=== PATIENT | female | born 1950 | race Caucasian/White ===

== ENCOUNTER 2017-10-17 11:08 | Inpatient (IN) | payer MEDICARE, SELFPAY ==
[2017-10-17] VITALS (21 sets, daily range): BP systolic 102–160; BP diastolic 70–125; PULSE 76–163; RESP 16–28; TEMP 36.4–36.9; O2SAT 92–97; BMI 39.2; BMI 39.4
--- NOTE | 2017-10-17 11:47 | ED.VISSUMM ---
- ER Visit Summary Date of Service: 10/17/17 Chief Complaint: Shortness of breath and leg swelling History of Present Illness: The patient is a 67 F who presents with shortness of breath that has been getting worse over the past 5 weeks. Patient states her legs have gotten more swollen over the past few days and her breathing has gotten worse. Patient admits to a cough but denies any sputum production. Patient states her breathing is worse with laying flat. Patient denies any dyspnea with exertion. Patient states she has been having some drainage from her lower legs. Patient admits to some palpitations that have been intermittent over the past few weeks. Patient denies any chest pain. Patient denies any fevers. Physical Examination: Vital signs are stable except for tachycardia of 153. Oral mucosa is pink and moist. Neck is supple. Trachea is midline. There is no JVD noted. Heart was irregularly irregular and tachycardic. Lungs show bibasilar rales. There is good respiratory effort noted. Abdomen is soft nontender. Musculoskeletal exam reveals 2+ pitting edema of the lower extremities bilaterally. Cranial nerves II through XII are intact. There are no focal motor or sensory deficits noted. Test Results: EKG showed atrial fibrillation with a rate of 151. There are no acute ST or T-wave changes. Chest x-ray shows a density in the right lung base which is worrisome for focal consolidation/infiltrate. There is some mild congestion noted. There is a small right pleural effusion. CBC shows a leukocytosis of 18.9. BUN and creatinine were slightly elevated at 35 and 1.4. BNP is only slightly elevated at 281.6. Emergency Department Course and Treatment: Patient was given a dose of Cardizem IV here. Patient was given a dose of oral Cardizem. Patient was started on antibiotics for community-acquired pneumonia. Case was discussed with the hospitalist. Patient will be admitted to the hospital. Patient and family understood and were agreeable with the plan. All questions were answered. Disposition: Admit to hospital Impression: 1. New onset atrial fibrillation 2. Community-acquired pneumonia This note was generated with Jianjianation software. It may contain incorrect words, spelling, and punctuation that were not noted in review of the chart prior to signing ED Disposition - Plan for ED Patient: Disposition: Acute Care Hospital [facility] Chief Complaint: Shortness of Breath Diagnosis: New onset atrial fibrillation, Community acquired pneumonia Referrals: Care Physician,No Primary [Primary Care Provider] -
[2017-10-17] MEDS: dilTIAZem 25 MG/5 ML Vial 20 MG IV BOLUS (12:14)
[2017-10-17 12:25] LABS: Absolute Lymphocyte Count 2.53 X10^3/ul (0.83-4.51); Absolute Neutrophil Count 14.9 X10^3/uL (2.0-7.7); Basophil# 0.02 X10^3/uL; Basophil% 0.1 % (0-1); Eosinophil# 0.02 X10^3/uL; Eosinophils% 0.1 % (0-5); Hematocrit 44.4 % (37-47); Hemoglobin 14.5 g/dl (12.0-15.0); Lymphocyte # 2.53 X10^3/ul (4.0); Lymphocyte % 13.4 % (19-41); Mean Corp Hgb Conc 32.7 g/gl (32-36); Mean Corpuscular Hgb 30.6 pg (27.0-32.0); Mean Corpuscular Volume 93.7 fL (81-99); Mean Platelet Vol. 10.6 fl (6.2-12.0); Monocyte# 1.43 X10^3/uL; Monocyte% 7.6 % (0-10); Neutrophil # 14.89 X10^3/uL (2.7-7.7); Neutrophil % 78.7 % (47-70); POSITIVE COUNT NO; POSITIVE DIFFERENTIAL NO; POSITIVE MORPHOLOGY NO; Platelet Count 285 K/mm3 (150-450); RBC Distribution Width CV 16.9 % (11.6-14.6); RBC Distribution Width SD 56.9 fl (35.1-43.9); Red Blood Count 4.74 M/mm3 (4.2-5.4); White Blood Count 18.9 K/mm3 (4.4-11.0)
[2017-10-17 12:34] LABS: Anion Gap 11 (5-15); BUN 35 mg/dL (7-18); Calcium,Total 8.3 mg/dL (8.5-10.1); Chloride 109 mmol/L (98-107); EST Glomerular Filtration Rate 40 mL/min (>60); Est Glom Filt Rate - Afr Amer 48 mL/min (>60); Estimated Creatinine Clearance 35.57 ml/min; Glucose 105 mg/dL (74-106); Potassium 4.2 mmol/L (3.5-5.1); Sodium Level 141 mmol/L (136-145)
--- NOTE | 2017-10-17 12:38 | ED.RN ---
Addendum entered by Ana Garza 10/17/17 12:40: DR LICEA MADE AWARE Original Note: Addendum entered by Ana Garza 10/17/17 12:39: Original Note: FAMILY APPROACHED THIS NURSE AND WANTED TO MAKE NOTE THAT THE PATIENT AND FORGOT TO MENTION PT'S NEW ONSTE FORGETFULNESS AND SLURRED SPEECH. DR LICEA NOTED.
[2017-10-17 12:50] LABS: BNP,B-Type NATRIURETIC PEPTIDE 281.6 pg/mL (0-100)
[2017-10-17] MEDS: Ceftriaxone 1 GM/50 ML BAG IV (14:36)
[2017-10-17] MEDS: dilTIAZem 60 MG Tablet PO (14:36)
--- NOTE | 2017-10-17 14:36 | NURSING ---
ATTEMPTED TO CALL ER CHARGE PHONE W/ NO ANSWER. THEN CALLED ADMINISTRATOR TO TELL THEM THEY COULD SEND THE PT UP.
--- NOTE | 2017-10-17 14:44 | PCM.HP.STD ---
<Cassandra Bynum - Last Filed: 10/17/17 15:05> Problem List (1) New onset atrial fibrillation Status: Acute (2) Community acquired pneumonia Status: Acute (3) Obesity (BMI 30-39.9) Status: Chronic History of Present Illness Date of Admission: 10/17/17 Chief Complaint: Shortness of breath, lower extremity swelling. The patient is a 67 year old F who presents to the emergency room due to shortness of breath and lower extremity swelling. Patient notes shortness of breath has been ongoing for approximately 5 weeks. She notes poor sleep due to shortness of breath while lying flat at night. Patient states her lower extremities have been swollen for the last week and increased over the last few days. She denies fever, chills. Denies chest pain. Complains of intermittent palpitations. Complains of dry cough. States cough is worse at night while lying flat. Denies dizziness, lightheadedness. She is unaware of any significant change in weight. Patient does not follow with primary care physician. She denies prior medical history. Does not take any daily medications. Past Medical History Past Medical History (Chronic Problems): Chronic Problems Obesity (BMI 30-39.9) (Chronic) Allergies No Known Allergies Allergy (Verified 10/17/17 11:13) Home Medications: Ambulatory Orders Medication Instructions Recorded NK [NK] 10/17/17 Surgical History: hysterectomy, tonsillectomy Psychiatric History: No pertinent psych hx CHECK PILOT History: No pertinent CHECK PILOT history Lives: With Family Smoking Status: Never smoker Alcohol: None Drugs: None - *Family History Maternal History Items: - - Arthritis, joint issues Paternal History Items: Cancer - Lung, pancreatic Review of Systems Constitutional: Denies: Anorexia, Chills, Fever HEENT: Denies: Head Aches, Sinus Congestion, Sinus Drainage Cardiovascular: Reports: Edema - Lower extremity, Orthopnea, Palpitations. Denies: Chest Pain, Light Headedness, Syncope Respiratory: Reports: Cough - Non productive, Shortness of Breath. Denies: Sputum production Gastrointestinal: Denies: Abdominal Pain, Constipation, Diarrhea, Nausea, Vomiting Genitourinary: Denies: Dysuria Musculoskeletal: Denies: Joint Pain, Joint Tenderness Skin: Denies: Rash, Wounds Neurological: Denies: Numbness, Tingling, Focal weakness Psychiatric: Denies: Anxiety, Depression, Homicidal Ideations, Suicidal Ideations Hematologic/ Lymphatic: Denies: Easy Bruising, Easy Bleeding VTE Information - Inpt Only VTE Present on Admission: No VTE Mechan Device Prophylaxis: None VTE Pharm Prophylaxis ordered?: Yes Patient Problems: Active and Suspected Problems New onset atrial fibrillation (Acute) Community acquired pneumonia (Acute) - Physical Exam General: Alert, Oriented x3, Cooperative, No apparent distress HEENT: Atraumatic, PERRLA, EOMI, Normocephalic Neck: Supple, No JVD, Negative Carotid Bruits Lungs: Normal air movement, Rales - BL bases Cardiovascular: No murmurs, Tachycardic, - - Atrial fibrillation Abdomen: Bowel Sounds Present, Soft, Non Tender, Non-Distended Extremities: No clubbing, No cyanosis, Capillary Refill Less than 3 Seconds, Edema - +1 BL lower extremity Skin: No rashes, No breakdown Musculoskeletal: No Tenderness to Palpation of Joints or Extremities Neurological: Cranial nerves II-XII grossly intact, Neuro grossly intact Psych/Mental Status: Normal Affect, Appropriate Vital Signs Temp Pulse Resp BP Pulse Ox 97.8 F 140 H 21 H 153/125 H 96 10/17/17 11:10 10/17/17 14:16 10/17/17 14:16 10/17/17 14:16 10/17/17 14:16 Oxygen Flow Rate (L/min) 2 Oxygen Delivery Method Nasal Cannula Weight: 235 lb 10.786 oz Body Mass Index (BMI) 39.2 Laboratory Tests Past 24 Hrs 10/17/17 10/17/17 10/17/17 12:11 12:11 12:11 WBC 18.9 H RBC 4.74 Hgb 14.5 Hct 44.4 MCV 93.7 MCH 30.6 MCHC 32.7 RDW 16.9 H RDW Differential 56.9 H Plt Count 285 MPV 10.6 Immature Gran % (Auto) 0.100 Neut % (Auto) 78.7 H Lymph % (Auto) 13.4 L [place] % (Auto) 7.6 Eos % (Auto) 0.1 Baso % (Auto) 0.1 Absolute Neuts (auto) 14.9 H Absolute Lymphs (auto) 2.53 Total Counted Not Reportable Sodium 141 Potassium 4.2 Chloride 109 H Carbon Dioxide 21.0 Anion Gap 11 BUN 35 H Creatinine 1.40 H Estim Creat Clear Calc 35.57 Est GFR (MDRD) Af Amer 48 L Est GFR (MDRD) Non-Af 40 L BUN/Creatinine Ratio 25.0 H Glucose 105 Calcium 8.3 L Troponin I 0.027 B-Natriuretic Peptide 281.6 H Assessment/Plan All Active Problems New onset atrial fibrillation (Acute) Community acquired pneumonia (Acute) 1. New onset atrial fibrillation with RVR-EKG in ER A. fib with RVR, no ST-T changes. Patient received 20 mg IV Cardizem bolus in ER followed by Cardizem 60 mg p.o. ?1. Heart rate remains elevated. Begin Cardizem drip. Cycle enzymes. Check TSH, mag. Obtain echocardiogram. Chadsvasc score 2. Unclear medical history as patient has not seen PCP. Heparin sc for now, further assess need for oral anticoagulation. Begin aspirin 81mg. 2. Acute community acquired right lower lobe pneumonia-chest x-ray on admission with small right pleural effusion. WBC 18.9. Albuterol and DuoNeb aerosol. Check urine for strep and Legionella. IV azithromycin and IV Unasyn. IS. 3. Acute hypoxia-secondary to #1/#2. Continue supplement oxygen to maintain O2 at or above 90%. 4. Elevated blood pressure-no known prior history of hypertension. Hydralazine prn SBP >160. Continue to monitor. May need addition of oral regimen. 5. Suspected chronic kidney disease stage II-III-no prior labs. Unclear baseline. Trend BMP. 6. Obesity-encourage diet and lifestyle modifications. Nutrition consult. DVT prophylaxis-heparin sc. This patient was seen by SHONA Hand under the supervision of Dr. Rodriguez. <Nash Rodriguez F - Last Filed: 10/17/17 15:49> History of Present Illness The patient is a 67 year old F [] Past Medical History Allergies No Known Allergies Allergy (Verified 10/17/17 11:13) - Physical Exam Vital Signs Temp Pulse Resp BP Pulse Ox 97.8 F 140 H 21 H 153/125 H 96 10/17/17 11:10 10/17/17 14:16 10/17/17 14:16 10/17/17 14:16 10/17/17 14:16 Weight: 236 lb 15.951 oz Body Mass Index (BMI) 39.4 Assessment/Plan Addendum: Dr. Rodriguez I personally examined the patient and reviewed the chart. I agree with the above. Ms. Padilla is a 67-year-old female with no significant past medical history because she has not been to see a doctor in several years. She presents to the ER today with 5 week history of progressive shortness of breath orthopnea and bilateral lower extremity swelling without calf pain. She denies any chest pain, lightheadedness, or syncope. General: Alert, Oriented x3, Cooperative, No apparent distress HEENT: Atraumatic, EOMI, Normocephalic Oral: Moist Mucosa Neck: Supple, JVD Lungs: Clear to auscultation, Normal air movement, No rhonchi, No wheeze, No rales, diminished at b/l bases Cardiovascular: tachycardic, irregular Rhythm, Normal S1, Normal S2, No murmurs Abdomen: Soft, Non Tender, Non-Distended, No Hepato-splenomegaly Extremities: 2+ pitting edema, Capillary Refill Less than 3 Seconds Skin: No rashes, No breakdown Psych/Mental Status: Normal Affect, Appropriate 1. SOB/Edema/RLL CAP/Afib with RVR/LUAN - Based on criteria she is septic, however, she is also in a fib and likely heart failure that needs further characterization - In lieu of fluid boluses which would be dangerous, Will give IV lasix to help with her fluid overloaded status - The only SIRS criteria I feel that is present from her pneumonia is her leukocytosis, so I highly doubt she is truly septic - C/w Unasyn/Azithro with plans to discharge on augmentin and azithro - echo in the am - TSH, A1c, Lipid panel and a repeat troponin are all pending - currently she is a CHADS2 of 1, the echo can demonstrate CHF and the A1c will elucidate any diabetes. She does have an elevated SBP however I am unsure if this is chronic or acute based on her symptoms. can decide on anticoagulation vs Aspirin prior to DC when more data is available DVT: heparin BID Diet: Cardiac Code Visit Inpatient E&M: 69040 Init Hosp L3
[2017-10-17] MEDS: Furosemide 40 MG/4 ML Vial IV (15:58)
[2017-10-17] MEDS: 0.9% NaCl Peripheral Flush Adult/Peds IV ×2 (15:58→21:53)
[2017-10-17 16:51] LABS: Hemoglobin A1c 5.3 % (4.2-6.3)
[2017-10-17 17:01] LABS: Thyroid Stim Hormone (TSH) 2.09 uIU/mL (0.358-3.74)
[2017-10-17] MEDS: Heparin Injection (Vial) 5,000 UNIT/ML VIAL 5000 UNIT SC (21:49)
[2017-10-18] VITALS (31 sets, daily range): BP systolic 97–145; BP diastolic 53–102; PULSE 68–97; RESP 14–26; TEMP 36.1–37; O2SAT 91–97
[2017-10-18 05:29] LABS: Absolute Lymphocyte Count 3.26 X10^3/ul (0.83-4.51); Absolute Neutrophil Count 12.2 X10^3/uL (2.0-7.7); Basophil# 0.03 X10^3/uL; Basophil% 0.2 % (0-1); Eosinophil# 0.09 X10^3/uL; Eosinophils% 0.5 % (0-5); Hematocrit 44.3 % (37-47); Hemoglobin 14.1 g/dl (12.0-15.0); Lymphocyte # 3.26 X10^3/ul (4.0); Lymphocyte % 19.3 % (19-41); Mean Corp Hgb Conc 31.8 g/gl (32-36); Mean Corpuscular Hgb 30.1 pg (27.0-32.0); Mean Corpuscular Volume 94.7 fL (81-99); Mean Platelet Vol. 10.1 fl (6.2-12.0); Monocyte# 1.28 X10^3/uL; Monocyte% 7.6 % (0-10); Neutrophil # 12.17 X10^3/uL (2.7-7.7); Neutrophil % 72.2 % (47-70); Platelet Count 262 K/mm3 (150-450); RBC Distribution Width CV 17.1 % (11.6-14.6); RBC Distribution Width SD 58.6 fl (35.1-43.9); Red Blood Count 4.68 M/mm3 (4.2-5.4); White Blood Count 16.9 K/mm3 (4.4-11.0)
[2017-10-18 05:31] LABS: POSITIVE COUNT NO; POSITIVE DIFFERENTIAL NO; POSITIVE MORPHOLOGY NO
[2017-10-18 05:48] LABS: Anion Gap 10 (5-15); BUN 31 mg/dL (7-18); BUN/Creat Ratio 22.5 RATIO (10-20); Calcium,Total 8.1 mg/dL (8.5-10.1); Chloride 105 mmol/L (98-107); Cholesterol 127 mg/dL (200); Creatinine, Serum 1.38 mg/dL (0.55-1.02); EST Glomerular Filtration Rate 41 mL/min (>60); Est Glom Filt Rate - Afr Amer 49 mL/min (>60); Estimated Creatinine Clearance 36.08 ml/min; Glucose 101 mg/dL (74-106); High Density Lipoprotein 28 mg/dL; Potassium 3.8 mmol/L (3.5-5.1); Sodium Level 142 mmol/L (136-145); Triglycerides 153 mg/dL; Very Low Density Lipoprotein 31 mg/dL (5-40)
[2017-10-18] MEDS: Heparin Injection (Vial) 5,000 UNIT/ML VIAL 5000 UNIT SC (08:58)
--- NOTE | 2017-10-18 12:02 | PCM.PROGNOTE ---
<Cassandra Bynum - Last Filed: 10/18/17 12:13> Patient Problems: Active and Suspected Problems New onset atrial fibrillation (Acute) Community acquired pneumonia (Acute) Subjective: Patient seen and examined. States breathing is improved. Denies chest pain, palpitations. No other complaints at this time. - Physical Exam General: Alert, Oriented x3, Cooperative, No apparent distress HEENT: Atraumatic, PERRLA, EOMI, Normocephalic Neck: Supple, No JVD, Negative Carotid Bruits Lungs: Clear to auscultation, Diminished Cardiovascular: - - Atrial fibrillation, rate controlled. Abdomen: Bowel Sounds Present, Soft, Non Tender, Non-Distended Extremities: No clubbing, No cyanosis, Capillary Refill Less than 3 Seconds, Edema - +1 lower extremity edema Skin: No rashes, No breakdown Musculoskeletal: No Tenderness to Palpation of Joints or Extremities Neurological: Cranial nerves II-XII grossly intact, Neuro grossly intact Psych/Mental Status: Normal Affect, Appropriate Vital Signs Temp Pulse Resp BP Pulse Ox 97.5 F L 87 23 H 124/78 H 95 10/18/17 09:00 10/18/17 11:03 10/18/17 11:00 10/18/17 11:00 10/18/17 11:00 Oxygen Flow Rate (L/min) 2 Oxygen Delivery Method Room Air Weight: 233 lb 14.567 oz Body Mass Index (BMI) 39.4 Intake and Output for Last 24 Hours 10/16/17 10/17/17 10/18/17 23:59 23:59 23:59 Intake Total 921.2 / 921.2 1484.9 / 1484.9 Output Total 600 / 600 700 / 700 Balance 321.2 / 321.2 784.9 / 784.9 Laboratory Tests Past 24 Hrs 10/17/17 10/17/17 10/18/17 16:20 16:20 05:10 WBC 16.9 H RBC 4.68 Hgb 14.1 Hct 44.3 MCV 94.7 MCH 30.1 MCHC 31.8 L RDW 17.1 H RDW Differential 58.6 H Plt Count 262 MPV 10.1 Immature Gran % (Auto) 0.200 Neut % (Auto) 72.2 H Lymph % (Auto) 19.3 [place] % (Auto) 7.6 Eos % (Auto) 0.5 Baso % (Auto) 0.2 Absolute Neuts (auto) 12.2 H Absolute Lymphs (auto) 3.26 Total Counted Not Reportable Sodium Potassium Chloride Carbon Dioxide Anion Gap BUN Creatinine Estim Creat Clear Calc Est GFR (MDRD) Af Amer Est GFR (MDRD) Non-Af BUN/Creatinine Ratio Glucose Hemoglobin A1c 5.3 Calcium Troponin I 0.017 Triglycerides Cancelled Cholesterol Cancelled LDL Cholesterol Cancelled VLDL Cholesterol Cancelled HDL Cholesterol Cancelled TSH 2.09 10/18/17 05:10 WBC RBC Hgb Hct MCV MCH MCHC RDW RDW Differential Plt Count MPV Immature Gran % (Auto) Neut % (Auto) Lymph % (Auto) [place] % (Auto) Eos % (Auto) Baso % (Auto) Absolute Neuts (auto) Absolute Lymphs (auto) Total Counted Sodium 142 Potassium 3.8 Chloride 105 Carbon Dioxide 27.0 Anion Gap 10 BUN 31 H Creatinine 1.38 H Estim Creat Clear Calc 36.08 Est GFR (MDRD) Af Amer 49 L Est GFR (MDRD) Non-Af 41 L BUN/Creatinine Ratio 22.5 H Glucose 101 Hemoglobin A1c Calcium 8.1 L Troponin I Triglycerides 153 Cholesterol 127 LDL Cholesterol 68 VLDL Cholesterol 31 HDL Cholesterol 28 L TSH Medical Necessity - Tobacco Use Smoking Status: Never smoker Assessment/Plan All Active Problems New onset atrial fibrillation (Acute) Community acquired pneumonia (Acute) 1. New onset atrial fibrillation with RVR-EKG in ER A. fib with RVR, no ST-T changes. Continue Cardizem drip. Heart rate controlled. Enzymes negative. Cardiology following. Echocardiogram pending. Chadsvasc score 2. Further recommendations for anticoagulation per cardiology. 2. Suspected acute diastolic CHF with associated acute hypoxia-chest x-ray on admission with obesity in the right lung base, small right pleural effusion, moderate enlargement of the cardiac silhouette with mild edema. BNP on admission 281. Breathing improved with IV Lasix. Awaiting echocardiogram results. 3. Suspected acute community acquired right lower lobe pneumonia-chest x-ray on admission with small right pleural effusion. WBC 18.9 on admission. Albuterol and DuoNeb aerosol. IV azithromycin and IV Unasyn empirically. 4. Elevated blood pressure-no known prior history of hypertension. Hydralazine prn SBP >160. Continue to monitor. May need addition of oral regimen. 5. Suspected chronic kidney disease stage II-III-no prior labs. Unclear baseline. Trend BMP. 6. Obesity-encourage diet and lifestyle modifications. Nutrition consult. DVT prophylaxis-heparin sc. This patient was seen by SHONA Hand under the supervision of Dr. Sánchez. <Cj Sánchez - Last Filed: 10/18/17 15:37> - Physical Exam General: Alert, No apparent distress HEENT: Atraumatic, PERRLA, Normocephalic Oral: Moist Mucosa, No Gingival or Mucosal Lesions/ Ulcerations Lungs: Clear to auscultation, Normal air movement, No rhonchi, No wheeze Cardiovascular: Normal S1, Normal S2, - Abdomen: Bowel Sounds Present, Soft, Non Tender, Non-Distended Extremities: No Calf Tenderness, Edema Skin: No rashes, No breakdown Lymphatic: No Cervical, Supraclavicular, or Inguinal Adenopathy, Cervical Adenopathy Neurological: Neuro grossly intact, Muscle tone normal, Coordination normal Psych/Mental Status: Normal Affect, Appropriate Vital Signs Temp Pulse Resp BP Pulse Ox 36.4 C L 86 25 H 132/84 H 95 10/18/17 13:00 10/18/17 14:00 10/18/17 14:00 10/18/17 14:00 10/18/17 14:00 Oxygen Flow Rate (L/min) 2 Oxygen Delivery Method Room Air Weight: 106.1 kg Body Mass Index (BMI) 39.4 Intake and Output for Last 24 Hours 10/16/17 10/17/17 10/18/17 23:59 23:59 23:59 Intake Total 921.2 / 921.2 1484.9 / 1484.9 Output Total 600 / 600 700 / 700 Balance 321.2 / 321.2 784.9 / 784.9 Microbiology Past 72 Hours 10/18/17 14:45 Streptococcus pneumoniae Antigen (M - Final Urine, Clean Catch 10/18/17 14:45 Legionella Antigen - Final Urine, Clean Catch Laboratory Tests Past 24 Hrs 10/17/17 10/17/17 10/18/17 16:20 16:20 05:10 WBC 16.9 H RBC 4.68 Hgb 14.1 Hct 44.3 MCV 94.7 MCH 30.1 MCHC 31.8 L RDW 17.1 H RDW Differential 58.6 H Plt Count 262 MPV 10.1 Immature Gran % (Auto) 0.200 Neut % (Auto) 72.2 H Lymph % (Auto) 19.3 [place] % (Auto) 7.6 Eos % (Auto) 0.5 Baso % (Auto) 0.2 Absolute Neuts (auto) 12.2 H Absolute Lymphs (auto) 3.26 Total Counted Not Reportable Sodium Potassium Chloride Carbon Dioxide Anion Gap BUN Creatinine Estim Creat Clear Calc Est GFR (MDRD) Af Amer Est GFR (MDRD) Non-Af BUN/Creatinine Ratio Glucose Hemoglobin A1c 5.3 Calcium Troponin I 0.017 Triglycerides Cancelled Cholesterol Cancelled LDL Cholesterol Cancelled VLDL Cholesterol Cancelled HDL Cholesterol Cancelled TSH 2.09 10/18/17 05:10 WBC RBC Hgb Hct MCV MCH MCHC RDW RDW Differential Plt Count MPV Immature Gran % (Auto) Neut % (Auto) Lymph % (Auto) [place] % (Auto) Eos % (Auto) Baso % (Auto) Absolute Neuts (auto) Absolute Lymphs (auto) Total Counted Sodium 142 Potassium 3.8 Chloride 105 Carbon Dioxide 27.0 Anion Gap 10 BUN 31 H Creatinine 1.38 H Estim Creat Clear Calc 36.08 Est GFR (MDRD) Af Amer 49 L Est GFR (MDRD) Non-Af 41 L BUN/Creatinine Ratio 22.5 H Glucose 101 Hemoglobin A1c Calcium 8.1 L Troponin I Triglycerides 153 Cholesterol 127 LDL Cholesterol 68 VLDL Cholesterol 31 HDL Cholesterol 28 L TSH Assessment/Plan Patient seen and examined independently. Data reviewed. I agree with the above note by the nurse practitioner. 1. New onset atrial fibrillation Improved with the diltiazem drip Patient has a [id number] score of 3 Will start the patient on Lovenox weight based 2. Acute heart failure with reduced ejection fraction EF of 20% Complicated by pulmonary hypertension with right ventricular systolic pressure of 42 mmHg Start Lasix Start JESUS inhibitor Start beta-kendy once out of heart failure Cardiology on consultation 3. Possible pneumococcal pneumonia I feel most of the patient's chest x-ray findings are more consistent with heart failure rather than pneumonia but pneumonia was concerned given the patient's leukocytosis Follow-up urinary antigens for Streptococcus and Legionella, if those are negative then would discontinue antibiotics 4. Chronic kidney disease stage III Monitor Code Visit Inpatient E&M: 78353 Subs Hosp L3
[2017-10-18] MEDS: Furosemide 40 MG Tablet PO ×2 (12:41→17:09)
--- NOTE | 2017-10-18 14:37 | CASEMGMT ---
RN CM assessment completed. See Link. DC Plan Home No needs identified @ this time. Jeremiah ZAVALA BSN CM
[2017-10-18] MEDS: Enoxaparin 100 MG/ML Syringe SC (17:09)
[2017-10-18] MEDS: Lisinopril 10 MG Tablet PO (17:09)
--- NOTE | 2017-10-18 17:11 | PCM.CONS.C ---
Problem List (1) New onset atrial fibrillation Status: Acute (2) Cardiomyopathy Status: Acute Qualifiers: Cardiomyopathy type: unspecified Qualified Code(s): I42.9 - Cardiomyopathy, unspecified (3) Systolic CHF, acute Status: Acute (4) Valvular heart disease Status: Acute (5) HTN (hypertension) Status: Chronic Qualifiers: Hypertension type: essential hypertension Qualified Code(s): I10 - Essential (primary) hypertension (6) Community acquired pneumonia Status: Acute Reason for Consult Date of Consultation: 10/18/17 History of Present Illness: The patient is a 67 year old white female with a past medical history which has included hypertension for which she states it has waxed and waned and she has not required ongoing medical management who is now referred for evaluation of shortness of breath/dyspnea with associated chest discomfort and subsequent findings of atrial fibrillation, and abnormal transthoracic echocardiogram suggesting underlying valvular heart disease and the appearance of a cardiomyopathy, as well as a pneumonia which cannot be excluded. She notes that she has not felt well for at least one month. Over this period of time she has had progressive shortness of breath and dyspnea both at rest and with exertion. She has had episodes of orthopnea. She states she has had chest pressure associated with her shortness of breath and dyspnea. She does not recall obvious associated nausea, emesis, or diaphoresis. She does not complain of any obvious lower extremity peripheral pitting edema. She is unclear whether she truly has felt any palpitations. There has been no near syncope or syncope. She presented to the emergency department for further evaluation. From a cardiovascular standpoint she has had cardiac enzymes which have been negative. An ECG demonstrated atrial fibrillation with rapid ventricular response with nonspecific T-wave abnormality. A chest x-ray suggested evidence of increased pulmonary vascularity compatible with CHF/pulmonary edema and pleural effusion although an underlying pneumonia cannot be excluded. A transthoracic echocardiogram has been performed. This demonstrated global left ventricular systolic dysfunction with an estimated LVEF of 20%, biatrial enlargement, moderate MR, moderately severe TR, and an estimated RV systolic pressure 42 mmHg-please see official report. She has been referred for further cardiovascular evaluation. 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 Denies: PND, Peripheral Edema, Palpitations, Lightheadedness, Dizziness, Near Syncope, Syncope Respiratory: Reports: Shortness of Breath. Denies: Cough, Sputum Production, Hemoptysis Gastrointestinal: Denies: Hematemesis, Hematochezia, Melena Genitourinary: Denies: Dysuria, Hematuria Skin: Denies: Rash Subjectve: This is a 67-year-old white female who appears to be resting reasonably comfortably at this time without O2 support and in no acute distress. Objective: Vital Signs Temp Pulse Resp BP Pulse Ox 97.5 F L 80 18 130/85 H 91 10/18/17 13:00 10/18/17 15:08 10/18/17 15:00 10/18/17 15:00 10/18/17 15:00 Oxygen Flow Rate (L/min) 2 Oxygen Delivery Method Mechanical Ventilator Weight: 233 lb 14.567 oz Body Mass Index (BMI) 39.4 Intake and Output for Last 24 Hours 10/16/17 10/17/17 10/18/17 23:59 23:59 23:59 Intake Total 921.2 / 921.2 1484.9 / 1484.9 Output Total 600 / 600 700 / 700 Balance 321.2 / 321.2 784.9 / 784.9 General: Awake, Alert, Oriented x 3, Cooperative, No Acute Distress HEENT: Atraumatic, Normocephalic, PERRL, EOMI, Sclera Non Icteric Oral: Moist Mucosa Neck: Supple, Good ROM, No JVD Lungs: Rales - Markus Bases Cardiovascular: Irregular Rhythm, Normal S1, Normal S2 Murmur Murmur: Grade 2/6, Mid Systolic, LLSB Vascular: No Carotid Bruits Abdomen: Bowel Sounds Present, Soft, Non Tender Extremities: No Cyanosis, No Clubbing, No edema Neurological: No Focal Motor or Sensory Deficit Psych/Mental Status: Flat Affect 10/18/17 05:10: WBC 16.9 H, RBC 4.68, Hgb 14.1, Hct 44.3, MCV 94.7, MCH 30.1, MCHC 31.8 L, RDW 17.1 H, RDW Differential 58.6 H, Plt Count 262, MPV 10.1, Immature Gran % (Auto) 0.200, Neut % (Auto) 72.2 H, Lymph % (Auto) 19.3, [place] % (Auto) 7.6, Eos % (Auto) 0.5, Baso % (Auto) 0.2, Absolute Neuts (auto) 12.2 H, Total Counted Not Reportable 10/18/17 05:10: Sodium 142, Potassium 3.8, Chloride 105, Carbon Dioxide 27.0, Anion Gap 10, BUN 31 H, Creatinine 1.38 H, Est GFR (MDRD) Af Amer 49 L, Est GFR (MDRD) Non-Af 41 L, BUN/Creatinine Ratio 22.5 H, Glucose 101, Calcium 8.1 L, Triglycerides 153, Cholesterol 127, LDL Cholesterol 68, VLDL Cholesterol 31, HDL Cholesterol 28 L Rhythm: Atrial fibrillation EKG: As noted above ECHO: As noted above CXR: As noted above Assessment/Plan 1. Atrial fibrillation The patient presents with atrial fibrillation. It is unclear as to the exact etiology as to whether this is related to her history of intermittent hypertension, her findings based on echocardiogram of underlying cardiomyopathy and valvular heart disease, or possible underlying pneumonia process. She is being monitored for other etiologies. In the meantime she has been treated with rate control therapy and anticoagulant therapy. Her rate has come under better control. She will need continued rate control therapy and anticoagulant therapy. She may eventually need antiarrhythmic therapy. She may also need an attempt at regaining sinus rhythm with synchronized biphasic DC cardioversion in the future. 2. Cardiomyopathy The patient does appear to have an underlying cardiomyopathy based upon her echocardiographic images. It is unclear whether this is a non-CAD related cardiomyopathy that led to her atrial dysrhythmia and appearance of findings compatible with CHF versus having any CAD component to it versus being secondary to her atrial dysrhythmia with rapid ventricular response such as a tachycardic induced cardiomyopathy. At the present time she is going to be monitored. She is being treated. This will include nitrates as needed, initiation of beta-blockers, she is on diuretics, she is also on afterload reducing agents. It was felt reasonable that she undergo further evaluation with diagnostic cardiac catheterization based upon her symptom complex and objective findings to further define whether she does have any underlying CAD component that would warrant further management above and beyond medical therapy. This procedure and risks was discussed with the patient with her family members present. She as well as they were agreeable with this approach. 3. Congestive heart failure: Acute systolic She does appear to have findings compatible with acute systolic CHF. She has objective findings demonstrating her LV systolic function is diminished. Again is unclear whether this is a non-CAD related cardiomyopathy, has a CAD component, or is related to her tachydysrhythmia with atrial fibrillation with RVR. At the present time she will continue medical management as noted above. She will continue her cardiovascular evaluation as described above. 4. Valvular heart disease It is unclear as to whether her valvular heart disease he has a primary etiology for her other findings or secondary to her other findings such as her atrial dysrhythmia and her cardiomyopathy. At the present time she will continue to be monitored. She will continue medical management for her acute condition. She will undergo further evaluation as described above. 5. Hypertension She states she has a history of intermittent hypertension. She has not been on medical therapy. Her blood pressures will be followed as she goes to her evaluation and care. 6. Pneumonia There is concern that she may have an underlying pneumonia based upon her symptoms, laboratory studies, and chest x-ray. She is being treated for such. Again, the above was discussed with the patient, her spouse, her son, and other family members present. They were all in agreement with proceeding with the aforementioned evaluation and care plan. This note was generated with [employer] software. It may contain incorrect words, spelling, and punctuation that were not noted in checking the note before signing.
[2017-10-18] MEDS: Carvedilol 3.125 MG TABLET PO (22:18)
[2017-10-19] VITALS (26 sets, daily range): BP systolic 100–154; BP diastolic 55–91; PULSE 52–104; RESP 13–25; TEMP 36.3–36.9; O2SAT 92–98
--- NOTE | 2017-10-19 05:55 | EKG12_ITS ---
Test Reason : AM EKG Blood Pressure : / mmHG Vent. Rate : 053 BPM Atrial Rate : 033 BPM P-R Int : 000 ms QRS Dur : 082 ms QT Int : 524 ms P-R-T Axes : 000 099 119 degrees QTc Int : 491 ms Atrial fibrillation with slow ventricular response Rightward axis Septal infarct , age undetermined Abnormal ECG When compared with ECG of 17-OCT-2017 11:36, MANUAL COMPARISON REQUIRED, DATA IS UNCONFIRMED Confirmed by TAYLOR VOGT ([id number]), newspaper editor managing JESSICA TOVAR ([id number]) on 10/25/2017 3:15:50 PM Referred By: RACHID Confirmed By:TAYLOR VOGT
[2017-10-19] MEDS: Lisinopril 10 MG Tablet PO (06:08)
[2017-10-19] MEDS: Carvedilol 3.125 MG TABLET PO ×2 (06:09→21:08)
[2017-10-19 06:32] LABS: Squamous Epithelial Cells - UA 0 SEEN /hpf (5-10)
[2017-10-19 06:48] LABS: Hematocrit 42.6 % (37-47); Hemoglobin 14.1 g/dl (12.0-15.0); Mean Corp Hgb Conc 33.1 g/gl (32-36); Mean Corpuscular Hgb 30.9 pg (27.0-32.0); Mean Corpuscular Volume 93.4 fL (81-99); Mean Platelet Vol. 10.5 fl (6.2-12.0); Platelet Count 288 K/mm3 (150-450); RBC Distribution Width CV 17.4 % (11.6-14.6); Red Blood Count 4.56 M/mm3 (4.2-5.4); White Blood Count 18.4 K/mm3 (4.4-11.0)
[2017-10-19 06:51] LABS: Scan Indicated on CBC? Y/N NO
[2017-10-19 06:54] LABS: International Normalized Ratio 1.1; Prothrombin Time (Protime)PT. 13.8 SECONDS (11.7-14.9)
[2017-10-19 06:55] LABS: Partial Thromboplast Time 32.9 Seconds (24.1-36.2)
[2017-10-19 06:56] LABS: Color, Urine Yellow (Yellow); Glucose, Dipstick Normal (Normal); Ketone-Dipstick Negative (Negative); Leukocyte Esterase-Dipstick 100 /ul (Negative); Nitrite-Dipstick Negative (Negative); Occult Blood-Urine 250 /ul (Negative); Protein-Dipstick 30 mg/dl (Negative); Specific Gravity, Urine 1.025 (1.002-1.030); Urine Bilirubin Dipstick Negative (Negative); Urine Clarity Cloudy (Clear); Urine Urobilinogen Normal (Normal)
[2017-10-19 07:04] LABS: AST(SGOT) 57 U/L (15-37); Alanine Aminotransfer ALT/SGPT 139 U/L (13-56); Albumin, Serum 3.1 g/dL (3.2-5.0); Alkaline Phosphatase 100 U/L (45-117); Anion Gap 12 (5-15); BUN 29 mg/dL (7-18); BUN/Creat Ratio 20.6 RATIO (10-20); Bilirubin, Direct 0.33 mg/dL (0.00-0.30); Chloride 105 mmol/L (98-107); Creatinine, Serum 1.41 mg/dL (0.55-1.02); EST Glomerular Filtration Rate 40 mL/min (>60); Est Glom Filt Rate - Afr Amer 48 mL/min (>60); Estimated Creatinine Clearance 35.32 ml/min; Glucose 105 mg/dL (74-106); Potassium 3.5 mmol/L (3.5-5.1); Protein, Total 6.1 g/dL (6.4-8.2); Sodium Level 142 mmol/L (136-145)
[2017-10-19 07:06] LABS: Bacteria 1+ /hpf (None Seen)
[2017-10-19 07:07] LABS: Hyaline Cast 0-5 SEEN /lpf (0-5); Mucous, Urine 2+ /hpf (<or=2+); Red Blood Cells-Urine 5-10 SEEN /hpf (0-5); White Blood Cells 10-25 SEEN /hpf (0-5)
--- NOTE | 2017-10-19 08:24 | PCM.PN.CARD ---
Subjectve: The patient appears to have been resting comfortably with no acute complaints. She has presented to the cardiac catheterization laboratory for further evaluation. This procedure was performed without obvious adverse event. Objective: Vital Signs Temp Pulse Resp BP Pulse Ox 97.8 F 67 22 H 105/91 H 93 10/19/17 04:00 10/19/17 07:00 10/19/17 07:00 10/19/17 07:00 10/19/17 07:00 Oxygen Flow Rate (L/min) 1 Oxygen Delivery Method Room Air Weight: 233 lb 0.458 oz Body Mass Index (BMI) 39.4 Intake and Output for Last 24 Hours 10/17/17 10/18/17 10/19/17 23:59 23:59 23:59 Intake Total 921.2 / 921.2 2151.9 / 2151.9 120 / 120 Output Total 600 / 600 700 / 700 200 / 200 Balance 321.2 / 321.2 1451.9 / 1451.9 -80 / -80 General: Awake, Alert, Oriented x 3, Cooperative, No Acute Distress HEENT: Atraumatic, Normocephalic, PERRL, EOMI, Sclera Non Icteric Oral: Moist Mucosa Neck: Supple, Good ROM, No JVD Lungs: Clear to auscultation Cardiovascular: Irregular Rhythm, Normal S1, Normal S2 Murmur Murmur: Grade 2/6, Mid Systolic, LLSB Vascular: No Carotid Bruits Abdomen: Bowel Sounds Present, Soft, Non Tender Extremities: No Cyanosis, No Clubbing, No edema Neurological: No Focal Motor or Sensory Deficit Psych/Mental Status: Flat Affect 10/18/17 14:45: Urine Color Yellow, Urine Clarity Cloudy, Urine pH 5.0, Ur Specific [place] 1.025, Urine Protein 30 H, Urine Glucose (UA) Normal, Urine Ketones Negative, Urine Occult Blood 250 H, Urine Nitrite Negative, Urine Bilirubin Negative, Urine Urobilinogen Normal, Ur Leukocyte Esterase 100 H, Urine RBC 5-10 SEEN, Urine WBC 10-25 SEEN 10/19/17 06:30: WBC 18.4 H, RBC 4.56, Hgb 14.1, Hct 42.6, MCV 93.4, MCH 30.9, MCHC 33.1, RDW 17.4 H, RDW Differential 58.0 H, Plt Count 288, MPV 10.5 10/19/17 06:30: Sodium 142, Potassium 3.5, Chloride 105, Carbon Dioxide 25.0, Anion Gap 12, BUN 29 H, Creatinine 1.41 H, Est GFR (MDRD) Af Amer 48 L, Est GFR (MDRD) Non-Af 40 L, BUN/Creatinine Ratio 20.6 H, Glucose 105, Calcium 8.0 L, Total Bilirubin 1.70 H, Direct Bilirubin 0.33 H 10/19/17 06:30: PT 13.8, INR 1.1, APTT 32.9 Rhythm: Atrial fibrillation EKG: Atrial fibrillation Cardiac Cath: Preliminary results: Left ventricle: Globally hypokinetic: LVEF approximately 30%: Coronary arteries-angiographically normal Medical Necessity - Tobacco Use Smoking Status: Never smoker Assessment/Plan 1. Atrial fibrillation The patient presents with atrial fibrillation. It is unclear as to the exact etiology as to whether this is related to her history of intermittent hypertension, her findings based on echocardiogram and now her cardiac catheterization of an underlying cardiomyopathy and valvular heart disease, or possible underlying pneumonia process. She is being monitored for other etiologies. She will continue medical therapy with respect to rate control therapy. Once she recovers from her cardiac catheterization her anticoagulant therapy can be reassessed and resumed as deemed appropriate. She may eventually need antiarrhythmic therapy. She may also need an attempt at regaining sinus rhythm with synchronized biphasic DC cardioversion in the future. 2. Cardiomyopathy The patient does appear to have an underlying cardiomyopathy based upon her echocardiographic images. Based upon her cardiac catheterization this appears to be a non-CAD related cardiomyopathy. As noted before it is unclear whether the cardiomyopathy led to her atrial dysrhythmia and appearance of findings compatible with CHF versus having any CAD component to it versus being secondary to her atrial dysrhythmia with rapid ventricular response such as a tachycardic induced cardiomyopathy. She will continue medical management. This will include agents such as beta blockers and JESUS inhibitors and other agents as needed. 3. Congestive heart failure: Acute systolic She does appear to have findings compatible with acute systolic CHF. She has objective findings demonstrating her LV systolic function is diminished. Again is unclear whether this is a non-CAD related cardiomyopathy, has a CAD component, or is related to her tachydysrhythmia with atrial fibrillation with RVR. At the present time she will continue medical management as noted above. She will continue her cardiovascular evaluation as described above. 4. Valvular heart disease It is unclear as to whether her valvular heart disease he has a primary etiology for her other findings or secondary to her other findings such as her atrial dysrhythmia and her cardiomyopathy. At the present time she will continue to be monitored. She will continue medical management for her acute condition. 5. Hypertension She states she has a history of intermittent hypertension. She has not been on medical therapy. Her blood pressures will be followed as she goes to her evaluation and care. 6. Pneumonia There is concern that she may have an underlying pneumonia based upon her symptoms, laboratory studies, and chest x-ray. She is being treated for such. Again, the above was discussed with the patient and her other family members present. This note was generated with [employer] dictation software. It may contain incorrect words, spelling, and punctuation that were not noted in checking the note before signing.
--- NOTE | 2017-10-19 08:56 | NURSING ---
ORDER PLACED BY DR GUTIÉRREZ TO WEAN CARDIZEM GTT. WHEN PT ARRIVED FROM [employer] [facility], CARDIZEM GTT WAS WEANED TO 5ML/HR. AT 0845 CARDIZEM GTT STOPPED AND IV FLUSHED WITH NS. HR SUSTAINING IN THE 70S.
[2017-10-19] MEDS: 0.9% Normal Saline 1,000 ML 50 ML IV (09:21)
[2017-10-19] MEDS: Furosemide 40 MG Tablet PO ×2 (09:31→17:16)
[2017-10-19] MEDS: Lisinopril 5 MG Tablet PO ×2 (09:32→21:08)
--- NOTE | 2017-10-19 14:30 | NURSING ---
Read SN documentation
--- NOTE | 2017-10-19 16:59 | PCM.PN.HOSP ---
Patient Problems: Active and Suspected Problems New onset atrial fibrillation (Acute) Community acquired pneumonia (Acute) Cardiomyopathy (Acute) Valvular heart disease (Acute) Systolic CHF, acute (Acute) Subjective: No shortness of breath. No chest pain. Vitals/I&O's: Vital Signs Temp Pulse Resp BP Pulse Ox 36.6 C 70 14 154/68 H 92 10/19/17 16:00 10/19/17 16:00 10/19/17 16:00 10/19/17 16:00 10/19/17 16:00 Oxygen Flow Rate (L/min) 2 Oxygen Delivery Method Room Air Weight: 105.7 kg Body Mass Index (BMI) 39.4 Intake and Output for Last 24 Hours 10/17/17 10/18/17 10/19/17 23:59 23:59 23:59 Intake Total 921.2 / 921.2 2151.9 / 2151.9 480 / 480 Output Total 600 / 600 700 / 700 200 / 200 Balance 321.2 / 321.2 1451.9 / 1451.9 280 / 280 General: Alert, No apparent distress HEENT: Atraumatic, Normocephalic Oral: Moist Mucosa, No Gingival or Mucosal Lesions/ Ulcerations Neck: No Nodes, Thyroid Normal Size and Texture Lungs: Clear to auscultation, No rhonchi, No wheeze, Diminished Cardiovascular: Regular rate, Normal S1, Normal S2, - - irregular rhythm Abdomen: Bowel Sounds Present, Soft, Non Tender, Non-Distended Extremities: No edema, No Calf Tenderness Skin: No rashes, No breakdown Psych/Mental Status: Normal Affect, Appropriate Microbiology Past 72 Hours 10/18/17 14:45 Urine, Clean Catch Streptococcus pneumoniae Antigen (M - Final 10/18/17 14:45 Urine, Clean Catch Legionella Antigen - Final Laboratory Results 10/18/17 14:45: Urine Color Yellow, Urine Clarity Cloudy, Urine pH 5.0, Ur Specific [place] 1.025, Urine Protein 30 H, Urine Glucose (UA) Normal, Urine Ketones Negative, Urine Occult Blood 250 H, Urine Nitrite Negative, Urine Bilirubin Negative, Urine Urobilinogen Normal, Ur Leukocyte Esterase 100 H, Urine RBC 5-10 SEEN, Urine WBC 10-25 SEEN, Ur Squamous Epith Cells 0 SEEN, Urine Bacteria 1+, Hyaline Casts 0-5 SEEN, Urine Mucus 2+ 10/19/17 06:30: WBC 18.4 H, RBC 4.56, Hgb 14.1, Hct 42.6, MCV 93.4, MCH 30.9, MCHC 33.1, RDW 17.4 H, RDW Differential 58.0 H, Plt Count 288, MPV 10.5 10/19/17 06:30: Sodium 142, Potassium 3.5, Chloride 105, Carbon Dioxide 25.0, Anion Gap 12, BUN 29 H, Creatinine 1.41 H, Estim Creat Clear Calc 35.32, Est GFR (MDRD) Af Amer 48 L, Est GFR (MDRD) Non-Af 40 L, BUN/Creatinine Ratio 20.6 H, Glucose 105, Calcium 8.0 L, Total Bilirubin 1.70 H, Direct Bilirubin 0.33 H, AST 57 H, ALT 139 H, Alkaline Phosphatase 100, Total Protein 6.1 L, Albumin 3.1 L, Globulin 3.0 10/19/17 06:30: PT 13.8, INR 1.1, APTT 32.9 Current Medications Carvedilol (Coreg) 3.125 mg PO BID [facility] Last Admin: 10/19/17 06:09 Dose: 3.125 mg Furosemide (Lasix) 40 mg PO BID@1000,1800 [facility] Last Admin: 10/19/17 09:31 Dose: 40 mg Heparin Sodium (Beef Lung) (Heparin 500 Unit/5 Ml (100/Ml)) 500 unit IV UD PRN PRN Reason: HEPARIN FLUSH Sodium Chloride () 1,000 mls @ 0 mls/hr IV .Q0M [facility] PRN Reason: KVO Diltiazem HCl 125 mg/ Dextrose 125 mls @ 5 mls/hr IV .Q25H [facility] PRN Reason: 5 MG/HR Last Admin: 10/19/17 09:20 Dose: Not Given Labetalol HCl (Trandate) 5 mg IV X1 PRN PRN Reason: SBP > 160 prior to sheath pull Stop: 10/21/17 08:07 Lisinopril (Zestril) 5 mg PO BID [facility] Last Admin: 10/19/17 09:32 Dose: 5 mg Magnesium Hydroxide (Milk Of Magnesia) 30 ml PO DAILY PRN PRN Reason: Constipation Ondansetron HCl (Zofran) 4 mg IV Q8H PRN PRN PRN Reason: NAUSEA Sodium Chloride () 5 - 30 ml IV UD PRN PRN Reason: SALINE FLUSH Last Admin: 10/17/17 21:53 Dose: 10 ml Medical Necessity - Tobacco Use Smoking Status: Never smoker Assessment/Plan All Active Problems New onset atrial fibrillation (Acute) Community acquired pneumonia (Acute) Cardiomyopathy (Acute) Valvular heart disease (Acute) Systolic CHF, acute (Acute) 1. New onset atrial fibrillation Improved with the diltiazem drip Patient has a [id number] score of 3 Resume anticoagulation on 10/20 2. Acute heart failure with reduced ejection fraction EF of 20% Complicated by pulmonary hypertension with right ventricular systolic pressure of 42 mmHg Start Lasix Start JESUS inhibitor Start beta-kendy once out of heart failure Cardiology on consultation [facility] normal coronaries. 3. Possible pneumococcal pneumonia I feel most of the patient's chest x-ray findings are more consistent with heart failure rather than pneumonia but pneumonia was concerned given the patient's leukocytosis urinary antigens for Streptococcus and Legionella negative if those are negative then would discontinue antibiotics 4. Chronic kidney disease stage III Monitor Code Visit Inpatient E&M: 81222 Subs Hosp L2
[2017-10-20] VITALS (14 sets, daily range): BP systolic 128–154; BP diastolic 69–99; PULSE 89–135; RESP 16–20; TEMP 36.3–37; O2SAT 94–95
[2017-10-20 06:40] LABS: Anion Gap 9 (5-15); BUN 20 mg/dL (7-18); BUN/Creat Ratio 19.2 RATIO (10-20); Calcium,Total 7.6 mg/dL (8.5-10.1); Chloride 105 mmol/L (98-107); Creatinine, Serum 1.04 mg/dL (0.55-1.02); EST Glomerular Filtration Rate 56 mL/min (>60); Est Glom Filt Rate - Afr Amer 68 mL/min (>60); Estimated Creatinine Clearance 47.88 ml/min; Glucose 88 mg/dL (74-106); Potassium 3.1 mmol/L (3.5-5.1); Sodium Level 141 mmol/L (136-145)
[2017-10-20 06:47] LABS: Absolute Lymphocyte Count 2.43 X10^3/ul (0.83-4.51); Absolute Neutrophil Count 10.8 X10^3/uL (2.0-7.7); Basophil# 0.02 X10^3/uL; Basophil% 0.1 % (0-1); Eosinophils% 0.7 % (0-5); Hematocrit 42.2 % (37-47); Hemoglobin 13.6 g/dl (12.0-15.0); Lymphocyte # 2.43 X10^3/ul (4.0); Lymphocyte % 16.7 % (19-41); Mean Corp Hgb Conc 32.2 g/gl (32-36); Mean Corpuscular Hgb 30.1 pg (27.0-32.0); Mean Corpuscular Volume 93.4 fL (81-99); Mean Platelet Vol. 10.2 fl (6.2-12.0); Monocyte# 1.21 X10^3/uL; Monocyte% 8.3 % (0-10); Neutrophil # 10.78 X10^3/uL (2.7-7.7); Neutrophil % 73.9 % (47-70); Platelet Count 244 K/mm3 (150-450); RBC Distribution Width CV 16.9 % (11.6-14.6); RBC Distribution Width SD 57.7 fl (35.1-43.9); Red Blood Count 4.52 M/mm3 (4.2-5.4); White Blood Count 14.6 K/mm3 (4.4-11.0)
[2017-10-20 06:50] LABS: POSITIVE COUNT NO; POSITIVE DIFFERENTIAL NO; POSITIVE MORPHOLOGY NO
[2017-10-20] MEDS: Lisinopril 5 MG Tablet PO ×2 (09:11→14:54)
[2017-10-20] MEDS: Carvedilol 3.125 MG TABLET PO ×2 (09:11→10:25)
[2017-10-20] MEDS: Furosemide 40 MG Tablet PO ×2 (09:11→17:00)
--- NOTE | 2017-10-20 13:32 | PCM.PN.CARD ---
Subjectve: The patient states that she feels better overall. She notes her breathing has improved since her medical management especially her diuresis. Objective: Vital Signs Temp Pulse Resp BP Pulse Ox 97.4 F L 117 H 18 144/69 H 94 10/20/17 09:09 10/20/17 11:10 10/20/17 09:09 10/20/17 09:09 10/20/17 09:09 Oxygen Flow Rate (L/min) 2 Oxygen Delivery Method Room Air Weight: 233 lb 11.04 oz Body Mass Index (BMI) 39.4 Intake and Output for Last 24 Hours 10/18/17 10/19/17 10/20/17 23:59 23:59 23:59 Intake Total 2151.9 / 2151.9 1230 / 1230 420 / 420 Output Total 700 / 700 1999 / 1999 500 / 500 Balance 1451.9 / 1451.9 -770 / -770 -80 / -80 General: Awake, Alert, Oriented x 3, Cooperative, No Acute Distress HEENT: Atraumatic, Normocephalic, PERRL, EOMI, Sclera Non Icteric Oral: Moist Mucosa Neck: Supple, Good ROM Lungs: Clear to auscultation Cardiovascular: Irregular Rhythm, Normal S1, Normal S2 Vascular: No Carotid Bruits Abdomen: Bowel Sounds Present, Soft, Non Tender Extremities: Trace RLE Edema, Trace LLE Edema Neurological: No Focal Motor or Sensory Deficit Psych/Mental Status: Appropriate, Flat Affect 10/20/17 06:08: WBC 14.6 H, RBC 4.52, Hgb 13.6, Hct 42.2, MCV 93.4, MCH 30.1, MCHC 32.2, RDW 16.9 H, RDW Differential 57.7 H, Plt Count 244, MPV 10.2, Immature Gran % (Auto) 0.300, Neut % (Auto) 73.9 H, Lymph % (Auto) 16.7 L, Schley % (Auto) 8.3, Eos % (Auto) 0.7, Baso % (Auto) 0.1, Absolute Neuts (auto) 10.8 H, Total Counted Not Reportable 10/20/17 06:08: Sodium 141, Potassium 3.1 L, Chloride 105, Carbon Dioxide 27.0, Anion Gap 9, BUN 20 H, Creatinine 1.04 H, Est GFR (MDRD) Af Amer 68, Est GFR (MDRD) Non-Af 56 L, BUN/Creatinine Ratio 19.2, Glucose 88, Calcium 7.6 L Rhythm: Atrial fibrillation Medical Necessity - Tobacco Use Smoking Status: Never smoker Assessment/Plan 1. Atrial fibrillation The patient presents with atrial fibrillation. It is unclear as to the exact etiology as to whether this is related to her history of intermittent hypertension, her findings based on echocardiogram and now her cardiac catheterization of an underlying cardiomyopathy and valvular heart disease, or possible underlying pneumonia process. She is being monitored for other etiologies. She will continue medical therapy with respect to rate control therapy. She will need to initiate anticoagulant therapy now that she is past her cardiac catheterization without obvious adverse event. She may eventually need antiarrhythmic therapy. She may also need an attempt at regaining sinus rhythm with synchronized biphasic DC cardioversion in the future. 2. Cardiomyopathy The patient does appear to have an underlying cardiomyopathy based upon her echocardiographic images. Based upon her cardiac catheterization this appears to be a non-CAD related cardiomyopathy. As noted before it is unclear whether the cardiomyopathy led to her atrial dysrhythmia and appearance of findings compatible with CHF versus having any CAD component to it versus being secondary to her atrial dysrhythmia with rapid ventricular response such as a tachycardic induced cardiomyopathy. She will continue medical management. This will include agents such as beta blockers and JESUS inhibitors and other agents as needed. 3. Congestive heart failure: Acute systolic She does appear to have findings compatible with acute systolic CHF. She has objective findings demonstrating her LV systolic function is diminished. Again is unclear whether this is a non-CAD related cardiomyopathy, has a CAD component, or is related to her tachydysrhythmia with atrial fibrillation with RVR. At the present time she will continue medical management as noted above. She will continue her cardiovascular evaluation as described above. 4. Valvular heart disease It is unclear as to whether her valvular heart disease he has a primary etiology for her other findings or secondary to her other findings such as her atrial dysrhythmia and her cardiomyopathy. At the present time she will continue to be monitored. She will continue medical management for her acute condition. 5. Hypertension She states she has a history of intermittent hypertension. She has not been on medical therapy. Her blood pressures will be followed as she goes to her evaluation and care. 6. Pneumonia There is concern that she may have an underlying pneumonia based upon her symptoms, laboratory studies, and chest x-ray. She is being treated for such. Again, the above was discussed with the patient and her other family members present. This note was generated with [employer] software. It may contain incorrect words, spelling, and punctuation that were not noted in checking the note before signing.
[2017-10-20] MEDS: Digoxin 250 MCG/ML Ampul 500 MCG IV (14:54)
[2017-10-20] MEDS: 0.9% NaCl Peripheral Flush Adult/Peds IV (14:54)
--- NOTE | 2017-10-20 16:06 | PCM.PN.HOSP ---
Patient Problems: Active and Suspected Problems New onset atrial fibrillation (Acute) Community acquired pneumonia (Acute) Cardiomyopathy (Acute) Valvular heart disease (Acute) Systolic CHF, acute (Acute) Subjective: still with shortness of breath, but overall improved. Vitals/I&O's: Vital Signs Temp Pulse Resp BP Pulse Ox 36.6 C 101 H 18 128/99 H 95 10/20/17 14:52 10/20/17 14:54 10/20/17 14:52 10/20/17 14:52 10/20/17 14:52 Oxygen Flow Rate (L/min) 2 Oxygen Delivery Method Room Air Weight: 106 kg Body Mass Index (BMI) 39.4 Intake and Output for Last 24 Hours 10/18/17 10/19/17 10/20/17 23:59 23:59 23:59 Intake Total 2151.9 / 2151.9 1230 / 1230 420 / 420 Output Total 700 / 700 2000 / 2000 500 / 500 Balance 1451.9 / 1451.9 -770 / -770 -80 / -80 General: Alert, Cooperative, No apparent distress HEENT: Atraumatic, Normocephalic Oral: Moist Mucosa, No Gingival or Mucosal Lesions/ Ulcerations Neck: No Nodes, Thyroid Normal Size and Texture Lungs: Clear to auscultation, Normal air movement, No rhonchi, No wheeze Cardiovascular: Irregular Rate, Tachycardic Abdomen: Bowel Sounds Present, Soft, Non Tender, Non-Distended Extremities: No edema, No Calf Tenderness Microbiology Past 72 Hours 10/18/17 14:45 Urine, Clean Catch Streptococcus pneumoniae Antigen (M - Final 10/18/17 14:45 Urine, Clean Catch Legionella Antigen - Final Laboratory Results 10/20/17 06:08: WBC 14.6 H, RBC 4.52, Hgb 13.6, Hct 42.2, MCV 93.4, MCH 30.1, MCHC 32.2, RDW 16.9 H, RDW Differential 57.7 H, Plt Count 244, MPV 10.2, Immature Gran % (Auto) 0.300, Neut % (Auto) 73.9 H, Lymph % (Auto) 16.7 L, Delta % (Auto) 8.3, Eos % (Auto) 0.7, Baso % (Auto) 0.1, Absolute Neuts (auto) 10.8 H, Absolute Lymphs (auto) 2.43, Total Counted Not Reportable 10/20/17 06:08: Sodium 141, Potassium 3.1 L, Chloride 105, Carbon Dioxide 27.0, Anion Gap 9, BUN 20 H, Creatinine 1.04 H, Estim Creat Clear Calc 47.88, Est GFR (MDRD) Af Amer 68, Est GFR (MDRD) Non-Af 56 L, BUN/Creatinine Ratio 19.2, Glucose 88, Calcium 7.6 L Current Medications Apixaban (Eliquis) 5 mg PO BID [facility] Carvedilol (Coreg) 6.25 mg PO BID [facility] Furosemide (Lasix) 40 mg PO BID@1000,1800 [facility] Last Admin: 10/20/17 09:11 Dose: 40 mg Heparin Sodium (Beef Lung) (Heparin 500 Unit/5 Ml (100/Ml)) 500 unit IV UD PRN PRN Reason: HEPARIN FLUSH Sodium Chloride () 1,000 mls @ 0 mls/hr IV .Q0M [facility] PRN Reason: KVO Labetalol HCl (Trandate) 5 mg IV X1 PRN PRN Reason: SBP > 160 prior to sheath pull Stop: 10/21/17 08:07 Lisinopril (Zestril) 10 mg PO BID [facility] Magnesium Hydroxide (Milk Of Magnesia) 30 ml PO DAILY PRN PRN Reason: Constipation Ondansetron HCl (Zofran) 4 mg IV Q8H PRN PRN PRN Reason: NAUSEA Sodium Chloride () 5 - 30 ml IV UD PRN PRN Reason: SALINE FLUSH Last Admin: 10/20/17 14:54 Dose: 10 ml Medical Necessity - Tobacco Use Smoking Status: Never smoker Assessment/Plan All Active Problems New onset atrial fibrillation (Acute) Community acquired pneumonia (Acute) Cardiomyopathy (Acute) Valvular heart disease (Acute) Systolic CHF, acute (Acute) 1. New onset atrial fibrillation improved, but was tachycardic Patient has a [id number] score of 3 Eliquis started 2. Acute heart failure with reduced ejection fraction EF of 20% Complicated by pulmonary hypertension with right ventricular systolic pressure of 42 mmHg Start Lasix Start JESUS inhibitor Start beta-kendy once out of heart failure Cardiology on consultation [facility] normal coronaries. 3. Possible pneumococcal pneumonia I feel most of the patient's chest x-ray findings are more consistent with heart failure rather than pneumonia but pneumonia was concerned given the patient's leukocytosis urinary antigens for Streptococcus and Legionella negative if those are negative then would discontinue antibiotics 4. Chronic kidney disease stage III Monitor Code Visit Inpatient E&M: 63395 Subs Hosp L2
[2017-10-20 18:00] LABS: Anion Gap 11 (5-15); BUN 19 mg/dL (7-18); BUN/Creat Ratio 17.9 RATIO (10-20); Calcium,Total 8.2 mg/dL (8.5-10.1); Chloride 104 mmol/L (98-107); Creatinine, Serum 1.06 mg/dL (0.55-1.02); EST Glomerular Filtration Rate 55 mL/min (>60); Est Glom Filt Rate - Afr Amer 67 mL/min (>60); Estimated Creatinine Clearance 46.98 ml/min; Glucose 89 mg/dL (74-106); Potassium 3.7 mmol/L (3.5-5.1); Sodium Level 139 mmol/L (136-145)
[2017-10-20] MEDS: Lisinopril 10 MG Tablet PO (20:58)
[2017-10-20] MEDS: Carvedilol 6.25 MG Tablet PO (20:58)
[2017-10-20] MEDS: APIXABAN 5 MG TABLET PO (20:58)
[2017-10-21] VITALS (8 sets, daily range): BP systolic 128–143; BP diastolic 84–108; PULSE 71–111; RESP 16–18; TEMP 36.5–36.6; O2SAT 93–96
[2017-10-21 07:02] LABS: Anion Gap 9 (5-15); BUN 14 mg/dL (7-18); BUN/Creat Ratio 15.5 RATIO (10-20); Calcium,Total 7.9 mg/dL (8.5-10.1); Chloride 103 mmol/L (98-107); EST Glomerular Filtration Rate 66 mL/min (>60); Est Glom Filt Rate - Afr Amer 80 mL/min (>60); Estimated Creatinine Clearance 55.33 ml/min; Glucose 77 mg/dL (74-106); Magnesium 1.8 mg/dL (1.6-2.6); Potassium 3.2 mmol/L (3.5-5.1); Sodium Level 141 mmol/L (136-145)
--- NOTE | 2017-10-21 08:57 | PCM.PN.CARD ---
Subjectve: The patient states she feels better with respect to her breathing. She has not sensed any significant rapid heart rates. She has had no other new acute symptoms. Objective: Vital Signs Temp Pulse Resp BP Pulse Ox 97.7 F L 111 H 18 128/84 H 93 10/21/17 02:50 10/21/17 07:09 10/21/17 08:09 10/21/17 02:50 10/21/17 02:50 Oxygen Flow Rate (L/min) 2 Oxygen Delivery Method Room Air Weight: 225 lb 1.471 oz Body Mass Index (BMI) 39.4 Intake and Output for Last 24 Hours 10/19/17 10/20/17 10/21/17 23:59 23:59 23:59 Intake Total 1230 / 1230 820 / 820 120 / 120 Output Total 1999 / 1999 800 / 800 1600 / 1600 Balance -770 / -770 20 / 20 -1480 / -1480 General: Awake, Alert, Oriented x 3, Cooperative, No Acute Distress Neck: No JVD Lungs: Clear to auscultation Cardiovascular: Irregular Rhythm, Normal S1, Normal S2 Abdomen: Bowel Sounds Present, Soft, Non Tender Extremities: Trace RLE Edema, Trace LLE Edema 10/20/17 16:42: Sodium 139, Potassium 3.7, Chloride 104, Carbon Dioxide 24.0, Anion Gap 11, BUN 19 H, Creatinine 1.06 H, Est GFR (MDRD) Af Amer 67, Est GFR (MDRD) Non-Af 55 L, BUN/Creatinine Ratio 17.9, Glucose 89, Calcium 8.2 L 10/21/17 06:00: Sodium 141, Potassium 3.2 L, Chloride 103, Carbon Dioxide 29.0, Anion Gap 9, BUN 14, Creatinine 0.90, Est GFR (MDRD) Af Amer 80, Est GFR (MDRD) Non-Af 66, BUN/Creatinine Ratio 15.5, Glucose 77, Calcium 7.9 L, Magnesium 1.8 Rhythm: Atrial fibrillation Medical Necessity - Tobacco Use Smoking Status: Never smoker Assessment/Plan 1. Atrial fibrillation The patient presents with atrial fibrillation. It is unclear as to the exact etiology as to whether this is related to her history of intermittent hypertension, her findings based on echocardiogram and now her cardiac catheterization of an underlying cardiomyopathy and valvular heart disease, or possible underlying pneumonia process. She is being monitored for other etiologies. She will continue medical therapy with respect to rate control therapy. She has been placed on anticoagulant therapy. She may eventually need antiarrhythmic therapy. She may also need an attempt at regaining sinus rhythm with synchronized biphasic DC cardioversion in the future. 2. Cardiomyopathy The patient does appear to have an underlying cardiomyopathy based upon her echocardiographic images. Based upon her cardiac catheterization this appears to be a non-CAD related cardiomyopathy. As noted before it is unclear whether the cardiomyopathy led to her atrial dysrhythmia and appearance of findings compatible with CHF versus having any CAD component to it versus being secondary to her atrial dysrhythmia with rapid ventricular response such as a tachycardic induced cardiomyopathy. She will continue medical management. This will include agents such as beta blockers and JESUS inhibitors and other agents as needed. 3. Congestive heart failure: Acute systolic She does appear to have findings compatible with acute systolic CHF. She has objective findings demonstrating her LV systolic function is diminished. Again is unclear whether this is a non-CAD related cardiomyopathy, has a CAD component, or is related to her tachydysrhythmia with atrial fibrillation with RVR. She has improved with medical management. It appears she will require potassium supplement. 4. Valvular heart disease It is unclear as to whether her valvular heart disease he has a primary etiology for her other findings or secondary to her other findings such as her atrial dysrhythmia and her cardiomyopathy. At the present time she will continue to be monitored. She will continue medical management for her acute condition. 5. Hypertension She states she has a history of intermittent hypertension. She has not been on medical therapy. Her blood pressures will be followed as she goes to her evaluation and care. 6. Pneumonia There is concern that she may have an underlying pneumonia based upon her symptoms, laboratory studies, and chest x-ray. She is being treated for such. Hopefully if the patient does well with her morning medications with respect to her vital signs, volume status, etc. and requires no further diagnostic evaluation/intervention at this time than perhaps she can be released home for continued outpatient cardiovascular follow-up. This note was generated with [employer] software. It may contain incorrect words, spelling, and punctuation that were not noted in checking the note before signing.
[2017-10-21] MEDS: Carvedilol 12.5 MG Tablet PO (09:11)
[2017-10-21] MEDS: Digoxin 250 MCG Tablet PO (09:11)
[2017-10-21] MEDS: APIXABAN 5 MG TABLET PO (09:11)
[2017-10-21] MEDS: Furosemide 40 MG Tablet PO (09:11)
[2017-10-21] MEDS: Lisinopril 10 MG Tablet PO (09:12)
--- NOTE | 2017-10-21 13:42 | PCM.PN.HOSP ---
Patient Problems: Active and Suspected Problems New onset atrial fibrillation (Acute) Community acquired pneumonia (Acute) Cardiomyopathy (Acute) Valvular heart disease (Acute) Systolic CHF, acute (Acute) Subjective: No new events. Vitals/I&O's: Vital Signs Temp Pulse Resp BP Pulse Ox 36.6 C 108 H 18 143/108 H 94 10/21/17 09:09 10/21/17 11:02 10/21/17 09:09 10/21/17 09:09 10/21/17 09:09 Oxygen Flow Rate (L/min) 2 Oxygen Delivery Method Room Air Weight: 102.1 kg Body Mass Index (BMI) 39.4 Intake and Output for Last 24 Hours 10/19/17 10/20/17 10/21/17 23:59 23:59 23:59 Intake Total 1230 / 1230 820 / 820 570 / 570 Output Total 1999 / 1999 800 / 800 1600 / 1600 Balance -770 / -770 20 / 20 -1030 / -1030 General: Alert, No apparent distress HEENT: Atraumatic, Normocephalic Oral: Moist Mucosa, No Gingival or Mucosal Lesions/ Ulcerations Neck: No Nodes, Thyroid Normal Size and Texture Lungs: Clear to auscultation, Normal air movement, No rhonchi, No wheeze Cardiovascular: Regular rate, Regular Rhythm, Normal S1, Normal S2, No murmurs Abdomen: Bowel Sounds Present, Soft, Non Tender, Non-Distended, No Hepato-splenomegaly Extremities: No edema, No Calf Tenderness Skin: No rashes, No breakdown Psych/Mental Status: Normal Affect, Appropriate Microbiology Past 72 Hours 10/18/17 14:45 Urine, Clean Catch Streptococcus pneumoniae Antigen (M - Final 10/18/17 14:45 Urine, Clean Catch Legionella Antigen - Final Laboratory Results 10/20/17 16:42: Sodium 139, Potassium 3.7, Chloride 104, Carbon Dioxide 24.0, Anion Gap 11, BUN 19 H, Creatinine 1.06 H, Estim Creat Clear Calc 46.98, Est GFR (MDRD) Af Amer 67, Est GFR (MDRD) Non-Af 55 L, BUN/Creatinine Ratio 17.9, Glucose 89, Calcium 8.2 L 10/21/17 06:00: Sodium 141, Potassium 3.2 L, Chloride 103, Carbon Dioxide 29.0, Anion Gap 9, BUN 14, Creatinine 0.90, Estim Creat Clear Calc 55.33, Est GFR (MDRD) Af Amer 80, Est GFR (MDRD) Non-Af 66, BUN/Creatinine Ratio 15.5, Glucose 77, Calcium 7.9 L, Magnesium 1.8 Current Medications Apixaban (Eliquis) 5 mg PO BID [facility] Last Admin: 10/21/17 09:11 Dose: 5 mg Carvedilol (Coreg) 12.5 mg PO BID [facility] Last Admin: 10/21/17 09:11 Dose: 12.5 mg Digoxin (Lanoxin) 250 mcg PO DAILY [facility] Last Admin: 10/21/17 09:11 Dose: 250 mcg Furosemide (Lasix) 40 mg PO BID@1000,1800 [facility] Last Admin: 10/21/17 09:11 Dose: 40 mg Heparin Sodium (Beef Lung) (Heparin 500 Unit/5 Ml (100/Ml)) 500 unit IV UD PRN PRN Reason: HEPARIN FLUSH Sodium Chloride () 1,000 mls @ 0 mls/hr IV .Q0M [facility] PRN Reason: KVO Lisinopril (Zestril) 10 mg PO BID [facility] Last Admin: 10/21/17 09:12 Dose: 10 mg Magnesium Hydroxide (Milk Of Magnesia) 30 ml PO DAILY PRN PRN Reason: Constipation Ondansetron HCl (Zofran) 4 mg IV Q8H PRN PRN PRN Reason: NAUSEA Sodium Chloride () 5 - 30 ml IV UD PRN PRN Reason: SALINE FLUSH Last Admin: 10/20/17 14:54 Dose: 10 ml Medical Necessity - Tobacco Use Smoking Status: Never smoker Assessment/Plan All Active Problems New onset atrial fibrillation (Acute) Community acquired pneumonia (Acute) Cardiomyopathy (Acute) Valvular heart disease (Acute) Systolic CHF, acute (Acute) 1. New onset atrial fibrillation improved, but was tachycardic Patient has a [id number] score of 3 Eliquis started On Digoxin 250 mcg/d, corege 12.5 BID, 2. Acute heart failure with reduced ejection fraction EF of 20% Complicated by pulmonary hypertension with right ventricular systolic pressure of 42 mmHg Lasix 40 BID, Coreg, Lisinopril 10 BID Cardiology on consultation [facility] normal coronaries. 3. Possible pneumococcal pneumonia I feel most of the patient's chest x-ray findings are more consistent with heart failure rather than pneumonia but pneumonia was concerned given the patient's leukocytosis urinary antigens for Streptococcus and Legionella negative antibiotics discontinued 4. Chronic kidney disease stage III Monitor stable Code Visit Inpatient E&M: 34850 Subs Hosp L2
--- NOTE | 2017-10-21 14:16 | PCM.DC ---
- Discharge Diagnoses Current Active Problems: Current Active and Chronic Problems New onset atrial fibrillation (Acute) Community acquired pneumonia (Acute) Obesity (BMI 30-39.9) (Chronic) Cardiomyopathy (Acute) Valvular heart disease (Acute) HTN (hypertension) (Chronic) Systolic CHF, acute (Acute) You will use the following diet at home:: Cardiac, Fluid restricted (specify 2000 mls, 1500 mls) - 1500 cc/day Your food should be the consistency of: Regular Your liquids should be the consistency of: Regular/Thin Discharge Activity: Return to Normal Activity Call your doctor if you observe: Fever of 101 or Higher, Shortness of breath, Chest pain Instructions: Taking JESUS Inhibitors, Taking Medication to Control Heart Failure, What Is Atrial Flutter/Atrial Fibrillation?, What Is Heart Failure?, Heart Failure: Tracking Your Weight, Heart Failure: Procedures That May Help, Heart Failure: Making Changes to Your Diet, Heart Failure: Evaluating Your Heart, Heart Failure: Medications to Help Your Heart, Discharge Instructions for Atrial Fibrillation, Discharge Instructions for Heart Failure Additional Instructions: Daily weights. Notify physician if weight gain greater than 2 pounds in 1 day, or 3 pounds in 1 week. Allergies/Adverse Reactions: Allergies No Known Allergies Allergy (Verified 10/17/17 11:13) Medications to take at Discharge Apixaban [Eliquis] 5 mg PO BID #60 tab 10/21/17 Carvedilol [Coreg (Beta Mikie)] 12.5 mg PO BID #60 tab 10/21/17 Digoxin [Lanoxin] 250 mcg PO DAILY #30 tab 10/21/17 Furosemide [Lasix] 40 mg PO BID@1000,1800 #60 tab 10/21/17 Lisinopril [Zestril] 10 mg PO BID #30 tab 10/21/17 Potassium Chloride [K-Dur] 10 meq PO DAILY #30 tab 10/21/17 The following prescriptions were given: Digoxin [Lanoxin] 250 mcg PO DAILY #30 tab Furosemide [Lasix] 40 mg PO BID@1000,1800 #60 tab Potassium Chloride [K-Dur] 10 meq PO DAILY #30 tab Apixaban [Eliquis] 5 mg PO BID #60 tab Carvedilol [Coreg (Beta Mikie)] 12.5 mg PO BID #60 tab Lisinopril [Zestril] 10 mg PO BID #30 tab Primary Care Physician: Care Physician,No Primary [Primary Care Provider] - Test Results: Test results from this visit will be discussed in further detail at your follow-up appointment, if applicable. Please Follow Up With: Jed Briscoe MD When: 1-2 months Please Follow Up With: PCP When: 1 week Proposed Discharge Date: 10/21/17
--- NOTE | 2017-10-21 14:19 | PCM.DC.SUM ---
Discharge Date and Diagnosis - Problem List Patient Problems: Active and Suspected Problems New onset atrial fibrillation (Acute) Community acquired pneumonia (Acute) Cardiomyopathy (Acute) Valvular heart disease (Acute) Systolic CHF, acute (Acute) Date of Admission: 10/17/17 Date of Discharge: 10/21/17 - Primary Discharge Diagnosis Active and Suspected Problems New onset atrial fibrillation (Acute) Community acquired pneumonia (Acute) Cardiomyopathy (Acute) Valvular heart disease (Acute) Systolic CHF, acute (Acute) - Secondary Discharge Diagnosis Chronic Problems Obesity (BMI 30-39.9) (Chronic) HTN (hypertension) (Chronic) Hospital Course and Treatment Imaging Results: Clinical Impression(s) from Imaging Studies Chest X-Ray 10/17/17 11:45 IMPRESSION: Dense opacity in the right lung base is worrisome for focal consolidation/infection. There is a small right pleural effusion. There is moderate enlargement of the cardiac silhouette with mild edema. Electronically Signed: Mulu Lama MD at 13:40 EDT Tel Direct: [phone], Service support , Operations: None Procedures: 2-D Echocardiogram, Cardiac catheterization Summary of Care Provided: The patient is a 67 year old F who presents with shortness of breath and lower extremity edema. Patient was found to be in atrial fibrillation with RVR. Initial concern was for pneumonia given leukocytosis, however, infectious workup was negative and antibiotics were discontinued. Patient's chest x-ray findings are more consistent with heart failure and patient was started on Lasix for diuresis and has improved. Patient was put on Lasix and she has popped roughly 5 kg since admission. Patient had an echocardiogram that showed an ejection fraction of 20%. A left heart catheterization showed nonobstructive coronary artery disease. This is felt the patient's cardiomyopathy is nonischemic but still unclear etiology beyond that. Patient has been started on medications for her heart failure with carvedilol and lisinopril. For her atrial fibrillation she will continue her carvedilol but also is added digoxin. Patient will follow up with cardiology for further cardiac evaluation and depending on how her ejection fraction improves or not, patient may need a defibrillator. Patient will be started on potassium 4 the hypokalemia that will be from the Lasix. Patient will need to get established with her primary care doctor for further lab workup and follow-up. 1. New onset atrial fibrillation improved, but was tachycardic Patient has a [id number] score of 3 Eliqulatanya started On Digoxin 250 mcg/d, corege 12.5 BID, 2. Acute heart failure with reduced ejection fraction EF of 20% Complicated by pulmonary hypertension with right ventricular systolic pressure of 42 mmHg Lasix 40 BID, Coreg, Lisinopril 10 BID Cardiology on consultation [facility] normal coronaries. 3. Possible pneumococcal pneumonia I feel most of the patient's chest x-ray findings are more consistent with heart failure rather than pneumonia but pneumonia was concerned given the patient's leukocytosis [] Discharge Diet: Low fat/ Low Cholesterol, 6 Cup Fluid Restriction, 2000 mg Sodium Diet Discharge Activity: Return to Normal Activity Call your doctor if you observe: Fever of 101 or Higher, Shortness of breath, Chest pain Home Medications: Medications to take at Discharge Apixaban [Eliquis] 5 mg PO BID #60 tab 10/21/17 Carvedilol [Coreg (Beta Mikie)] 12.5 mg PO BID #60 tab 10/21/17 Digoxin [Lanoxin] 250 mcg PO DAILY #30 tab 10/21/17 Furosemide [Lasix] 40 mg PO BID@1000,1800 #60 tab 10/21/17 Lisinopril [Zestril] 10 mg PO BID #30 tab 10/21/17 Potassium Chloride [K-Dur] 10 meq PO DAILY #30 tab 10/21/17 Following Prescrptions Were Given to Patient: Digoxin [Lanoxin] 250 mcg PO DAILY #30 tab Furosemide [Lasix] 40 mg PO BID@1000,1800 #60 tab Potassium Chloride [K-Dur] 10 meq PO DAILY #30 tab Apixaban [Eliquis] 5 mg PO BID #60 tab Carvedilol [Coreg (Beta Mikie)] 12.5 mg PO BID #60 tab Lisinopril [Zestril] 10 mg PO BID #30 tab Primary Care Physician: Care Physician,No Primary [Primary Care Provider] - Please Follow Up With: Jed Briscoe MD When: 1-2 months Please Follow Up With: PCP When: 1 week Patient Instructions: Taking JESUS Inhibitors, Taking Medication to Control Heart Failure, What Is Heart Failure?, What Is Atrial Flutter/Atrial Fibrillation?, Heart Failure: Tracking Your Weight, Heart Failure: Procedures That May Help, Heart Failure: Making Changes to Your Diet, Heart Failure: Evaluating Your Heart, Heart Failure: Medications to Help Your Heart, Discharge Instructions for Atrial Fibrillation, Discharge Instructions for Heart Failure Disposition: Home Minutes spent on discharge:: 32 Patient Condition:: Good Medical Necessity - Tobacco Use Smoking Status: Never smoker Meaningful Use Info Meaningful Use Diagnoses (Choose all that apply): CHF - CHF JESUS/ARB ordered at discharge?: Yes Documented LVEF (%): 20 Code Visit Inpatient E&M: 47658 Disch Hosp
--- NOTE | 2017-10-21 14:26 | CASEMGMT ---
Per Dr. Sánchez, pt to be sent home on Eliquis and med e-scribed to [facility] retail pharmacy previously. Call to retail pharmacy and per [place] pt has no co-pay at this time. Lo ZAVALA updated at this time, voices understanding. Kendal ZAVALA CM
== END 2017-10-21 16:03 | disposition home or self-care (01) | DRG 286 ==
LOC: ED 14:27 → PCU 14:45
PROVIDERS: Internal Medicine Cardiovascular Disease; Nurse Practitioner Family; Admitting Provider Family Medicine; Emergency Provider Emergency Medicine
DX: I48.91 Unspecified atrial fibrillation (principal); J18.9 Pneumonia, unspecified organism; I50.21 Acute systolic (congestive) heart failure; I13.0 Hypertensive heart and chronic kidney disease with heart failure and stage 1 through stage 4 chronic kidney disease, or unspecified chronic kidney disease; E66.9 Obesity, unspecified; I42.9 Cardiomyopathy, unspecified; I27.20 Pulmonary hypertension, unspecified; N18.3 Chronic kidney disease, stage 3 (moderate); I34.0 Nonrheumatic mitral (valve) insufficiency; Z68.39 Body mass index [BMI] 39.0-39.9, adult; E87.6 Hypokalemia
CPT/HCPCS: 36415; 71046; 80048; 80061; 80076; 81001; 83036; 83735; 83880; 84443; 84484; 85025; 85027; 85610; 85730; 87449; 93005; 93306; 93458; 97110; 97162; 97166; 97530; 97535; 97802; 99152; 99153; 99283; J7030; A4216; C1769; C1894; J0295; J1940; Q9967

== ENCOUNTER → 2017-10-28 10:07 | Outpatient (CLI) | payer MEDICARE, SELFPAY ==
[2017-10-28 12:43] LABS: Absolute Lymphocyte Count 2.06 X10^3/ul (0.83-4.51); Absolute Neutrophil Count 9.5 X10^3/uL (2.0-7.7); Basophil# 0.05 X10^3/uL; Basophil% 0.4 % (0-1); Eosinophil# 0.09 X10^3/uL; Eosinophils% 0.7 % (0-5); Hematocrit 50.2 % (37-47); Hemoglobin 16.6 g/dl (12.0-15.0); Lymphocyte # 2.06 X10^3/ul (4.0); Lymphocyte % 16.1 % (19-41); Mean Corp Hgb Conc 33.1 g/gl (32-36); Mean Corpuscular Hgb 30.7 pg (27.0-32.0); Mean Corpuscular Volume 92.8 fL (81-99); Mean Platelet Vol. 10.8 fl (6.2-12.0); Monocyte# 1.01 X10^3/uL; Monocyte% 7.9 % (0-10); Neutrophil # 9.54 X10^3/uL (2.7-7.7); Neutrophil % 74.7 % (47-70); Platelet Count 253 K/mm3 (150-450); RBC Distribution Width SD 54.6 fl (35.1-43.9); Red Blood Count 5.41 M/mm3 (4.2-5.4); White Blood Count 12.8 K/mm3 (4.4-11.0)
[2017-10-28 12:46] LABS: POSITIVE COUNT NO; POSITIVE DIFFERENTIAL NO; POSITIVE MORPHOLOGY NO
[2017-10-28 12:59] LABS: PTHIN 133.6 pg/mL (18.4-80.1); Vitamin B12 882 pg/mL (211-911); Vitamin D,25 Hydroxy 17.5 ng/mL (29.95-100.01)
[2017-10-28 13:06] LABS: Anion Gap 8 (5-15); BUN 25 mg/dL (7-18); BUN/Creat Ratio 18.9 RATIO (10-20); Calcium,Total 8.9 mg/dL (8.5-10.1); Chloride 101 mmol/L (98-107); Creatinine, Serum 1.32 mg/dL (0.55-1.02); EST Glomerular Filtration Rate 43 mL/min (>60); Est Glom Filt Rate - Afr Amer 52 mL/min (>60); Ferritin 132 ng/mL (8-252); Glucose 99 mg/dL (74-106); Homocysteine 13.8 umol/L (3.2-10.7); Potassium 3.8 mmol/L (3.5-5.1); Sodium Level 138 mmol/L (136-145); Thyroid Stim Hormone (TSH) 1.06 uIU/mL (0.358-3.74)
[2017-10-28 13:33] LABS: Digoxin Level 1.49 ng/mL (0.80-2.00)
[2017-10-30 09:55] LABS: Anti-Cardiolipin Ab, IgG, Qn < 9 GPL U/mL (0-14); Anti-Cardiolipin Ab, IgM, Qn 12 MPL U/mL (0-12)
[2017-10-31 20:13] LABS: Anti-Centromere B Ab <0.2 AI (0.0-0.9); Anti-Chromatin <0.2 AI (0.0-0.9); Anti-Jo <0.2 AI (0.0-0.9); Anti-Scleroderma-70 AB <0.2 AI (0.0-0.9); RNP Ab <0.2 AI (0.0-0.9); SJOGREN'S Anti-SS-A test < 0.2 AI (0.0-0.9); SJOGREN'S Anti-SS-B test < 0.2 AI (0.0-0.9); Smith Ab <0.2 AI (0.0-0.9)
[2017-11-01 13:15] LABS: Anti-dsDNA Ab <1 IU/mL (0-9)
== END ==
PROVIDERS: Family Provider Family Medicine; PCP Family Medicine; Visit Provider Family Medicine
DX: N18.3 Chronic kidney disease, stage 3 (moderate) (principal); I42.9 Cardiomyopathy, unspecified; I48.91 Unspecified atrial fibrillation
CPT/HCPCS: 36415; 80048; 80162; 82306; 82607; 82728; 82746; 83090; 83970; 84443; 85025; 86147; 86225; 86235

== ENCOUNTER → 2017-11-07 11:46 | Outpatient (CLI) | payer SELFPAY ==
[2017-11-07 12:52] LABS: Anion Gap 7 (5-15); BUN 19 mg/dL (7-18); BUN/Creat Ratio 16.1 RATIO (10-20); Calcium,Total 8.9 mg/dL (8.5-10.1); Chloride 98 mmol/L (98-107); Creatinine, Serum 1.18 mg/dL (0.55-1.02); EST Glomerular Filtration Rate 49 mL/min (>60); Est Glom Filt Rate - Afr Amer 59 mL/min (>60); Glucose 85 mg/dL (74-106); Potassium 3.6 mmol/L (3.5-5.1); Sodium Level 139 mmol/L (136-145)
== END ==
PROVIDERS: Family Provider Family Medicine; PCP Family Medicine; Visit Provider Internal Medicine Cardiovascular Disease
DX: I42.9 Cardiomyopathy, unspecified (principal); I48.91 Unspecified atrial fibrillation; I38 Endocarditis, valve unspecified; I11.0 Hypertensive heart disease with heart failure; I50.21 Acute systolic (congestive) heart failure
CPT/HCPCS: 36415; 80048; 80162

== ENCOUNTER 2017-11-08 15:40 | Emergency (ER) | payer SELFPAY ==
[2017-11-08 15:41] VITALS: BP 166/104; PULSE 94; RESP 16; TEMP 36.4; O2SAT 94; BMI 35.9
[2017-11-08 15:54] VITALS: BP 160/98; BP 175/102; BP 177/144; BP 181/96; PULSE 103; PULSE 93; PULSE 95; RESP 19; O2SAT 97
--- NOTE | 2017-11-08 15:54 | EKG12_ITS ---
Test Reason : SYNCOPE Blood Pressure : / mmHG Vent. Rate : 091 BPM Atrial Rate : 108 BPM P-R Int : 000 ms QRS Dur : 082 ms QT Int : 336 ms P-R-T Axes : 000 060 003 degrees QTc Int : 413 ms Atrial fibrillation Abnormal ECG Confirmed by BROCK ELDRIDGE, JED ([id number]), fashion editor JESSICA TOVAR ([id number]) on 11/11/2017 2:17:41 PM Referred By: Jed Gutiérrez Confirmed By:JED GUTIÉRREZ MD
[2017-11-08 16:32] LABS: Anion Gap 9 (5-15); BUN 21 mg/dL (7-18); BUN/Creat Ratio 15.3 RATIO (10-20); Calcium,Total 8.9 mg/dL (8.5-10.1); Chloride 99 mmol/L (98-107); Creatinine, Serum 1.37 mg/dL (0.55-1.02); EST Glomerular Filtration Rate 41 mL/min (>60); Est Glom Filt Rate - Afr Amer 50 mL/min (>60); Estimated Creatinine Clearance 36.35 ml/min; Glucose 96 mg/dL (74-106); Potassium 4.2 mmol/L (3.5-5.1); Sodium Level 140 mmol/L (136-145)
[2017-11-08 16:40] LABS: Hematocrit 47.2 % (37-47); Mean Corp Hgb Conc 33.9 g/gl (32-36); Mean Corpuscular Hgb 30.2 pg (27.0-32.0); Mean Corpuscular Volume 89.2 fL (81-99); Mean Platelet Vol. 11.7 fl (6.2-12.0); Platelet Count 211 K/mm3 (150-450); RBC Distribution Width CV 15.8 % (11.6-14.6); RBC Distribution Width SD 51.4 fl (35.1-43.9); Red Blood Count 5.29 M/mm3 (4.2-5.4)
[2017-11-08 16:45] LABS: Scan Indicated on CBC? Y/N NO
[2017-11-08 18:33] LABS: Digoxin Level 1.55 ng/mL (0.80-2.00)
[2017-11-08 18:51] VITALS: BP 142/82; PULSE 81; RESP 16; O2SAT 96
--- NOTE | 2017-11-08 18:54 | ED.VISSUMM ---
- ER Visit Summary Date of Service: 11/08/17 Chief Complaint: Vision goes black and orthostatic symptoms lasting 3-4 seconds History of Present Illness: The patient is a 67 F who reports feeling lightheaded and vision going black lasting 3-4 seconds when she rises quickly from a supine or sitting position. There is no loss of postural tone. There is no incontinence of urine or stool. There is no problems with speech or swallowing. She denies any cardiac or respiratory symptoms. She denies fever, chills night sweats. She denies double vision or blurred vision. She denies exertional chest pain or pleuritic chest pain. She denies shortness of breath, dyspnea exertion, orthopnea or PND. She denies nausea, vomiting or diarrhea. She denies dysuria, frequency, urgency or hematuria. She denies black or maroon stool. She denies bruising easily. She is on Eliquis. She denies paresthesia, anesthesia motors. She denies problems with balance. Please read written note for complete detail Physical Examination: Vital signs noted and remarkable for a blood pressure 166/104. Monitor reveals atrial fibrillation. Head is atraumatic normocephalic. Pupils are equal round reactive. Extraocular muscles are intact. TMs are pearly white with landmarks noted. Nares patent with no drainage. Posterior pharynx without erythema or exudate. Uvula is midline. There is no dysphonia or dysphasia. Trachea is midline. There is no stridor with auscultation of the neck. Heart is irregularly regular. Lungs are clear to auscultation with good move air bilaterally. Abdomen soft nontender. There is no asymmetry, swelling, discoloration, leg vein distention, palpable cords or tenderness along the distribution of the deep venous system. Patient is alert and oriented ?3. Motor is 5 over 5. Sensory is intact. DTRs are symmetric with no clonus or Babinski sign. Cranial 2 through 12 are intact. Cerebellar testing is normal. Test Results: EKG reveals a ventricular rate of 91 and atrial fibrillation. QRS duration normal. [place] is normal. White count is slightly elevated which is nonsignificant. BUN and creatinine are [address] Briscoe requested a digoxin level. Digoxin level is normal at 1.55. Emergency Department Course and Treatment: Patient presents with orthostatic symptoms. Orthostatic vital signs were obtained and negative. There was confusion why she was sent here based on what the other physician was told by practitioner EKG and blood work was ordered. Treatment Plan: Case discussed Dr. Briscoe. He requested patient reduce her Lasix to 20 mg twice daily from 40 mg twice daily Disposition: Discharged to home with follow-up with Dr. Briscoe 1-2 weeks Impression: 1. Orthostatic symptoms 2. Chronic atrial fibrillation 3. Renal insufficiency 4. High risk medication, Eliquis This note was generated with [employer] dictation software. It may contain incorrect words, spelling, and punctuation that were not noted in review of the chart prior to signing ED Disposition - Plan for ED Patient: Disposition: Home or Assisted Living Chief Complaint: Syncope Referrals: Cj Arciniega MD [Primary Care Provider] - Jed Briscoe MD [STAFF PHYSICIAN] - 1 Week Additional Instructions: Decrease Lasix to one half tablet twice a day.
[2017-11-08 19:20] VITALS: BP 148/76; PULSE 87; RESP 20; O2SAT 96
== END 2017-11-08 19:22 | disposition home or self-care (01) ==
PROVIDERS: Emergency Provider Emergency Medicine; Family Provider Family Medicine; PCP Family Medicine
DX: R42 Dizziness and giddiness (principal); H53.8 Other visual disturbances; I48.2 Chronic atrial fibrillation; N28.9 Disorder of kidney and ureter, unspecified; I10 Essential (primary) hypertension; Z79.01 Long term (current) use of anticoagulants; Z79.899 Other long term (current) drug therapy
CPT/HCPCS: 80048; 80162; 85027; 93005; 99285; A4216

== ENCOUNTER → 2017-11-25 10:06 | Outpatient (CLI) | payer MEDICARE, SELFPAY ==
[2017-11-25 11:10] LABS: Anion Gap 6 (5-15); BUN 16 mg/dL (7-18); BUN/Creat Ratio 12.7 RATIO (10-20); Calcium,Total 8.8 mg/dL (8.5-10.1); Chloride 104 mmol/L (98-107); Creatinine, Serum 1.26 mg/dL (0.55-1.02); EST Glomerular Filtration Rate 45 mL/min (>60); Est Glom Filt Rate - Afr Amer 55 mL/min (>60); Glucose 97 mg/dL (74-106); Sodium Level 140 mmol/L (136-145)
== END ==
PROVIDERS: Family Provider Family Medicine; PCP Family Medicine; Referring Provider Internal Medicine Cardiovascular Disease; Visit Provider Internal Medicine Cardiovascular Disease
DX: I50.21 Acute systolic (congestive) heart failure (principal)
CPT/HCPCS: 36415; 80048

== ENCOUNTER 2017-12-13 10:56 | Day surgery (SDC) | payer SELFPAY ==
[2017-12-12 09:19] VITALS: BMI 35.7
--- NOTE | 2017-12-13 14:19 | OP.PCM_ITS ---
Problem List (1) Cardiomyopathy Status: Acute Qualifiers: (2) New onset atrial fibrillation Status: Acute (3) Valvular heart disease Status: Acute (4) HTN (hypertension) Status: Chronic Qualifiers: (5) Obesity (BMI 30-39.9) Status: Chronic Operative Report Date of Procedure: 12/13/17 - Conscious sedation CONSCIOUS SEDATION REPORT BRIEF HISTORY OF PRESENT ILLNESS: The patient is a 67-year-old female who presented to [facility] for an elective outpatient cardioversion due to underlying atrial fibrillation. The patient reports no PO intake since midnight. The patient does not have a history of obstructive sleep apnea. The patient reports no history of smoking and COPD. The patient denies any recent constitutional symptoms such as fevers, chills, nausea or vomiting. The patient denies previous anesthetic complications. Patient's last ejection fraction noted to be 20%. PHYSICAL EXAMINATION: VITAL SIGNS: Reviewed and were acceptable. GENERAL: The patient is an obese female, in no apparent distress, speaking in full sentences. HEENT: Normocephalic, atraumatic. Mucous membranes are moist and pink. Good mouth opening noted. Trachea is midline. Good neck mobility. MP III CHEST: S1, S2 irregularly irregular. No murmurs, rubs or gallops were noted. LUNGS: Clear to auscultation bilaterally without appreciable wheezes, rales or rhonchi. ABDOMEN: Soft, nontender, nondistended. Positive bowel sounds. EXTREMITIES: There is no clubbing, cyanosis or edema. ASA Class: II DESCRIPTION OF PROCEDURE: After confirmation of informed consent, the patient's anesthesia plan was reviewed in detail. Etomidate was chosen. Risks and benefits were reviewed and the patient agreed to proceed. At 1:49 PM, the patient was given 4 mg of etomidate. The patient required a total of 8 mg of etomidate throughout the procedure to achieve appropriate sedation. The patient achieved an appropriate level of sedation and received 1 attempt s synchronized cardioversion, at 200J by Dr. Briscoe at the bedside. This was successful in achieving normal sinus rhythm. The patient was monitored until 1:59 PM, at which time the patient reached their baseline mental status and function. The patient tolerated the procedure well. COMPLICATIONS: None ESTIMATED BLOOD LOSS: None RECOMMENDATIONS: Okay to recover in usual fashion.
--- NOTE | 2017-12-13 14:45 | EKG12_ITS ---
Test Reason : AFIB Blood Pressure : / mmHG Vent. Rate : 088 BPM Atrial Rate : 088 BPM P-R Int : 196 ms QRS Dur : 084 ms QT Int : 342 ms P-R-T Axes : 049 076 025 degrees QTc Int : 413 ms Normal sinus rhythm Normal ECG When compared with ECG of 13-DEC-2017 11:14, MANUAL COMPARISON REQUIRED, DATA IS UNCONFIRMED Confirmed by MITCHELL ELDRIDGE, EMELYN ([id number]), assistant editor JESSICA TOVAR ([id number]) on 12/21/2017 2:52:24 PM Referred By: Jed Briscoe Confirmed By:EMELYN MEDRANO MD
--- NOTE | 2017-12-13 14:47 | PCM.OP.BLANK ---
Problem List (1) New onset atrial fibrillation Status: Acute (2) Cardiomyopathy Status: Acute Qualifiers: Operative Report Date of Procedure: 12/13/17 Procedure: Synchronized biphasic DC cardioversion Indications: Atrial fibrillation; non-CAD cardiomyopathy Consent: Per the patient Premedications: Per Dr. Steven Avalos pulmonology/critical care medicine with etomidate 8 mg IV push total Procedure: Synchronized biphasic DC cardioversion: 200 J x1: Result: Sinus rhythm Complications: No apparent complications This note was generated using a voice recognition system and there may be incorrect words, spelling or punctuation that were not noted when reviewing the office note prior to saving.
== END 2017-12-13 15:07 | disposition home or self-care (01) ==
PROVIDERS: Family Provider Family Medicine; PCP Family Medicine; Referring Provider Internal Medicine Cardiovascular Disease; Visit Provider Internal Medicine Cardiovascular Disease
DX: I48.91 Unspecified atrial fibrillation (principal); I42.9 Cardiomyopathy, unspecified; I38 Endocarditis, valve unspecified; I11.0 Hypertensive heart disease with heart failure; I50.21 Acute systolic (congestive) heart failure; E66.9 Obesity, unspecified; Z68.35 Body mass index [BMI] 35.0-35.9, adult; Z79.01 Long term (current) use of anticoagulants; Z79.899 Other long term (current) drug therapy
CPT/HCPCS: 92960; 93005; J7040

== ENCOUNTER 2017-12-27 08:33 | Inpatient (IN) | payer MEDICARE, SELFPAY ==
[2017-12-27] VITALS (11 sets, daily range): BP systolic 144–153; BP diastolic 78–92; PULSE 60–154; RESP 15–18; TEMP 36.4–36.7; O2SAT 94–97; BMI 35.6; BMI 35.7
--- NOTE | 2017-12-27 09:05 | EKG12_ITS ---
Test Reason : Blood Pressure : / mmHG Vent. Rate : 097 BPM Atrial Rate : 102 BPM P-R Int : 000 ms QRS Dur : 086 ms QT Int : 346 ms P-R-T Axes : 000 072 -01 degrees QTc Int : 439 ms Atrial fibrillation Abnormal QRS-T angle, consider primary T wave abnormality Abnormal ECG When compared with ECG of 27-DEC-2017 11:48, MANUAL COMPARISON REQUIRED, DATA IS UNCONFIRMED Confirmed by MITCHELL ELDRIDGE, EMELYN ([id number]), newspaper copy editor JESSICA TOVAR ([id number]) on 01/02/2018 2:06:06 PM Referred By: Jed Briscoe Confirmed By:EMELYN MEDRANO MD
[2017-12-27 09:32] LABS: Hematocrit 43.5 % (37-47); Hemoglobin 14.3 g/dl (12.0-15.0); Mean Corp Hgb Conc 32.9 g/gl (32-36); Mean Corpuscular Hgb 30.7 pg (27.0-32.0); Mean Corpuscular Volume 93.3 fL (81-99); Mean Platelet Vol. 10.1 fl (6.2-12.0); Platelet Count 270 K/mm3 (150-450); RBC Distribution Width CV 15.8 % (11.6-14.6); RBC Distribution Width SD 53.1 fl (35.1-43.9); Red Blood Count 4.66 M/mm3 (4.2-5.4); White Blood Count 13.6 K/mm3 (4.4-11.0)
[2017-12-27 09:33] LABS: Scan Indicated on CBC? Y/N NO
[2017-12-27 09:56] LABS: ALB/GLOB Ratio 0.8 RATIO (0.9-2.4); AST(SGOT) 17 U/L (15-37); Alanine Aminotransfer ALT/SGPT 29 U/L (13-56); Albumin, Serum 3.2 g/dL (3.2-5.0); Alkaline Phosphatase 79 U/L (45-117); Anion Gap 10 (5-15); BUN 17 mg/dL (7-18); BUN/Creat Ratio 14.8 RATIO (10-20); Bilirubin, Direct 0.14 mg/dL (0.00-0.30); Calcium,Total 8.5 mg/dL (8.5-10.1); Chloride 105 mmol/L (98-107); Creatinine, Serum 1.15 mg/dL (0.55-1.02); EST Glomerular Filtration Rate 50 mL/min (>60); Est Glom Filt Rate - Afr Amer 61 mL/min (>60); Glucose 98 mg/dL (74-106); Magnesium 1.8 mg/dL (1.6-2.6); Potassium 3.7 mmol/L (3.5-5.1); Protein, Total 7.2 g/dL (6.4-8.2); Sodium Level 142 mmol/L (136-145); Thyroid Stim Hormone (TSH) 1.73 uIU/mL (0.358-3.74)
[2017-12-27] MEDS: Dofetilide 250 MCG Capsule PO ×2 (10:02→21:14)
[2017-12-27 10:24] LABS: Digoxin Level 1.86 ng/mL (0.80-2.00)
--- NOTE | 2017-12-27 12:02 | EKG12_ITS ---
Test Reason : MED Blood Pressure : / mmHG Vent. Rate : 098 BPM Atrial Rate : 097 BPM P-R Int : 000 ms QRS Dur : 084 ms QT Int : 346 ms P-R-T Axes : 000 089 016 degrees QTc Int : 441 ms Atrial fibrillation with premature ventricular or aberrantly conducted complexes Abnormal ECG When compared with ECG of 27-DEC-2017 09:10, MANUAL COMPARISON REQUIRED, DATA IS UNCONFIRMED Confirmed by MITCHELL ELDRIDGE, EMELYN ([id number]), fan mail editor JESSICA TOVAR ([id number]) on 01/02/2018 2:23:50 PM Referred By: Jed Briscoe Confirmed By:EMELYN MEDRANO MD
--- NOTE | 2017-12-27 17:08 | PCA ---
PT OUT WALKING IN THE [facility]
--- NOTE | 2017-12-27 17:14 | HP.PCM_ITS ---
Problem List (1) Encounter for monitoring anti-arrhythmic therapy Status: Acute (2) New onset atrial fibrillation Status: Chronic (3) Cardiomyopathy Status: Chronic Qualifiers: Cardiomyopathy type: unspecified (4) Systolic CHF, acute Status: Chronic (5) Valvular heart disease Status: Chronic (6) HTN (hypertension) Status: Chronic Qualifiers: Hypertension type: essential hypertension History of Present Illness Date of Admission: 12/27/17 The patient is a 67 year old white female with a past cardiovascular history which has included underlying atrial fibrillation, non-CAD related cardiomyopathy, chronic systolic CHF, valvular heart disease with MR/TR, and hypertension who is brought to the hospital for initiation of antiarrhythmic therapy. She has undergone noninvasive and invasive evaluation in the past. On 10/18/2017 she had a transthoracic echocardiogram performed. This was a technically diminished quality study. She had global left ventricular systolic dysfunction with an estimated LVEF of 20% with mild concentric LVH with an apical false tendon and severe left atrial enlargement and moderate right atrial enlargement. There was moderate mitral annular calcification with mild diffuse mitral valve thickening and moderate MR as well as moderately severe TR, trivial AI, a trivial pericardial effusion with no cardiac compromise, and an estimated RV systolic pressure of 42 mmHg. She underwent diagnostic cardiac catheterization on 10/19/2017. At that time her left ventricle was thought to be globally hypokinetic with an LVEF of 30% with angiographically normal-appearing coronary arteries with moderate MR. She is also undergone further evaluation and care for her atrial dysrhythmia on 12/13/2017 with a synchronized biphasic DC cardioversion. She did regain sinus rhythm. However upon outpatient follow-up she was noted to revert to atrial fibrillation. .She is brought to the hospital today for initiation of antiarrhythmic therapy and subsequent monitoring. She denies any ongoing chest discomfort or difficulty breathing at this time. She has noted no ongoing palpitation or rapid rate sensations. There has been no near syncope or syncope. [] Past Medical History Allergies/Adverse Reactions: Allergies No Known Allergies Allergy (Verified 12/20/17 09:31) Home Medications: Ambulatory Orders Medication Instructions Recorded cholecalciferol (vitamin D3) 1,000 2,000 unit PO BID cap 12/20/17 unit capsule vitamin B complex tablet 1 tab PO BID tab 12/20/17 Apixaban [Eliquis] 5 mg PO BID 12/27/17 Carvedilol [Coreg (Beta Mikie)] 12.5 mg PO BID 12/27/17 Digoxin [Lanoxin] 250 mcg PO DAILY 12/27/17 Folic Acid 0.8 mg PO DAILY@0800 12/27/17 Furosemide [Lasix] 20 mg PO DAILY 12/27/17 Lisinopril [Zestril] 10 mg PO BID 12/27/17 Potassium Chloride [K-Dur] 10 meq PO DAILY 12/27/17 Past Medical History (Chronic Problems): Chronic Problems (Last Reviewed 11/18/17 @ 09:55 by Nia Ly) New onset atrial fibrillation (Chronic) Obesity (BMI 30-39.9) (Chronic) Cardiomyopathy (Chronic) Valvular heart disease (Chronic) HTN (hypertension) (Chronic) Systolic CHF, acute (Chronic) Surgical History: hysterectomy, tonsillectomy Psychiatric History: No pertinent psych hx BIOINFORMATICS ENGINEER History: No pertinent BIOINFORMATICS ENGINEER history - *Family History Maternal Family History: Family History (Last Reviewed 11/18/17 @ 09:55 by Nia Ly) Father Cancer Brother Atrial fibrillation History Items: - - Arthritis, joint issues Paternal Family History: Family History (Last Reviewed 11/18/17 @ 09:55 by Nia Ly) Father Cancer Brother Atrial fibrillation History Items: Cancer - Lung, pancreatic Lives: Spouse/ Significant Other Smoking Status: Never smoker Alcohol: None Drugs: None Review of Systems - Review of Systems General: Denies: Fever, Night Sweats, Fatigue Cardiovascular: Denies: Chest Discomfort, Shortness of Breath, Orthopnea, PND, Peripheral Edema, Palpitations, Lightheadedness, Dizziness, Near Syncope, Syncope Respiratory: Denies: Cough, Sputum Production, Hemoptysis Gastrointestinal: Denies: Hematemesis, Hematochezia, Melena Genitourinary: Denies: Dysuria, Hematuria Skin: Denies: Rash Subjectve: This is a 67-year-old white female who appears to be resting comfortably at the moment in no acute distress. Objective: Vital Signs Temp Pulse Resp BP Pulse Ox 98.1 F 92 15 144/78 H 95 12/27/17 13:32 12/27/17 15:16 12/27/17 13:32 12/27/17 13:32 12/27/17 13:32 Oxygen Delivery Method Room Air Weight: 214 lb 8.156 oz Body Mass Index (BMI) 35.6 Intake and Output for Last 24 Hours 12/25/17 12/26/17 12/27/17 23:59 23:59 23:59 Intake Total 360 / 360 Balance 360 / 360 General: Awake, Alert, Oriented x 3, Cooperative, No Acute Distress HEENT: Atraumatic, Normocephalic, PERRL, EOMI, Sclera Non Icteric Neck: Supple, Good ROM, No JVD Lungs: Clear to auscultation Cardiovascular: Irregular Rhythm, Normal S1, Normal S2 Murmur Murmur: Grade 1/6, Soft, Mid Systolic, LLSB Vascular: No Carotid Bruits Abdomen: Bowel Sounds Present, Soft, Non Tender Extremities: No Cyanosis, No Clubbing, No edema Neurological: No Focal Motor or Sensory Deficit Psych/Mental Status: Appropriate, Normal Affect VTE Information - Inpt Only VTE Present on Admission: No VTE Mechan Device Prophylaxis: None VTE Pharm Prophylaxis ordered?: No Reason prophylaxis not ordered:: Treatment Not Indicated - The patient is already on oral systemic anticoagulant therapy 12/27/17 09:20: Total Bilirubin Cancelled, Direct Bilirubin Cancelled 12/27/17 09:20: Digoxin 1.86 12/27/17 09:20: WBC 13.6 H, RBC 4.66, Hgb 14.3, Hct 43.5, MCV 93.3, MCH 30.7, MCHC 32.9, RDW 15.8 H, RDW Differential 53.1 H, Plt Count 270, MPV 10.1 12/27/17 09:20: Sodium 142, Potassium 3.7, Chloride 105, Carbon Dioxide 27.0, Anion Gap 10, BUN 17, Creatinine 1.15 H, Est GFR (MDRD) Af Amer 61, Est GFR (MDRD) Non-Af 50 L, BUN/Creatinine Ratio 14.8, Glucose 98, Calcium 8.5, Magnesium 1.8, Total Bilirubin 0.80, Direct Bilirubin 0.14 Rhythm: Atrial fibrillation EKG: Atrial fibrillation; poor R wave progression ECHO: As noted above Cardiac Cath: As noted above Assessment/Plan 1. Antiarrhythmic medication monitoring The patient is brought to the hospital for initiation of antiarrhythmic therapy and monitoring. She is going to continue rate control therapy and anticoagulant therapy as deemed appropriate. She is going to be started on antiarrhythmic therapy with dofetilide. She will need close follow-up of her cardiac rate, rhythm, laboratory studies, and ECG. If she does not have spontaneous conversion to sinus rhythm and consideration will be given to a future attempt at repeat synchronized biphasic DC cardioversion. 2. Atrial fibrillation Again she will continue to be monitored. She will continue medication adjustment as deemed appropriate. 3. Non-CAD related cardiomyopathy The patient has undergone noninvasive and invasive evaluation as described above. She will continue medical management. The hope is that if she regained sinus rhythm her overall LV systolic function may improve. This will need to be followed with future echocardiographic studies. 4. Chronic systolic CHF At the moment the patient appears without any acute issues. She will continue medical therapy and adjustment as deemed appropriate. 5. Valvular heart disease with MR/TR The patient will continue to be followed by history, exam, and echocardiogram as deemed appropriate. 6. Hypertension The patient's blood pressure will be monitored. Her medications can be adjusted as needed. Comment: The above was discussed with the patient and her spouse. This note was generated using a voice recognition system and there may be incorrect words, spelling or punctuation that were not noted when reviewing the office note prior to saving.
[2017-12-27] MEDS: Lisinopril 10 MG Tablet PO (17:30)
[2017-12-27] MEDS: Carvedilol 12.5 MG Tablet PO (21:14)
[2017-12-27] MEDS: APIXABAN 5 MG TABLET PO (21:14)
--- NOTE | 2017-12-27 23:14 | EKG12_ITS ---
Test Reason : ADMISSION Blood Pressure : / mmHG Vent. Rate : 093 BPM Atrial Rate : 326 BPM P-R Int : 000 ms QRS Dur : 084 ms QT Int : 334 ms P-R-T Axes : 000 079 018 degrees QTc Int : 415 ms Atrial fibrillation Abnormal ECG When compared with ECG of 13-DEC-2017 13:55, Atrial fibrillation has replaced Sinus rhythm Confirmed by MITCHELL ELDRIDGE, EMELYN ([id number]), assistant film editor JESSICA TOVAR ([id number]) on 01/02/2018 2:24:49 PM Referred By: Jed Briscoe Confirmed By:EMELYN MEDRANO MD
[2017-12-28] VITALS (8 sets, daily range): BP systolic 127–162; BP diastolic 78–85; PULSE 82–146; RESP 16–18; TEMP 36.1–36.9; O2SAT 92–95
[2017-12-28 06:18] LABS: Anion Gap 10 (5-15); BUN 14 mg/dL (7-18); BUN/Creat Ratio 13.9 RATIO (10-20); Calcium,Total 8.2 mg/dL (8.5-10.1); Chloride 105 mmol/L (98-107); Cholesterol 158 mg/dL (200); Creatinine, Serum 1.01 mg/dL (0.55-1.02); EST Glomerular Filtration Rate 58 mL/min (>60); Est Glom Filt Rate - Afr Amer 71 mL/min (>60); Glucose 88 mg/dL (74-106); High Density Lipoprotein 26 mg/dL; Potassium 3.6 mmol/L (3.5-5.1); Sodium Level 143 mmol/L (136-145); Triglycerides 216 mg/dL; Very Low Density Lipoprotein 43 mg/dL (5-40)
--- NOTE | 2017-12-28 09:59 | CASEMGMT ---
SW spoke with patient regarding medication coverage. She said she is working with an insurance follow up rep and they are helping her and her sign up for Medicare Part B and D. They do not qualify for extra help. HEATHER told her SW will follow along and possibly be able to use [facility] prescription assistance program. She thanked SW for checking in with her. Rossana CASTRO
[2017-12-28] MEDS: Carvedilol 12.5 MG Tablet PO (10:33)
[2017-12-28] MEDS: APIXABAN 5 MG TABLET PO (10:33)
[2017-12-28] MEDS: Lisinopril 10 MG Tablet PO (10:34)
[2017-12-28] MEDS: Digoxin 250 MCG Tablet PO (10:35)
[2017-12-28] MEDS: Dofetilide 250 MCG Capsule PO (10:35)
[2017-12-28] MEDS: Furosemide 20 MG Tablet PO (10:37)
--- NOTE | 2017-12-28 11:39 | PN.CARD_ITS ---
Subjectve: The patient is without acute symptoms or adverse events at this time. She states overall she is reasonably well. Objective: Vital Signs Temp Pulse Resp BP Pulse Ox 97 F L 82 16 128/82 H 95 12/28/17 08:32 12/28/17 08:32 12/28/17 08:32 12/28/17 08:32 12/28/17 08:32 Oxygen Delivery Method Room Air Weight: 214 lb 8.156 oz Body Mass Index (BMI) 35.6 Intake and Output for Last 24 Hours 12/26/17 12/27/17 12/28/17 23:59 23:59 23:59 Intake Total 1080 / 1080 0 / 0 Balance 1080 / 1080 0 / 0 General: Awake, Alert, Oriented x 3, Cooperative, No Acute Distress HEENT: Atraumatic, Normocephalic, PERRL, EOMI, Sclera Non Icteric Oral: Moist Mucosa Neck: Supple, Good ROM, No JVD Lungs: Clear to auscultation Cardiovascular: Irregular Rhythm, Normal S1, Normal S2 Vascular: No Carotid Bruits Abdomen: Bowel Sounds Present, Soft, Non Tender Extremities: No Cyanosis, No Clubbing, No edema Neurological: No Focal Motor or Sensory Deficit Psych/Mental Status: Appropriate, Normal Affect 12/28/17 05:40: Sodium 143, Potassium 3.6, Chloride 105, Carbon Dioxide 28.0, Anion Gap 10, BUN 14, Creatinine 1.01, Est GFR (MDRD) Af Amer 71, Est GFR (MDRD) Non-Af 58 L, BUN/Creatinine Ratio 13.9, Glucose 88, Calcium 8.2 L, Triglycerides 216 H, Cholesterol 158, LDL Cholesterol 89, VLDL Cholesterol 43 H, HDL Cynthia sterol 26 L Rhythm: Atrial fibrillation EKG: Atrial fibrillation; no acute ECG changes Medical Necessity - Tobacco Use Smoking Status: Never smoker Assessment/Plan 1. Antiarrhythmic medication monitoring The patient is brought to the hospital for initiation of antiarrhythmic therapy and monitoring. She is going to continue rate control therapy and anticoagulant therapy as deemed appropriate. She is going to be started on antiarrhythmic therapy with dofetilide. She will need close follow-up of her cardiac rate, rhythm, laboratory studies, and ECG. If she does not have spontaneous conversion to sinus rhythm and consideration will be given to a future attempt at repeat synchronized biphasic DC cardioversion. 2. Atrial fibrillation Again she will continue to be monitored. She will continue medication adjustment as deemed appropriate. Based upon her ventricular rate and attempt will be made to increase her beta- kendy therapy for additional rate control. Also based upon her laboratory studies her digitalis dose will be decreased. 3. Non-CAD related cardiomyopathy The patient has undergone noninvasive and invasive evaluation as described above. She will continue medical management. The hope is that if she regained sinus rhythm her overall LV systolic function may improve. This will need to be followed with future echocardiographic studies. 4. Chronic systolic CHF At the moment the patient appears without any acute issues. She will continue medical therapy and adjustment as deemed appropriate. 5. Valvular heart disease with MR/TR The patient will continue to be followed by history, exam, and echocardiogram as deemed appropriate. 6. Hypertension The patient's blood pressure will be monitored. Her medications can be adjusted as needed. Overall, the patient will continue the aforementioned evaluation and care plan. In the interim she is being evaluated by social media sr strategy manager for financial assistance to help with her medical therapy. If she cannot afford her medical therapy then consideration ought to be given to alternative medications, etc. Comment: The above was discussed with the patient and her family member present. This note was generated using a voice recognition system and there may be incorrect words, spelling or punctuation that were not noted when reviewing the office note prior to saving.
--- NOTE | 2017-12-28 12:45 | EKG12_ITS ---
Test Reason : MED Blood Pressure : / mmHG Vent. Rate : 087 BPM Atrial Rate : 326 BPM P-R Int : 000 ms QRS Dur : 082 ms QT Int : 380 ms P-R-T Axes : 000 081 048 degrees QTc Int : 457 ms Atrial fibrillation Abnormal ECG When compared with ECG of 27-DEC-2017 23:20, MANUAL COMPARISON REQUIRED, DATA IS UNCONFIRMED Confirmed by MITCHELL ELDRIDGE, EMELYN ([id number]), desk editor JESSICA TOVAR ([id number]) on 01/02/2018 1:52:38 PM Referred By: Jed Briscoe Confirmed By:EMELYN MEDRANO MD
--- NOTE | 2017-12-28 17:25 | DCINST_ITS ---
- Discharge Diagnoses Current Active Problems: Current Active and Chronic Problems (Last Reviewed 11/18/17 @ 09:55 by Nia Ly) Encounter for monitoring anti-arrhythmic therapy (Acute) You will use the following diet at home:: Cardiac Your food should be the consistency of: Regular Discharge Activity: Return to Normal Activity May resume sexual activity in: No Restrictions Weight Bearing Status: Weight bearing as tolerated Call your doctor if you observe: Dizziness, Fainting spells Additional Instructions: Education adjustments: Change carvedilol/Coreg to 25 mg twice daily. Change digoxin/Lanoxin to 125 mcg daily. Change potassium chloride to 20 mEq daily. Obtain an outpatient laboratory study (BMP and a digoxin level) the week of 01/09/2018. Continue anticoagulant therapy with apixaban/Eliquis until near completion of current supply at which time notify the office for alternative anticoagulant therapy with warfarin/Coumadin Allergies/Adverse Reactions: Allergies No Known Allergies Allergy (Verified 12/20/17 09:31) Medications to take at Discharge cholecalciferol (vitamin D3) 1,000 unit capsule 2,000 unit PO BID cap 12/20/17 vitamin B complex tablet 1 tab PO BID tab 12/20/17 Apixaban [Eliquis] 5 mg PO BID 12/27/17 Folic Acid 0.8 mg PO DAILY@0800 12/27/17 Furosemide [Lasix] 20 mg PO DAILY 12/27/17 Lisinopril [Zestril] 10 mg PO BID 12/27/17 Apixaban [Eliquis] 5 mg PO BID tablet 12/28/17 Carvedilol [Coreg (Beta Mikie)] 25 mg PO BID #60 tablet 12/28/17 Digoxin [Lanoxin] 125 mcg PO DAILY #30 tab 12/28/17 Furosemide [Lasix] 20 mg PO DAILY tablet 12/28/17 Lisinopril [Zestril] 10 mg PO BID tablet 12/28/17 Potassium Chloride [K-Dur] 20 meq PO DAILYCM #30 tab 12/28/17 The following prescriptions were given: Digoxin [Lanoxin] 125 mcg PO DAILY #30 tab Potassium Chloride [K-Dur] 20 meq PO DAILYCM #30 tab Carvedilol [Coreg (Beta Mikie)] 25 mg PO BID #60 tablet Primary Care Physician: Cj Arciniega MD [Primary Care Provider] - Test Results: Test results from this visit will be discussed in further detail at your follow- up appointment, if applicable. Please Follow Up With: Jed Briscoe MD When: As previously scheduled Proposed Discharge Date: 12/28/17
--- NOTE | 2017-12-28 17:33 | DS.PCM_ITS ---
Discharge Date and Diagnosis - Problem List Patient Problems: Active and Suspected Problems (Last Reviewed 11/18/17 @ 09:55 by Nia Ly) Encounter for monitoring anti-arrhythmic therapy (Acute) Date of Admission: 12/27/17 Date of Discharge: 12/28/17 - Primary Discharge Diagnosis Active and Suspected Problems (Last Reviewed 11/18/17 @ 09:55 by Nia Ly) Encounter for monitoring anti-arrhythmic therapy (Acute) - Secondary Discharge Diagnosis Chronic Problems (Last Reviewed 11/18/17 @ 09:55 by Nia Ly) New onset atrial fibrillation (Chronic) Obesity (BMI 30-39.9) (Chronic) Cardiomyopathy (Chronic) Valvular heart disease (Chronic) HTN (hypertension) (Chronic) Systolic CHF, acute (Chronic) Hospital Course and Treatment Summary of Care Provided: The patient is a 67 year old white female who presented for antiarrhythmic initiation/monitoring. She continued to be monitored while she was undergoing medication adjustment and initiation of antiarrhythmic therapy with dofetilide. She had no adverse symptoms or adverse cardiovascular events including cardiac dysrhythmias or abnormal echocardiographic findings. During her hospitalization she announced that status post review of their current insurance policies she was not going to be able to afford refills of her anticoagulant therapy with respect to cement/Eliquis and she would not be able to afford her new antiarrhythmic therapy with dofetilide. The utilization team assisted in her insurance evaluation and medication financial support eval uation. Status post an exhaustive evaluation it appeared the patient would not be able to afford these medications going forward. Following February 14, 2018 there may be a change in her insurance status that will allow her to afford medication such as her antiarrhythmic therapy. Thus at the present time, noting the patient was not going to be reasonable to remain on these medications, especially antiarrhythmic therapy, it was elected to discontinue her antiarrhythmic initiation and least the patient home for continued outpatient cardiovascular follow-up. The patient was asked to continue her medication with the adjustments made in the hospital with respect to her carvedilol therapy, digitalis therapy, potassium therapy, and continue her current supply of apixaban/Eliquis. When she nears completion of her apixaban/Eliquis applies she should contact the office to initiate alternative anticoagulant therapy such as warfarin/Coumadin which she believes she will be able to afford. Following February 14, 2018, when her insurance status is dated, then she can notify the office as to whether or not she will be able to afford antiarrhythmic therapy such as dofetilide. If so then she can be brought back to the hospital for a reattempt at antiarrhythmic initiation/monitoring. If not consideration might be given as to alternative antiarrhythmics such as amiodarone and whether or not that is an affordable option for her. The above was discussed at length during the hospitalization with the patient, her family members that were present, and the [facility] team. [] Patient Problems: Active and Suspected Problems (Last Reviewed 11/18/17 @ 09:55 by Nia Ly) Encounter for monitoring anti-arrhythmic therapy (Acute) Subjective: Is a 67-year-old white female appears resting comfortably no acute distress. - Physical Exam General: Alert, Oriented x3, Cooperative HEENT: Atraumatic, PERRLA, EOMI, Normocephalic Oral: Moist Mucosa Neck: Supple, No JVD Lungs: Clear to auscultation Cardiovascular: Irregular Rate Abdomen: Bowel Sounds Present, Soft, Non Tender Extremities: No clubbing, No cyanosis, No edema Neurological: Neuro grossly intact Psych/Mental Status: Normal Affect Vital Signs Temp Pulse Resp BP Pulse Ox 97.8 F 105 H 17 127/78 H 95 12/28/17 14:30 12/28/17 15:11 12/28/17 14:30 12/28/17 14:30 12/28/17 14:30 Oxygen Delivery Method Room Air Weight: 214 lb 8.156 oz Body Mass Index (BMI) 35.6 Intake and Output for Last 24 Hours 12/26/17 12/27/17 12/28/17 23:59 23:59 23:59 Intake Total 1080 / 1080 800 / 800 Balance 1080 / 1080 800 / 800 Laboratory Tests Past 24 Hrs 12/28/17 05:40 Sodium 143 Potassium 3.6 Chloride 105 Carbon Dioxide 28.0 Anion Gap 10 BUN 14 Creatinine 1.01 Estim Creat Clear Calc 49.30 Est GFR (MDRD) Af Amer 71 Est GFR (MDRD) Non-Af 58 L BUN/Creatinine Ratio 13.9 Glucose 88 Calcium 8.2 L Triglycerides 216 H Cholesterol 158 LDL Cholesterol 89 VLDL Cholesterol 43 H HDL Cholesterol 26 L Discharge Activity: Return to Normal Activity May resume sexual activity in: No Restrictions Weight Bearing Status: Weight bearing as tolerated Call your doctor if you observe: Dizziness, Fainting spells Home Medications: Medications to take at Discharge cholecalciferol (vitamin D3) 1,000 unit capsule 2,000 unit PO BID cap 12/20/17 vitamin B complex tablet 1 tab PO BID tab 12/20/17 Apixaban [Eliquis] 5 mg PO BID 12/27/17 Folic Acid 0.8 mg PO DAILY@0800 12/27/17 Furosemide [Lasix] 20 mg PO DAILY 12/27/17 Lisinopril [Zestril] 10 mg PO BID 12/27/17 Apixaban [Eliquis] 5 mg PO BID tablet 12/28/17 Carvedilol [Coreg (Beta Mikie)] 25 mg PO BID #60 tablet 12/28/17 Digoxin [Lanoxin] 125 mcg PO DAILY #30 tab 12/28/17 Furosemide [Lasix] 20 mg PO DAILY tablet 12/28/17 Lisinopril [Zestril] 10 mg PO BID tablet 12/28/17 Potassium Chloride [K-Dur] 20 meq PO DAILYCM #30 tab 12/28/17 Following Prescrptions Were Given to Patient: Digoxin [Lanoxin] 125 mcg PO DAILY #30 tab Potassium Chloride [K-Dur] 20 meq PO DAILYCM #30 tab Carvedilol [Coreg (Beta Mikie)] 25 mg PO BID #60 tablet Primary Care Physician: Cj Acriniega MD [Primary Care Provider] - Please Follow Up With: Jed Briscoe MD When: As previously scheduled Minutes spent on discharge:: 30 Patient Condition:: Stable Medical Necessity - Tobacco Use Smoking Status: Never smoker Meaningful Use Info Meaningful Use Diagnoses (Choose all that apply): None applicable
== END 2017-12-28 18:22 | disposition home or self-care (01) | DRG 309 ==
PROVIDERS: Admitting Provider Internal Medicine Cardiovascular Disease; Family Provider Family Medicine; PCP Family Medicine; Referring Provider Internal Medicine Cardiovascular Disease; Visit Provider Internal Medicine Cardiovascular Disease
DX: I48.1 Persistent atrial fibrillation (principal); I50.22 Chronic systolic (congestive) heart failure; I42.9 Cardiomyopathy, unspecified; I11.0 Hypertensive heart disease with heart failure; E66.9 Obesity, unspecified; Z68.35 Body mass index [BMI] 35.0-35.9, adult; I34.0 Nonrheumatic mitral (valve) insufficiency
CPT/HCPCS: 36415; 80048; 80053; 80061; 80162; 82248; 83735; 84443; 85027; 93005

== ENCOUNTER → 2018-01-16 13:00 | Outpatient (CLI) | payer SELFPAY ==
--- NOTE | 2018-01-16 13:11 | ECHOCS_ITS ---
Reason For Study: Afib Procedure This was a 2D Doppler, Color Flow transthoracic echocardiogram. The study was technically difficult. Contrast injection was performed. Exam performed in department. Left Ventricle Normal LV size. Moderate global left ventricular systolic dysfunction. The estimated ejection fraction is 35 %. Unable to assess diastolic dysfunction. Right Ventricle Normal RV size. Normal systolic function. Atria The left atrium is severely enlarged. The right atrium is moderately enlarged. No doppler evidence for ASD. Mitral Valve There is moderate to severe mitral annular calcification. Extension of the mitral annular calcification onto the posterior mitral valve leaflet. Mild (1+) mitral valve insufficiency. Tricuspid Valve Normal tricuspid valve. Moderate (2+) tricuspid valve insufficiency. Right ventricular systolic pressure estimated to be 35 mmHg. Aortic Valve Trisinus/trileaflet aortic valve. Mild focal aortic valve thickening. Trivial aortic valve insufficiency. Pulmonic Valve The pulmonic valve is not well visualized. Great Vessels The aortic root is not well visualized. Pericardium/Pleural Trivial pericardial effusion. There are no echocardiographic indications of cardiac tamponade. Medication 22 gauge I.V. with prn adaptor inserted into right arm. Diluted definity 4ml given slow IV push to enhance endocardial definition. MMode/2D Measurements & Calculations LVIDd: 4.7 cm IVSd: 1.2 cm LA dimension: 5.3 cm LVIDs: 4.2 cm LVPWd: 1.2 cm FS: 11.7 % LAV(MOD-bp): 104.2 ml LA A4 area: 30.4 cm2 RA A4 area: 22.5 cm2 LAV(MOD-bp) Indexed: 50.8 ml/m2 LAV(MOD-sp2): 95.6 ml LAV(MOD-sp4): 113.5 ml Doppler Measurements & Calculations MV E max aniyah: 97.7 cm/sec Ao V2 max: 101.1 cm/sec AI max aniyah: 454.5 cm/sec Ao max P.1 mmHg AI max P.6 mmHg AI dec slope: 143.7 cm/sec2 AI P1/2t: 926.2 msec LV V1 max: 79.3 cm/sec PA V2 max: 57.9 cm/sec TR max aniyah: 283.6 cm/sec LV V1 max P.5 mmHg TR max P.2 mmHg Interpretation Summary The study was technically difficult. Contrast injection was performed. Moderate global left ventricular systolic dysfunction. The estimated ejection fraction is 35 %. The left atrium is severely enlarged. The right atrium is moderately enlarged. There is moderate to severe mitral annular calcification. Extension of the mitral annular calcification onto the posterior mitral valve leaflet. Mild (1+) mitral valve insufficiency. Moderate (2+) tricuspid valve insufficiency. Mild focal aortic valve thickening. Trivial aortic valve insufficiency. Trivial pericardial effusion. There are no echocardiographic indications of cardiac tamponade. Right ventricular systolic pressure estimated to be 35 mmHg. Unable to assess diastolic dysfunction. Ordering Physician: Jed Briscoe Referring Physician: Jed Briscoe Performed By: Lit Perez RCS
--- OUTSIDE RECORDS SUMMARY | 2018-03-11 20:38 | XMS RPT_ITS ---
:1950 Author Organization [facility] Support Name Relationship Address Phone MILLI BATRESNA Unavailable UNKNOWN + [place] [address] AGAPITO PADILLA Unavailable [address] + [address] [place] [address] R Unavailable Unavailable Unavailable SARBJIT, MOLENA Unavailable UNKNOWN + [place] [address] AAGPITO PADILLA Unavailable [address] + [address] [place] [address] R Unavailable Unavailable Unavailable SARBJIT, MOLENA Unavailable Unavailable + [place] [address] AGAPITO PADILLA Unavailable [address] + [address] [place] [address] R Unavailable Unavailable Unavailable SARBJIT, MOLENA Unavailable Unavailable + [place] [address] AGAPITO PADILLA Unavailable [address] + [address] [place] [address] R Unavailable Unavailable Unavailable SARBJIT, MOLENA Unavailable . + [place] [address] AGAPITO PADILLA Unavailable [address] + [address] [place] [address] R Unavailable Unavailable Unavailable SARBJIT, MOLENA Unavailable . + [place] [address] AGAPITO PADILLA Unavailable [address] + [address] [place] [address] R Unavailable Unavailable Unavailable SARBJIT, MOLENA Unavailable . + [place] [address] AGAPITO PADILLA Unavailable [address] + [address] [place] [address] R Unavailable Unavailable Unavailable SARBJIT, MOLENA Unavailable Unavailable + AGAPITO PADILLA Unavailable [address] + [address] [place] [address] R Unavailable Unavailable Unavailable SARBJIT, MOLENA Unavailable . + [place] [address] TOÑA PADILLAY Unavailable [address] + [address] [place] [address] R Unavailable Unavailable Unavailable SARBJIT, MOLENA Unavailable . + [place] [address] TOÑA PADILLAY Unavailable [address] + [address] [place] [address] R Unavailable Unavailable Unavailable SARBJIT, MOLENA Unavailable . + [place] [address] AGAPITO PADILLA Unavailable [address] + [address] [place] [address] R Unavailable Unavailable Unavailable SARBJIT, MOLENA Unavailable . + [place] [address] AGAPITO PADILLA Unavailable [address] + [address] [place] [address] R Unavailable Unavailable Unavailable SARBJIT, MOLENA Unavailable Unavailable + [place] [address] TOÑA PADILLAY Unavailable [address] + [address] [place] [address] R Unavailable Unavailable Unavailable SARBJIT, MOLENA Unavailable . + [place] [address] TOÑA PADILLAY Unavailable [address] + [address] [place] [address] R Unavailable Unavailable Unavailable Sarbjit, [place] Unavailable 1 + [place] [address] TOÑA PADILLAY Unavailable [address] + [address] [place] [address] R Unavailable Unavailable Unavailable Sarbjit, [place] Unavailable 1 + [place] [address] TOÑA PADILLAY Unavailable [address] + [address] [place] [address] R Unavailable Unavailable Unavailable AGAPITO PADILLA Unavailable [address] + [address] [place] [address] R Unavailable Unavailable Unavailable AGAPITO PADILLA Unavailable [address] + [address] [place] [address] R Unavailable Unavailable Unavailable AGAPITO PADILLA Unavailable [address] + [address] [place] [address] R Unavailable Unavailable Unavailable TIESHAAGAPITO HOLGUIN Unavailable [address] + [address] [place] [address] R Unavailable Unavailable Unavailable TIESHA, GARY Unavailable [address] + [address] [place] [address] R Unavailable Unavailable Unavailable R Unavailable Unavailable Unavailable AGAPITO PADILLA Unavailable [address] + [address] [place] [address] R Unavailable Unavailable Unavailable R Unavailable Unavailable Unavailable AGAPITO PADILLA Unavailable [address] + [address] [place] [address] R Unavailable Unavailable Unavailable R Unavailable Unavailable Unavailable AGAPITO PADILLA Unavailable [address] + [address] [place] [address] R Unavailable Unavailable Unavailable R Unavailable Unavailable Unavailable SARBJIT, MOLENA Unavailable . + [place] [address] AGAPITO PADILLA Unavailable [address] + [address] [place] [address] R Unavailable Unavailable Unavailable AGAPITO PADILLA Unavailable [address] + [address] [place] [address] R Unavailable Unavailable Unavailable Wheeler, [place] Unavailable 1 + [place] [address] AGAPITO PADILLA Unavailable [address] + [address] [place] [address] R Unavailable Unavailable Unavailable AGAPITO PADILLA Unavailable [address] + [address] [place] [address] R Unavailable Unavailable Unavailable Sarbjit, [place] Unavailable 1 + [place] [address] AGAPITO PADILLA Unavailable [address] + [address] [place] [address] R Unavailable Unavailable Unavailable AGAPITO PADILLA Unavailable [address] + [address] [place] [address] R Unavailable Unavailable Unavailable Care Team Providers Name Role Phone Jed Gutiérrez Attending Unavailable MoodispawJed Referring Unavailable Arciniega, Jc Primary Care Unavailable Moodispaw, Jed Attending Unavailable Moodispaw, Jed Referring Unavailable Moodispaw, Jed Attending Unavailable Moodispaw, Jed Referring Unavailable Arciniega, Cj Primary Care Unavailable Moodispaw, Jed Attending Unavailable Moodispaw, Jed Referring Unavailable Arciniega, Cj Primary Care Unavailable Roof, Junior H Consulting Unavailable RoofJunior H Attending Unavailable Primay Care Physicia, No Referring Unavailable Primay Care Physicia, No Primary Care Unavailable Tucker Rodriguezolas F Admitting Unavailable Cj Sánchez Attending Unavailable MoodispaJed llanes Consulting Unavailable Carlostsonimally, Nash F Admitting Unavailable Primay Care Physicia, No Primary Care Unavailable Kotsonis, Nash F Consulting Unavailable Kotsonis, Nash F Attending Unavailable Kotsonis, Nash F Admitting Unavailable Primay Care Physicia, No Primary Care Unavailable Moodispashraddha, Jed Consulting Unavailable PurvipperiCj Attending Unavailable Jopperi, Cj Consulting Unavailable Carlostsonis, Nash F Admitting Unavailable Moodispaw, Jed Attending Unavailable Primay Care Physicia, No Primary Care Unavailable MoodispaJed llanes Consulting Unavailable Joantonioeri, Cj Consulting Unavailable Kotsonis, Nash F Admitting Unavailable Moodispaw, Jed Attending Unavailable Primay Care Physicia, No Primary Care Unavailable MoodispaJed llanse Consulting Unavailable Ashantieri, Cj Consulting Unavailable Kotsonis, Nash F Admitting Unavailable Jopperi Cj Attending Unavailable Primay Care Physicia, No Primary Care Unavailable MoodispaJed llanes Consulting Unavailable Princess Cj Consulting Unavailable Carlostsonimally, Nash F Admitting Unavailable Moodispashraddha, Jed Attending Unavailable Primay Care Physicia, No Primary Care Unavailable MoodispaJed llanes Consulting Unavailable Jopperi, Cj Consulting Unavailable Kotsonis, Nash F Admitting Unavailable Jopperi, Cj Attending Unavailable Primay Care Physicia, No Primary Care Unavailable Moodispaw, Jed Consulting Unavailable Jopperi, Cj Consulting Unavailable Kotsonis, Nash F Admitting Unavailable Moodispaw, Jed Attending Unavailable Primay Care Physicia, No Primary Care Unavailable Moodispaw, Jed Consulting Unavailable Jopperi, Cj Consulting Unavailable Kotsonis, Nash F Admitting Unavailable Jopperi, Cj Attending Unavailable Primay Care Physicia, No Primary Care Unavailable Moodispaw, Jed Consulting Unavailable Jopperi, Cj Consulting Unavailable Arciniega, Cj Attending Unavailable Arciniega, Cj Primary Care Unavailable Moodispaw, Jed Attending Unavailable Moodispaw, Jed Referring Unavailable Arciniega, Cj Primary Care Unavailable Arciniega, Cj Primary Care Unavailable Beau Melendez Attending Unavailable LyNia Attending Unavailable Moodispaw, Jed Attending Unavailable Primay Care Physicia, No Referring Unavailable Moodispaw, Jed Attending Unavailable Moodispaw, Jed Referring Unavailable Arciniega, Cj Primary Care Unavailable Moodispaw, Jed Attending Unavailable Moodispaw, Jed Referring Unavailable Arciniega, Cj Primary Care Unavailable Moodispaw, Jed Attending Unavailable Moodispaw, Jed Referring Unavailable Arciniega, Cj Primary Care Unavailable Moodispaw, Jed Consulting Unavailable Moodispaw, Jed Attending Unavailable Arciniega, Cj Referring Unavailable RobbieSteven curtis Attending Unavailable Moodispaw, Jed Referring Unavailable Moodispaw, Jed Admitting Unavailable Moodispaw, Jed Attending Unavailable Moodispaw, Jed Referring Unavailable Arciniega, Cj Primary Care Unavailable Moodispaw, Jed Admitting Unavailable Moodispaw, Jed Attending Unavailable MoodispawJed Referring Unavailable Arciniega, Cj Primary Care Unavailable Moodispaw, Jed Consulting Unavailable Moodispaw, Jed Admitting Unavailable Moodispaw, Jed Attending Unavailable Moodispaw, Jed Referring Unavailable Arciniega, Cj Primary Care Unavailable Moodispaw, Jed Consulting Unavailable Moodispashraddha, Jed Attending Unavailable Moodispaw, Jed Referring Unavailable Arciniega, Cj Primary Care Unavailable Marlene, Chuy Consulting Unavailable Moodispaw, Jed Attending Unavailable Primay Care Physicia, No Referring Unavailable PROBLEMS PROBLEMS DATE TYPE CONDITION / CODE ATTENDING STATUS SOURCE 03/03/2018 Unknown I48.91 - Jed Gutiérrez Active [facility] Unspecified atrial Community fibrillation / Hospital I48.91(ICD-10) Repository 03/03/2018 Unknown I42.9 - RoofJunior Active [facility] Cardiomyopathy, Community unspecified / Hospital I42.9(ICD-10) Repository 03/03/2018 Unknown Z51.81 - Encounter Junior Trujillo Active [facility] for therapeutic Community drug level Hospital monitoring / Repository Z51.81(ICD-10) 03/03/2018 Unknown Z79.899 - Other Junior Trujillo Active [facility] (current) drug Hospital therapy / Repository Z79.899(ICD-10) 11/25/2017 Unknown I50.21 - Acute MoodispaJed llanes Active [place] systolic [facility] (congestive) heart Hospital failure / Repository I50.21(ICD-10) 11/18/2017 Unknown I10 - Essential MoodisJed leary Active [facility] (primary) Community hypertension / Hospital I10(ICD-10) Repository 11/18/2017 Unknown I38 - Jed Gutiérrez Active [place] Endocarditis, Community valve unspecified Hospital / I38(ICD-10) Repository 11/04/2017 Unknown N18.3 - Chronic ArciniegaCj Active [place] kidney disease, [facility] stage 3 (moderate) Hospital / N18.3(ICD-10) Repository PROCEDURES PROCEDURES No Procedure Records FoundRESULTS RESULTS CARDIOLOGY VISIT Observed: 03/03/2018 Status: F Source: [facility] [place] 12:29 PM [facility] REPOSITORY [facility] [place] [address] OFFICE VISIT Date of Service: 03/03/18 MR#: [id number] Acct: [id number] Name: EARL PADILLA Rep #: [id number] : 1950 Provider: AMERICA Trujillo Age/Sex: 67/F Location: [facility] Status: Signed HPI HPI Details: EARL PADILLA, is a 67 F who presents to the office today for a cardiovascular outpatient follow-up. She has a history proximal atrial fibrillation with cardioversion on 12/13/2017. She did attempt anticoagulation and antiarrhythmic/decrease in therapy, but this had to be discontinued due to unable to afford medications. She also has a history of cardiomyopathy, systolic CHF, valvular heart disease with MR and TR, and hypertension. Pt. denies chest, arm, jaw, or neck discomfort. Her exercise tolerance is stable. Pt. denies symptoms of palpitations, lightheadedness, dizziness, near syncope, or syncopal episodes. Pt. denies edema or claudication issues. Pt. denies orthopnea, PND, fever, chills, blood in urine, blood in stool, myalgia, or unexplainable fatigue. She states periodically she may noticed palpitations when she lies on her left side. She states noticing SOB after activity depending on her activity level. She states the few days she was in Sinus rhythm after cardioversion she felt better. 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 Required: No Is patient in pain?: No Allergies No Known Allergies Allergy (Verified 03/03/18 09:44) Medications cholecalciferol (vitamin D3) 1,000 unit capsule 2,000 unit PO BID cap 12/20/17 [History Confirmed 03/03/18] vitamin B complex tablet 1 tab PO BID tab 12/20/17 [History Confirmed 03/03/18] Folic Acid 0.8 mg PO DAILY@0800 12/27/17 [History Confirmed 03/03/18] Carvedilol [Coreg (Beta Mikie)] 25 mg PO BID #60 tab 12/28/17 [Rx Confirmed 03/03/18] Furosemide [Lasix] 20 mg PO DAILY tab 12/28/17 [Rx Confirmed 03/03/18] Potassium Chloride [K-Dur] 20 meq PO DAILYCM #30 tab 12/28/17 [Rx Confirmed 03/03/18] lisinopril 20 mg tablet 20 mg PO BID #60 tab 01/19/18 [Rx Confirmed 03/03/18] apixaban 5 mg tablet 5 mg PO BID #60 tab 03/03/18 [Rx Confirmed 03/03/18] digoxin 125 mcg tablet 125 mcg PO DAILY #30 tab 03/03/18 [Rx] PFSH Medical History New onset atrial fibrillation (Chronic) Community acquired pneumonia (Acute) Obesity (BMI 30-39.9) (Chronic) Cardiomyopathy (Chronic) Valvular heart disease (Chronic) HTN (hypertension) (Chronic) Systolic CHF, acute (Chronic) Surgical History History of hysterectomy (Resolved) History of tonsillectomy (Resolved) Family History Father Cancer Lung,pancreatic Brother Atrial fibrillation Social History Smoking Status: Never smoker alcohol intake: never substance use type: does not use ROS Const Const: Negative for fatigue, weakness, body ache, fever(s) or chills ENT ENT: Negative for dizziness Cardio Chest Pain: No Palpitations: Yes Edema: None Muscle aches with walking: None Resp Respiratory: Positive for SOB with activity; negative for SOB at rest, SOB orthopnea\SOB lying down or paroxysmal nocturnal dyspnea GI GI: Negative nausea, black,tarry stools, bright, red blood in stools or vomiting blood/hematemesis : Negative for hematuria or frequent nighttime urination/ nocturia Musc Musc: Positive for joint pain (stiffness); negative for muscle aches/ myalgia Skin Skin: Negative non-healing lesions or rash Neuro Neuro: Negative for weakness, dizziness, lightheadedness, near syncope, syncope or orthostatic symptoms Endo Endo: Negative for fatigue Allergy Allergy/Immunology: Negative for rash Cardiology Exam Const Appearance: cooperative, healthy appearing, comfortable, no acute distress, well developed and well groomed Nutritional Appearance: obese and well nourished Orientation: alert, awake and oriented x3 Head Head: normal to inspection, normocephalic and atraumatic Ears: hearing grossly normal bilaterally Nose: external nose normal Face and Sinus: face symmetric Mouth: oral mucosae normal Eyes Eyelids: eyelids normal Conjunctivae: conjunctivae normal Pupils: PERRL EOM: EOM intact bilaterally Neck Neck: normal visual inspection and full ROM Carotids: normal carotid upstroke Chest Chest inspection: normal inspection of the chest, symmetric chest movement and normal respiratory effort Auscultation: Bilateral: Clear to Auscultation Cardio Palpation: normal PMI Rate: regular rate Rhythm: irregular rhythm Heart sounds: S1 normal and S2 normal; negative rub or gallop Murmur: Grade 1/6, soft, mid systolic and LLSB GI GI: normal to inspection and obese Neuro General: alert, awake, oriented x3 and moves all extremities Skin Skin: no rashes or lesions noted Extremities Pulses: Normal: Right Posterior Tibial Pulse, Left Posterior Tibial Pulse, Right Radial Pulse, Left Radial Pulse Lower Extremity Edema: None: Bilateral Psych Psychological: normal affect Assessment AND Plan 1. New onset atrial fibrillation I48.91 Plan She appears to be in an irregular rhythm based on exam. Her heart rate is well-controlled. She is currently on Coumadin therapy. Her most recent echocardiogram in January 2018 showed ejection to 35%, severely enlarged left atrium, and moderately enlarged right atrium. Now that her insurance has changed, she will change Coumadin to Eliquis 5 mg twice daily and she will be readmitted for Tikosyn therapy. Family member states that it has been taking half of her digoxin as previously recommended. Her most recent office visit record and hospital discharge show a different dosage. Her digoxin level was subtherapeutic. Thus, she was asked to return this to 1 tablet p.o. daily. Orders Orders: 2. Cardiomyopathy, unspecified type I42.9 Plan Her most recent echocardiogram in January 2018 showed an ejection fraction of 35%. This was slightly improved from previous which was 20%. She is currently on maximum dose carvedilol and lisinopril. We will repeat echocardiogram in approximately 2-3 months to assess overall ejection fraction. Based on results of her ejection fraction is 35% or lower she may need to be considered for a primary prevention AICD. Hopefully with medication adjustment and potentially improving rhythm this will continue to improve her ejection fraction. After Tikosyn therapy she should undergo an echocardiogram to further evaluate ejection fraction. At this time, she will continue with current medications and we will continue to monitor. Orders Orders: 3. Valvular heart disease I38 Plan Her most recent echo cardiac in January 2018 showed mild mitral valve insufficiency and moderate tricuspid valve insufficiency. This has been stable compared to previous echocardiogram. She will continue with current medications and we will continue to monitor. 4. Essential hypertension I10 Plan Patient's blood pressure is well-controlled. We will continue to monitor this. We will not make any medication regimen changes. 5. detention (current) use of anticoagulants Z79.01 Plan Her INR today was below 2 and she will transition to Eliquis therapy. Plan Detail Other Orders Orders: Other Medications New: Changed: Discontinued: Additional Comments Thank you for allowing us to participate in the patient's plan of care, if you have any questions please do not hesitate to call. This note was generated using a voice recognition system and there may be incorrect words, spelling, or punctuation that were not noted upon reviewing the office note prior to saving. 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) Coding Level of Care Code Off vis,est,level 3 Diagnoses New onset atrial fibrillation I48.91 Cardiomyopathy, unspecified type I42.9 Cardiomyopathy type: unspecified Valvular heart disease I38 Essential hypertension I10 Hypertension type: essential hypertension detention (current) use of anticoagulants Z79.01 Coding Level of Care Code Off vis,est,level 3 Diagnoses New onset atrial fibrillation I48.91 Cardiomyopathy, unspecified type I42.9 Cardiomyopathy type: unspecified Valvular heart disease I38 Essential hypertension I10 Hypertension type: essential hypertension long term care social 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 Contrast injection was performed. Moderate global left ventricular systolic dysfunction. The estimated ejection fraction is 35 %. The left atrium is severely enlarged. The right atrium is moderately enlarged. There is moderate to severe mitral annular calcification. Extension of the mitral annular calcification onto the posterior mitral valve leaflet. Mild (1+) mitral valve insufficiency. Moderate (2+) tricuspid valve insufficiency. Mild focal aortic valve thickening. Trivial aortic valve insufficiency. Trivial pericardial effusion. There are no echocardiographic indications of cardiac tamponade. Right ventricular systolic pressure estimated to be 35 mmHg. Unable to assess diastolic dysfunction. Cardiac catheterization: 10/19/2017 CONCLUSIONS Elevated Left Ventricular End Diastolic Pressure Global LV systolic dysfunction- Moderate LVEF: by LV gram 30 % Normal coronary arteries Mitral Valve Annular Calcification- Moderate Mitral Valve Insufficiency Moderate RECOMMENDATIONS Risk factor modification Medical therapy DESCRIPTION OF PROCEDURE The patient arrived to the procedure lab. The risks and benefits of the procedure as well as a full description of our services here and current unavailability of surgical backup were fully explained to the patient and/or their significant other prior to the catheterization. The Timeout was completed, verifying the correct patient and procedure. The patient's procedural site was prepped and draped in the usual fashion. Local anesthetic was given subcutaneously to right groin region with Lidocaine 2%. Using a modified Seldinger technique, arterial access was obtained via the right femoral artery, a 4Fr sheath was inserted Left Coronary Artery selective angiography was performed in multiple views using a 4 Fr. JL5 catheter. Right Coronary Artery selective angiography was then performed in multiple views using a 4 Fr. 3DRC catheter. Left Ventriculography was performed in MEDRANO projection using a 4 Fr. Pigtail catheter. LV to AO pullback pressures were then recorded.The arterial sheath was pulled and manual compression applied until hemostasis is achieved. CORONARY ANGIOGRAPHY DOMINANCE: Co- Dominant LEFT HEART ASSESSMENT Left Ventricular Ejection Fraction: by LV Gram 30 % Global Hypokinesis Elevated Left Ventricular End Diastolic Pressure LVEDP: 24 mmHg LEFT MAIN: Angiographically normal LEFT ANTERIOR DECENDING ARTERY: Angiographically normal CIRCUMFLEX ARTERY: Angiographically normal RIGHT CORONARY ARTERY: Angiographically normal VALVE FINDINGS: Normal Aortic Valve function Mitral Valve Annular Calcification Moderate Mitral Valve Insufficiency - Grade 2 AORTIC ROOT: Angiographically normal Labs LDL Cholesterol 89 mg/dL (0-130) 12/28/17 HDL Cholesterol 26 mg/dL (40-) L 12/28/17 Triglycerides 216 mg/dL (-199) H 12/28/17 VLDL Cholesterol 43 mg/dL (5-40) H 12/28/17 Diagnostics Electrocardiogram 12/28/17 Echocardiogram 01/16/18 03/03/18 1229 <Electronically signed by Junior NAGEL> Date Junior NAGEL Cosigner Signature: Date (if applicable) CC: No Primary Care Physician PROTHROMBIN TIME W/INR Collected: 03/03/2018 Status: F Source: [facility] 10:37 AM [facility] REPOSITORY TYPE CODE TESTS RESULT OUT OF RANGE REFERENCE UNITS LAB L300.4150 11.7-14.9 SECONDS High PROTIME 21.3 LAB L300.4200 Normal INR 1.8 Performed By: #### L300.3900 #### [facility] [place], [address] DIGOXIN LEVEL Collected: 03/03/2018 Status: F Source: [facility] 10:36 AM [facility] REPOSITORY TYPE CODE TESTS RESULT OUT OF RANGE REFERENCE UNITS LAB L501.7510 0.80-2.00 ng/mL Low DIG 0.42 Performed By: #### L501.7510 #### [facility] [address] [place], [address] PROTHROMBIN TIME W/INR Collected: 02/17/2018 Status: F Source: [facility] 9:24 AM [facility] REPOSITORY TYPE CODE TESTS RESULT OUT OF RANGE REFERENCE UNITS LAB L300.4150 11.7-14.9 SECONDS High PROTIME 21.6 LAB L300.4200 Normal INR 1.9 Performed By: #### L300.3900 #### [facility] [address] [place], [address] PROTHROMBIN TIME W/INR Collected: 02/09/2018 Status: F Source: [facility] 1:10 PM [facility] REPOSITORY TYPE CODE TESTS RESULT OUT OF RANGE REFERENCE UNITS LAB L300.4150 11.7-14.9 SECONDS High PROTIME 30.1 LAB L300.4200 Normal INR 2.9 Performed By: #### L300.3900 #### [facility] [address] [place], [address] PROTHROMBIN TIME W/INR Collected: 02/06/2018 Status: F Source: [facility] 8:22 AM [facility] REPOSITORY Order Comment: Comments: STANDING ORDER Comments: STANDING ORDER TYPE CODE TESTS RESULT OUT OF REFERENCE UNITS RANGE LAB L300.4150 11.7-14.9 SECONDS High PROTIME 46.8 LAB L300.4200 High alert INR 5.0 Result Comment: CRITICAL VALUE VERIFIED. CALLED TO [facility] 02/06/18 0941 Claudia Osborn. RESULTS READ BACK BY SAME . Performed By: #### L300.3900 #### [facility] [address] [place], [address] PROTHROMBIN TIME W/INR Collected: 02/03/2018 Status: F Source: [facility] 10:47 AM [facility] REPOSITORY TYPE CODE TESTS RESULT OUT OF REFERENCE UNITS RANGE LAB L300.4150 11.7-14.9 SECONDS High PROTIME 51.4 LAB L300.4200 High alert INR 5.6 Result Comment: CRITICAL VALUE VERIFIED. CALLED TO [facility]AN AT 'S OFFICE. 02/03/18 1125 Donald Guerra. RESULTS READ BACK BY SAME. Performed By: #### L300.3900 #### [facility] [address] [place], [address] PROTHROMBIN TIME W/INR Collected: 01/25/2018 Status: F Source: [place] 11:45 AM [facility] REPOSITORY Order Comment: Comments: STANDING ORDER Comments: STANDING ORDER TYPE CODE TESTS RESULT OUT OF RANGE REFERENCE UNITS LAB L300.4150 11.7-14.9 SECONDS High PROTIME 22.0 LAB L300.4200 Normal INR 1.9 Performed By: #### L300.3900 #### [facility] [address] [place], [address] CARDIOLOGY VISIT Observed: 01/19/2018 Status: F Source: [place] REPORT 11:53 AM [facility] REPOSITORY [facility] [address] [place] [address] OFFICE VISIT Date of Service: 01/19/18 MR#: [id number] Acct: [id number] Name: EARL PADILLA Rep #: [id number] : 1950 Provider: Jed Gutiérrez MD Age/Sex: 67/F Location: [facility] Status: Signed HPI HPI Details: EARL PADILLA, is a 67 F who presents to the office today for outpatient cardiovascular follow-up. As you know she was hospitalized recently for antiarrhythmic initiation monitoring. However during her hospitalization she became aware that she could not afford to continue her anti-coagulant therapy with apixaban nor could she afford to continue antiarrhythmic therapy with agent such as Tikosyn/dofetilide. Thus she continued on conservative medical management with future alteration of her anticoagulant therapy from apixaban to warfarin and once her insurance plans change with a future consideration for reattempt at antiarrhythmic therapy. In the meantime she would continue conservative rate control therapy. Thus she was released home. At the present time she notes that she has been doing reasonably well overall. She denies any ongoing issues of chest discomfort. She has had no acute shortness of breath/dyspnea. She has denied any orthopnea or PND or development of peripheral pitting edema. There has been no near syncope or syncope. Intake Vital Signs01/19/18 Height 5 ft 5 in 01/19/18 Weight: 220 lb 01/19/18 Body Mass Index (BMI) 36.6 01/19/18 Blood Pressure 134/86 H Intake Visit Reasons: 2 M FU (echo) Allergies No Known Allergies Allergy (Verified 12/20/17 09:31) Medications cholecalciferol (vitamin D3) 1,000 unit capsule 2,000 unit PO BID cap 12/20/17 [History Confirmed 01/19/18] vitamin B complex tablet 1 tab PO BID tab 12/20/17 [History Confirmed 01/19/18] Folic Acid 0.8 mg PO DAILY@0800 12/27/17 [History Confirmed 01/19/18] Carvedilol [Coreg (Beta Mikie)] 25 mg PO BID #60 tab 12/28/17 [Rx Confirmed 01/19/18] Furosemide [Lasix] 20 mg PO DAILY tab 12/28/17 [Rx Confirmed 01/19/18] Potassium Chloride [K-Dur] 20 meq PO DAILYCM #30 tab 12/28/17 [Rx Confirmed 01/19/18] digoxin 125 mcg tablet 0.125 mg PO DAILY #30 tab 12/29/17 [Rx Confirmed 01/19/18] warfarin 4 mg tablet 4 mg PO DAILY #30 tab 01/16/18 [Rx Confirmed 01/19/18] lisinopril 20 mg tablet 20 mg PO BID #60 tab 01/19/18 [Rx Confirmed 01/19/18] [facility] Medical History New onset atrial fibrillation (Chronic) Community acquired pneumonia (Acute) Obesity (BMI 30-39.9) (Chronic) Cardiomyopathy (Chronic) Valvular heart disease (Chronic) HTN (hypertension) (Chronic) Systolic CHF, acute (Chronic) Surgical History History of hysterectomy (Resolved) History of tonsillectomy (Resolved) Family History Father Cancer Lung,pancreatic Brother Atrial fibrillation Social History Smoking Status: Never smoker alcohol intake: never substance use type: does not use ROS Const Const: Negative for fatigue, weakness, weight gain, weight loss, frequent falls or excessive sweating Eyes Eyes: Negative for change in vision, blurry vision or transient loss of vision ENT ENT: Positive for dizziness (slight in the middle of the night and going downstairs to shower); negative for balance problems Cardio Chest Pain: No Palpitations: Yes (occasional) feels like its: irregular Edema: None Muscle aches with walking: None Resp Respiratory: Positive for SOB with activity (slight) and SOB at rest GI GI: Negative vomiting or vomiting blood/hematemesis : Negative for hematuria Musc Musc: Negative for balance problems, muscle aches/ myalgia, muscle weakness or joint pain Skin Skin: Negative non-healing lesions or rash Neuro Neuro: Positive for dizziness (slight in the middle of the night and going downstairs to shower); negative for weakness, blurry vision, lightheadedness, frequent falls or orthostatic symptoms Nolberto Hematologic/Lymphatic: Negative for easy bleeding Endo Endo: Negative for fatigue or excessive sweating Psych Psych: Negative for anxiety or depression Allergy Allergy/Immunology: Negative for hives, Negative for rash Cardiology Exam Const Appearance: cooperative, healthy appearing, comfortable, no acute distress, well developed and well groomed Nutritional Appearance: overweight Orientation: alert, awake and oriented x3 Head Head: normal to inspection, normocephalic and atraumatic Ears: hearing grossly normal bilaterally Nose: external nose normal Face and Sinus: face symmetric Mouth: oral mucosae normal Eyes Eyelids: eyelids normal Conjunctivae: conjunctivae normal Pupils: PERRL EOM: EOM intact bilaterally Neck Neck: normal visual inspection and full ROM Carotids: normal carotid upstroke Chest Chest inspection: normal inspection of the chest and symmetric chest movement Auscultation: Bilateral: Clear to Auscultation Cardio Palpation: normal PMI Rhythm: irregular rhythm Heart sounds: S1 normal and S2 normal Murmur: Grade 1/6, soft, mid systolic and LLSB GI GI: normal to inspection, bowel sounds present and soft Neuro General: alert, awake, oriented x3 and moves all extremities Skin Skin: no rashes or lesions noted Extremities Pulses: Normal: Right Radial Pulse, Left Radial Pulse Lower Extremity Edema: None: Bilateral Psych Psychological: normal affect Supplemental Info Echocardiogram: 10/18/2017 Interpretation Summary The study was technically difficult. Severe global left ventricular systolic dysfunction. The estimated ejection fraction is 20 %. Mild concentric left ventricular hypertrophy. Apical false tendon noted. The left atrium is severely enlarged. The right atrium is moderately enlarged. There is moderate mitral annular calcification. Extension of the mitral annular calcification onto the posterior mitral valve leaflet. Mild diffuse mitral valve thickening. Moderate (2+) mitral valve insufficiency. Moderately severe (3+) tricuspid valve insufficiency. Trivial aortic valve insufficiency. Trivial pericardial effusion. There are no echocardiographic indications of cardiac tamponade. Right ventricular systolic pressure estimated to be 42 mmHg. Unable to assess diastolic dysfunction. Cardiac catheterization: 10/19/2017 CONCLUSIONS Elevated Left Ventricular End Diastolic Pressure Global LV systolic dysfunction- Moderate LVEF: by LV gram 30 % Normal coronary arteries Mitral Valve Annular Calcification- Moderate Mitral Valve Insufficiency Moderate RECOMMENDATIONS Risk factor modification Medical therapy DESCRIPTION OF PROCEDURE The patient arrived to the procedure lab. The risks and benefits of the procedure as well as a full description of our services here and current unavailability of surgical backup were fully explained to the patient and/or their significant other prior to the catheterization. The Timeout was completed, verifying the correct patient and procedure. The patient's procedural site was prepped and draped in the usual fashion. Local anesthetic was given subcutaneously to right groin region with Lidocaine 2%. Using a modified Seldinger technique, arterial access was obtained via the right femoral artery, a 4Fr sheath was inserted Left Coronary Artery selective angiography was performed in multiple views using a 4 Fr. JL5 catheter. Right Coronary Artery selective angiography was then performed in multiple views using a 4 Fr. 3DRC catheter. Left Ventriculography was performed in MEDRANO projection using a 4 Fr. Pigtail catheter. LV to AO pullback pressures were then recorded.The arterial sheath was pulled and manual compression applied until hemostasis is achieved. CORONARY ANGIOGRAPHY DOMINANCE: Co- Dominant LEFT HEART ASSESSMENT Left Ventricular Ejection Fraction: by LV Gram 30 % Global Hypokinesis Elevated Left Ventricular End Diastolic Pressure LVEDP: 24 mmHg LEFT MAIN: Angiographically normal LEFT ANTERIOR DECENDING ARTERY: Angiographically normal CIRCUMFLEX ARTERY: Angiographically normal RIGHT CORONARY ARTERY: Angiographically normal VALVE FINDINGS: Normal Aortic Valve function Mitral Valve Annular Calcification Moderate Mitral Valve Insufficiency - Grade 2 AORTIC ROOT: Angiographically normal Assessment AND Plan 1. New onset atrial fibrillation I48.91 Plan At the present time she will continue with her rate limiting therapy and her anticoagulant therapy. That now includes warfarin. She will have follow- up INR levels. Hopefully as her insurance plan changes in 2019 she may be able to be considered for antiarrhythmic therapy and/or if need be possible EP consultation for EPS/RFA of her atrial dysrhythmia. 2. Valvular heart disease I38 Plan She does have a history of underlying valvular heart disease as previously noted. She will continue medical management. She will continue to be followed by history, exam, and echocardiographic studies. 3. Cardiomyopathy, unspecified type I42.9 Plan She does have an underlying history of a cardiomyopathy. Based upon her previous noninvasive and invasive studies this appears to be a non-CAD related cardiomyopathy. Thus she will continue medical management. At the present time she will attempt to increase her JESUS inhibitor therapy to lisinopril 20 mg twice daily. She will have future follow-up echocardiographic studies to monitor her LV wall motion and systolic function. Hopefully she will be able to regain sinus rhythm in the future and it may help her LV systolic function improved. However whether she remains in atrial fibrillation or she regain sinus rhythm if her LV function does not improve despite her cardiac rate and rhythm and medical therapy then she will need to be considered for primary prevention ICD therapy. 4. Systolic CHF, acute I50.21 Plan There is no ongoing symptoms of acute CHF. She will continue medical management and follow-up 5. Essential hypertension I10 Plan Her blood pressure appears to be well controlled. She will continue medical therapy and follow-up Plan Detail Other Medications Changed: Additional Comments The above was discussed with her. 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 Thank you for allowing me to participate in the care of your patient. Please don't hesitate to call if any issues arise. This note was generated using a voice recognition system and there may be incorrect words, spelling or punctuation that were not noted when reviewing the office note prior to saving. Follow Up 6 Weeks (PFM) Coding Level of Care Code Off vis,est,level 3 Diagnoses New onset atrial fibrillation I48.91 Valvular heart disease I38 Cardiomyopathy, unspecified type I42.9 Cardiomyopathy type: unspecified Systolic CHF, acute I50.21 Essential hypertension I10 Hypertension type: essential hypertension Coding Level of Care Code Off vis,est,level 3 Diagnoses New onset atrial fibrillation I48.91 Valvular heart disease I38 Cardiomyopathy, unspecified type I42.9 Cardiomyopathy type: unspecified Systolic CHF, acute I50.21 Essential hypertension I10 Hypertension type: essential hypertension 01/19/18 1153 <Electronically signed by Jed Gutiérrez MD> Date Jed Gutiérrez MD Cosigner Signature: Date (if applicable) CC: Jed Gutiérrez MD ECHO, COMPLETE W/ Observed: 01/16/2018 Status: F Source: [place] CONTRAST 4:34 PM [facility] REPOSITORY [facility] Cardiovascular Services [address] [place] [address] Echo Complete W/ Contrast 01/16/18 1312 MR#: [id number] Acct: [id number] Name: EARL PADILLA Rep #: [id number] : 1950 67 From: Jed Gutiérrez MD Attending Dr: Jed Gutiérrez MD Status: REG CLI Ordering Dr: Jed Gutiérrez MD Date: 01/16/18 Location: [facility] Sex: F C Admitted: Reason For Study: Afib Procedure This was a 2D Doppler, Color Flow transthoracic echocardiogram. The study was technically difficult. Contrast injection was performed. Exam performed in department. Left Ventricle Normal LV size. Moderate global left ventricular systolic dysfunction. The estimated ejection fraction is 35 %. Unable to assess diastolic dysfunction. Right Ventricle Normal RV size. Normal systolic function. Atria The left atrium is severely enlarged. The right atrium is moderately enlarged. No doppler evidence for ASD. Mitral Valve There is moderate to severe mitral annular calcification. Extension of the mitral annular calcification onto the posterior mitral valve leaflet. Mild (1+) mitral valve insufficiency. Tricuspid Valve Normal tricuspid valve. Moderate (2+) tricuspid valve insufficiency. Right ventricular systolic pressure estimated to be 35 mmHg. Aortic Valve Trisinus/trileaflet aortic valve. Mild focal aortic valve thickening. Trivial aortic valve insufficiency. Pulmonic Valve The pulmonic valve is not well visualized. Great Vessels The aortic root is not well visualized. Pericardium/Pleural Trivial pericardial effusion. There are no echocardiographic indications of cardiac tamponade. Medication 22 gauge I.V. with prn adaptor inserted into right arm. Diluted definity 4ml given slow IV push to enhance endocardial definition. MMode/2D Measurements AND Calculations LVIDd: 4.7 cm IVSd: 1.2 cm LA dimension: 5.3 cm LVIDs: 4.2 cm LVPWd: 1.2 cm FS: 11.7 % LAV(MOD-bp): 104.2 ml LA A4 area: 30.4 cm2 RA A4 area: 22.5 cm2 LAV(MOD-bp) Indexed: 50.8 ml/m2 LAV(MOD-sp2): 95.6 ml LAV(MOD-sp4): 113.5 ml Doppler Measurements AND Calculations MV E max aniyah: 97.7 cm/sec Ao V2 max: 101.1 cm/sec AI max aniyah: 454.5 cm/sec Ao max P.1 mmHg AI max P.6 mmHg AI dec slope: 143.7 cm/sec2 AI P1/2t: 926.2 msec LV V1 max: 79.3 cm/sec PA V2 max: 57.9 cm/sec TR max aniyah: 283.6 cm/sec LV V1 max P.5 mmHg TR max P.2 mmHg Interpretation Summary The study was technically difficult. Contrast injection was performed. Moderate global left ventricular systolic dysfunction. The estimated ejection fraction is 35 %. The left atrium is severely enlarged. The right atrium is moderately enlarged. There is moderate to severe mitral annular calcification. Extension of the mitral annular calcification onto the posterior mitral valve leaflet. Mild (1+) mitral valve insufficiency. Moderate (2+) tricuspid valve insufficiency. Mild focal aortic valve thickening. Trivial aortic valve insufficiency. Trivial pericardial effusion. There are no echocardiographic indications of cardiac tamponade. Right ventricular systolic pressure estimated to be 35 mmHg. Unable to assess diastolic dysfunction. 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 Cardiovascular Services [address] [place] [address] 12 Lead EKG 12/27/17 1148 MR#: [id number] Acct: [id number] Name: EARL PADILLA Rep #: [id number] : 1950 67 From: Chuy Rosario MD Attending Dr: Jed Gutiérrez MD Status: DIS IN Ordering Dr: Jed Gutiérrez MD Date: 12/27/17 Location: [facility] Sex: F C Admitted: 12/27/17 Test Reason : MED Blood Pressure : / mmHG Vent. Rate : 098 BPM Atrial Rate : 097 BPM P-R Int : 000 ms QRS Dur : 084 ms QT Int : 346 ms P-R-T Axes : 000 089 016 degrees QTc Int : 441 ms Atrial fibrillation with premature ventricular or aberrantly conducted complexes Abnormal ECG When compared with ECG of 27-DEC-2017 09:10, MANUAL COMPARISON REQUIRED, DATA IS UNCONFIRMED Confirmed by CHUY ROSARIO MD ([id number]), editor magazine JESSICA TOVAR ([id number]) on 01/02/2018 2:23:50 PM Referred By: Jed Gutiérrez Confirmed By:CHUY ROSARIO MD 01/02/18 1423 Date Chuy Rosario MD CC: Cj Arciniega MD; Jed Gutiérrez MD Signed 12 LEAD ELECTROCARDIOGRAM Observed: 01/13/2018 Status: F Source: [place] 9:10 AM [facility] REPOSITORY [facility] Cardiovascular Services [address] [place] [address] 12 Lead EKG 12/27/17 0910 MR#: [id number] Acct: [id number] Name: EARL PADILLA Rep #: [id number] : 1950 67 From: Chuy Rosario MD Attending Dr: Jed Gutiérrez MD Status: DIS IN Ordering Dr: Jed Gutiérrez MD Date: 12/27/17 Location: [facility] Sex: F C Admitted: 12/27/17 Test Reason : ADMISSION Blood Pressure : / mmHG Vent. Rate : 093 BPM Atrial Rate : 326 BPM P-R Int : 000 ms QRS Dur : 084 ms QT Int : 334 ms P-R-T Axes : 000 079 018 degrees QTc Int : 415 ms Atrial fibrillation Abnormal ECG When compared with ECG of 13-DEC-2017 13:55, Atrial fibrillation has replaced Sinus rhythm Confirmed by CHUY ROSARIO MD ([id number]), editor magazine JESSICA TOVAR ([id number]) on 01/02/2018 2:24:49 PM Referred By: Jed Gutiérrez Confirmed By:CHUY ROSARIO MD 01/02/18 1424 Date Chuy Rosario MD CC: Cj Arciniega MD; Jed Gutiérrez MD Signed 12 LEAD ELECTROCARDIOGRAM Observed: 01/13/2018 Status: F Source: [place] 9:09 AM [facility] REPOSITORY [facility] Cardiovascular Services [address] [place] [address] 12 Lead EKG 12/28/17 1255 MR#: [id number] Acct: [id number] Name: EARL PADILLA Rep #: [id number] : 1950 67 From: Chuy Rosario MD Attending Dr: Jed Gutiérrez MD Status: DIS IN Ordering Dr: Jed Gutiérrez MD Date: 12/28/17 Location: [facility] Sex: F C Admitted: 12/27/17 Test Reason : MED Blood Pressure : / mmHG Vent. Rate : 087 BPM Atrial Rate : 326 BPM P-R Int : 000 ms QRS Dur : 082 ms QT Int : 380 ms P-R-T Axes : 000 081 048 degrees QTc Int : 457 ms Atrial fibrillation Abnormal ECG When compared with ECG of 27-DEC-2017 23:20, MANUAL COMPARISON REQUIRED, DATA IS UNCONFIRMED Confirmed by MARLENE ELDRIDGE, CHUY ([id number]), editor magazine JESSICA TOVAR ([id number]) on 01/02/2018 1:52:38 PM Referred By: Jed Gutiérrez Confirmed By:CHUY ROSARIO MD 01/02/18 1352 Date Chuy Rosario MD CC: Cj Arciniega MD; Jed Gutiérrez MD Signed 12 LEAD ELECTROCARDIOGRAM Observed: 01/13/2018 Status: F Source: [place] 9:09 AM [facility] REPOSITORY [facility] Cardiovascular Services [address] [place] [address] 12 Lead EKG 12/27/17 2320 MR#: [id number] Acct: [id number] Name: EARL PADILLA Rep #: [id number] : 1950 67 From: Chuy Rosario MD Attending Dr: Jed Gutiérrez MD Status: DIS IN Ordering Dr: Jed Gutiérrez MD Date: 12/27/17 Location: [facility] Sex: F C Admitted: 12/27/17 Test Reason : Blood Pressure : / mmHG Vent. Rate : 097 BPM Atrial Rate : 102 BPM P-R Int : 000 ms QRS Dur : 086 ms QT Int : 346 ms P-R-T Axes : 000 072 -01 degrees QTc Int : 439 ms Atrial fibrillation Abnormal QRS-T angle, consider primary T wave abnormality Abnormal ECG When compared with ECG of 27-DEC-2017 11:48, MANUAL COMPARISON REQUIRED, DATA IS UNCONFIRMED Confirmed by MARLENE ELDRIDGE, CHUY ([id number]), editor magazine JESSICA TOVAR ([id number]) on 01/02/2018 2:06:06 PM Referred By: Jed Gutiérrez Confirmed By:CHUY ROSARIO MD 01/02/18 1406 Date Chuy Rosario MD CC: Cj Arciniega MD; Jed Gutiérrez MD Signed DISCHARGE SUMMARY Observed: 12/28/2017 Status: F Source: [place] 5:35 PM [facility] Medical Records Department [address] [place] [address] Discharge Summary 12/28/17 1727 MR#: [id number] Acct: [id number] Name: EARL PADILLA Rep #: [id number] : 1950 67 From: Jed Gutiérrez MD PCP: Cj Arciniega MD Status: ADM IN Y Location: [place] [address] Discharge Date and Diagnosis - Problem List Patient Problems: Active and Suspected Problems (Last Reviewed 11/18/17 @ 09:55 by Nia Ly) Encounter for monitoring anti-arrhythmic therapy (Acute) Date of Admission: 12/27/17 Date of Discharge: 12/28/17 - Primary Discharge Diagnosis Active and Suspected Problems (Last Reviewed 11/18/17 @ 09:55 by Nia Ly) Encounter for monitoring anti-arrhythmic therapy (Acute) - Secondary Discharge Diagnosis Chronic Problems (Last Reviewed 11/18/17 @ 09:55 by Nia Ly) New onset atrial fibrillation (Chronic) Obesity (BMI 30-39.9) (Chronic) Cardiomyopathy (Chronic) Valvular heart disease (Chronic) HTN (hypertension) (Chronic) Systolic CHF, acute (Chronic) Hospital Course and Treatment Summary of Care Provided: The patient is a 67 year old white female who presented for antiarrhythmic initiation/monitoring. She continued to be monitored while she was undergoing medication adjustment and initiation of antiarrhythmic therapy with dofetilide. She had no adverse symptoms or adverse cardiovascular events including cardiac dysrhythmias or abnormal echocardiographic findings. During her hospitalization she announced that status post review of their current insurance policies she was not going to be able to afford refills of her anticoagulant therapy with respect to cement/Eliquis and she would not be able to afford her new antiarrhythmic therapy with dofetilide. The utilization team assisted in her insurance evaluation and medication financial support evaluation. Status post an exhaustive evaluation it appeared the patient would not be able to afford these medications going forward. Following February 14, 2018 there may be a change in her insurance status that will allow her to afford medication such as her antiarrhythmic therapy. Thus at the present time, noting the patient was not going to be reasonable to remain on these medications, especially antiarrhythmic therapy, it was elected to discontinue her antiarrhythmic initiation and least the patient home for continued outpatient cardiovascular follow-up. The patient was asked to continue her medication with the adjustments made in the hospital with respect to her carvedilol therapy, digitalis therapy, potassium therapy, and continue her current supply of apixaban/Eliquis. When she nears completion of her apixaban/Eliquis applies she should contact the office to initiate alternative anticoagulant therapy such as warfarin/Coumadin which she believes she will be able to afford. Following February 14, 2018, when her insurance status is dated, then she can notify the office as to whether or not she will be able to afford antiarrhythmic therapy such as dofetilide. If so then she can be brought back to the hospital for a reattempt at antiarrhythmic initiation/monitoring. If not consideration might be given as to alternative antiarrhythmics such as amiodarone and whether or not that is an affordable option for her. The above was discussed at length during the hospitalization with the patient, her family members that were present, and the [facility] team. [] Patient Problems: Active and Suspected Problems (Last Reviewed 11/18/17 @ 09:55 by Nia Ly) Encounter for monitoring anti-arrhythmic therapy (Acute) Subjective: Is a 67-year-old white female appears resting comfortably no acute distress. - Physical Exam General: Alert, Oriented x3, Cooperative HEENT: Atraumatic, PERRLA, EOMI, Normocephalic Oral: Moist Mucosa Neck: Supple, No JVD Lungs: Clear to auscultation Cardiovascular: Irregular Rate Abdomen: Bowel Sounds Present, Soft, Non Tender Extremities: No clubbing, No cyanosis, No edema Neurological: Neuro grossly intact Psych/Mental Status: Normal Affect Vital Signs Temp Pulse Resp BP Pulse Ox 97.8 F 105 H 17 127/78 H 95 12/28/17 14:30 12/28/17 15:11 12/28/17 14:30 12/28/17 14:30 12/28/17 14:30 Oxygen Delivery Method Room Air Weight: 214 lb 8.156 oz Body Mass Index (BMI) 35.6 Intake and Output for Last 24 Hours Intake Total 1080 / 1080 800 / 800 Balance 1080 / 1080 800 / 800 Laboratory Tests Past 24 Hrs Discharge Activity: Return to Normal Activity May resume sexual activity in: No Restrictions Weight Bearing Status: Weight bearing as tolerated Call your doctor if you observe: Dizziness, Fainting spells Home Medications: Medications to take at Discharge cholecalciferol (vitamin D3) 1,000 unit capsule 2,000 unit PO BID cap 12/20/17 vitamin B complex tablet 1 tab PO BID tab 12/20/17 Apixaban [Eliquis] 5 mg PO BID 12/27/17 Folic Acid 0.8 mg PO DAILY@0800 12/27/17 Furosemide [Lasix] 20 mg PO DAILY 12/27/17 Lisinopril [Zestril] 10 mg PO BID 12/27/17 Apixaban [Eliquis] 5 mg PO BID tablet 12/28/17 Carvedilol [Coreg (Beta Mikie)] 25 mg PO BID #60 tablet 12/28/17 Digoxin [Lanoxin] 125 mcg PO DAILY #30 tab 12/28/17 Furosemide [Lasix] 20 mg PO DAILY tablet 12/28/17 Lisinopril [Zestril] 10 mg PO BID tablet 12/28/17 Potassium Chloride [K-Dur] 20 meq PO DAILYCM #30 tab 12/28/17 Following Prescrptions Were Given to Patient: Digoxin [Lanoxin] 125 mcg PO DAILY #30 tab Potassium Chloride [K-Dur] 20 meq PO DAILYCM #30 tab Carvedilol [Coreg (Beta Mikie)] 25 mg PO BID #60 tablet Primary Care Physician: Cj Arciniega MD [Primary Care Provider] - Please Follow Up With: Jed Gutiérrez MD When: As previously scheduled Minutes spent on discharge:: 30 Patient Condition:: Stable Medical Necessity - Tobacco Use Smoking Status: Never smoker Meaningful Use Info Meaningful Use Diagnoses (Choose all that apply): None applicable 12/28/17 0185 <Electronically signed by Jed Gutiérrez MD> Date Jed Gutiérrez MD Cosigner Signature (if applicable): Date CC: Cj Arciniega MD; Jed Gutiérrez MD Signed DISCHARGE INSTRUCTION Observed: 12/28/2017 Status: F Source: [place] 5:27 PM [facility] REPOSITORY [facility] Medical Records Department [address] [place] [address] Instructions for Home/Discharge Instructions 12/28/17 1721 MR#: [id number] Acct: [id number] Name: EARL PADILLA Rep #: [id number] : 1950 67 From: Jed Gutiérrez MD PCP: Cj Arciniega MD Status: ADM IN - Discharge Diagnoses Current Active Problems: Current Active and Chronic Problems (Last Reviewed 11/18/17 @ 09:55 by Nia Ly) Encounter for monitoring anti-arrhythmic therapy (Acute) You will use the following diet at home:: Cardiac Your food should be the consistency of: Regular Discharge Activity: Return to Normal Activity May resume sexual activity in: No Restrictions Weight Bearing Status: Weight bearing as tolerated Call your doctor if you observe: Dizziness, Fainting spells Additional Instructions: Education adjustments: Change carvedilol/Coreg to 25 mg twice daily. Change digoxin/Lanoxin to 125 mcg daily. Change potassium chloride to 20 mEq daily. Obtain an outpatient laboratory study (BMP and a digoxin level) the week of 01/09/2018. Continue anticoagulant therapy with apixaban/Eliquis until near completion of current supply at which time notify the office for alternative anticoagulant therapy with warfarin/Coumadin Allergies/Adverse Reactions: Allergies No Known Allergies Allergy (Verified 12/20/17 09:31) Medications to take at Discharge cholecalciferol (vitamin D3) 1,000 unit capsule 2,000 unit PO BID cap 12/20/17 vitamin B complex tablet 1 tab PO BID tab 12/20/17 Apixaban [Eliquis] 5 mg PO BID 12/27/17 Folic Acid 0.8 mg PO DAILY@0800 12/27/17 Furosemide [Lasix] 20 mg PO DAILY 12/27/17 Lisinopril [Zestril] 10 mg PO BID 12/27/17 Apixaban [Eliquis] 5 mg PO BID tablet 12/28/17 Carvedilol [Coreg (Beta Mikie)] 25 mg PO BID #60 tablet 12/28/17 Digoxin [Lanoxin] 125 mcg PO DAILY #30 tab 12/28/17 Furosemide [Lasix] 20 mg PO DAILY tablet 12/28/17 Lisinopril [Zestril] 10 mg PO BID tablet 12/28/17 Potassium Chloride [K-Dur] 20 meq PO DAILYCM #30 tab 12/28/17 The following prescriptions were given: Digoxin [Lanoxin] 125 mcg PO DAILY #30 tab Potassium Chloride [K-Dur] 20 meq PO DAILYCM #30 tab Carvedilol [Coreg (Beta Mikie)] 25 mg PO BID #60 tablet Primary Care Physician: Cj Arciniega MD [Primary Care Provider] - Test Results: Test results from this visit will be discussed in further detail at your follow-up appointment, if applicable. Please Follow Up With: Jed Gutiérrez MD When: As previously scheduled Proposed Discharge Date: 12/28/17 12/28/17 1727 <Electronically signed by Jed Gutiérrez MD> Date Jed Gutiérrez MD CC: Cj Arciniega MD BASIC METABOLIC Collected: 12/28/2017 Status: F Source: [place] PROFILE (BMP) 5:40 AM [facility] REPOSITORY Order Comment: Comments: Fasting Lipid Profile TYPE CODE TESTS RESULT OUT OF RANGE REFERENCE UNITS LAB L501.0100 74-106 mg/dL Normal GLU 88 Result Comment: Please note revised GLUCOSE reference range effective 2017. LAB L501.1000 7-18 mg/dL Normal BUN 14 LAB L501.1100 0.55-1.02 mg/dL Normal CREAT,SERUM 1.01 Result Comment: The validity of the calculated GFR AND GFRAA in patients over 70 years has not been determined. Clinical correlation is essential. LAB L501.1110 >60 mL/min Low EST GFR 58 Result Comment: Non- GFR Calc LAB L501.1115 >60 mL/min Normal EST GFR - AA 71 Result Comment: GFR Calc LAB L501.1255 ml/min Normal Estimated CRCL 49.30 LAB L501.1300 10-20 RATIO Normal BUN/CRE 13.9 LAB L501.2200 8.5-10 mg/dL Low .1 CA 8.2 LAB L501.5300 136-14 mmol/L Normal 5 NA 143 LAB L501.5600 3.5-5. mmol/L Normal 1 K 3.6 Result Comment: Slight Hemolysis, Result may be falsely increased. LAB L501.5900 98-107 mmol/L Normal CL 105 LAB L501.6100 21.0-32.0 mmol/L Normal CO2 28.0 LAB L501.6200 5-15 Normal GAP 10 Performed By: #### L500.2500, L500.4100 #### [facility] [address] [place], [address] LIPID PROFILE Collected: 12/28/2017 Status: F Source: [place] 5:40 AM [facility] REPOSITORY Order Comment: Comments: Fasting Lipid Profile TYPE CODE TESTS RESULT OUT OF RANGE REFERENCE UNITS LAB L501.4900 200 mg/dL Normal CHOL 158 Result Comment: <200 mg/dL Desirable 200-240 mg/dL Borderline >240 mg/dL High Risk LAB L501.5000 mg/dL High TRIG 216 Result Comment: The drugs N-Acetylcysteine and Metamizole may falsely depress this assay. Serum Triglycerides Reference Interval Normal <150 mg/dL Borderline high 150 - 199 mg/dL High 200 - 499 mg/dL Very High > or = 500 mg/dL LAB L501.6400 mg/dL Low HDL 26 Result Comment: The drugs N-Acetylcysteine and Metamizole may falsely depress this assay. Reference Range HDL <40 mg/dL Low HDL Cholesterol HDL >or= 60 mg/dL High HDL Cholesterol LAB L501.6500 0-130 mg/dL Normal LDL 89 LAB L501.6600 5-40 mg/dL High VLDL 43 Performed By: #### L500.2500, L500.4100 #### [facility] [address] [facility] [place], [address] HISTORY AND PHYSICAL Observed: 12/27/2017 Status: F Source: [place] EXAM 5:18 PM [facility] REPOSITORY [facility] Medical Records Department [address] [place] [address] History and Physical 12/27/17 1710 MR#: [id number] Acct: [id number] Name: EARL PADILLA Rep #: [id number] : 1950 67 From: Jed Gutiérrez MD PCP: Cj Arciniega MD Status: ADM IN Location: [place] [address] Problem List (1) Encounter for monitoring anti-arrhythmic therapy Status: Acute (2) New onset atrial fibrillation Status: Chronic (3) Cardiomyopathy Status: Chronic Qualifiers: Cardiomyopathy type: unspecified (4) Systolic CHF, acute Status: Chronic (5) Valvular heart disease Status: Chronic (6) HTN (hypertension) Status: Chronic Qualifiers: Hypertension type: essential hypertension History of Present Illness Date of Admission: 12/27/17 The patient is a 67 year old white female with a past cardiovascular history which has included underlying atrial fibrillation, non-CAD related cardiomyopathy, chronic systolic CHF, valvular heart disease with MR/TR, and hypertension who is brought to the hospital for initiation of antiarrhythmic therapy. She has undergone noninvasive and invasive evaluation in the past. On 10/18/2017 she had a transthoracic echocardiogram performed. This was a technically diminished quality study. She had global left ventricular systolic dysfunction with an estimated LVEF of 20% with mild concentric LVH with an apical false tendon and severe left atrial enlargement and moderate right atrial enlargement. There was moderate mitral annular calcification with mild diffuse mitral valve thickening and moderate MR as well as moderately severe TR, trivial AI, a trivial pericardial effusion with no cardiac compromise, and an estimated RV systolic pressure of 42 mmHg. She underwent diagnostic cardiac catheterization on 10/19/2017. At that time her left ventricle was thought to be globally hypokinetic with an LVEF of 30% with angiographically normal-appearing coronary arteries with moderate MR. She is also undergone further evaluation and care for her atrial dysrhythmia on 12/13/2017 with a synchronized biphasic DC cardioversion. She did regain sinus rhythm. However upon outpatient follow-up she was noted to revert to atrial fibrillation. .She is brought to the hospital today for initiation of antiarrhythmic therapy and subsequent monitoring. She denies any ongoing chest discomfort or difficulty breathing at this time. She has noted no ongoing palpitation or rapid rate sensations. There has been no near syncope or syncope. [] Past Medical History Allergies/Adverse Reactions: Allergies No Known Allergies Allergy (Verified 12/20/17 09:31) Home Medications: Ambulatory Orders Medication Instructions Recorded cholecalciferol (vitamin D3) 1,000 2,000 unit PO BID cap 12/20/17 unit capsule Past Medical History (Chronic Problems): Chronic Problems (Last Reviewed 11/18/17 @ 09:55 by Nia Ly) New onset atrial fibrillation (Chronic) Obesity (BMI 30-39.9) (Chronic) Cardiomyopathy (Chronic) Valvular heart disease (Chronic) HTN (hypertension) (Chronic) Systolic CHF, acute (Chronic) Surgical History: hysterectomy, tonsillectomy Psychiatric History: No pertinent psych hx PROFESSIONAL ATHLETE History: No pertinent PROFESSIONAL ATHLETE history - *Family History Maternal Family History: Family History (Last Reviewed 11/18/17 @ 09:55 by Nia Ly) Father Cancer Brother Atrial fibrillation History Items: - - Arthritis, joint issues Paternal Family History: Family History (Last Reviewed 11/18/17 @ 09:55 by Nia yL) Father Cancer Brother Atrial fibrillation History Items: Cancer - Lung, pancreatic Lives: Spouse/ Significant Other Smoking Status: Never smoker Alcohol: None Drugs: None Review of Systems - Review of Systems General: Denies: Fever, Night Sweats, Fatigue Cardiovascular: Denies: Chest Discomfort, Shortness of Breath, Orthopnea, PND, Peripheral Edema, Palpitations, Lightheadedness, Dizziness, Near Syncope, Syncope Respiratory: Denies: Cough, Sputum Production, Hemoptysis Gastrointestinal: Denies: Hematemesis, Hematochezia, Melena Genitourinary: Denies: Dysuria, Hematuria Skin: Denies: Rash Subjectve: This is a 67-year-old white female who appears to be resting comfortably at the moment in no acute distress. Objective: Vital Signs Temp Pulse Resp BP Pulse Ox 98.1 F 92 15 144/78 H 95 12/27/17 13:32 12/27/17 15:16 12/27/17 13:32 12/27/17 13:32 12/27/17 13:32 Oxygen Delivery Method Room Air Weight: 214 lb 8.156 oz Body Mass Index (BMI) 35.6 Intake and Output for Last 24 Hours Intake Total 360 / 360 Balance 360 / 360 General: Awake, Alert, Oriented x 3, Cooperative, No Acute Distress HEENT: Atraumatic, Normocephalic, PERRL, EOMI, Sclera Non Icteric Neck: Supple, Good ROM, No JVD Lungs: Clear to auscultation Cardiovascular: Irregular Rhythm, Normal S1, Normal S2 Murmur Murmur: Grade 1/6, Soft, Mid Systolic, LLSB Vascular: No Carotid Bruits Abdomen: Bowel Sounds Present, Soft, Non Tender Extremities: No Cyanosis, No Clubbing, No edema Neurological: No Focal Motor or Sensory Deficit Psych/Mental Status: Appropriate, Normal Affect VTE Information - Inpt Only VTE Present on Admission: No VTE Mechan Device Prophylaxis: None VTE Pharm Prophylaxis ordered?: No Reason prophylaxis not ordered:: Treatment Not Indicated - The patient is already on oral systemic anticoagulant therapy 12/27/17 09:20: Total Bilirubin Cancelled, Direct Bilirubin Cancelled 12/27/17 09:20: Digoxin 1.86 12/27/17 09:20: WBC 13.6 H, RBC 4.66, Hgb 14.3, Hct 43.5, MCV 93.3, MCH 30.7, MCHC 32.9, RDW 15.8 H, RDW Differential 53.1 H, Plt Count 270, MPV 10.1 12/27/17 09:20: Sodium 142, Potassium 3.7, Chloride 105, Carbon Dioxide 27.0, Anion Gap 10, BUN 17, Creatinine 1.15 H, Est GFR (MDRD) Af Amer 61, Est GFR (MDRD) Non-Af 50 L, BUN/Creatinine Ratio 14.8, Glucose 98, Calcium 8.5, Magnesium 1.8, Total Bilirubin 0.80, Direct Bilirubin 0.14 Rhythm: Atrial fibrillation EKG: Atrial fibrillation; poor R wave progression ECHO: As noted above Cardiac Cath: As noted above Assessment/Plan 1. Antiarrhythmic medication monitoring The patient is brought to the hospital for initiation of antiarrhythmic therapy and monitoring. She is going to continue rate control therapy and anticoagulant therapy as deemed appropriate. She is going to be started on antiarrhythmic therapy with dofetilide. She will need close follow-up of her cardiac rate, rhythm, laboratory studies, and ECG. If she does not have spontaneous conversion to sinus rhythm and consideration will be given to a future attempt at repeat synchronized biphasic DC cardioversion. 2. Atrial fibrillation Again she will continue to be monitored. She will continue medication adjustment as deemed appropriate. 3. Non-CAD related cardiomyopathy The patient has undergone noninvasive and invasive evaluation as described above. She will continue medical management. The hope is that if she regained sinus rhythm her overall LV systolic function may improve. This will need to be followed with future echocardiographic studies. 4. Chronic systolic CHF At the moment the patient appears without any acute issues. She will continue medical therapy and adjustment as deemed appropriate. 5. Valvular heart disease with MR/TR The patient will continue to be followed by history, exam, and echocardiogram as deemed appropriate. 6. Hypertension The patient's blood pressure will be monitored. Her medications can be adjusted as needed. Comment: The above was discussed with the patient and her spouse. This note was generated using a voice recognition system and there may be incorrect words, spelling or punctuation that were not noted when reviewing the office note prior to saving. 12/27/17 9477 <Electronically signed by Jed Gutiérrez MD> Date Jed Gutiérrez MD Cosigner Signature: Date (if applicable) CC: Cj Arciniega MD; Jed Gutiérrez MD Signed CBC-COMPLETE BLOOD CNT Collected: 12/27/2017 Status: F Source: [place] NO DIFF 9:20 AM [facility] REPOSITORY TYPE CODE TESTS RESULT OUT OF RANGE REFERENCE UNITS LAB L100.1000 4.4-11.0 K/mm3 High WBC 13.6 LAB L100.1200 4.2-5.4 M/mm3 Normal RBC 4.66 LAB L100.1300 12.0-15.0 g/dl Normal HGB 14.3 LAB L100.1400 37-47 % Normal HCT 43.5 LAB L100.1500 81-99 fL Normal MCV 93.3 LAB L100.1600 27.0-32.0 pg Normal MCH 30.7 LAB L100.1700 32-36 g/gl Normal MCHC 32.9 LAB L100.1810 11.6-14.6 % High RDW CV 15.8 LAB L100.1820 35.1-43.9 fl High RDW SD 53.1 LAB L100.1900 150-450 K/mm3 Normal PLT 270 LAB L100.2000 6.2-12.0 fl Normal MPV 10.1 Performed By: #### L100.0500 #### [facility] [address] [place], [address] COMPREHENSIVE METABOLIC Collected: 12/27/2017 Status: F Source: [place] PROFIL 9:20 AM [facility] REPOSITORY TYPE CODE TESTS RESULT OUT OF RANGE REFERENCE UNITS LAB L501.0100 74-106 mg/dL Normal GLU 98 Result Comment: Please note revised GLUCOSE reference range effective 2017. LAB L501.1000 7-18 mg/dL Normal BUN 17 LAB L501.1100 0.55-1.02 mg/dL High CREAT,SERUM 1.15 Result Comment: The validity of the calculated GFR AND GFRAA in patients over 70 years has not been determined. Clinical correlation is essential. LAB L501.1110 >60 mL/min Low EST GFR 50 Result Comment: Non- GFR Calc LAB L501.1115 >60 mL/min Normal EST GFR - AA 61 Result Comment: GFR Calc LAB L501.1255 ml/min Normal Estimated CRCL 43.30 LAB L501.1300 10-20 RATIO Normal BUN/CRE 14.8 LAB L501.1500 6.4-8. g/dL Normal 2 T PROT 7.2 LAB L501.1800 3.2-5. g/dL Normal 0 ALB 3.2 LAB L501.1950 2.2-4. g/dL Normal 2 GLOB 4.0 LAB L501.2000 0.9-2. RATIO Low 4 A/G 0.8 LAB L501.2200 8.5-10 mg/dL Normal .1 CA 8.5 LAB L501.4100 15-37 U/L Normal AST 17 LAB L501.4305 45-117 U/L Normal ALK P 79 LAB L501.4405 13-56 U/L Normal ALT 29 LAB L501.4600 0.20-1 mg/dL Normal .00 T BILI 0.80 LAB L501.5300 136-14 mmol/L Normal 5 NA 142 LAB L501.5600 3.5-5. mmol/L Normal 1 K 3.7 LAB L501.5900 98-107 mmol/L Normal CL 105 LAB L501.6100 21.0-3 mmol/L Normal 2.0 CO2 27.0 LAB L501.6200 5-15 Normal GAP 10 Performed By: #### L500.4050, L501.4700, L501.5200, L501.9520 #### [facility] [address] [place], [place], [id number] BILIRUBIN, DIRECT Collected: 12/27/2017 Status: F Source: [place] 9:20 AM [facility] REPOSITORY TYPE CODE TESTS RESULT OUT OF RANGE REFERENCE UNITS LAB L501.4700 0.00-0.30 mg/dL Normal D BILI 0.14 Performed By: #### L500.4050, L501.4700, L501.5200, L501.9520 #### [facility] [address] [place], [address] MAGNESIUM Collected: 12/27/2017 Status: F Source: [place] 9:20 AM [facility] REPOSITORY TYPE CODE TESTS RESULT OUT OF RANGE REFERENCE UNITS LAB L501.5200 1.6-2.6 mg/dL Normal MG 1.8 Performed By: #### L500.4050, L501.4700, L501.5200, L501.9520 #### [facility] [address] [place], [address] THYROID STIM HORMONE Collected: 12/27/2017 Status: F Source: [place] (TSH) 9:20 AM [facility] REPOSITORY TYPE CODE TESTS RESULT OUT OF RANGE REFERENCE UNITS LAB L501.9520 0.358-3.74 uIU/mL Normal TSH 1.73 Performed By: #### L500.4050, L501.4700, L501.5200, L501.9520 #### [facility] [address] [place], [address] DIGOXIN LEVEL Collected: 12/27/2017 Status: F Source: MAIRSA 9:20 AM [facility] REPOSITORY TYPE CODE TESTS RESULT OUT OF RANGE REFERENCE UNITS LAB L501.7510 0.80-2.00 ng/mL Normal DIG 1.86 Performed By: #### L501.7510 #### [facility] [address] [place], [address] 12 LEAD ELECTROCARDIOGRAM Observed: 12/21/2017 Status: F Source: [place] 2:52 PM [facility] REPOSITORY [facility] Cardiovascular Services [address] [place] [address] 12 Lead EKG 12/13/17 1355 MR#: [id number] Acct: [id number] Name: EARL PADILLA Rep #: [id number] : 1950 67 From: Chuy Rosario MD Attending Dr: Jed Gutiérrez MD Status: DEP [facility] Ordering Dr: Jed Gutiérrez MD Date: 12/13/17 Location: [facility] Sex: F C Admitted: Test Reason : AFIB Blood Pressure : / mmHG Vent. Rate : 088 BPM Atrial Rate : 088 BPM P-R Int : 196 ms QRS Dur : 084 ms QT Int : 342 ms P-R-T Axes : 049 076 025 degrees QTc Int : 413 ms Normal sinus rhythm Normal ECG When compared with ECG of 13-DEC-2017 11:14, MANUAL COMPARISON REQUIRED, DATA IS UNCONFIRMED Confirmed by CHUY ROSARIO MD ([id number]), editor magazine JESSICA TOVAR ([id number]) on 12/21/2017 2:52:24 PM Referred By: Jed Gutiérrez Confirmed By:CHUY ROSARIO MD 12/21/17 1452 Date Chuy Rosario MD CC: Cj Arciniega MD; Jed Gutiérrez MD Signed OFFICE VISIT REPORT Observed: 12/20/2017 Status: F Source: [place] 2:[address] [place] [address] OFFICE VISIT Date of Service: 12/20/17 MR#: [id number] Acct: [id number] Patient: EARL PADILLA Rep #: [id number] : 1950 Provider: Jed Gutiérrez MD Age/Sex: 67/F Location: [facility] Status: Signed Intake Vital Signs12/20/17 Blood Pressure 136/80 H Intake Visit Reasons: post CCV Chief Complaint: SOB, BLE Edema Rail Specialist Required: No Accompanied by: Daughter Is patient in pain?: No Allergies No Known Allergies Allergy (Verified 12/20/17 09:31) Medications Apixaban [Eliquis] 5 mg PO BID #60 tab 10/21/17 [Rx Confirmed 12/20/17] Digoxin [Lanoxin] 250 mcg PO DAILY #30 tab 10/21/17 [Rx Confirmed 12/20/17] Lisinopril [Zestril] 10 mg PO BID #30 tab 10/21/17 [Rx Confirmed 12/20/17] Potassium Chloride [K-Dur] 10 meq PO DAILY #30 tab 10/21/17 [Rx Confirmed 12/20/17] furosemide 40 mg tablet 20 mg PO DAILY tab 11/18/17 [History Confirmed 12/20/17] carvedilol 25 mg tablet 25 mg PO BID #180 tab 12/20/17 [Rx] cholecalciferol (vitamin D3) 1,000 unit capsule 1,000 unit PO BID cap 12/20/17 [History Confirmed 12/20/17] folic acid 1 mg tablet 1 mg PO DAILY 12/20/17 [History Confirmed 12/20/17] vitamin B complex tablet 1 tab PO BID tab 12/20/17 [History Confirmed 12/20/17] Nurse's Note: Patient here for s/p cardioversion EKG. EKG today shows patient is back in atrial fibrillation. States she has felt good with more energy since cardioversion except she did feel like she had to make an effort to take a deep breath last night and this morning. Discussed with Nia ALFARO. Carvedilol increased to 25 mg BID. New Rx sent to [facility]. Advised patient to keep her previously scheduled follow up appointment with Dr. Gutiérrez in January. Advised that Nia will discuss EKG with Dr. Gutiérrez and notify her with any further changes. Assessment AND Plan Orders Orders: Medications Discontinued: 12/20/17 1417 <Electronically signed by Jed Gutiérrez MD> Date Jed Gutiérrez MD Cosigner Signature: Date (if applicable) CC: 12 LEAD EKG PERFORMED Observed: 12/20/2017 Status: F Source: [place] BY GIRISH 9:10 AM [facility] REPOSITORY [facility] [address] [place] [address] 12 Lead EKG performed by GIRISH 12/20/17 0908 MR#: [id number] Acct: [id number] Name: EARL PADILLA Rep #: [id number] : 1950 67 From: Jed Gutiérrez MD Attending Dr: Jed Gutiérrez MD Status: [facility] Dr: Jed Gutiérrez MD Date: 12/20/17 Location: [facility] Sex: F C Admitted: BMS/12 Lead EKG performed by [facility] ECG Report Interpretation Atrial fibrillation Poor R-wave progression -nonspecific -consider old anterior infarct. Nonspecific T-abnormality. ABNORMAL Electronically signed on 12/21/2017 at 17:23 by Jed Gutiérrez [email or web address] Software Version [id number] 12/21/17 1726 Date Jed Gutiérrez MD CC: Cj Arciniega MD Date Dictated: 12/20/17907 Date Transcribed: 12/20/17907 Roller Cleaner: PM Signed OPERATIVE REPORT Observed: 12/14/2017 Status: F Source: [place] 5:50 AM [facility] REPOSITORY [facility] Medical Records Department [address] [place] [address] Operative Report 12/13/17 1417 MR#: [id number] Acct: [id number] Name: EARL PADILLA Rep #: [id number] : 1950 67 From: Steven Avalos MD PCP: Cj Arciniega MD Status: DEP [facility] Y Location: [facility] Problem List (1) Cardiomyopathy Status: Acute Qualifiers: (2) New onset atrial fibrillation Status: Acute (3) Valvular heart disease Status: Acute (4) HTN (hypertension) Status: Chronic Qualifiers: (5) Obesity (BMI 30-39.9) Status: Chronic Operative Report Date of Procedure: 12/13/17 - Conscious sedation CONSCIOUS SEDATION REPORT BRIEF HISTORY OF PRESENT ILLNESS: The patient is a 67-year-old female who presented to [facility] for an elective outpatient cardioversion due to underlying atrial fibrillation. The patient reports no PO intake since midnight. The patient does not have a history of obstructive sleep apnea. The patient reports no history of smoking and COPD. The patient denies any recent constitutional symptoms such as fevers, chills, nausea or vomiting. The patient denies previous anesthetic complications. Patient's last ejection fraction noted to be 20%. PHYSICAL EXAMINATION: VITAL SIGNS: Reviewed and were acceptable. GENERAL: The patient is an obese female, in no apparent distress, speaking in full sentences. HEENT: Normocephalic, atraumatic. Mucous membranes are moist and pink. Good mouth opening noted. Trachea is midline. Good neck mobility. MP III CHEST: S1, S2 irregularly irregular. No murmurs, rubs or gallops were noted. LUNGS: Clear to auscultation bilaterally without appreciable wheezes, rales or rhonchi. ABDOMEN: Soft, nontender, nondistended. Positive bowel sounds. EXTREMITIES: There is no clubbing, cyanosis or edema. ASA Class: II DESCRIPTION OF PROCEDURE: After confirmation of informed consent, the patient's anesthesia plan was reviewed in detail. Etomidate was chosen. Risks and benefits were reviewed and the patient agreed to proceed. At 1:49 PM, the patient was given 4 mg of etomidate. The patient required a total of 8 mg of etomidate throughout the procedure to achieve appropriate sedation. The patient achieved an appropriate level of sedation and received 1 attempt s synchronized cardioversion, at 200J by Dr. Gutiérrez at the bedside. This was successful in achieving normal sinus rhythm. The patient was monitored until 1:59 PM, at which time the patient reached their baseline mental status and function. The patient tolerated the procedure well. COMPLICATIONS: None ESTIMATED BLOOD LOSS: None RECOMMENDATIONS: Okay to recover in usual fashion. 12/14/17 0550 <Electronically signed by Steven Avalos MD> Date Steven Avalos MD CC: Steven Avalos MD; Cj Arciniega MD; Jed Gutiérrez MD Signed OPERATIVE REPORT Observed: 12/13/2017 Status: F Source: [place] 2:51 PM [facility] REPOSITORY [facility] Medical Records Department [address] [place] [address] Operative Report 12/13/17 1447 MR#: [id number] Acct: [id number] Name: EARL PADILLA Rep #: [id number] : 1950 67 From: Jed Gutiérrez MD PCP: Cj Arciniega MD Status: REG SDC Y Location: [facility] Problem List (1) New onset atrial fibrillation Status: Acute (2) Cardiomyopathy Status: Acute Qualifiers: Operative Report Date of Procedure: 12/13/17 Procedure: Synchronized biphasic DC cardioversion Indications: Atrial fibrillation; non-CAD cardiomyopathy Consent: Per the patient Premedications: Per Dr. Steven Avalos pulmonology/critical care medicine with etomidate 8 mg IV push total Procedure: Synchronized biphasic DC cardioversion: 200 J x1: Result: Sinus rhythm Complications: No apparent complications This note was generated using a voice recognition system and there may be incorrect words, spelling or punctuation that were not noted when reviewing the office note prior to saving. 12/13/17 1451 <Electronically signed by Jed Gutiérrez MD> Date Jed Gutiérrez MD CC: Cj Arciniega MD; Jed Gutiérrez MD Signed BASIC METABOLIC Collected: 11/25/2017 Status: F Source: [place] PROFILE (BMP) 10:15 AM [facility] REPOSITORY TYPE CODE TESTS RESULT OUT OF RANGE REFERENCE UNITS LAB L501.0100 74-106 mg/dL Normal GLU 97 Result Comment: Please note revised GLUCOSE reference range effective 2017. LAB L501.1000 7-18 mg/dL Normal BUN 16 LAB L501.1100 0.55-1.02 mg/dL High CREAT,SERUM 1.26 Result Comment: The validity of the calculated GFR AND GFRAA in patients over 70 years has not been determined. Clinical correlation is essential. LAB L501.1110 >60 mL/min Low EST GFR 45 Result Comment: Non- GFR Calc LAB L501.1115 >60 mL/min Low EST GFR - AA 55 Result Comment: GFR Calc LAB L501.1300 10-20 RATIO Normal BUN/CRE 12.7 LAB L501.2200 8.5-10.1 mg/dL CA Normal 8.8 LAB L501.5300 136-145 mmol/L NA Normal 140 LAB L501.5600 3.5-5.1 mmol/L K Normal 4.0 LAB L501.5900 98-107 mmol/L CL Normal 104 LAB L501.6100 21.0-32.0 mmol/L Normal CO2 30.0 LAB L501.6200 5-15 Normal GAP 6 Performed By: #### L500.2500 #### [facility] [address] [place], [address] CARDIOLOGY VISIT Observed: 11/18/2017 Status: F Source: [place] REPORT 11:08 AM [facility] REPOSITORY [facility] [address] [place] [address] OFFICE VISIT Date of Service: 11/18/17 MR#: [id number] Acct: [id number] Name: EARL PADILLA Rep #: [id number] : 1950 Provider: Jed Gutiérrez MD Age/Sex: 67/F Location: [facility] Status: Signed HPI HPI Chief Complaint: SOB, BLE Edema Details: EARL PADILLA, is a 67 F who presents to the office today for outpatient hospital follow-up. As you recall she was evaluated at [facility] in cardiovascular consultation on 10/18/2017 for concerns of atrial fibrillation, findings compatible with an underlying cardiomyopathy, systolic CHF, concerns of valvular heart disease with MR and TR, hyper tension, and concerns of a community- acquired pneumonia. She has undergone noninvasive and invasive evaluation as noted below. She did not require revascularization therapy. She has been treated medically. She states overall she has been doing better with respect to her breathing and her lower extremity edema. She states I can see my feeding. She has had no obvious orthopnea or PND. There is been no concerning chest discomfort. There is been no near syncope or syncope. She states she has been somewhat lightheaded at times. She was evaluated at the [facility] emergency department on 11/08/2017 for concerns of orthostatic type symptoms. Her diuretic dose was decreased. She states overall she has felt better since that has changed. She had an ECG today. She remains in atrial fibrillation with a controlled ventricular response with poor R wave progression. Intake Vital Signs11/18/17 Height 5 ft 5 in 11/18/17 Weight: 215 lb 11/18/17 Body Mass Index (BMI) 35.7 11/18/17 Blood Pressure 110/88 H Intake Visit Reasons: 4 WK S/P PCU Allergies No Known Allergies Allergy (Verified 11/18/17 09:53) Medications Apixaban [Eliquis] 5 mg PO BID #60 tab 10/21/17 [Rx Confirmed 11/18/17] Carvedilol [Coreg (Beta Mikie)] 12.5 mg PO BID #60 tab 10/21/17 [Rx Confirmed 11/18/17] Digoxin [Lanoxin] 250 mcg PO DAILY #30 tab 10/21/17 [Rx Confirmed 11/18/17] Lisinopril [Zestril] 10 mg PO BID #30 tab 10/21/17 [Rx Confirmed 11/18/17] Potassium Chloride [K-Dur] 10 meq PO DAILY #30 tab 10/21/17 [Rx Confirmed 11/18/17] furosemide 40 mg tablet 20 mg PO DAILY tab 11/18/17 [History Confirmed 11/18/17] [facility] Medical History New onset atrial fibrillation (Acute) Community acquired pneumonia (Acute) Obesity (BMI 30-39.9) (Chronic) Cardiomyopathy (Acute) Valvular heart disease (Acute) HTN (hypertension) (Chronic) Systolic CHF, acute (Acute) Surgical History History of hysterectomy (Resolved) History of tonsillectomy (Resolved) Family History Father Cancer Lung,pancreatic Brother Atrial fibrillation Social History Smoking Status: Never smoker alcohol intake: never substance use type: does not use ROS Const Const: Positive for weakness (x1 day bilat knee); negative for fatigue, weight gain, weight loss, frequent falls or excessive sweating Eyes Eyes: Negative for change in vision, blurry vision or transient loss of vision ENT ENT: Negative for dizziness or balance problems Cardio Chest Pain: No Palpitations: No Edema: None Muscle aches with walking: None Resp Respiratory: Positive for SOB at rest (Patient denies SOB @ rest, states need to catch her breath occasional); negative for SOB with activity GI GI: Negative vomiting or vomiting blood/hematemesis : Negative for hematuria Musc Musc: Negative for balance problems, muscle aches/ myalgia, muscle weakness or joint pain Skin Skin: Negative non-healing lesions or rash Neuro Neuro: Positive for weakness (x1 day bilat knee) and lightheadedness (comes on anytime, occasional going from sitting to standing); negative for blurry vision, dizziness or frequent falls Nolberto Hematologic/Lymphatic: Negative for easy bleeding Endo Endo: Negative for fatigue or excessive sweating Psych Psych: Negative for anxiety or depression Allergy Allergy/Immunology: Negative for hives, Negative for rash Cardiology Exam Const Appearance: cooperative, healthy appearing, comfortable, no acute distress, well developed and well groomed Nutritional Appearance: overweight Orientation: alert, awake and oriented x3 Head Head: normal to inspection, normocephalic and atraumatic Ears: hearing grossly normal bilaterally Nose: external nose normal Face and Sinus: face symmetric Mouth: oral mucosae normal Eyes Eyelids: eyelids normal Conjunctivae: conjunctivae normal Pupils: PERRL EOM: EOM intact bilaterally Neck Neck: normal visual inspection and full ROM Carotids: normal carotid upstroke Chest Chest inspection: normal inspection of the chest and symmetric chest movement Auscultation: Bilateral: Clear to Auscultation Cardio Palpation: normal PMI Rhythm: irregular rhythm Heart sounds: S1 normal and S2 normal Murmur: Grade 1/6, soft, mid systolic and LLSB GI GI: normal to inspection, bowel sounds present and soft Neuro General: alert, awake, oriented x3 and moves all extremities Skin Skin: no rashes or lesions noted Extremities Pulses: Normal: Right Radial Pulse, Left Radial Pulse Lower Extremity Edema: None: Bilateral Psych Psychological: normal affect Supplemental Info Echocardiogram: 10/18/2017 Interpretation Summary The study was technically difficult. Severe global left ventricular systolic dysfunction. The estimated ejection fraction is 20 %. Mild concentric left ventricular hypertrophy. Apical false tendon noted. The left atrium is severely enlarged. The right atrium is moderately enlarged. There is moderate mitral annular calcification. Extension of the mitral annular calcification onto the posterior mitral valve leaflet. Mild diffuse mitral valve thickening. Moderate (2+) mitral valve insufficiency. Moderately severe (3+) tricuspid valve insufficiency. Trivial aortic valve insufficiency. Trivial pericardial effusion. There are no echocardiographic indications of cardiac tamponade. Right ventricular systolic pressure estimated to be 42 mmHg. Unable to assess diastolic dysfunction. Cardiac catheterization: 10/19/2017 CONCLUSIONS Elevated Left Ventricular End Diastolic Pressure Global LV systolic dysfunction- Moderate LVEF: by LV gram 30 % Normal coronary arteries Mitral Valve Annular Calcification- Moderate Mitral Valve Insufficiency Moderate RECOMMENDATIONS Risk factor modification Medical therapy DESCRIPTION OF PROCEDURE The patient arrived to the procedure lab. The risks and benefits of the procedure as well as a full description of our services here and current unavailability of surgical backup were fully explained to the patient and/or their significant other prior to the catheterization. The Timeout was completed, verifying the correct patient and procedure. The patient's procedural site was prepped and draped in the usual fashion. Local anesthetic was given subcutaneously to right groin region with Lidocaine 2%. Using a modified Seldinger technique, arterial access was obtained via the right femoral artery, a 4Fr sheath was inserted Left Coronary Artery selective angiography was performed in multiple views using a 4 Fr. JL5 catheter. Right Coronary Artery selective angiography was then performed in multiple views using a 4 Fr. 3DRC catheter. Left Ventriculography was performed in MEDRANO projection using a 4 Fr. Pigtail catheter. LV to AO pullback pressures were then recorded.The arterial sheath was pulled and manual compression applied until hemostasis is achieved. CORONARY ANGIOGRAPHY DOMINANCE: Co- Dominant LEFT HEART ASSESSMENT Left Ventricular Ejection Fraction: by LV Gram 30 % Global Hypokinesis Elevated Left Ventricular End Diastolic Pressure LVEDP: 24 mmHg LEFT MAIN: Angiographically normal LEFT ANTERIOR DECENDING ARTERY: Angiographically normal CIRCUMFLEX ARTERY: Angiographically normal RIGHT CORONARY ARTERY: Angiographically normal VALVE FINDINGS: Normal Aortic Valve function Mitral Valve Annular Calcification Moderate Mitral Valve Insufficiency - Grade 2 AORTIC ROOT: Angiographically normal Assessment AND Plan 1. Cardiomyopathy, unspecified type I42.9 Plan At the present time she will continue medical management. Based upon her overall status she will be a to decrease her furosemide to 20 mg a day. She will need to monitor for any concerning symptoms of volume overload. Otherwise she will continue her current medications. An attempt will be made to regain sinus rhythm. She will be monitored in the future with echocardiogram to see if her cardiomyopathy improves. If it does not despite medical management and attempts at regaining sinus rhythm then she may need to be considered for primary prevention ICD therapy. Orders Orders: 2. Systolic CHF, acute I50.21 Plan She appears to be improved with concerns of her underlying acute CHF. Again her medications be adjusted, she will have attempt at regaining sinus rhythm, and her LV systolic function will be followed. Orders Orders: 3. New onset atrial fibrillation I48.91 Plan She will be scheduled for a future synchronized biphasic DC cardioversion. Hopefully she will regain sinus rhythm. This may allow a better opportunity for her LV systolic function to improve and her clinical course. Orders Orders: 4. Valvular heart disease I38 Plan She does have a history of MR/TR. She will continue to be followed by history exam and echocardiogram going forward. Orders Orders: 5. Essential hypertension I10 Plan Her blood pressure appears to be recently well controlled. She will continue her medical therapy. Orders Orders: Plan Detail Other Medications Changed: Additional Comments The above was discussed with the patient and her daughter. They are agreeable to this approach, Thank you for allowing me to participate in the care of your patient. Please don't hesitate to call if any issues arise. This note was generated using a voice recognition system and there may be incorrect words, spelling or punctuation that were not noted when reviewing the office note prior to saving. Follow Up 2 Months (PFM) Coding Level of Care Code Off vis,new,level 5 Diagnoses Cardiomyopathy, unspecified type I42.9 Cardiomyopathy type: unspecified Systolic CHF, acute I50.21 New onset atrial fibrillation I48.91 Valvular heart disease I38 Essential hypertension I10 Hypertension type: essential hypertension Coding Level of Care Code Off vis,new,level 5 Diagnoses Cardiomyopathy, unspecified type I42.9 Cardiomyopathy type: unspecified Systolic CHF, acute I50.21 New onset atrial fibrillation I48.91 Valvular heart disease I38 Essential hypertension I10 Hypertension type: essential hypertension 11/18/17 1108 <Electronically signed by Jed Gutiérrez MD> Date Jed Gutiérrez MD Cosigner Signature: Date (if applicable) CC: 12 LEAD EKG PERFORMED Observed: 11/18/2017 Status: F Source: [place] BY BMS 9:42 AM [facility] REPOSITORY [facility] [address] [place] [address] 12 Lead EKG performed by [facility] 11/18/1742 MR#: [id number] Acct: [id number] Name: EARL PADILLA Rep #: [id number] : 1950 67 From: Jed Gutiérrez MD Attending Dr: Jed Gutiérrez MD Status: DEP AMB Ordering Dr: Jed Gutiérrez MD Date: 11/18/17 Location: [facility] Sex: F C Admitted: BMS/12 Lead EKG performed by [facility] ECG Report Interpretation Atrial fibrillation Poor R wave progressionElectronically signed on 11/18/2017 at 12:07 by Jed Gutiérrez [email or web address] Software Version [id number] 11/18/171211 Date Jed Gutiérrez MD CC: No Primary Care Physician Date Dictated: 11/18/17941 Date Transcribed: 11/18/17941 Roller Cleaner: PM Signed 12 LEAD ELECTROCARDIOGRAM Observed: 11/11/2017 Status: F Source: [place] 2:18 PM [facility] REPOSITORY [facility] Cardiovascular Services [address] [place] [address] 12 Lead EKG 11/08/17 1609 MR#: [id number] Acct: [id number] Name: EARL PADILLA Rep #: [id number] : 1950 67 From: Jed Gutiérrez MD Attending Dr: Status: DEP ER Ordering Dr: Beau Melendez MD Date: 11/08/17 Location: ED Sex: F C Admitted: Test Reason : SYNCOPE Blood Pressure : / mmHG Vent. Rate : 091 BPM Atrial Rate : 108 BPM P-R Int : 000 ms QRS Dur : 082 ms QT Int : 336 ms P-R-T Axes : 000 060 003 degrees QTc Int : 413 ms Atrial fibrillation Abnormal ECG Confirmed by BROCK ELDRIDGE, JED ([id number]), editor magazine JESSICA TOVAR ([id number]) on 11/11/2017 2:17:41 PM Referred By: Jed Gutiérrez Confirmed By:JED GUTIÉRREZ MD 11/11/17 1417 Date Jed Gutiérrez MD CC: Cj Arciniega MD; Beau Melendez MD Signed EMERGENCY DEPARTMENT Observed: 11/08/2017 Status: F Source: [place] SUMMARY 7:04 PM [facility] REPOSITORY [facility] Medical Records Department [address] [place] [address] Emergency Department Summary 11/08/17 1854 MR#: [id number] Acct: [id number] Name: EARL PADILLA Rep #: [id number] : 1950 67 From: Beau Melendez MD PCP: Cj Arciniega MD Status: REG ER - ER Visit Summary Date of Service: 11/08/17 Chief Complaint: Vision goes black and orthostatic symptoms lasting 3-4 seconds History of Present Illness: The patient is a 67 F who reports feeling lightheaded and vision going black lasting 3-4 seconds when she rises quickly from a supine or sitting position. There is no loss of postural tone. There is no incontinence of urine or stool. There is no problems with speech or swallowing. She denies any cardiac or respiratory symptoms. She denies fever, chills night sweats. She denies double vision or blurred vision. She denies exertional chest pain or pleuritic chest pain. She denies shortness of breath, dyspnea exertion, orthopnea or PND. She denies nausea, vomiting or diarrhea. She denies dysuria, frequency, urgency or hematuria. She denies black or maroon stool. She denies bruising easily. She is on Eliquis. She denies paresthesia, anesthesia motors. She denies problems with balance. Please read written note for complete detail Physical Examination: Vital signs noted and remarkable for a blood pressure 166/104. Monitor reveals atrial fibrillation. Head is atraumatic normocephalic. Pupils are equal round reactive. Extraocular muscles are intact. TMs are pearly white with landmarks noted. Nares patent with no drainage. Posterior pharynx without erythema or exudate. Uvula is midline. There is no dysphonia or dysphasia. Trachea is midline. There is no stridor with auscultation of the neck. Heart is irregularly regular. Lungs are clear to auscultation with good move air bilaterally. Abdomen soft nontender. There is no asymmetry, swelling, discoloration, leg vein distention, palpable cords or tenderness along the distribution of the deep venous system. Patient is alert and oriented 3. Motor is 5 over 5. Sensory is intact. DTRs are symmetric with no clonus or Babinski sign. Cranial 2 through 12 are intact. Cerebellar testing is normal. Test Results: EKG reveals a ventricular rate of 91 and atrial fibrillation. QRS duration normal. [place] is normal. White count is slightly elevated which is nonsignificant. BUN and creatinine are [address] Gutiérrez requested a digoxin level. Digoxin level is normal at 1.55. Emergency Department Course and Treatment: Patient presents with orthostatic symptoms. Orthostatic vital signs were obtained and negative. There was confusion why she was sent here based on what the other physician was told by practitioner EKG and blood work was ordered. Treatment Plan: Case discussed Dr. Gutiérrez. He requested patient reduce her Lasix to 20 mg twice daily from 40 mg twice daily Disposition: Discharged to home with follow-up with Dr. Gutiérrez 1-2 weeks Impression: 1. Orthostatic symptoms 2. Chronic atrial fibrillation 3. Renal insufficiency 4. High risk medication, Eliquis This note was generated with [employer] dictation software. It may contain incorrect words, spelling, and punctuation that were not noted in review of the chart prior to signing ED Disposition - Plan for ED Patient: Disposition: Home or Assisted Living Chief Complaint: Syncope Referrals: Cj Arciniega MD [Primary Care Provider] - Jed Gutiérrez MD [STAFF PHYSICIAN] - 1 Week Additional Instructions: Decrease Lasix to one half tablet twice a day. What to do if you have Problems For any increased pain, shortness of breath, bleeding, nausea or vomiting, chest pain, or any unexpected problems, contact your Primary Care Provider. Call [facility] ([phone]) or report to the closest Emergency Room. Call 911 if necessary. 11/08/17 1904 <Electronically signed by Beau Melendez MD> Date Beau Melendez MD Cosigner Signature (If Indicated): Date CC: Cj Arciniega MD; Jed Gutiérrez MD BASIC METABOLIC Collected: 11/08/2017 Status: F Source: [place] PROFILE (BMP) 4:00 PM [facility] REPOSITORY TYPE CODE TESTS RESULT OUT OF RANGE REFERENCE UNITS LAB L501.0100 74-106 mg/dL Normal GLU 96 Result Comment: Please note revised GLUCOSE reference range effective 2017. LAB L501.1000 7-18 mg/dL High BUN 21 LAB L501.1100 0.55-1.02 mg/dL High CREAT,SERUM 1.37 Result Comment: The validity of the calculated GFR AND GFRAA in patients over 70 years has not been determined. Clinical correlation is essential. LAB L501.1110 >60 mL/min Low EST GFR 41 Result Comment: Non- GFR Calc LAB L501.1115 >60 mL/min Low EST GFR - AA 50 Result Comment: GFR Calc LAB L501.1255 ml/min Normal Estimated CRCL 36.35 LAB L501.1300 10-20 RATIO Normal BUN/CRE 15.3 LAB L501.2200 8.5-10 mg/dL Normal .1 CA 8.9 LAB L501.5300 136-14 mmol/L Normal 5 NA 140 LAB L501.5600 3.5-5. mmol/L Normal 1 K 4.2 Result Comment: Moderate Hemolysis, Result may be falsely increased. LAB L501.5900 98-107 mmol/L Normal CL 99 LAB L501.6100 21.0-32.0 mmol/L Normal CO2 32.0 LAB L501.6200 5-15 Normal GAP 9 Performed By: #### L500.2500 #### [facility] [address] [facility] [place], [place], [address] CBC-COMPLETE BLOOD CNT Collected: 11/08/2017 Status: F Source: [place] NO DIFF 4:00 PM [facility] REPOSITORY TYPE CODE TESTS RESULT OUT OF RANGE REFERENCE UNITS LAB L100.1000 4.4-11.0 K/mm3 High WBC 14.0 LAB L100.1200 4.2-5.4 M/mm3 Normal RBC 5.29 LAB L100.1300 12.0-15.0 g/dl High HGB 16.0 LAB L100.1400 37-47 % High HCT 47.2 LAB L100.1500 81-99 fL Normal MCV 89.2 LAB L100.1600 27.0-32.0 pg Normal MCH 30.2 LAB L100.1700 32-36 g/gl Normal MCHC 33.9 LAB L100.1810 11.6-14.6 % High RDW CV 15.8 LAB L100.1820 35.1-43.9 fl High RDW SD 51.4 LAB L100.1900 150-450 K/mm3 Normal PLT 211 LAB L100.2000 6.2-12.0 fl Normal MPV 11.7 Performed By: #### L100.0500 #### [facility] [address] [facility]. [place], [place], [address] DIGOXIN LEVEL Collected: 11/08/2017 Status: F Source: [place] 4:00 PM [facility] REPOSITORY TYPE CODE TESTS RESULT OUT OF RANGE REFERENCE UNITS LAB L501.7510 0.80-2.00 ng/mL Normal DIG 1.55 Performed By: #### L501.7510 #### [facility] [address] [facility] [place], [place], [address] BASIC METABOLIC Collected: 11/07/2017 Status: F Source: [place] PROFILE (BMP) 11:59 AM [facility] REPOSITORY TYPE CODE TESTS RESULT OUT OF RANGE REFERENCE UNITS LAB L501.0100 74-106 mg/dL Normal GLU 85 Result Comment: Please note revised GLUCOSE reference range effective 2017. LAB L501.1000 7-18 mg/dL High BUN 19 LAB L501.1100 0.55-1.02 mg/dL High CREAT,SERUM 1.18 Result Comment: The validity of the calculated GFR AND GFRAA in patients over 70 years has not been determined. Clinical correlation is essential. LAB L501.1110 >60 mL/min Low EST GFR 49 Result Comment: Non- GFR Calc LAB L501.1115 >60 mL/min Low EST GFR - AA 59 Result Comment: GFR Calc LAB L501.1300 10-20 RATIO Normal BUN/CRE 16.1 LAB L501.2200 8.5-10.1 mg/dL CA Normal 8.9 LAB L501.5300 136-145 mmol/L NA Normal 139 LAB L501.5600 3.5-5.1 mmol/L K Normal 3.6 LAB L501.5900 98-107 mmol/L CL Normal 98 LAB L501.6100 21.0-32.0 mmol/L High CO2 34.0 LAB L501.6200 5-15 Normal GAP 7 Performed By: #### L500.2500 #### [facility] [address] [place], [address] DIGOXIN LEVEL Collected: 11/07/2017 Status: F Source: [place] 11:59 AM [facility] REPOSITORY TYPE CODE TESTS RESULT OUT OF RANGE REFERENCE UNITS LAB L501.7510 0.80-2.00 ng/mL Normal DIG 1.60 Performed By: #### L501.7510 #### [facility] [address] [place], [address] CBC W/DIFF, AUTOMATED Collected: 10/28/2017 Status: F Source: [place] 10:08 AM [facility] REPOSITORY TYPE CODE TESTS RESULT OUT OF RANGE REFERENCE UNITS LAB L100.1000 4.4-11.0 K/mm3 High WBC 12.8 LAB L100.1200 4.2-5.4 M/mm3 High RBC 5.41 LAB L100.1300 12.0-15.0 g/dl High HGB 16.6 LAB L100.1400 37-47 % High HCT 50.2 LAB L100.1500 81-99 fL Normal MCV 92.8 LAB L100.1600 27.0-32.0 pg Normal MCH 30.7 LAB L100.1700 32-36 g/gl Normal MCHC 33.1 LAB L100.1810 11.6-14.6 % High RDW CV 16.0 LAB L100.1820 35.1-43.9 fl High RDW SD 54.6 LAB L100.1900 150-450 K/mm3 Normal PLT 253 LAB L100.2000 6.2-12.0 fl Normal MPV 10.8 LAB L100.2100 47-70 % High NEUT% 74.7 LAB L100.2200 19-41 % Low LY% 16.1 LAB L100.2300 0-10 % Normal MONO% 7.9 LAB L100.2400 0-5 % Normal EO% 0.7 LAB L100.2500 0-1 % Normal BASO% 0.4 LAB L100.2550 0.0-0.9 % Normal IM GRAN % 0.200 Result Comment: IG% - Immature Granulocytes (promyelocytes, myelocytes and metamyelocytes) > 1% indicates that a LEFT SHIFT is Present. LAB L100.2620 2.0-7.7 X10 3/uL High Absolute Neut 9.5 LAB L100.2720 0.83-4.51 X10 3/ul Normal Absolute Lymph 2.06 Performed By: #### L100.0100 #### [facility] [address] [place], [address] VITAMIN B12 Collected: 10/28/2017 Status: F Source: [place] 10:08 [facility] REPOSITORY TYPE CODE TESTS RESULT OUT OF RANGE REFERENCE UNITS LAB L503.0105 211-911 pg/mL Normal Vitamin B12 882 Performed By: #### L503.0105, L506.1000 #### [facility] [address] [place], [address] VITAMIN D,25 HYDROXY Collected: 10/28/2017 Status: F Source: [place] 10:08 AM [facility] REPOSITORY TYPE CODE TESTS RESULT OUT OF REFERENCE UNITS RANGE LAB L506.1000 29.95-100.01 ng/mL Low Vitamin D 17.5 25-OH Result Comment: Vitamin D 25(OH) Status Range Deficiency <20 ng/mL (50nmol/L) Insuffciency 20 - 30 ng/mL (50 - 75 nmol/L) Sufficiency 30 - 100 ng/mL (75 - 250 nmol/L) Toxicity >100 ng/mL (>250 nmol/L) Performed By: #### L503.0105, L506.1000 #### [facility] [address] [place], [address] PTHIN Collected: 10/28/2017 Status: F Source: [place] 10:08 AM [facility] REPOSITORY TYPE CODE TESTS RESULT OUT OF RANGE REFERENCE UNITS LAB L509.1000 18.4-80.1 pg/mL High PTHIN 133.6 Performed By: #### L509.1000 #### [facility] [address] [place], [address] BASIC METABOLIC Collected: 10/28/2017 Status: F Source: [place] PROFILE (BMP) 10:08 AM [facility] REPOSITORY Order Comment: Comments: B6 #4655 PLASMA FROZEN PFT Is Patient Taking Vitamins or Folic Acid Supplements? N TYPE CODE TESTS RESULT OUT OF RANGE REFERENCE UNITS LAB L501.0100 74-106 mg/dL Normal GLU 99 Result Comment: Please note revised GLUCOSE reference range effective 2017. LAB L501.1000 7-18 mg/dL High BUN 25 LAB L501.1100 0.55-1.02 mg/dL High CREAT,SERUM 1.32 Result Comment: The validity of the calculated GFR AND GFRAA in patients over 70 years has not been determined. Clinical correlation is essential. LAB L501.1110 >60 mL/min Low EST GFR 43 Result Comment: Non- GFR Calc LAB L501.1115 >60 mL/min Low EST GFR - AA 52 Result Comment: GFR Calc LAB L501.1300 10-20 RATIO Normal BUN/CRE 18.9 LAB L501.2200 8.5-10.1 mg/dL CA Normal 8.9 LAB L501.5300 136-145 mmol/L NA Normal 138 LAB L501.5600 3.5-5.1 mmol/L K Normal 3.8 LAB L501.5900 98-107 mmol/L CL Normal 101 LAB L501.6100 21.0-32.0 mmol/L Normal CO2 29.0 LAB L501.6200 5-15 Normal GAP 8 Performed By: #### L500.2500, L501.9520, L503.6550, L506.0250 #### [facility] [address] [place], [address] THYROID STIM HORMONE Collected: 10/28/2017 Status: F Source: [place] (TSH) 10:08 AM [facility] REPOSITORY Order Comment: Comments: B6 #4655 PLASMA FROZEN PFT Is Patient Taking Vitamins or Folic Acid Supplements? N TYPE CODE TESTS RESULT OUT OF RANGE REFERENCE UNITS LAB L501.9520 0.358-3.74 uIU/mL Normal TSH 1.06 Performed By: #### L500.2500, L501.9520, L503.6550, L506.0250 #### [facility] [address] [place], [address] FERRITIN Collected: 10/28/2017 Status: F Source: [place] 10:08 AM [facility] REPOSITORY Order Comment: Comments: B6 #4655 PLASMA FROZEN PFT Is Patient Taking Vitamins or Folic Acid Supplements? N TYPE CODE TESTS RESULT OUT OF RANGE REFERENCE UNITS LAB L503.6550 8-252 ng/mL Normal FERRITIN 132 Performed By: #### L500.2500, L501.9520, L503.6550, L506.0250 #### [facility] [address] [place], [address] FOLATES, (FOLIC ACID) Collected: 10/28/2017 Status: F Source: [place] 10:08 AM [facility] REPOSITORY Order Comment: Comments: B6 #4655 PLASMA FROZEN PFT Is Patient Taking Vitamins or Folic Acid Supplements? N TYPE CODE TESTS RESULT OUT OF RANGE REFERENCE UNITS LAB L506.0250 3.1-55.4 ng/mL Normal FOLATES 15.70 Result Comment: Slight Hemolysis, Result may be falsely increased. Performed By: #### L500.2500, L501.9520, L503.6550, L506.0250 #### [facility] [address] [place], [address] HOMOCYSTEINE Collected: 10/28/2017 Status: F Source: [place] 10:08 AM [facility] REPOSITORY TYPE CODE TESTS RESULT OUT OF REFERENCE UNITS RANGE LAB L503.8001 3.2-10.7 umol/L HOMOCYSTEINE High 13.8 Performed By: #### L503.8001 #### [facility] [address] [place], [place], [address] DIGOXIN LEVEL Collected: 10/28/2017 Status: F Source: [place] 10:08 AM [facility] REPOSITORY TYPE CODE TESTS RESULT OUT OF RANGE REFERENCE UNITS LAB L501.7510 0.80-2.00 ng/mL Normal DIG 1.49 Performed By: #### L501.7510 #### [facility] [address] [place], [address] ANTICARDIOLIPIN IGG, IGM Collected: 10/28/2017 Status: F Source: [place] 10:08 AM [facility] REPOSITORY TYPE CODE TESTS RESULT OUT OF RANGE REFERENCE UNITS LAB L3100.8420 0-14 GPL U/mL Normal ANTICARDIO IgG < 9 Result Comment: Serum is slightly hemolyzed Negative: <15 Indeterminate: 15 - 20 Low-Med Positive: >20 - 80 High Positive: >80 LAB L3100.8425 0-12 MPL U/mL ANTICARDIO Normal IgM 12 Result Comment: Serum is slightly hemolyzed Negative: <13 Indeterminate: 13 - 20 Low-Med Positive: >20 - 80 High Positive: >80 Performed at: [facility] [id number] Beamer Helper: Tyrell Castanon PhD, Phone: [phone] Performed By: #### L3100.8410 #### [facility] (refer to report for specific site) refer to report for address and phone number JOVI COMPREHENSIVE PANEL Collected: 10/28/2017 Status: F Source: [place] 10:08 AM [facility] REPOSITORY TYPE CODE TESTS RESULT OUT OF RANGE REFERENCE UNITS LAB L3100.5500 0-9 IU/mL Normal dsDNA AB <1 Result Comment: Negative <5 Equivocal 5 - 9 Positive >9 LAB L3100.9200 0.0-0.9 AI Anti-SS-A Normal < 0.2 LAB L3100.9300 0.0-0.9 AI Anti-SS-B Normal < 0.2 LAB L3410.0427 0.0-0.9 AI ANTICHROMATIN Normal <0.2 LAB L3410.0500 0.0-0.9 AI ANTI-PURVI Normal <0.2 LAB L3410.0700 0.0-0.9 AI ANTISCLER Normal <0.2 LAB L3410.1200 0.0-0.9 AI AUDIO DIRECTOR Ab Normal <0.2 LAB L3410.1300 0.0-0.9 AI ARCINIEGA Ab Normal <0.2 LAB L3410.4010 0.0-0.9 AI ANTI-CENT B Normal <0.2 LAB L3410.4150 . COMMENT Normal Comment Result Comment: Autoantibody Disease Association Condition Frequency --------- Antinuclear Antibody, SLE, mixed connective Direct (JOVI-D) tissue diseases --------- dsDNA SLE 40 - 60% --------- Chromatin Drug induced SLE 90% SLE 48 - 97% --------- SSA (Ro) SLE 25 - 35% Sjogren's Syndrome 40 - 70% Lupus 100% --------- SSB (La) SLE 10% Sjogren's Syndrome 30% --------- Sm (anti-Arciniega) SLE 15 - 30% --------- AUDIO DIRECTOR Mixed Connective Tissue Disease 95% (U1 nRNP, SLE 30 - 50% anti-ribonucleoprotein) Polymyositis and/or Dermatomyositis 20% --------- Scl-70 (antiDNA Scleroderma (diffuse) 20 - 35% topoisomerase) Crest 13% --------- Purvi-1 Polymyositis and/or Dermatomyositis 20 - 40% --------- Centromere B Scleroderma - Crest variant 80% Performed at: - [facility] [address] [id number] Beamer Helper: Tyrell Castanon PhD, Phone: [phone] Performed By: #### L3100.5440 #### [facility] (refer to report for specific site) refer to report for address and phone number MISCELLANEOUS LAB Collected: 10/28/2017 Status: F Source: [place] PROCEDURE 10:08 AM [facility] REPOSITORY Order Comment: Comments: B6 #4655 PLASMA FROZEN PFT Test(s) Ordered: B6 #4655 PLASMA FROZEN PFT TYPE CODE TESTS RESULT OUT OF RANGE REFERENCE UNITS LAB L801.1541 Normal [facility] TEST Result Comment: TEST RESULT LIMITS Vitamin B6, Plasma Vitamin B6 12.7 ug/L 2.0 - 32.8 Disclaimer: This test was developed and its performance characteristics determined by [employer]. It has not been cleared or approved by the Food and Drug Administration. TESTING PERFORMED AT [facility]. ORIGINAL REPORT ON FILE IN LAB CONTAINS ADDITIONAL TEST SITE INFORMATION. Performed By: #### L801.1541 #### [facility] [address] [place], [address] 12 LEAD ELECTROCARDIOGRAM Observed: 10/25/2017 Status: F Source: [place] 3:16 PM [facility] REPOSITORY [facility] Cardiovascular Services [address] [place] [address] [place] [address] 12 Lead EKG 10/19/17 0542 MR#: [id number] Acct: [id number] Name: EARL PADILLA Rep #: [id number] : 1950 67 From: Reginald Vogt MD Attending Dr: Cj Sánchez DO Status: DIS IN Ordering Dr: Jed Gutiérrez MD Date: 10/19/17 Location: [facility] Sex: F C Admitted: 10/17/17 Test Reason : AM EKG Blood Pressure : / mmHG Vent. Rate : 053 BPM Atrial Rate : 033 BPM P-R Int : 000 ms QRS Dur : 082 ms QT Int : 524 ms P-R-T Axes : 000 099 119 degrees QTc Int : 491 ms Atrial fibrillation with slow ventricular response Rightward axis Septal infarct , age undetermined Abnormal ECG When compared with ECG of 17-OCT-2017 11:36, MANUAL COMPARISON REQUIRED, DATA IS UNCONFIRMED Confirmed by REGINALD VOGT ([id number]), editor magazine JESSICA TOVAR ([id number]) on 10/25/2017 3:15:50 PM Referred By: PRINCESS Confirmed By:REGINALD VOGT 10/25/17 1513 Date Reginald Vogt MD CC: No Primary Care Physician; Cj Sánchez DO; Jed Gutiérrez MD Signed DISCHARGE SUMMARY Observed: 10/21/2017 Status: F Source: [place] 2:24 PM [facility] REPOSITORY [facility] Medical Records Department [address] [place] [address] Discharge Summary 10/21/17 1419 MR#: [id number] Acct: [id number] Name: EARL PADILLA Rep #: [id number] : 1950 67 From: Cj Sánchez DO PCP: Care Physician, No Primary Status: ADM IN Location: [place] [address] Discharge Date and Diagnosis - Problem List Patient Problems: Active and Suspected Problems New onset atrial fibrillation (Acute) Community acquired pneumonia (Acute) Cardiomyopathy (Acute) Valvular heart disease (Acute) Systolic CHF, acute (Acute) Date of Admission: 10/17/17 Date of Discharge: 10/21/17 - Primary Discharge Diagnosis Active and Suspected Problems New onset atrial fibrillation (Acute) Community acquired pneumonia (Acute) Cardiomyopathy (Acute) Valvular heart disease (Acute) Systolic CHF, acute (Acute) - Secondary Discharge Diagnosis Chronic Problems Obesity (BMI 30-39.9) (Chronic) HTN (hypertension) (Chronic) Hospital Course and Treatment Imaging Results: Clinical Impression(s) from Imaging Studies Chest X-Ray 10/17/17 11:45 IMPRESSION: Dense opacity in the right lung base is worrisome for focal consolidation/infection. There is a small right pleural effusion. There is moderate enlargement of the cardiac silhouette with mild edema. Electronically Signed: Mulu Lama MD at 13:40 EDT Tel Direct: [phone], Service support , Operations: None Procedures: 2-D Echocardiogram, Cardiac catheterization Summary of Care Provided: The patient is a 67 year old F who presents with shortness of breath and lower extremity edema. Patient was found to be in atrial fibrillation with RVR. Initial concern was for pneumonia given leukocytosis, however, infectious workup was negative and antibiotics were discontinued. Patient's chest x-ray findings are more consistent with heart failure and patient was started on Lasix for diuresis and has improved. Patient was put on Lasix and she has popped roughly 5 kg since admission. Patient had an echocardiogram that showed an ejection fraction of 20%. A left heart catheterization showed nonobstructive coronary artery disease. This is felt the patient's cardiomyopathy is nonischemic but still unclear etiology beyond that. Patient has been started on medications for her heart failure with carvedilol and lisinopril. For her atrial fibrillation she will continue her carvedilol but also is added digoxin. Patient will follow up with cardiology for further cardiac evaluation and depending on how her ejection fraction improves or not, patient may need a defibrillator. Patient will be started on potassium 4 the hypokalemia that will be from the Lasix. Patient will need to get established with her primary care doctor for further lab workup and follow-up. 1. New onset atrial fibrillation * improved, but was tachycardic * Patient has a [id number] score of 3 * Eliquis started * On Digoxin 250 mcg/d, corege 12.5 BID, 2. Acute heart failure with reduced ejection fraction * EF of 20% * Complicated by pulmonary hypertension with right ventricular systolic pressure of 42 mmHg * Lasix 40 BID, Coreg, Lisinopril 10 BID * Cardiology on consultation * [facility] normal coronaries. 3. Possible pneumococcal pneumonia * I feel most of the patient's chest x-ray findings are more consistent with heart failure rather than pneumonia but pneumonia was concerned given the patient's leukocytosis * [] Discharge Diet: Low fat/ Low Cholesterol, 6 Cup Fluid Restriction, 2000 mg Sodium Diet Discharge Activity: Return to Normal Activity Call your doctor if you observe: Fever of 101 or Higher, Shortness of breath, Chest pain Home Medications: Medications to take at Discharge Apixaban [Eliquis] 5 mg PO BID #60 tab 10/21/17 Carvedilol [Coreg (Beta Mikie)] 12.5 mg PO BID #60 tab 10/21/17 Digoxin [Lanoxin] 250 mcg PO DAILY #30 tab 10/21/17 Furosemide [Lasix] 40 mg PO BID@1000,1800 #60 tab 10/21/17 Lisinopril [Zestril] 10 mg PO BID #30 tab 10/21/17 Potassium Chloride [K-Dur] 10 meq PO DAILY #30 tab 10/21/17 Following Prescrptions Were Given to Patient: Digoxin [Lanoxin] 250 mcg PO DAILY #30 tab Furosemide [Lasix] 40 mg PO BID@1000,1800 #60 tab Potassium Chloride [K-Dur] 10 meq PO DAILY #30 tab Apixaban [Eliquis] 5 mg PO BID #60 tab Carvedilol [Coreg (Beta Mikie)] 12.5 mg PO BID #60 tab Lisinopril [Zestril] 10 mg PO BID #30 tab Primary Care Physician: Care Physician,No Primary [Primary Care Provider] - Please Follow Up With: Jed Gutiérrez MD When: 1-2 months Please Follow Up With: PCP When: 1 week Patient Instructions: Taking JESUS Inhibitors, Taking Medication to Control Heart Failure, What Is Heart Failure?, What Is Atrial Flutter/Atrial Fibrillation?, Heart Failure: Tracking Your Weight, Heart Failure: Procedures That May Help, Heart Failure: Making Changes to Your Diet, Heart Failure: Evaluating Your Heart, Heart Failure: Medications to Help Your Heart, Discharge Instructions for Atrial Fibrillation, Discharge Instructions for Heart Failure Disposition: Home Minutes spent on discharge:: 32 Patient Condition:: Good Medical Necessity - Tobacco Use Smoking Status: Never smoker Meaningful Use Info Meaningful Use Diagnoses (Choose all that apply): CHF - CHF JESUS/ARB ordered at discharge?: Yes Documented LVEF (%): 20 Code Visit Inpatient E AND M: [id number] Disch Hosp 10/21/17 1424 <Electronically signed by Cj Sánchez DO> Date [facility] DO [facility] Signature (if applicable): Date CC: No Primary Care Physician; Cj Sánchez DO Signed DISCHARGE INSTRUCTION Observed: 10/21/2017 Status: F Source: [place] 2:19 PM [facility] REPOSITORY [facility] Medical Records Department [address] [place] [address] Instructions for Home/Discharge Instructions 10/21/17 1416 MR#: [id number] Acct: [id number] Name: EARL PADILLA Rep #: [id number] : 1950 67 From: Cj Sánchez DO PCP: Care Physician, No Primary Status: ADM IN - Discharge Diagnoses Current Active Problems: Current Active and Chronic Problems New onset atrial fibrillation (Acute) Community acquired pneumonia (Acute) Obesity (BMI 30-39.9) (Chronic) Cardiomyopathy (Acute) Valvular heart disease (Acute) HTN (hypertension) (Chronic) Systolic CHF, acute (Acute) You will use the following diet at home:: Cardiac, Fluid restricted (specify 2000 mls, 1500 mls) - 1500 cc/day Your food should be the consistency of: Regular Your liquids should be the consistency of: Regular/Thin Discharge Activity: Return to Normal Activity Call your doctor if you observe: Fever of 101 or Higher, Shortness of breath, Chest pain Instructions: Taking JESUS Inhibitors, Taking Medication to Control Heart Failure, What Is Atrial Flutter/Atrial Fibrillation?, What Is Heart Failure?, Heart Failure: Tracking Your Weight, Heart Failure: Procedures That May Help, Heart Failure: Making Changes to Your Diet, Heart Failure: Evaluating Your Heart, Heart Failure: Medications to Help Your Heart, Discharge Instructions for Atrial Fibrillation, Discharge Instructions for Heart Failure Additional Instructions: Daily weights. Notify physician if weight gain greater than 2 pounds in 1 day, or 3 pounds in 1 week. Allergies/Adverse Reactions: Allergies No Known Allergies Allergy (Verified 10/17/17 11:13) Medications to take at Discharge Apixaban [Eliquis] 5 mg PO BID #60 tab 10/21/17 Carvedilol [Coreg (Beta Mikie)] 12.5 mg PO BID #60 tab 10/21/17 Digoxin [Lanoxin] 250 mcg PO DAILY #30 tab 10/21/17 Furosemide [Lasix] 40 mg PO BID@1000,1800 #60 tab 10/21/17 Lisinopril [Zestril] 10 mg PO BID #30 tab 10/21/17 Potassium Chloride [K-Dur] 10 meq PO DAILY #30 tab 10/21/17 The following prescriptions were given: Digoxin [Lanoxin] 250 mcg PO DAILY #30 tab Furosemide [Lasix] 40 mg PO BID@1000,1800 #60 tab Potassium Chloride [K-Dur] 10 meq PO DAILY #30 tab Apixaban [Eliquis] 5 mg PO BID #60 tab Carvedilol [Coreg (Beta Mikie)] 12.5 mg PO BID #60 tab Lisinopril [Zestril] 10 mg PO BID #30 tab Primary Care Physician: Care Physician,No Primary [Primary Care Provider] - Test Results: Test results from this visit will be discussed in further detail at your follow-up appointment, if applicable. Please Follow Up With: Jed Gutiérrez MD When: 1-2 months Please Follow Up With: PCP When: 1 week Proposed Discharge Date: 10/21/17 10/21/17 1419 <Electronically signed by Cj Sánchez DO> Date Cj Sánchez DO CC: No Primary Care Physician; Jed Gutiérrez MD BASIC METABOLIC Collected: 10/21/2017 Status: F Source: [place] PROFILE (BMP) 6:00 AM [facility] REPOSITORY TYPE CODE TESTS RESULT OUT OF RANGE REFERENCE UNITS LAB L501.0100 74-106 mg/dL Normal GLU 77 Result Comment: Please note revised GLUCOSE reference range effective 2017. LAB L501.1000 7-18 mg/dL Normal BUN 14 LAB L501.1100 0.55-1.02 mg/dL Normal CREAT,SERUM 0.90 Result Comment: The validity of the calculated GFR AND GFRAA in patients over 70 years has not been determined. Clinical correlation is essential. LAB L501.1110 >60 mL/min Normal EST GFR 66 Result Comment: Non- GFR Calc LAB L501.1115 >60 mL/min Normal EST GFR - AA 80 Result Comment: GFR Calc LAB L501.1255 ml/min Normal Estimated CRCL 55.33 LAB L501.1300 10-20 RATIO Normal BUN/CRE 15.5 LAB L501.2200 8.5-10 mg/dL Low .1 CA 7.9 LAB L501.5300 136-14 mmol/L Normal 5 NA 141 LAB L501.5600 3.5-5. mmol/L Low 1 K 3.2 LAB L501.5900 98-107 mmol/L Normal CL 103 LAB L501.6100 21.0-3 mmol/L Normal 2.0 CO2 29.0 LAB L501.6200 5-15 Normal GAP 9 Performed By: #### L500.2500, L501.5200 #### [facility] [address] [place], [address] MAGNESIUM Collected: 10/21/2017 Status: F Source: MARISA 6:00 AM [facility] REPOSITORY TYPE CODE TESTS RESULT OUT OF RANGE REFERENCE UNITS LAB L501.5200 1.6-2.6 mg/dL Normal MG 1.8 Performed By: #### L500.2500, L501.5200 #### [facility] [address] [place], [address] BASIC METABOLIC Collected: 10/20/2017 Status: F Source: [place] PROFILE (BMP) 4:42 PM [facility] REPOSITORY TYPE CODE TESTS RESULT OUT OF RANGE REFERENCE UNITS LAB L501.0100 74-106 mg/dL Normal GLU 89 Result Comment: Please note revised GLUCOSE reference range effective 2017. LAB L501.1000 7-18 mg/dL High BUN 19 LAB L501.1100 0.55-1.02 mg/dL High CREAT,SERUM 1.06 Result Comment: The validity of the calculated GFR AND GFRAA in patients over 70 years has not been determined. Clinical correlation is essential. LAB L501.1110 >60 mL/min Low EST GFR 55 Result Comment: Non- GFR Calc LAB L501.1115 >60 mL/min Normal EST GFR - AA 67 Result Comment: GFR Calc LAB L501.1255 ml/min Normal Estimated CRCL 46.98 LAB L501.1300 10-20 RATIO Normal BUN/CRE 17.9 LAB L501.2200 8.5-10 mg/dL Low .1 CA 8.2 LAB L501.5300 136-14 mmol/L Normal 5 NA 139 LAB L501.5600 3.5-5. mmol/L Normal 1 K 3.7 LAB L501.5900 98-107 mmol/L Normal CL 104 LAB L501.6100 21.0-3 mmol/L Normal 2.0 CO2 24.0 LAB L501.6200 5-15 Normal GAP 11 Performed By: #### L500.2500 #### [facility] [address] [place], [address] BASIC METABOLIC Collected: 10/20/2017 Status: F Source: [place] PROFILE ([facility]) 6:08 AM [facility] REPOSITORY TYPE CODE TESTS RESULT OUT OF RANGE REFERENCE UNITS LAB L501.0100 74-106 mg/dL Normal GLU 88 Result Comment: Please note revised GLUCOSE reference range effective 2017. LAB L501.1000 7-18 mg/dL High BUN 20 LAB L501.1100 0.55-1.02 mg/dL High CREAT,SERUM 1.04 Result Comment: The validity of the calculated GFR AND GFRAA in patients over 70 years has not been determined. Clinical correlation is essential. LAB L501.1110 >60 mL/min Low EST GFR 56 Result Comment: Non- GFR Calc LAB L501.1115 >60 mL/min Normal EST GFR - AA 68 Result Comment: GFR Calc LAB L501.1255 ml/min Normal Estimated CRCL 47.88 LAB L501.1300 10-20 RATIO Normal BUN/CRE 19.2 LAB L501.2200 8.5-10 mg/dL Low .1 CA 7.6 LAB L501.5300 136-14 mmol/L Normal 5 NA 141 LAB L501.5600 3.5-5. mmol/L Low 1 K 3.1 Result Comment: Slight Hemolysis, Result may be falsely increased. LAB L501.5900 98-107 mmol/L Normal CL 105 LAB L501.6100 21.0-32.0 mmol/L Normal CO2 27.0 LAB L501.6200 5-15 Normal 9 GAP Performed By: #### L500.2500 #### [facility] [address] [place], [address] CBC W/DIFF, AUTOMATED Collected: 10/20/2017 Status: F Source: [place] 6:08 AM [facility] REPOSITORY TYPE CODE TESTS RESULT OUT OF RANGE REFERENCE UNITS LAB L100.1000 4.4-11.0 K/mm3 High WBC 14.6 LAB L100.1200 4.2-5.4 M/mm3 Normal RBC 4.52 LAB L100.1300 12.0-15.0 g/dl Normal HGB 13.6 LAB L100.1400 37-47 % Normal HCT 42.2 LAB L100.1500 81-99 fL Normal MCV 93.4 LAB L100.1600 27.0-32.0 pg Normal MCH 30.1 LAB L100.1700 32-36 g/gl Normal MCHC 32.2 LAB L100.1810 11.6-14.6 % High RDW CV 16.9 LAB L100.1820 35.1-43.9 fl High RDW SD 57.7 LAB L100.1900 150-450 K/mm3 Normal PLT 244 LAB L100.2000 6.2-12.0 fl Normal MPV 10.2 LAB L100.2100 47-70 % High NEUT% 73.9 LAB L100.2200 19-41 % Low LY% 16.7 LAB L100.2300 0-10 % Normal MONO% 8.3 LAB L100.2400 0-5 % Normal EO% 0.7 LAB L100.2500 0-1 % Normal BASO% 0.1 LAB L100.2550 0.0-0.9 % Normal IM GRAN % 0.300 Result Comment: IG% - Immature Granulocytes (promyelocytes, myelocytes and metamyelocytes) > 1% indicates that a LEFT SHIFT is Present. LAB L100.2620 2.0-7.7 X10 3/uL High Absolute Neut 10.8 LAB L100.2720 0.83-4.51 X10 3/ul Normal Absolute Lymph 2.43 Performed By: #### L100.0100 #### [facility] [address] [place], [address] 12 LEAD ELECTROCARDIOGRAM Observed: 10/19/2017 Status: F Source: MARISA 1:01 PM [facility] REPOSITORY [facility] Cardiovascular Services [address] [place] [address] 12 Lead EKG 10/17/17 1136 MR#: [id number] Acct: [id number] Name: EARL PADILLA Rep #: [id number] : 1950 67 From: Jed Gutiérrez MD Attending Dr: Cj Sánchez DO Status: ADM IN Ordering Dr: Cj Melvin DO Date: 10/17/17 Location: [facility] Sex: F C Admitted: 10/17/17 Test Reason : SOB Blood Pressure : / mmHG Vent. Rate : 151 BPM Atrial Rate : 326 BPM P-R Int : 000 ms QRS Dur : 076 ms QT Int : 286 ms P-R-T Axes : 000 108 -03 degrees QTc Int : 453 ms Atrial fibrillation with rapid ventricular response Rightward axis Nonspecific T wave abnormality Abnormal ECG Confirmed by BROCK ELDRIDGE, JED ([id number]), editor magazine JESSICA TOVAR ([id number]) on 10/19/2017 1:01:15 PM Referred By: PA Confirmed By:JED GUTIÉRREZ MD 10/19/17 1301 Date Jed Gutiérrez MD CC: No Primary Care Physician; Cj Sánchez DO; Cj Melvin DO Signed CBC-COMPLETE BLOOD CNT Collected: 10/19/2017 Status: F Source: [place] NO DIFF 6:30 AM [facility] REPOSITORY TYPE CODE TESTS RESULT OUT OF RANGE REFERENCE UNITS LAB L100.1000 4.4-11.0 K/mm3 High WBC 18.4 LAB L100.1200 4.2-5.4 M/mm3 Normal RBC 4.56 LAB L100.1300 12.0-15.0 g/dl Normal HGB 14.1 LAB L100.1400 37-47 % Normal HCT 42.6 LAB L100.1500 81-99 fL Normal MCV 93.4 LAB L100.1600 27.0-32.0 pg Normal MCH 30.9 LAB L100.1700 32-36 g/gl Normal MCHC 33.1 LAB L100.1810 11.6-14.6 % High RDW CV 17.4 LAB L100.1820 35.1-43.9 fl High RDW SD 58.0 LAB L100.1900 150-450 K/mm3 Normal PLT 288 LAB L100.2000 6.2-12.0 fl Normal MPV 10.5 Performed By: #### L100.0500 #### [facility] [address] [facility]. [place], [place], [id number] PROTHROMBIN TIME W/INR Collected: 10/19/2017 Status: F Source: MARISA 6:30 AM [facility] REPOSITORY TYPE CODE TESTS RESULT OUT OF RANGE REFERENCE UNITS LAB L300.4150 11.7-14.9 SECONDS Normal PROTIME 13.8 LAB L300.4200 Normal INR 1.1 Performed By: #### L300.3900, L300.4310 #### [facility] [address] [place], [place], [id number] PARTIAL THROMBOPLAST Collected: 10/19/2017 Status: F Source: [place] TIME 6:30 AM [facility] REPOSITORY TYPE CODE TESTS RESULT OUT OF RANGE REFERENCE UNITS LAB L300.4310 24.1-36.2 Seconds Normal PTT 32.9 Performed By: #### L300.3900, L300.4310 #### [facility] [address] [facility] [place], [address] BASIC METABOLIC Collected: 10/19/2017 Status: F Source: [place] PROFILE (BMP) 6:30 AM [facility] REPOSITORY TYPE CODE TESTS RESULT OUT OF RANGE REFERENCE UNITS LAB L501.0100 74-106 mg/dL Normal GLU 105 Result Comment: Fasting Glucose result from 100 to 125 mg/dL suggests IMPAIRED HOMEOSTASIS per A.D.A. criteria. Please note revised GLUCOSE reference range effective 2017. LAB L501.1000 7-18 mg/dL High BUN 29 LAB L501.1100 0.55-1.02 mg/dL High CREAT,SERUM 1.41 Result Comment: The validity of the calculated GFR AND GFRAA in patients over 70 years has not been determined. Clinical correlation is essential. LAB L501.1110 >60 mL/min Low EST GFR 40 Result Comment: Non- GFR Calc LAB L501.1115 >60 mL/min Low EST GFR - AA 48 Result Comment: GFR Calc LAB L501.1255 ml/min Normal Estimated CRCL 35.32 LAB L501.1300 10-20 RATIO High BUN/CRE 20.6 LAB L501.2200 8.5-10 mg/dL Low .1 CA 8.0 LAB L501.5300 136-14 mmol/L Normal 5 NA 142 LAB L501.5600 3.5-5. mmol/L Normal 1 K 3.5 LAB L501.5900 98-107 mmol/L Normal CL 105 LAB L501.6100 21.0-3 mmol/L Normal 2.0 CO2 25.0 LAB L501.6200 5-15 Normal GAP 12 Performed By: #### L500.2500, L500.3400 #### [facility] [address] [facility]. [place], [place], [phone] LIVER PROFILE Collected: 10/19/2017 Status: F Source: [place] 6:30 AM [facility] REPOSITORY TYPE CODE TESTS RESULT OUT OF RANGE REFERENCE UNITS LAB L501.1500 6.4-8.2 g/dL Low T PROT 6.1 LAB L501.1800 3.2-5.0 g/dL Low ALB 3.1 LAB L501.1950 2.2-4.2 g/dL Normal GLOB 3.0 LAB L501.4100 15-37 U/L High AST 57 LAB L501.4305 45-117 U/L Normal ALK P 100 LAB L501.4405 13-56 U/L High ALT 139 LAB L501.4600 0.20-1.00 mg/dL High T BILI 1.70 LAB L501.4700 0.00-0.30 mg/dL High D BILI 0.33 Performed By: #### L500.2500, L500.3400 #### [facility] [address] [facility] [place], [place], [id number] CONSULTATION Observed: 10/18/2017 Status: F Source: [place] 5:29 PM [facility] REPOSITORY [facility] Medical Records Department [address] [place] [address] Consultation 10/18/17 1711 MR#: [id number] Acct: [id number] Name: EARL PADILLA Rep #: [id number] : 1950 67 From: Jed Gutiérrez MD PCP: Care Physician, No Primary Status: ADM IN Y Location: [place] [address] Problem List (1) New onset atrial fibrillation Status: Acute (2) Cardiomyopathy Status: Acute Qualifiers: Cardiomyopathy type: unspecified Qualified Code(s): I42.9 - Cardiomyopathy, unspecified (3) Systolic CHF, acute Status: Acute (4) Valvular heart disease Status: Acute (5) HTN (hypertension) Status: Chronic Qualifiers: Hypertension type: essential hypertension Qualified Code(s): I10 - Essential (primary) hypertension (6) Community acquired pneumonia Status: Acute Reason for Consult Date of Consultation: 10/18/17 History of Present Illness: The patient is a 67 year old white female with a past medical history which has included hypertension for which she states it has waxed and waned and she has not required ongoing medical management who is now referred for evaluation of shortness of breath/dyspnea with associated chest discomfort and subsequent findings of atrial fibrillation, and abnormal transthoracic echocardiogram suggesting underlying valvular heart disease and the appearance of a cardiomyopathy, as well as a pneumonia which cannot be excluded. She notes that she has not felt well for at least one month. Over this period of time she has had progressive shortness of breath and dyspnea both at rest and with exertion. She has had episodes of orthopnea. She states she has had chest pressure associated with her shortness of breath and dyspnea. She does not recall obvious associated nausea, emesis, or diaphoresis. She does not complain of any obvious lower extremity peripheral pitting edema. She is unclear whether she truly has felt any palpitations. There has been no near syncope or syncope. She presented to the emergency department for further evaluation. From a cardiovascular standpoint she has had cardiac enzymes which have been negative. An ECG demonstrated atrial fibrillation with rapid ventricular response with nonspecific T-wave abnormality. A chest x-ray suggested evidence of increased pulmonary vascularity compatible with CHF/pulmonary edema and pleural effusion although an underlying pneumonia cannot be excluded. A transthoracic echocardiogram has been performed. This demonstrated global left ventricular systolic dysfunction with an estimated LVEF of 20%, biatrial enlargement, moderate MR, moderately severe TR, and an estimated RV systolic pressure 42 mmHg-please see official report. She has been referred for further cardiovascular evaluation. [] Past Medical History Allergies/Adverse Reactions: Allergies No Known Allergies Allergy (Verified 10/17/17 11:13) Home Medications: Ambulatory Orders Medication Instructions Recorded NK [NK] 10/17/17 Past Medical History (Chronic Problems): Chronic Problems Obesity (BMI 30-39.9) (Chronic) HTN (hypertension) (Chronic) Surgical History: hysterectomy, tonsillectomy Psychiatric History: No pertinent psych hx PROFESSIONAL ATHLETE History: No pertinent PROFESSIONAL ATHLETE history - *Family History Maternal History Items: - - Arthritis, joint issues Paternal History Items: Cancer - Lung, pancreatic Lives: With Family Smoking Status: Never smoker Alcohol: None Drugs: None Review of Systems - Review of Systems General: Denies: Fever, Night Sweats, Fatigue Cardiovascular: Reports: Chest Discomfort, Chest Discomfort at Rest, Chest Discomfort with Exertion, Shortness of Breath, Shortness of Breath at Rest, Shortness of Breath with Exertion, Orthopnea. Denies: PND, Peripheral Edema, Palpitations, Lightheadedness, Dizziness, Near Syncope, Syncope Respiratory: Reports: Shortness of Breath. Denies: Cough, Sputum Production, Hemoptysis Gastrointestinal: Denies: Hematemesis, Hematochezia, Melena Genitourinary: Denies: Dysuria, Hematuria Skin: Denies: Rash Subjectve: This is a 67-year-old white female who appears to be resting reasonably comfortably at this time without O2 support and in no acute distress. Objective: Vital Signs Temp Pulse Resp BP Pulse Ox 97.5 F L 80 18 130/85 H 91 10/18/17 13:00 10/18/17 15:08 10/18/17 15:00 10/18/17 15:00 10/18/17 15:00 Oxygen Flow Rate (L/min) 2 Oxygen Delivery Method Mechanical Ventilator Weight: 233 lb 14.567 oz Body Mass Index (BMI) 39.4 Intake and Output for Last 24 Hours Intake Total 921.2 / 921.2 1484.9 / 1484.9 Output Total 600 / 600 700 / 700 Balance 321.2 / 321.2 784.9 / 784.9 General: Awake, Alert, Oriented x 3, Cooperative, No Acute Distress HEENT: Atraumatic, Normocephalic, PERRL, EOMI, Sclera Non Icteric Oral: Moist Mucosa Neck: Supple, Good ROM, No JVD Lungs: Rales - Markus Bases Cardiovascular: Irregular Rhythm, Normal S1, Normal S2 Murmur Murmur: Grade 2/6, Mid Systolic, LLSB Vascular: No Carotid Bruits Abdomen: Bowel Sounds Present, Soft, Non Tender Extremities: No Cyanosis, No Clubbing, No edema Neurological: No Focal Motor or Sensory Deficit Psych/Mental Status: Flat Affect 10/18/17 05:10: WBC 16.9 H, RBC 4.68, Hgb 14.1, Hct 44.3, MCV 94.7, MCH 30.1, MCHC 31.8 L, RDW 17.1 H, RDW Differential 58.6 H, Plt Count 262, MPV 10.1, Immature Gran % (Auto) 0.200, Neut % (Auto) 72.2 H, Lymph % (Auto) 19.3, Ramsey % (Auto) 7.6, Eos % (Auto) 0.5, Baso % (Auto) 0.2, Absolute Neuts (auto) 12.2 H, Total Counted Not Reportable 10/18/17 05:10: Sodium 142, Potassium 3.8, Chloride 105, Carbon Dioxide 27.0, Anion Gap 10, BUN 31 H, Creatinine 1.38 H, Est GFR (MDRD) Af Amer 49 L, Est GFR (MDRD) Non-Af 41 L, BUN/Creatinine Ratio 22.5 H, Glucose 101, Calcium 8.1 L, Triglycerides 153, Cholesterol 127, LDL Cholesterol 68, VLDL Cholesterol 31, HDL Cholesterol 28 L Rhythm: Atrial fibrillation EKG: As noted above ECHO: As noted above CXR: As noted above Assessment/Plan 1. Atrial fibrillation The patient presents with atrial fibrillation. It is unclear as to the exact etiology as to whether this is related to her history of intermittent hypertension, her findings based on echocardiogram of underlying cardiomyopathy and valvular heart disease, or possible underlying pneumonia process. She is being monitored for other etiologies. In the meantime she has been treated with rate control therapy and anticoagulant therapy. Her rate has come under better control. She will need continued rate control therapy and anticoagulant therapy. She may eventually need antiarrhythmic therapy. She may also need an attempt at regaining sinus rhythm with synchronized biphasic DC cardioversion in the future. 2. Cardiomyopathy The patient does appear to have an underlying cardiomyopathy based upon her echocardiographic images. It is unclear whether this is a non-CAD related cardiomyopathy that led to her atrial dysrhythmia and appearance of findings compatible with CHF versus having any CAD component to it versus being secondary to her atrial dysrhythmia with rapid ventricular response such as a tachycardic induced cardiomyopathy. At the present time she is going to be monitored. She is being treated. This will include nitrates as needed, initiation of beta-blockers, she is on diuretics, she is also on afterload reducing agents. It was felt reasonable that she undergo further evaluation with diagnostic cardiac catheterization based upon her symptom complex and objective findings to further define whether she does have any underlying CAD component that would warrant further management above and beyond medical therapy. This procedure and risks was discussed with the patient with her family members present. She as well as they were agreeable with this approach. 3. Congestive heart failure: Acute systolic She does appear to have findings compatible with acute systolic CHF. She has objective findings demonstrating her LV systolic function is diminished. Again is unclear whether this is a non-CAD related cardiomyopathy, has a CAD component, or is related to her tachydysrhythmia with atrial fibrillation with RVR. At the present time she will continue medical management as noted above. She will continue her cardiovascular evaluation as described above. 4. Valvular heart disease It is unclear as to whether her valvular heart disease he has a primary etiology for her other findings or secondary to her other findings such as her atrial dysrhythmia and her cardiomyopathy. At the present time she will continue to be monitored. She will continue medical management for her acute condition. She will undergo further evaluation as described above. 5. Hypertension She states she has a history of intermittent hypertension. She has not been on medical therapy. Her blood pressures will be followed as she goes to her evaluation and care. 6. Pneumonia There is concern that she may have an underlying pneumonia based upon her symptoms, laboratory studies, and chest x-ray. She is being treated for such. Again, the above was discussed with the patient, her spouse, her son, and other family members present. They were all in agreement with proceeding with the aforementioned evaluation and care plan. This note was generated with [employer] dictation software. It may contain incorrect words, spelling, and punctuation that were not noted in checking the note before signing. 10/18/17 1729 <Electronically signed by Jed Gutiérrez MD> Date Jed Gutiérrez MD Cosigner Signature (if applicable): Date CC: No Primary Care Physician; Jed Gutiérrez MD Signed ECHOCARDIOGRAM COMPLETE Observed: 10/18/2017 Status: F Source: [place] 3:08 PM [facility] REPOSITORY [facility] Cardiovascular Services [address] [place] [id number] Echo Complete 10/18/17 0945 MR#: [id number] Acct: [id number] Name: EARL PADILLA Rep #: [id number] : 1950 67 From: Jed Gutiérrez MD Attending Dr: Cj Sánchez DO Status: ADM IN Ordering Dr: Nash Rodriguez MD Date: 10/18/17 Location: [facility] Sex: F C Admitted: 10/17/17 Reason For Study: Afib-Flutter Procedure This was a 2D Doppler, Color Flow transthoracic echocardiogram. The exam was of fair technical quality due to body habitus. The study was technically difficult. Exam performed portable in patient room. Left Ventricle Normal LV size. Mild concentric left ventricular hypertrophy. Apical false tendon noted. Severe global left ventricular systolic dysfunction. The estimated ejection fraction is 20 %. Unable to assess diastolic dysfunction. Right Ventricle Normal RV size. Normal systolic function. Atria The left atrium is severely enlarged. The right atrium is moderately enlarged. No doppler evidence for ASD. Mitral Valve There is moderate mitral annular calcification. Extension of the mitral annular calcification onto the posterior mitral valve leaflet. Mild diffuse mitral valve thickening. Moderate (2+) mitral valve insufficiency. Tricuspid Valve Normal tricuspid valve. Moderately severe (3+) tricuspid valve insufficiency. Right ventricular systolic pressure estimated to be 42 mmHg. Aortic Valve Trisinus/trileaflet aortic valve. Normal aortic valve. Trivial aortic valve insufficiency. Pulmonic Valve The pulmonic valve is not well visualized. Great Vessels Normal sized aortic root. Pericardium/Pleural Trivial pericardial effusion. There are no echocardiographic indications of cardiac tamponade. MMode/2D Measurements AND Calculations LVIDd: 4.2 cm IVSd: 1.4 cm Ao root diam: 3.0 cm LVIDs: 3.9 cm LVPWd: 1.4 cm LA dimension: 5.5 cm FS: 7.0 % LAV(MOD-bp): 95.6 ml LVAd ap4: 23.3 cm2 SV(MOD-sp4): 13.3 ml LAV(MOD-bp) Indexed: 45.1 ml/m2 EDV(MOD-sp4): 67.7 ml LAV(MOD-sp2): 92.0 ml EDV(sp4-el): 69.4 ml LAV(MOD-sp4): 96.4 ml LVAs ap4: 19.5 cm2 ESV(MOD-sp4): 54.4 ml ESV(sp4-el): 55.2 ml EF(MOD-sp4): 19.7 % EF(sp4-el): 20.5 % SV(sp4-el): 14.2 ml LA A4 area: 28.4 cm2 RA A4 area: 24.5 cm2 Time Measurements MV dec time: 0.16 sec Doppler Measurements AND Calculations MV E max aniyah: 114.9 cm/sec Ao V2 max: 97.2 cm/sec AI max aniyah: 351.5 cm/sec Ao max P.9 mmHg AI max P.7 mmHg AI dec slope: 156.4 cm/sec2 AI P1/2t: 658.5 msec LV V1 max: 90.9 cm/sec PA V2 max: 60.9 cm/sec TR max aniyah: 257.3 cm/sec LV V1 max P.4 mmHg TR max P.5 mmHg Interpretation Summary The study was technically difficult. Severe global left ventricular systolic dysfunction. The estimated ejection fraction is 20 %. Mild concentric left ventricular hypertrophy. Apical false tendon noted. The left atrium is severely enlarged. The right atrium is moderately enlarged. There is moderate mitral annular calcification. Extension of the mitral annular calcification onto the posterior mitral valve leaflet. Mild diffuse mitral valve thickening. Moderate (2+) mitral valve insufficiency. Moderately severe (3+) tricuspid valve insufficiency. Trivial aortic valve insufficiency. Trivial pericardial effusion. There are no echocardiographic indications of cardiac tamponade. Right ventricular systolic pressure estimated to be 42 mmHg. Unable to assess diastolic dysfunction. Ordering Physician: Nash Rodriguez Performed By: Lit Perez RCS 10/18/17 1507 Date Jed Gutiérrez MD CC: No Primary Care Physician; Cj Sánchez DO; Nash Rodriguez MD Date Dictated: 10/18/17 0945 Date Transcribed: 10/18/17 1507 Roller Cleaner: Signed Observed: 10/18/2017 Status: F Source: [place] LEGIONELLA ANTIGEN 2:45 PM [facility] URINE REPOSITORY Specimen Source: URINE, CLEAN CATCH Legionella, UR Legionella Antigen result interpretation: Negative Presumptive negative for Legionella pneumophila serogroup 1 antigen in urine, suggesting no recent or current infection. Legionella Ag, Urine Negative (See interpretation below) Performed By: #### M300.4500 #### [facility] [address] [facility] [place], [address] STREP Observed: 10/18/2017 Status: F Source: [place] PNEUMONIAE ANTIG(UR,CSF) 2:45 PM [facility] REPOSITORY S pneumo Ag URINE INTERPRETATION Negative Urine Presumptive negative for pneumococcal pneumonia, suggesting no current or recent pneumococcal infection. Infection due to S pneumoniae cannot be ruled out since the antigen present in the sample may be below the detection limit of the test. Strep pneumo Test Negative URINE (See interpretation below) Performed By: #### M300.4600 #### [facility] [address] [facility]. [place], [place], [address] URINALYSIS, COMPLETE Collected: 10/18/2017 Status: F Source: [place] 2:45 PM [facility] REPOSITORY Order Comment: How was Urine Obtained? SCREEN PRINTING EQUIPMENT SETTER TO SPECIFY TYPE CODE TESTS RESULT OUT OF RANGE REFERENCE UNITS LAB L400.3000 Yellow COLOR Normal Yellow LAB L400.3050 Clear Normal CLARITY Cloudy LAB L400.3200 Normal mg/dl Normal GLUCOSE, UR Normal LAB L400.3300 Negative mg/dL Normal BILIRUBIN URINE Negative LAB L400.3400 Negative mg/dl Normal KETONE UR Negative LAB L400.3465 1.002-1.030 Normal SP.GR. DIPSTX 1.025 LAB L400.3550 5.0 - 8.0 pH UR Normal 5.0 LAB L400.3600 Negative mg/dl High PROT 30 DIPSTX LAB L400.3700 Normal mg/dl Normal UROBILI Normal LAB L400.3750 Negative Normal NITRITE UR Negative LAB L400.3780 Negative /ul High OCCULT BLOOD-UR 250 LAB L400.3800 Negative /ul High LEUK ESTERASE 100 LAB L400.4050 0-5 /hpf WBC Normal 10-25 SEEN LAB L400.4100 0-5 /hpf Normal RBC-UA 5-10 SEEN LAB L400.4150 5-10 /hpf SQUAM 0 Normal EPI SEEN LAB L400.4300 None Seen /hpf 1+ Normal BACTERIA LAB L400.4350 <or=2+ /hpf 2+ Normal MUCUS, URINE LAB L400.4400 0-5 /lpf Normal HYALINE CAST 0-5 SEEN Performed By: #### L400.0001 #### [facility] [address] [place], [address] CBC W/DIFF, AUTOMATED Collected: 10/18/2017 Status: F Source: [place] 5:10 AM [facility] REPOSITORY TYPE CODE TESTS RESULT OUT OF RANGE REFERENCE UNITS LAB L100.1000 4.4-11.0 K/mm3 High WBC 16.9 LAB L100.1200 4.2-5.4 M/mm3 Normal RBC 4.68 LAB L100.1300 12.0-15.0 g/dl Normal HGB 14.1 LAB L100.1400 37-47 % Normal HCT 44.3 LAB L100.1500 81-99 fL Normal MCV 94.7 LAB L100.1600 27.0-32.0 pg Normal MCH 30.1 LAB L100.1700 32-36 g/gl Low MCHC 31.8 LAB L100.1810 11.6-14.6 % High RDW CV 17.1 LAB L100.1820 35.1-43.9 fl High RDW SD 58.6 LAB L100.1900 150-450 K/mm3 Normal PLT 262 LAB L100.2000 6.2-12.0 fl Normal MPV 10.1 LAB L100.2100 47-70 % High NEUT% 72.2 LAB L100.2200 19-41 % Normal LY% 19.3 LAB L100.2300 0-10 % Normal MONO% 7.6 LAB L100.2400 0-5 % Normal EO% 0.5 LAB L100.2500 0-1 % Normal BASO% 0.2 LAB L100.2550 0.0-0.9 % Normal IM GRAN % 0.200 Result Comment: IG% - Immature Granulocytes (promyelocytes, myelocytes and metamyelocytes) > 1% indicates that a LEFT SHIFT is Present. LAB L100.2620 2.0-7.7 X10 3/uL High Absolute Neut 12.2 LAB L100.2720 0.83-4.51 X10 3/ul Normal Absolute Lymph 3.26 Performed By: #### L100.0100 #### [facility] [address] [place], [address] BASIC METABOLIC Collected: 10/18/2017 Status: F Source: [place] PROFILE (BMP) 5:10 AM [facility] REPOSITORY TYPE CODE TESTS RESULT OUT OF RANGE REFERENCE UNITS LAB L501.0100 74-106 mg/dL Normal GLU 101 Result Comment: Fasting Glucose result from 100 to 125 mg/dL suggests IMPAIRED HOMEOSTASIS per A.D.A. criteria. Please note revised GLUCOSE reference range effective 2017. LAB L501.1000 7-18 mg/dL High BUN 31 LAB L501.1100 0.55-1.02 mg/dL High CREAT,SERUM 1.38 Result Comment: The validity of the calculated GFR AND GFRAA in patients over 70 years has not been determined. Clinical correlation is essential. LAB L501.1110 >60 mL/min Low EST GFR 41 Result Comment: Non- GFR Calc LAB L501.1115 >60 mL/min Low EST GFR - AA 49 Result Comment: GFR Calc LAB L501.1255 ml/min Normal Estimated CRCL 36.08 LAB L501.1300 10-20 RATIO High BUN/CRE 22.5 LAB L501.2200 8.5-10 mg/dL Low .1 CA 8.1 LAB L501.5300 136-14 mmol/L Normal 5 NA 142 LAB L501.5600 3.5-5. mmol/L Normal 1 K 3.8 LAB L501.5900 98-107 mmol/L Normal CL 105 LAB L501.6100 21.0-3 mmol/L Normal 2.0 CO2 27.0 LAB L501.6200 5-15 Normal GAP 10 Performed By: #### L500.2500, L500.4100 #### [facility] [address] [place], [place], [address] LIPID PROFILE Collected: 10/18/2017 Status: F Source: [place] 5:10 AM [facility] REPOSITORY TYPE CODE TESTS RESULT OUT OF RANGE REFERENCE UNITS LAB L501.4900 200 mg/dL Normal CHOL 127 Result Comment: <200 mg/dL Desirable 200-240 mg/dL Borderline >240 mg/dL High Risk LAB L501.5000 mg/dL Normal TRIG 153 Result Comment: The drugs N-Acetylcysteine and Metamizole may falsely depress this assay. Serum Triglycerides Reference Interval Normal <150 mg/dL Borderline high 150 - 199 mg/dL High 200 - 499 mg/dL Very High > or = 500 mg/dL LAB L501.6400 mg/dL Low HDL 28 Result Comment: The drugs N-Acetylcysteine and Metamizole may falsely depress this assay. Reference Range HDL <40 mg/dL Low HDL Cholesterol HDL >or= 60 mg/dL High HDL Cholesterol LAB L501.6500 0-130 mg/dL Normal LDL 68 LAB L501.6600 5-40 mg/dL Normal VLDL 31 Performed By: #### L500.2500, L500.4100 #### [facility] [address] [place], [address] HEMOGLOBIN A1C Collected: 10/17/2017 Status: F Source: [place] 4:20 PM [facility] REPOSITORY TYPE CODE TESTS RESULT OUT OF RANGE REFERENCE UNITS LAB L501.9985 4.2-6.3 % Normal HGB A1C 5.3 Performed By: #### L501.9985 #### [facility] [address] [place], [address] TROPONIN-I Collected: 10/17/2017 Status: F Source: [place] 4:20 PM [facility] REPOSITORY Order Comment: 'TROP' Serial specimen #1, #2, #3, or #4: 1 TYPE CODE TESTS RESULT OUT OF RANGE REFERENCE UNITS LAB L501.4010 <0.045 ng/mL Normal 0.017 TROPONIN-I Result Comment: TROPONIN-I EXPECTED VALUES <0.045 Negative 0.045 - 0.590 Consistent with Cardiac Damage > OR = 0.600 Critical Value Not every elevated troponin is indicative of GA. These values should be used with clinical judgement in examining the patient's clinical picture for diagnosis. To establish a diagnosis of GA versus myocardial injury, there must be a demonstrated rise and/or fall in the troponin values, in addition to ischemic symptoms, EKG changes, new regional wall motion abnormality, and/or angiographical evidence. PLEASE NOTE: REFERENCE RANGES EDITED 17 Performed By: #### L501.4010, L501.9520 #### [facility] [address] [place], [address] THYROID STIM HORMONE Collected: 10/17/2017 Status: F Source: [place] (TSH) 4:20 PM [facility] REPOSITORY Order Comment: 'TROP' Serial specimen #1, #2, #3, or #4: 1 TYPE CODE TESTS RESULT OUT OF RANGE REFERENCE UNITS LAB L501.9520 0.358-3.74 uIU/mL Normal TSH 2.09 Performed By: #### L501.4010, L501.9520 #### [facility] [address] [place], [address] HISTORY AND PHYSICAL Observed: 10/17/2017 Status: F Source: [place] EXAM 3:49 PM [facility] REPOSITORY [facility] Medical Records Department [address] [place] [address] History and Physical 10/17/17 1444 MR#: [id number] Acct: [id number] Name: EARL PADILLA Rep #: [id number] : 1950 67 From: Cassandra Bynum WAREHOUSE COORDINATOR-C PCP: Care Physician, No Primary Status: ADM IN Y Location: [facility] [id number] <Cassandra Bynum - Last Filed: 10/17/17 15:05> Problem List (1) New onset atrial fibrillation Status: Acute (2) Community acquired pneumonia Status: Acute (3) Obesity (BMI 30-39.9) Status: Chronic History of Present Illness Date of Admission: 10/17/17 Chief Complaint: Shortness of breath, lower extremity swelling. The patient is a 67 year old F who presents to the emergency room due to shortness of breath and lower extremity swelling. Patient notes shortness of breath has been ongoing for approximately 5 weeks. She notes poor sleep due to shortness of breath while lying flat at night. Patient states her lower extremities have been swollen for the last week and increased over the last few days. She denies fever, chills. Denies chest pain. Complains of intermittent palpitations. Complains of dry cough. States cough is worse at night while lying flat. Denies dizziness, lightheadedness. She is unaware of any significant change in weight. Patient does not follow with primary care physician. She denies prior medical history. Does not take any daily medications. Past Medical History Past Medical History (Chronic Problems): Chronic Problems Obesity (BMI 30-39.9) (Chronic) Allergies No Known Allergies Allergy (Verified 10/17/17 11:13) Home Medications: Ambulatory Orders Medication Instructions Recorded NK [NK] 10/17/17 Surgical History: hysterectomy, tonsillectomy Psychiatric History: No pertinent psych hx PROFESSIONAL ATHLETE History: No pertinent PROFESSIONAL ATHLETE history Lives: With Family Smoking Status: Never smoker Alcohol: None Drugs: None - *Family History Maternal History Items: - - Arthritis, joint issues Paternal History Items: Cancer - Lung, pancreatic Review of Systems Constitutional: Denies: Anorexia, Chills, Fever HEENT: Denies: Head Aches, Sinus Congestion, Sinus Drainage Cardiovascular: Reports: Edema - Lower extremity, Orthopnea, Palpitations. Denies: Chest Pain, Light Headedness, Syncope Respiratory: Reports: Cough - Non productive, Shortness of Breath. Denies: Sputum production Gastrointestinal: Denies: Abdominal Pain, Constipation, Diarrhea, Nausea, Vomiting Genitourinary: Denies: Dysuria Musculoskeletal: Denies: Joint Pain, Joint Tenderness Skin: Denies: Rash, Wounds Neurological: Denies: Numbness, Tingling, Focal weakness Psychiatric: Denies: Anxiety, Depression, Homicidal Ideations, Suicidal Ideations Hematologic/ Lymphatic: Denies: Easy Bruising, Easy Bleeding VTE Information - Inpt Only VTE Present on Admission: No VTE Mechan Device Prophylaxis: None VTE Pharm Prophylaxis ordered?: Yes Patient Problems: Active and Suspected Problems New onset atrial fibrillation (Acute) Community acquired pneumonia (Acute) - Physical Exam General: Alert, Oriented x3, Cooperative, No apparent distress HEENT: Atraumatic, PERRLA, EOMI, Normocephalic Neck: Supple, No JVD, Negative Carotid Bruits Lungs: Normal air movement, Rales - BL bases Cardiovascular: No murmurs, Tachycardic, - - Atrial fibrillation Abdomen: Bowel Sounds Present, Soft, Non Tender, Non-Distended Extremities: No clubbing, No cyanosis, Capillary Refill Less than 3 Seconds, Edema - +1 BL lower extremity Skin: No rashes, No breakdown Musculoskeletal: No Tenderness to Palpation of Joints or Extremities Neurological: Cranial nerves II-XII grossly intact, Neuro grossly intact Psych/Mental Status: Normal Affect, Appropriate Vital Signs Temp Pulse Resp BP Pulse Ox 97.8 F 140 H 21 H 153/125 H 96 10/17/17 11:10 10/17/17 14:16 10/17/17 14:16 10/17/17 14:16 10/17/17 14:16 Oxygen Flow Rate (L/min) 2 Oxygen Delivery Method Nasal Cannula Weight: 235 lb 10.786 oz Body Mass Index (BMI) 39.2 Laboratory Tests Past 24 Hrs Assessment/Plan All Active Problems New onset atrial fibrillation (Acute) Community acquired pneumonia (Acute) 1. New onset atrial fibrillation with RVR-EKG in ER A. fib with RVR, no ST-T changes. Patient received 20 mg IV Cardizem bolus in ER followed by Cardizem 60 mg p.o. 1. Heart rate remains elevated. Begin Cardizem drip. Cycle enzymes. Check TSH, mag. Obtain echocardiogram. Chadsvasc score 2. Unclear medical history as patient has not seen PCP. Heparin sc for now, further assess need for oral anticoagulation. Begin aspirin 81mg. 2. Acute community acquired right lower lobe pneumonia-chest x-ray on admission with small right pleural effusion. WBC 18.9. Albuterol and DuoNeb aerosol. Check urine for strep and Legionella. IV azithromycin and IV Unasyn. IS. 3. Acute hypoxia-secondary to #1/#2. Continue supplement oxygen to maintain O2 at or above 90%. 4. Elevated blood pressure-no known prior history of hypertension. Hydralazine prn SBP >160. Continue to monitor. May need addition of oral regimen. 5. Suspected chronic kidney disease stage II-III-no prior labs. Unclear baseline. Trend BMP. 6. Obesity-encourage diet and lifestyle modifications. Nutrition consult. DVT prophylaxis-heparin sc. This patient was seen by SHONA Hand under the supervision of Dr. Rodriguez. <Nash Rodriguez Jt - Last Filed: 10/17/17 15:49> History of Present Illness The patient is a 67 year old F [] Past Medical History Allergies No Known Allergies Allergy (Verified 10/17/17 11:13) - Physical Exam Vital Signs Temp Pulse Resp BP Pulse Ox 97.8 F 140 H 21 H 153/125 H 96 10/17/17 11:10 10/17/17 14:16 10/17/17 14:16 10/17/17 14:16 10/17/17 14:16 Weight: 236 lb 15.951 oz Body Mass Index (BMI) 39.4 Assessment/Plan Addendum: Dr. Rodriguez I personally examined the patient and reviewed the chart. I agree with the above. Ms. Padilla is a 67-year-old female with no significant past medical history because she has not been to see a doctor in several years. She presents to the ER today with 5 week history of progressive shortness of breath orthopnea and bilateral lower extremity swelling without calf pain. She denies any chest pain, lightheadedness, or syncope. General: Alert, Oriented x3, Cooperative, No apparent distress HEENT: Atraumatic, EOMI, Normocephalic Oral: Moist Mucosa Neck: Supple, JVD Lungs: Clear to auscultation, Normal air movement, No rhonchi, No wheeze, No rales, diminished at b/l bases Cardiovascular: tachycardic, irregular Rhythm, Normal S1, Normal S2, No murmurs Abdomen: Soft, Non Tender, Non-Distended, No Hepato-splenomegaly Extremities: 2+ pitting edema, Capillary Refill Less than 3 Seconds Skin: No rashes, No breakdown Psych/Mental Status: Normal Affect, Appropriate 1. SOB/Edema/RLL CAP/Afib with RVR/LUAN - Based on criteria she is septic, however, she is also in a fib and likely heart failure that needs further characterization - In lieu of fluid boluses which would be dangerous, Will give IV lasix to help with her fluid overloaded status - The only SIRS criteria I feel that is present from her pneumonia is her leukocytosis, so I highly doubt she is truly septic - C/w Unasyn/Azithro with plans to discharge on augmentin and azithro - echo in the am - TSH, A1c, Lipid panel and a repeat troponin are all pending - currently she is a CHADS2 of 1, the echo can demonstrate CHF and the A1c will elucidate any diabetes. She does have an elevated SBP however I am unsure if this is chronic or acute based on her symptoms. can decide on anticoagulation vs Aspirin prior to DC when more data is available DVT: heparin BID Diet: Cardiac Code Visit Inpatient E AND M: 90341 Init Hosp L3 10/17/17 1505 <Electronically signed by Cassandra LEROYC> Date Cassandra Bynum WAREHOUSE COORDINATOR-C 10/17/17 1549<Electronically signed by Nash Rodriguez MD> Cosigner Signature: Date (if applicable) Nash Rodriguez MD CC: WAREHOUSE COORDINATOR-C Cassandra Bynum; No Primary Care Physician; Nash Rodriguez MD Signed EMERGENCY DEPARTMENT Observed: 10/17/2017 Status: F Source: [place] SUMMARY 2:27 PM [facility] REPOSITORY [facility] Medical Records Department [address] [place] [address] Emergency Department Summary 10/17/17 1147 MR#: [id number] Acct: [id number] Name: EARL PADILLA Rep #: [id number] : 1950 67 From: Cj Melvin DO PCP: Care Physician, No Primary Status: REG ER - ER Visit Summary Date of Service: 10/17/17 Chief Complaint: Shortness of breath and leg swelling History of Present Illness: The patient is a 67 F who presents with shortness of breath that has been getting worse over the past 5 weeks. Patient states her legs have gotten more swollen over the past few days and her breathing has gotten worse. Patient admits to a cough but denies any sputum production. Patient states her breathing is worse with laying flat. Patient denies any dyspnea with exertion. Patient states she has been having some drainage from her lower legs. Patient admits to some palpitations that have been intermittent over the past few weeks. Patient denies any chest pain. Patient denies any fevers. Physical Examination: Vital signs are stable except for tachycardia of 153. Oral mucosa is pink and moist. Neck is supple. Trachea is midline. There is no JVD noted. Heart was irregularly irregular and tachycardic. Lungs show bibasilar rales. There is good respiratory effort noted. Abdomen is soft nontender. Musculoskeletal exam reveals 2+ pitting edema of the lower extremities bilaterally. Cranial nerves II through XII are intact. There are no focal motor or sensory deficits noted. Test Results: EKG showed atrial fibrillation with a rate of 151. There are no acute ST or T-wave changes. Chest x-ray shows a density in the right lung base which is worrisome for focal consolidation/infiltrate. There is some mild congestion noted. There is a small right pleural effusion. CBC shows a leukocytosis of 18.9. BUN and creatinine were slightly elevated at 35 and 1.4. BNP is only slightly elevated at 281.6. Emergency Department Course and Treatment: Patient was given a dose of Cardizem IV here. Patient was given a dose of oral Cardizem. Patient was started on antibiotics for community-acquired pneumonia. Case was discussed with the hospitalist. Patient will be admitted to the hospital. Patient and family understood and were agreeable with the plan. All questions were answered. Disposition: Admit to hospital Impression: 1. New onset atrial fibrillation 2. Community-acquired pneumonia This note was generated with [employer] dictation software. It may contain incorrect words, spelling, and punctuation that were not noted in review of the chart prior to signing ED Disposition - Plan for ED Patient: Disposition: Acute Care Hospital [facility] Chief Complaint: Shortness of Breath Diagnosis: New onset atrial fibrillation, Community acquired pneumonia Referrals: Care Physician,No Primary [Primary Care Provider] - What to do if you have Problems For any increased pain, shortness of breath, bleeding, nausea or vomiting, chest pain, or any unexpected problems, contact your Primary Care Provider. Call [facility] ([phone]) or report to the closest Emergency Room. Call 911 if necessary. 10/17/17 1427 <Electronically signed by Cj Melvin DO> Date Cj Melvin DO Cosigner Signature (If Indicated): Date CC: No Primary Care Physician CBC W/DIFF, AUTOMATED Collected: 10/17/2017 Status: F Source: [place]ISA 12:11 PM [facility] REPOSITORY TYPE CODE TESTS RESULT OUT OF RANGE REFERENCE UNITS LAB L100.1000 4.4-11.0 K/mm3 High WBC 18.9 LAB L100.1200 4.2-5.4 M/mm3 Normal RBC 4.74 LAB L100.1300 12.0-15.0 g/dl Normal HGB 14.5 LAB L100.1400 37-47 % Normal HCT 44.4 LAB L100.1500 81-99 fL Normal MCV 93.7 LAB L100.1600 27.0-32.0 pg Normal MCH 30.6 LAB L100.1700 32-36 g/gl Normal MCHC 32.7 LAB L100.1810 11.6-14.6 % High RDW CV 16.9 LAB L100.1820 35.1-43.9 fl High RDW SD 56.9 LAB L100.1900 150-450 K/mm3 Normal PLT 285 LAB L100.2000 6.2-12.0 fl Normal MPV 10.6 LAB L100.2100 47-70 % High NEUT% 78.7 LAB L100.2200 19-41 % Low LY% 13.4 LAB L100.2300 0-10 % Normal MONO% 7.6 LAB L100.2400 0-5 % Normal EO% 0.1 LAB L100.2500 0-1 % Normal BASO% 0.1 LAB L100.2550 0.0-0.9 % Normal IM GRAN % 0.100 Result Comment: IG% - Immature Granulocytes (promyelocytes, myelocytes and metamyelocytes) > 1% indicates that a LEFT SHIFT is Present. LAB L100.2620 2.0-7.7 X10 3/uL High Absolute Neut 14.9 LAB L100.2720 0.83-4.51 X10 3/ul Normal Absolute Lymph 2.53 Performed By: #### L100.0100 #### [facility] [address] [place], [place], [address] BASIC METABOLIC Collected: 10/17/2017 Status: F Source: [place] PROFILE (BMP) 12:11 PM [facility] REPOSITORY TYPE CODE TESTS RESULT OUT OF RANGE REFERENCE UNITS LAB L501.0100 74-106 mg/dL Normal GLU 105 Result Comment: Fasting Glucose result from 100 to 125 mg/dL suggests IMPAIRED HOMEOSTASIS per A.D.A. criteria. Please note revised GLUCOSE reference range effective 2017. LAB L501.1000 7-18 mg/dL High BUN 35 LAB L501.1100 0.55-1.02 mg/dL High CREAT,SERUM 1.40 Result Comment: The validity of the calculated GFR AND GFRAA in patients over 70 years has not been determined. Clinical correlation is essential. LAB L501.1110 >60 mL/min Low EST GFR 40 Result Comment: Non- GFR Calc LAB L501.1115 >60 mL/min Low EST GFR - AA 48 Result Comment: GFR Calc LAB L501.1255 ml/min Normal Estimated CRCL 35.57 LAB L501.1300 10-20 RATIO High BUN/CRE 25.0 LAB L501.2200 8.5-10 mg/dL Low .1 CA 8.3 LAB L501.5300 136-14 mmol/L Normal 5 NA 141 LAB L501.5600 3.5-5. mmol/L Normal 1 K 4.2 Result Comment: Slight Hemolysis, Result may be falsely increased. LAB L501.5900 98-107 mmol/L High CL 109 LAB L501.6100 21.0-32.0 mmol/L Normal CO2 21.0 LAB L501.6200 5-15 Normal GAP 11 Performed By: #### L500.2500, L501.4010 #### [facility] [address] [place], [address] TROPONIN-I Collected: 10/17/2017 Status: F Source: [place]ISA 12:11 PM [facility] REPOSITORY TYPE CODE TESTS RESULT OUT OF RANGE REFERENCE UNITS LAB L501.4010 <0.045 ng/mL Normal 0.027 TROPONIN-I Result Comment: TROPONIN-I EXPECTED VALUES <0.045 Negative 0.045 - 0.590 Consistent with Cardiac Damage > OR = 0.600 Critical Value Not every elevated troponin is indicative of GA. These values should be used with clinical judgement in examining the patient's clinical picture for diagnosis. To establish a diagnosis of GA versus myocardial injury, there must be a demonstrated rise and/or fall in the troponin values, in addition to ischemic symptoms, EKG changes, new regional wall motion abnormality, and/or angiographical evidence. PLEASE NOTE: REFERENCE RANGES EDITED 17 Performed By: #### L500.2500, L501.4010 #### [facility] [address] [place], [address] BNP,B-TYPE NATRIURETIC Collected: 10/17/2017 Status: F Source: [place] PEPTIDE 12:11 PM [facility] REPOSITORY TYPE CODE TESTS RESULT OUT OF RANGE REFERENCE UNITS LAB L503.6620 0-100 pg/mL High B-TYPE 281.6 BELINDA PEP Performed By: #### L503.6620 #### [facility] [address] [place], [address] CHEST PA AND LATERAL Observed: 10/17/2017 Status: F Source: MARISA 11:46 AM [facility] REPOSITORY [facility] Imaging Services [address] [place] [address] Chest PA and Lateral MR#: [id number] Acct: [id number] Name: EARL PADILLA Rep #: [id number] : 1950 F 67 From: Mulu Lama MD PCP: Care Physician, No Primary Status: REG ER Study: Chest PA and Lateral Date of Exam: 10/17/17 Exam# [id number] Ordering Dr: Cj Melvin DO STUDY: X-RAY CHEST REASON FOR EXAM: Female, 67 years old. Shortness of breath TECHNIQUE: Frontal and lateral views of the chest were obtained. COMPARISON: None. FINDINGS: The lungs are underaerated. There is dense opacity in the right lung base with obscuring of the diaphragm. There is blunting of the right costophrenic angle. There is moderate enlargement of the cardiac silhouette. The mediastinum and hilar regions are unremarkable. The central vessels are prominent. There is atherosclerotic calcification of the thoracic aorta. There are diffuse degenerative changes of the visualized spine. There are degenerative changes in both shoulders. There is no demonstrated abnormality of the visualized upper abdomen. RAD/Chest PA and Lateral IMPRESSION: Dense opacity in the right lung base is worrisome for focal consolidation/infection. There is a small right pleural effusion. There is moderate enlargement of the cardiac silhouette with mild edema. Electronically Signed: Mulu Lama MD at 13:40 EDT Tel Direct: [phone], Service support , CC: No Primary Care Physician; Cj Melvin DO Roller Cleaner: Signed ALLERGIES ALLERGIES DATE TYPE / CODE NAME / CODE REACTION SEVERITY SOURCE 03/03/2018 Drug No Known Unknown [place] [facility] Allergy/4160 Allergies/F00 Hospital 28032(SNOMED [id number](RXNOR Repository CT) M) ENCOUNTERS ENCOUNTERS ADMIT/DISCHARGE ACCOUNT ADMITTING ENCOUNTER LOCATION SOURCE NUMBER CLASS 03/03/2018 [id number] [place] 2 [facility] ing:LAB Repository 03/03/2018/ [id number] Ambulatory BMSBuilding:B [place] 9 5 [facility] Repository 02/09/2018/ [id number] Ambulatory [place] 8 3 [facility] ing:LAB Repository 02/06/2018 [id number] Ambulatory [place] 7 [facility] ing:LAB Repository 01/19/2018/12/06 [id number] Ambulatory BMSBuilding:B [place] 8 7 [facility] Hospital Repository 01/16/2018 [id number] Ambulatory BMSBuilding:W [place] 4 [facility] Hospital Repository 01/16/2018 [id number] Amb[place] 8 [facility] ing:CVS Repository 12/27/2017/ [id number] [place], Inpatient [place] 8 3 [place] Encounter [facility] ing:PCURoom: Repository [id number]: 1 12/27/2017 [id number] [place], Ambulatory BMSBuilding:B [place] 4 [place].[facility] Repository 12/27/2017 [id number] [place], Ambulatory BMSBuilding:B [place] 9 [place] [facility] Repository 12/20/2017/ [id number] Ambulatory BMSBuilding:B [place] 8 5 [facility] Repository 12/13/2017 [id number] Ambulatory BMSBuilding:B [place] 3 [facility] Hospital Repository 12/13/2017/ [id number] Ambulatory [place] 8 3 [facility] ing:CLSP Repository 12/13/2017/ [id number] Ambulatory BMSBuilding:W [place] [address] [facility] Repository 11/25/2017 [id number] Ambulatory [place] 7 [facility] ing:LAB Repository 11/18/2017/ [id number] Ambulatory BMSBuilding:B [place] 8 5 [facility] Repository 11/16/2017 [id number] Ambulatory BMSBuilding:B [place] 7 [facility] Hospital Repository 11/08/2017/ [id number] Emergency [place] 8 4 [facility] ing:ED Repository 11/07/2017 [id number] Ambulatory [place] 8 [facility] ing:LAB Repository 10/28/2017 [id number] Ambulatory [place] 5 [facility] ing:MFPLAB Repository 10/17/2017/ [id number] [place], Inpatient [place] 8 1 [place] Encounter [facility] ing:PCURoom: Repository [id number]: 1 10/17/2017 [id number] [place], Ambulatory BMSBuilding:B [place] 5 Nash F [facility] Repository 10/17/2017 [id number] [place], Ambulatory BMSBuilding:B [place] 0 Nash F [facility] Repository 10/17/2017 [id number] [place], Ambulatory BMSBuilding:B [place] 6 Nash F [facility] Repository 10/17/2017 [id number] [place], Ambulatory BMSBuilding:B [place] 7 Nash F [facility] Repository 10/17/2017 [id number] [place], Ambulatory BMSBuilding:B [place] 1 Nash F [facility] Repository 10/17/2017 [id number] [place], Ambulatory BMSBuilding:B [place] 9 Nash Waters [place].[facility] Repository 10/17/2017 [id number] [place], Ambulatory BMSBuilding:B [place] 9 Nash F [facility] Repository 10/17/2017 [id number] [place], Ambulatory BMSBuilding:B [place] 6 Nash F [facility] Repository 10/17/2017 [id number] [place], Ambulatory BMSBuilding:B [place] 7 Nash F [facility] Repository PAYERS PAYERS 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 SOURCE 03/03/2018 EARL Primary NOT GIVENUNK [place] [id number] Insurance:SELF PAY [address], Number: Effective Repository [place] [phone]: Date:2018-02-13 () 03/03/2018 EARL Primary NOT GIVENUNK [place] [id number] Insurance:SELF PAY [address], Number: Effective Repository [place] [phone]: Date:2018-03-03 () 02/09/2018 EARL Primary NOT GIVENUNK [place] [id number] [facility] [address] [address], Number: Effective Repository [place] [phone]: Date:2018-01-25 () 02/06/2018 EARL Primary NOT GIVENUNK [place] [id number] Insurance[facility] [address] [address], Number: Effective Repository [place] [phone]: Date:2018-02-06 () 01/19/2018 EARL Primary NOT GIVENUNK [place] [id number] Insurance:[facility]LF [facility] [address] [address], Number: Effective Repository [place] [phone]: Date:2018-01-19 () 01/16/2018 EARL Primary Insurance:[facility] EARL [place] [id number] PACKAGE PLANPolicy LEATHERMANDOB: [facility] [address] Number: Effective [id number], Date:2017-11-18 Repository [place] [phone]: () 01/16/2018 Secondary NOT GIVENUNK [place] Insurance:SELF PAY [facility] Number: Effective Repository Date:2018-01-16 01/16/2018 EARL Primary Insurance:[facility] EARL [place] [id number] PACKAGE PLANPolicy LEATHERMANDOB: [facility] [address] Number: Effective [id number], Date:2017-11-18 Repository [place] [phone]: () 01/16/2018 Secondary NOT GIVENUNK [place] Insurance:SELF PAY [facility] Number: Effective Repository Date:2017-11-18 12/27/2017 EARL Primary EARL [place] [id number] Insurance:MEDICARE A LEATHERMANDOB: [facility] [address] [facility] Number: [id number], [id number] Repository [place] [phone]: Date:2017-12-27 () 12/27/2017 Secondary NOT GIVENUNK [place] Insurance:SELF PAY [facility] Number: Effective Repository Date:2017-12-27 12/27/2017 EARL Primary NOT GIVENUNK Marisa [id number] Insurance:SELF PAY [address], Number: Effective Repository [place] [id number]: Date:2017-12-27 () 12/27/2017 EARL Primary NOT GIVENUNK Marisa [id number] Insurance:SELF PAY [address], Number: Effective Repository [place] [id number]: Date:2017-12-27 () 12/20/2017 EARL Primary NOT GIVENUNK Marisa [id number] Insurance:SELF PAY [address], Number: Effective Repository [place] [id number]: Date:2017-12-20 () 12/13/2017 EARL Primary NOT GIVENUNK [place] [id number] Insurance:SELF PAY [address], Number: Effective Repository [place] [id number]: Date:2017-12-13 () 12/13/2017 EARL Primary NOT GIVENUNK Marisa [id number] Insurance:SELF PAY [address], Number: Effective Repository [place] [id number]: Date:2017-11-25 () 12/13/2017 EARL Primary NOT GIVENUNK [place] [id number] Insurance:SELF PAY [address], Number: Effective Repository [place] [id number]: Date:2017-12-13 () 11/25/2017 EARL Primary EARL [place] [id number] Insurance:MEDICARE LEATHERMANDOB: [facility] [address] BPolicy [id number], Number: Repository [place] [phone]: [id number] Date:2017-11-25 () 11/25/2017 Secondary NOT GIVENUNK [place] Insurance:SELF PAY [facility] Number: Effective Repository Date:2017-11-25 11/18/2017 EARL Primary NOT GIVENUNK [place] [id number] Insurance:SELF PAY [facility] [address], Number: Effective Repository [place] [phone]: Date:2017-11-18 () 11/16/2017 EARL Primary NOT GIVENUNK Marisa [id number] Insurance:SELF PAY [facility] [address], Number: Effective Repository [place] [address]Ydm: Date:2017-11-16 () 11/08/2017 EARL Primary NOT GIVENUNK [place] [id number] Insurance:SELF PAY [facility] [address], Number: Effective Repository [place] [phone]: Date:2017-11-08 () 11/07/2017 EARL Primary NOT GIVENUNK [place] [id number] Insurance:SELF PAY [facility] [address], Number: Effective Repository [place] [phone]: Date:2017-11-07 () 10/28/2017 EARL Primary EARL [place] [id number] Insurance:MEDICARE A LEATHERMANDOB: [facility] [address] [facility] Number: [id number], [id number] Repository [place] [phone]: Date:2017-10-28 () 10/28/2017 Secondary NOT GIVENUNK Mar[place] Insurance:SELF PAY [facility] Number: Effective Repository Date:2017-10-28 10/17/2017 EARL Primary EARL [place] [id number] Insurance:MEDICARE A LEATHERMANDOB: [facility] [address] [facility] Number: [id number], [id number] Repository [place] [address]Wli: Date:2017-10-17 () 10/17/2017 Secondary NOT GIVENUNK [place] Insurance:SELF PAY [facility] Number: Effective Repository Date:2017-10-17 10/17/2017 EARL Primary NOT GIVENUNK [place] [id number] Insurance:SELF PAY [facility] [address], Number: Effective Repository [place] [phone]: Date:2017-10-17 () 10/17/2017 EARL Primary NOT GIVENUNK [place] [id number] [facility] [address] [address], Number: Effective Repository [place] [phone]: Date:2017-10-17 () 10/17/2017 EARL Primary NOT GIVENUNK [place] [id number] [facility] [address], Number: Effective Repository [place] [phone]: Date:2017-10-17 () 10/17/2017 EARL Primary NOT GIVENUNK Mar[place] [id number] Insurance:SELF PAY [facility] [address], Number: Effective Repository [place] [phone]: Date:2017-10-17 () 10/17/2017 EARL Primary NOT GIVENUNK Mar[place] [id number] [facility] [address], Number: Effective Repository [place] [phone]: Date:2017-10-17 () 10/17/2017 EARL Primary NOT GIVENUNK Mar[place] [id number] [facility] [address], Number: Effective Repository [place] [phone]: Date:2017-10-17 () 10/17/2017 EARL Primary NOT GIVENUNK [place] [id number] Insurance:SELF PAY [address], Number: Effective Repository [place] [id number]: Date:2017-10-17 () 10/17/2017 EARL Primary NOT GIVENUNK [place] [id number] Insurance:SELF PAY [address], Number: Effective Repository [place] [id number]: Date:2017-10-17 () 10/17/2017 EARL Primary NOT GIVENUNK [place] [id number] Insurance:SELF PAY [address], Number: Effective Repository [place] [id number]: Date:2017-10-17 ()
== END ==
PROVIDERS: Family Provider Family Medicine; PCP Family Medicine; Referring Provider Internal Medicine Cardiovascular Disease; Visit Provider Internal Medicine Cardiovascular Disease
DX: I48.91 Unspecified atrial fibrillation (principal); I42.9 Cardiomyopathy, unspecified; I50.21 Acute systolic (congestive) heart failure; I38 Endocarditis, valve unspecified
CPT/HCPCS: 93306; Q9957; A4216; C8929

== ENCOUNTER → 2018-02-06 08:17 | Outpatient (CLI) | payer SELFPAY ==
[2018-01-19 10:10] VITALS: BMI 36.6
[2018-02-06 09:21] LABS: Prothrombin Time (Protime)PT. 46.8 SECONDS (11.7-14.9)
== END ==
PROVIDERS: Family Provider Family Medicine; PCP Family Medicine; Referring Provider Internal Medicine Cardiovascular Disease; Visit Provider Internal Medicine Cardiovascular Disease
DX: I48.91 Unspecified atrial fibrillation (principal); Z79.01 Long term (current) use of anticoagulants
CPT/HCPCS: 36415; 85610

== ENCOUNTER 2018-02-09 13:08 | Outpatient (RCR) | payer SELFPAY ==
[2018-01-19 10:10] VITALS: BMI 36.6
[2018-01-25 14:24] LABS: International Normalized Ratio 1.9
[2018-02-03 11:22] LABS: Prothrombin Time (Protime)PT. 51.4 SECONDS (11.7-14.9)
[2018-02-03 11:26] LABS: International Normalized Ratio 5.6
[2018-02-09 13:43] LABS: International Normalized Ratio 2.9; Prothrombin Time (Protime)PT. 30.1 SECONDS (11.7-14.9)
--- OUTSIDE RECORDS SUMMARY | 2018-03-13 15:06 | XMS RPT_ITS ---
:1950 Author Organization [facility] Support Name Relationship Address Phone MILLI BATRESNA Unavailable UNKNOWN + [place] [address] AGAPITO PADILLA Unavailable [address] + [address] [place] [address] R Unavailable Unavailable Unavailable SARBJIT, MOLENA Unavailable UNKNOWN + [place] [address] AGAPITO PADILLA Unavailable [address] + [address] [place] [address] R Unavailable Unavailable Unavailable SARBJIT, MOLENA Unavailable Unavailable + [place] [address] AGAPITO PADILLA Unavailable [address] + [address] [place] [address] R Unavailable Unavailable Unavailable SARBJIT, MOLENA Unavailable Unavailable + [place] [address] AGAPITO PADILLA Unavailable [address] + [address] [place] [address] R Unavailable Unavailable Unavailable SARBJIT, MOLENA Unavailable . + [place] [address] AGAPITO PADILLA Unavailable [address] + [address] [place] [address] R Unavailable Unavailable Unavailable SARBJIT, MOLENA Unavailable . + [place] [address] AGAPITO PADILLA Unavailable [address] + [address] [place] [address] R Unavailable Unavailable Unavailable SARBJIT, MOLENA Unavailable . + [place] [address] AGAPITO PADILLA Unavailable [address] + [address] [place] [address] R Unavailable Unavailable Unavailable SARBJIT, MOLENA Unavailable Unavailable + AGAPITO PADILLA Unavailable [address] + [address] [place] [address] R Unavailable Unavailable Unavailable SARBJIT, MOLENA Unavailable . + [place] [address] TOÑA PADILLAY Unavailable [address] + [address] [place] [address] R Unavailable Unavailable Unavailable SARBJIT, MOLENA Unavailable . + [place] [address] TOÑA PADILLAY Unavailable [address] + [address] [place] [address] R Unavailable Unavailable Unavailable SARBJIT, MOLENA Unavailable . + [place] [address] AGAPITO PADILLA Unavailable [address] + [address] [place] [address] R Unavailable Unavailable Unavailable SARBJIT, MOLENA Unavailable . + [place] [address] AGAPITO PADILLA Unavailable [address] + [address] [place] [address] R Unavailable Unavailable Unavailable SARBJIT, MOLENA Unavailable Unavailable + [place] [address] TOÑA PADILLAY Unavailable [address] + [address] [place] [address] R Unavailable Unavailable Unavailable SARBJIT, MOLENA Unavailable . + [place] [address] TOÑA PADILLAY Unavailable [address] + [address] [place] [address] R Unavailable Unavailable Unavailable Sarbjit, Kerrick Unavailable 1 + [place] [address] TOÑA PADILLAY Unavailable [address] + [address] [place] [address] R Unavailable Unavailable Unavailable Sarbjit, Kerrick Unavailable 1 + [place] [address] TOÑA PADILLAY Unavailable [address] + [address] [place] [address] R Unavailable Unavailable Unavailable AGAPITO PADILLA Unavailable [address] + [address] [place] [address] R Unavailable Unavailable Unavailable AGAPITO PADILLA Unavailable [address] + [address] [place] [address] R Unavailable Unavailable Unavailable AGAPITO PADILLA Unavailable [address] + [address] [place] [address] R Unavailable Unavailable Unavailable TIESHAAGAPITO HOLGUIN Unavailable [address] + [address] [place] [address] R Unavailable Unavailable Unavailable TIESHA, GARY Unavailable [address] + [address] [place] [address] R Unavailable Unavailable Unavailable R Unavailable Unavailable Unavailable AGAPITO PADILLA Unavailable [address] + [address] [place] [address] R Unavailable Unavailable Unavailable R Unavailable Unavailable Unavailable AGAPITO PADILLA Unavailable [address] + [address] [place] [address] R Unavailable Unavailable Unavailable R Unavailable Unavailable Unavailable AGAPITO PADILLA Unavailable [address] + [address] [place] [address] R Unavailable Unavailable Unavailable R Unavailable Unavailable Unavailable SARBJIT, MOLENA Unavailable . + [place] [address] AGAPITO PADILLA Unavailable [address] + [address] [place] [address] R Unavailable Unavailable Unavailable AGAPITO PADILLA Unavailable [address] + [address] [place] [address] R Unavailable Unavailable Unavailable [place], Kerrick Unavailable 1 + [place] [address] AGAPITO PADILLA Unavailable [address] + [address] [place] [address] R Unavailable Unavailable Unavailable AGAPITO PADILLA Unavailable [address] + [address] [place] [address] R Unavailable Unavailable Unavailable Sarbjit, Kerrick Unavailable 1 + [place] [address] AGAPITO PADILLA Unavailable [address] + [address] [place] [address] R Unavailable Unavailable Unavailable AGAPITO PADILLA Unavailable [address] + [address] [place] [address] R Unavailable Unavailable Unavailable Care Team Providers Name Role Phone Jed Gutiérrez Attending Unavailable MoodispawJed Referring Unavailable Arciniega, Cj Primary Care Unavailable Moodispaw, Jed Attending Unavailable Moodispaw, Jed Referring Unavailable Primay Care Physicia, No Primary Care Unavailable Magdyonis, Nash F Admitting Unavailable Cj Sánchez Attending Unavailable Moodispasrhaddha, Jed Consulting Unavailable Moodispaw, Jed Attending Unavailable MoodispawJed Referring Unavailable Arciniega, Cj Primary Care Unavailable Moodispaw, Jed Attending Unavailable Moodispaw, Jed Referring Unavailable Arciniega, Cj Primary Care Unavailable Junior Trujillo Consulting Unavailable Junior Trujillo Attending Unavailable Primay Care Physicia, No Referring Unavailable Kotsonis, Nash F Admitting Unavailable Primay Care Physicia, No Primary Care Unavailable Kotsonis, Nash F Consulting Unavailable Kotsonis, Nash F Attending Unavailable Kotsonis, Nash F Admitting Unavailable Primay Care Physicia, No Primary Care Unavailable Moodispashraddha, Jed Consulting Unavailable AshantieriCj Attending Unavailable Jopperi Cj Consulting Unavailable Carlostsonis, Nash F Admitting Unavailable Moodispaw, Jed Attending Unavailable Primay Care Physicia, No Primary Care Unavailable MoodispaJed llanes Consulting Unavailable Princess Cj Consulting Unavailable Kotsonis, Nash F Admitting Unavailable Moodispaw, Jed Attending Unavailable Primay Care Physicia, No Primary Care Unavailable MoodispawJed Consulting Unavailable Joantonioeri, Cj Consulting Unavailable Kotsonis, Nash F Admitting Unavailable JopperiStuartic Attending Unavailable Primay Care Physicia, No Primary Care Unavailable MoodispaJed llanes Consulting Unavailable Cj Sánchez Consulting Unavailable Carlostsonis, Nash F Admitting Unavailable Moodispashraddha, eJd Attending Unavailable Primay Care Physicia, No Primary Care Unavailable Moodispashraddha, Jed Consulting Unavailable Jopperi, Cj Consulting Unavailable [...] Unavailable Arciniega, Cj Primary Care Unavailable Moodispaw, eJd Consulting Unavailable Moodispaw, Jed Admitting Unavailable Moodispaw, [...] Z79.899 - Other Junior Trujillo Active [place] [facility] (current) drug Hospital therapy / Repository Z79.899(ICD-10) 11/25/2017 Unknown I50.21 - Acute MoodispaJed llanes Active [place] systolic [facility] (congestive) heart Hospital failure / Repository I50.21(ICD-10) 11/18/2017 Unknown I10 - Essential MoodisJed leary Active [place] (primary) Community hypertension / Hospital I10(ICD-10) Repository 11/18/2017 Unknown 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 [place] [address] OFFICE VISIT Date of Service: 03/03/18 MR#: [id number] Acct: [id number] Name: EARL PADILLA Rep #: [id number] : 1950 Provider: AMERICA Trujillo Age/Sex: 67/F Location: [facility] Status: Signed HPI HPI Details: [...] brachial Intake Visit Reasons: 6 w fu Human Resources Hr Representative Required: No Is patient in pain?: No [...] not make any medication regimen changes. 5. [facility] (current) use of anticoagulants Z79.01 Plan Her [...] Follow Up 12 Months (PFM) 6 Months ([facility] BROKER/PA) Coding Level of Care Code Off vis,est,level 3 Diagnoses New onset atrial fibrillation I48.91 Cardiomyopathy, unspecified type I42.9 Cardiomyopathy type: unspecified Valvular heart disease I38 Essential hypertension I10 Hypertension type: essential hypertension [facility] (current) use of anticoagulants Z79.01 Coding Level of Care Code Off vis,est,level 3 Diagnoses New onset atrial fibrillation I48.91 Cardiomyopathy, unspecified type I42.9 Cardiomyopathy type: unspecified Valvular heart disease I38 Essential hypertension I10 Hypertension type: essential hypertension terminal carman (current) use of anticoagulants Z79.01 Supplemental Info [...] 03/03/2018 Status: F Source: [place] 10:37 AM [facility] REPOSITORY TYPE CODE TESTS RESULT OUT OF RANGE REFERENCE UNITS LAB L300.4150 11.7-14.9 SECONDS High PROTIME 21.3 LAB L300.4200 Normal INR 1.8 Performed By: #### L300.3900 #### [place] [facility] [place], [address] DIGOXIN LEVEL Collected: 03/03/2018 Status: F Source: [place] 10:36 AM [facility] REPOSITORY TYPE CODE TESTS RESULT OUT OF RANGE REFERENCE UNITS LAB L501.7510 0.80-2.00 ng/mL Low DIG 0.42 Performed By: #### L501.7510 #### [facility] [address] [place], [address] PROTHROMBIN TIME W/INR Collected: 02/17/2018 Status: F Source: [place] 9:24 AM [facility] REPOSITORY TYPE CODE TESTS RESULT OUT OF RANGE REFERENCE UNITS LAB L300.4150 11.7-14.9 SECONDS High PROTIME 21.6 LAB L300.4200 Normal INR 1.9 Performed By: #### L300.3900 #### [facility] [address] [place], [address] PROTHROMBIN TIME W/INR Collected: 02/09/2018 Status: F Source: [place] 1:10 PM [facility] REPOSITORY TYPE CODE TESTS RESULT OUT OF RANGE REFERENCE UNITS LAB L300.4150 11.7-14.9 SECONDS High PROTIME 30.1 LAB L300.4200 Normal INR 2.9 Performed By: #### L300.3900 #### [facility] [address] [place], [address] PROTHROMBIN TIME W/INR Collected: 02/06/2018 Status: F Source: [place] 8:22 AM [facility] REPOSITORY Order Comment: Comments: STANDING ORDER Comments: STANDING ORDER TYPE CODE TESTS RESULT OUT OF REFERENCE UNITS RANGE LAB L300.4150 11.7-14.9 SECONDS High PROTIME 46.8 LAB L300.4200 High alert INR 5.0 Result Comment: CRITICAL VALUE VERIFIED. CALLED TO [facility] 02/06/18 0941 Claudia Osborn. RESULTS READ BACK BY SAME . Performed By: #### L300.3900 #### [facility] [address] [place], [address] PROTHROMBIN TIME W/INR Collected: 02/03/2018 Status: F Source: [place] 10:47 AM [facility] REPOSITORY TYPE CODE TESTS RESULT OUT OF REFERENCE UNITS RANGE LAB L300.4150 11.7-14.9 SECONDS High PROTIME 51.4 LAB L300.4200 High alert INR 5.6 Result Comment: CRITICAL VALUE VERIFIED. CALLED TO FARHAN AT 'S OFFICE. 02/03/18 1125 Donald Guerra. RESULTS READ BACK BY SAME. Performed By: #### L300.3900 #### [facility] [address] [place], [address] PROTHROMBIN TIME W/INR Collected: 01/25/2018 Status: F Source: TAT[place]Y 11:45 AM [facility] REPOSITORY Order Comment: Comments: STANDING ORDER Comments: STANDING ORDER TYPE CODE TESTS RESULT OUT OF RANGE REFERENCE UNITS LAB L300.4150 11.7-14.9 SECONDS High PROTIME 22.0 LAB L300.4200 Normal INR 1.9 Performed By: #### L300.3900 #### [facility] [address] [place], [address] CARDIOLOGY VISIT Observed: 01/19/2018 Status: F Source: TAT[place] REPORT 11:53 AM [facility] REPOSITORY [facility] [address] [place] [address] OFFICE VISIT Date of Service: 01/19/18 MR#: [id number] Acct: [id number] Name: EARL PADILLA Rep #: [id number] : 1950 Provider: Jed Gutiérrez MD Age/Sex: 67/F Location: [facility] Status: Signed HPI HPI Details: [...] BID #60 tab 01/19/18 [Rx Confirmed 01/19/18] [facility] Medical History New onset atrial fibrillation (Chronic) [...] with her. 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 Thank you for allowing me to participate [...] Status: F Source: [place] CONTRAST 4:34 PM [facility] REPOSITORY [facility] Cardiovascular Services [address] [place] [address] Echo Complete W/ Contrast 01/16/18 1312 MR#: [id number] Acct: [id number] Name: EARL PADILLA Rep #: [id number] : 1950 67 From: Jed Gutiérrez MD Attending Dr: Jed Gutiérrez MD Status: REG CLI Ordering Dr: Jed Gutiérrez MD Date: 01/16/18 Location: [facility] Sex: F C Admitted: Reason For [...] CC: Cj Arciniega MD; Jed Gutiérrez MD Date Dictated: 01/16/18 1312 Date Transcribed: 01/16/18 1633 Radio Adjuster: Signed 12 LEAD ELECTROCARDIOGRAM Observed: 01/13/2018 Status: F Source: [place] 9:10 AM [facility] REPOSITORY [facility] Cardiovascular Services [address] [place] [address] 12 Lead EKG 12/27/17 1148 MR#: [id number] Acct: [id number] Name: EARL PADILLA Rep #: [id number] : 1950 67 From: Chuy Rosario MD Attending Dr: Jed Gutiérrez MD Status: DIS IN Ordering Dr: Jed Gutiérrez MD Date: 12/27/17 Location: [facility] Sex: F C Admitted: 12/27/17 Test [...] UNCONFIRMED Confirmed by CHUY ROSARIO MD ([id number]), offline editor JESSICA TOVAR ([id number]) on 01/02/2018 2:23:50 PM Referred By: Jed Gutiérrez Confirmed By:CHUY ROSARIO MD 01/02/18 1423 Date Chuy Rosario MD CC: Cj Arciniega MD; Jed Gutiérrez MD Signed 12 LEAD ELECTROCARDIOGRAM Observed: 01/13/2018 Status: F Source: [place] 9:10 AM [facility] REPOSITORY [facility] Cardiovascular Services [address] [place] [address] 12 Lead EKG 12/27/17 0910 MR#: [id number] Acct: [id number] Name: EARL PADILLA Rep #: [id number] : 1950 67 From: Chuy Rosario MD Attending Dr: Jed Gutiérrez MD Status: DIS IN Ordering Dr: Jed Gutiérrez MD Date: 12/27/17 Location: [facility] Sex: F C Admitted: 12/27/17 Test [...] rhythm Confirmed by CHUY ROSARIO MD ([id number]), offline editor JESSICA TOVAR ([id number]) on 01/02/2018 2:24:49 PM Referred By: Jed Gutiérrez Confirmed By:CHUY ROSARIO MD 01/02/18 1424 Date Chuy Rosario MD CC: Cj Arciniega MD; Jed Gutiérrez MD Signed 12 LEAD ELECTROCARDIOGRAM Observed: 01/13/2018 Status: F Source: [place] 9:09 AM [facility] REPOSITORY [facility] Cardiovascular Services [address] [place] [address] 12 Lead EKG 12/28/17 1255 MR#: [id number] Acct: [id number] Name: EARL PADILLA Rep #: [id number] : 1950 67 From: Chuy Rosario MD Attending Dr: Jed Gutiérrez MD Status: DIS IN Ordering Dr: Jed Gutiérrez MD Date: 12/28/17 Location: [facility] Sex: F C Admitted: 12/27/17 Test [...] UNCONFIRMED Confirmed by MARLENE ELDRIDGE, CHUY ([id number]), offline editor JESSICA TOVAR (56) on 01/02/2018 1:52:38 PM Referred By: Jed Gutiérrez Confirmed By:CHUY ROSARIO MD 01/02/18 1352 Date Chuy Rosario MD CC: Cj Arciniega MD; Jed Gutiérrez MD Signed 12 LEAD ELECTROCARDIOGRAM Observed: 01/13/2018 Status: F Source: [place] 9:09 AM [facility] REPOSITORY [facility] Cardiovascular Services [address] [place] [address] 12 Lead EKG 12/27/17 2320 MR#: [id number] Acct: [id number] Name: ERAL PADILLA Rep #: [id number] : 1950 67 From: Chuy Rosario MD Attending Dr: Jed Gutiérrez MD Status: DIS IN Ordering Dr: Jed Gutiérrez MD Date: 12/27/17 Location: [facility] Sex: F C Admitted: 12/27/17 Test [...] UNCONFIRMED Confirmed by MARLENE ELDRIDGE, CHUY ([id number]), offline editor JESSICA TOVAR ([id number]) on 01/02/2018 2:06:06 PM Referred By: Jed Gutiérrez Confirmed By:CHUY ROSARIO MD 01/02/18 1406 Date Chuy Rosario MD CC: Cj Arciniega MD; Jed Gutiérrez MD Signed DISCHARGE SUMMARY Observed: 12/28/2017 Status: F Source: [place]Y 5:35 PM [facility] Medical Records Department [address] [place] [address] Discharge Summary 12/28/17 1727 MR#: [id number] Acct: [id number] Name: EARL PADILLA Rep #: [id number] : 1950 67 From: Jed Gutiérrez MD PCP: Cj Arciniega MD Status: ADM IN Y Location: [place] [address] Discharge Date and Diagnosis - Problem List [...] family members that were present, and the [facility] team. [] Patient Problems: Active and [...] (Choose all that apply): None applicable 12/28/17 2485 <Electronically signed by Jed Gutiérrez MD> Date Jed Gutiérrez MD Cosigner Signature (if applicable): Date CC: Cj Arciniega MD; Jed Gutiérrez MD Signed DISCHARGE INSTRUCTION Observed: 12/28/2017 Status: F Source: TAT[place] 5:27 PM [facility] REPOSITORY [facility] Medical Records Department [address] [place] [address] Instructions for Home/Discharge Instructions 12/28/17 1721 MR#: [id number] Acct: [id number] Name: EARL PADILLA Rep #: [id number] : 1950 67 From: Jed Gutiérrez MD [...] F Source: [place] PROFILE (BMP) 5:40 AM [facility] REPOSITORY Order Comment: Comments: Fasting Lipid Profile [...] 10 Performed By: #### L500.2500, L500.4100 #### [facility] [address] [place], [address] LIPID PROFILE Collected: 12/28/2017 Status: F Source: [place] 5:40 AM [facility] REPOSITORY Order Comment: Comments: Fasting Lipid Profile [...] 43 Performed By: #### L500.2500, L500.4100 #### [facility] [address] [place], [address] HISTORY AND PHYSICAL Observed: 12/27/2017 Status: F Source: [place] EXAM 5:18 PM [facility] REPOSITORY [facility] Medical Records Department [address] [place] [address] History and Physical 12/27/17 1710 MR#: [id number] Acct: [id number] Name: EARL PADILLA Rep #: [id number] : 1950 67 From: Jed Gutiérrez MD PCP: Cj Arciniega MD Status: ADM IN Location: [place] [address] Problem List (1) Encounter for monitoring anti-arrhythmic [...] tonsillectomy Psychiatric History: No pertinent psych hx PUTTY GLAZER History: No pertinent PUTTY GLAZER history - *Family History Maternal Family History: [...] the office note prior to saving. 12/27/17 0021 <Electronically signed by Jed Gutiérrez MD> Date Jed Gutiérrez MD Cosigner Signature: Date (if applicable) CC: Cj Arciniega MD; Jed Gutiérrez MD Signed CBC-COMPLETE BLOOD CNT Collected: 12/27/2017 Status: F Source: [place] NO DIFF 9:20 AM [facility] REPOSITORY TYPE CODE TESTS RESULT OUT OF [...] MPV 10.1 Performed By: #### L100.0500 #### [facility] [address] [place], [address] COMPREHENSIVE METABOLIC Collected: 12/27/2017 Status: F Source: [place] PROFIL 9:20 AM [facility] REPOSITORY TYPE CODE TESTS RESULT OUT OF [...] By: #### L500.4050, L501.4700, L501.5200, L501.9520 #### [facility] [address] [place], [place], [address] BILIRUBIN, DIRECT Collected: 12/27/2017 Status: F Source: [place] 9:20 AM [facility] REPOSITORY TYPE CODE TESTS RESULT OUT OF RANGE REFERENCE UNITS LAB L501.4700 0.00-0.30 mg/dL Normal D BILI 0.14 Performed By: #### L500.4050, L501.4700, L501.5200, L501.9520 #### [facility] [address] [place], [address] MAGNESIUM Collected: 12/27/2017 Status: F Source: [place] 9:20 AM [facility] REPOSITORY TYPE CODE TESTS RESULT OUT OF RANGE REFERENCE UNITS LAB L501.5200 1.6-2.6 mg/dL Normal MG 1.8 Performed By: #### L500.4050, L501.4700, L501.5200, L501.9520 #### [facility] [address] [place], [address] THYROID STIM HORMONE Collected: 12/27/2017 Status: F Source: [place] (TSH) 9:20 AM [facility] REPOSITORY TYPE CODE TESTS RESULT OUT OF RANGE REFERENCE UNITS LAB L501.9520 0.358-3.74 uIU/mL Normal TSH 1.73 Performed By: #### L500.4050, L501.4700, L501.5200, L501.9520 #### [facility] [address] [place], [address] DIGOXIN LEVEL Collected: 12/27/2017 Status: F Source: [place] 9:20 AM [facility] REPOSITORY TYPE CODE TESTS RESULT OUT OF RANGE REFERENCE UNITS LAB L501.7510 0.80-2.00 ng/mL Normal DIG 1.86 Performed By: #### L501.7510 #### [facility] [address] [place], [address] 12 LEAD ELECTROCARDIOGRAM Observed: 12/21/2017 Status: F Source: [place] 2:52 PM [facility] REPOSITORY [facility] Cardiovascular Services [address] [place] [address] 12 Lead EKG 12/13/17 1355 MR#: [id number] Acct: [id number] Name: EARL PADILLA Rep #: [id number] : 1950 67 From: Chuy Rosario MD Attending Dr: Jed Gutiérrez MD Status: [facility] Ordering Dr: Jed Gutiérrez MD Date: 12/13/17 Location: [facility] Sex: F C Admitted: Test Reason [...] UNCONFIRMED Confirmed by CHUY ROSARIO MD ([id number]), offline editor JESSICA TOVAR (56) on 12/21/2017 2:52:24 PM Referred By: Jed Gutiérrez Confirmed By:CHUY ROSARIO MD 12/21/17 1452 Date Chuy Rosario MD CC: Cj Arciniega MD; Jed Gutiérrez MD Signed OFFICE VISIT REPORT Observed: 12/20/2017 Status: F Source: [place] 2:[address] [place] [address] OFFICE VISIT Date of Service: 12/20/17 MR#: [id number] Acct: [id number] Patient: EARL PADILLA Rep #: [id number] : 1950 Provider: Jed Gutiérrez MD Age/Sex: 67/F Location: [facility] Status: Signed Intake Vital Signs12/20/17 Blood Pressure 136/80 H Intake Visit Reasons: post CCV Chief Complaint: SOB, BLE [place] Human Resources Hr Representative Required: No Accompanied by: Daughter Is patient [...] 25 mg BID. New Rx sent to [facility]. Advised patient to keep her previously [...] F Source: [place] BY G[place] 9:10 AM [facility] REPOSITORY [facility] [address] [place] [address] 12 Lead EKG performed by GIRISH 12/20/17 0908 MR#: [id number] Acct: [id number] Name: EARL PADILLA Rep #: [id number] : 1950 67 From: Jed Gutiérrez MD Attending Dr: Jed Gutiérrez MD Status: SHANICE [facility] Dr: Jed Gutiérrez MD Date: 12/20/17 Location: [facility] Sex: F C Admitted: BMS/12 Lead EKG performed by [facility] ECG Report Interpretation Atrial fibrillation Poor R-wave progression -nonspecific -consider old anterior infarct. Nonspecific T-abnormality. ABNORMAL Electronically signed on 12/21/2017 at 17:23 by Jed Gutiérrez [employer] Version [id number] 12/21/17 1726 Date Jed Gutiérrez MD CC: Cj Arciniega MD Date Dictated: 12/20/17907 Date Transcribed: 12/20/17907 Radio Adjuster: PM Signed OPERATIVE REPORT Observed: 12/14/2017 Status: F Source: [place]AT[place]Y 5:50 AM [facility] REPOSITORY [facility] Medical Records Department [address] [place] [address] Operative Report 12/13/17 1417 MR#: [id number] Acct: [id number] Name: EARL PADILLA Rep #: [id number] : 1950 67 From: Steven Avalos MD PCP: Cj Arciniega MD Status: DEP [facility] Y Location: [facility] Problem List (1) Cardiomyopathy Status: Acute Qualifiers: (2) New onset atrial fibrillation Status: Acute (3) Valvular heart disease Status: Acute (4) HTN (hypertension) Status: Chronic Qualifiers: (5) Obesity (BMI 30-39.9) Status: Chronic Operative Report Date of Procedure: 12/13/17 - Conscious sedation CONSCIOUS SEDATION REPORT BRIEF HISTORY OF PRESENT ILLNESS: The patient is a 67-year-old female who presented to [facility] for an elective outpatient cardioversion due [...] usual fashion. 12/14/17 0550 <Electronically signed by Stevne Avalos MD> Date Steven Avalos MD CC: Steven Avalos MD; Cj Arciniega MD; Jed Gutiérrez MD Signed OPERATIVE REPORT Observed: 12/13/2017 Status: F Source: TATAMY 2:51 PM [facility] REPOSITORY [facility] Medical Records Department [address] [place] [address] Operative Report 12/13/17 1447 MR#: [id number] Acct: [id number] Name: EARL PADILLA Rep #: [id number] : 1950 67 From: Jed Gutiérrez MD PCP: Cj Arciniega MD Status: REG SDC Y Location: [facility] Problem List (1) New onset atrial [...] F Source: MARISA PROFILE (BMP) 10:15 AM [facility] REPOSITORY TYPE CODE TESTS RESULT OUT OF [...] GAP 6 Performed By: #### L500.2500 #### [facility] [address] [place], [address] CARDIOLOGY VISIT Observed: 11/18/2017 Status: F Source: TATAMY REPORT 11:08 AM [facility] REPOSITORY [facility] [address] [place] [address] OFFICE VISIT Date of Service: 11/18/17 MR#: [id number] Acct: [id number] Name: EARL PADILLA Rep #: [id number] : 1950 Provider: Jed Gutiérrez MD Age/Sex: 67/F Location: [facility] Status: Signed HPI HPI Chief Complaint: SOB, BLE Edema Details: EARL PADILLA, is a 67 F who presents to the office today for outpatient hospital follow-up. As you recall she was evaluated at [facility] in cardiovascular consultation on 10/18/2017 for [...] at times. She was evaluated at the [facility] emergency department on 11/08/2017 for concerns [...] PO DAILY tab 11/18/17 [History Confirmed 11/18/17] [facility] Medical History New onset atrial fibrillation (Acute) [...] F Source: MARISA BY BMS 9:42 AM [facility] REPOSITORY [facility] [address] [place] [address] 12 Lead EKG performed by [facility] 11/18/1742 MR#: [id number] Acct: [id number] Name: EARL PADILLA Rep #: [id number] : 1950 67 From: Jed Gutiérrez MD Attending Dr: Jed Gutiérrez MD Status: DEP AMB Ordering Dr: Jed Gutiérrez MD Date: 11/18/17 Location: [facility] Sex: F C Admitted: BMS/12 Lead EKG performed by [facility] ECG Report Interpretation Atrial fibrillation Poor R wave progressionElectronically signed on 11/18/2017 at 12:07 by Jed Gutiérrez [employer] Version 8610 11/18/171211 Date Jed Gutiérrez MD CC: No Primary Care Physician Date Dictated: 11/18/17941 Date Transcribed: 11/18/17941 Radio Adjuster: PM Signed 12 LEAD ELECTROCARDIOGRAM Observed: 11/11/2017 Status: F Source: MARISA 2:18 PM [facility] REPOSITORY [facility] Cardiovascular Services [address] [place] [address] 12 Lead EKG 11/08/17 1609 MR#: [id number] Acct: [id number] Name: EARL PADILLA Rep #: [id number] : 1950 67 From: Jed Gutiérrez MD [...] Abnormal ECG Confirmed by BROCK ELDRIDGE, JED ([id number]), offline editor JESSICA TOVAR ([id number]) on 11/11/2017 2:17:41 PM Referred By: Jed Gutiérrez Confirmed By:JED GUTIÉRREZ MD 11/11/17 1417 Date Jed Gutiérrez MD CC: Cj Arciniega MD; Beau Melendez MD Signed EMERGENCY DEPARTMENT Observed: 11/08/2017 Status: F Source: TATAMY SUMMARY 7:04 PM [facility] REPOSITORY [facility] Medical Records Department [address] [place] [address] Emergency Department Summary 11/08/17 1854 MR#: [id number] Acct: [id number] Name: EARL PADILLA Rep #: [id number] : 1950 67 From: Beau Melendez MD [...] 91 and atrial fibrillation. QRS duration normal. Axtell is normal. White count is slightly elevated [...] medication, Eliquis This note was generated with [employer] dictation software. It may contain incorrect words, [...] your Primary Care Provider. Call [facility] ([phone]) or report to the closest Emergency Room. Call 911 if necessary. 11/08/17 1904 <Electronically signed by Beua Melendez MD> Date Beau Melendez MD Cosigner Signature (If Indicated): Date CC: Cj Arciniega MD; Jed Gutiérrez MD BASIC METABOLIC Collected: 11/08/2017 Status: F Source: MARISA PROFILE (BMP) 4:00 PM [facility] REPOSITORY TYPE CODE TESTS RESULT OUT OF [...] GAP 9 Performed By: #### L500.2500 #### [facility] [address] [facility] [place], [place], [address] CBC-COMPLETE BLOOD CNT Collected: 11/08/2017 Status: F Source: MARISA NO DIFF 4:00 PM [facility] REPOSITORY TYPE CODE TESTS RESULT OUT OF [...] MPV 11.7 Performed By: #### L100.0500 #### [facility] [address] [place], [place], [address] DIGOXIN LEVEL Collected: 11/08/2017 Status: F Source: MARISA 4:00 PM [facility] REPOSITORY TYPE CODE TESTS RESULT OUT OF RANGE REFERENCE UNITS LAB L501.7510 0.80-2.00 ng/mL Normal DIG 1.55 Performed By: #### L501.7510 #### [facility] [address] [place], [place], [address] BASIC METABOLIC Collected: 11/07/2017 Status: F Source: MARISA PROFILE (BMP) 11:59 AM [facility] REPOSITORY TYPE CODE TESTS RESULT OUT OF [...] GAP 7 Performed By: #### L500.2500 #### [facility] [address] [place], [address] DIGOXIN LEVEL Collected: 11/07/2017 Status: F Source: TATAMY 11:59 AM [facility] REPOSITORY TYPE CODE TESTS RESULT OUT OF RANGE REFERENCE UNITS LAB L501.7510 0.80-2.00 ng/mL Normal DIG 1.60 Performed By: #### L501.7510 #### [facility] [address] [place], [address] CBC W/DIFF, AUTOMATED Collected: 10/28/2017 Status: F Source: TATAMY 10:08 AM [facility] REPOSITORY TYPE CODE TESTS RESULT OUT OF [...] Lymph 2.06 Performed By: #### L100.0100 #### [facility] [address] [place], [address] VITAMIN B12 Collected: 10/28/2017 Status: F Source: TATAMY 10:08 [facility] REPOSITORY TYPE CODE TESTS RESULT OUT OF RANGE REFERENCE UNITS LAB L503.0105 211-911 pg/mL Normal Vitamin B12 882 Performed By: #### L503.0105, L506.1000 #### [facility] [address] [place], [address] VITAMIN D,25 HYDROXY Collected: 10/28/2017 Status: F Source: TATAMY 10:08 AM [facility] REPOSITORY TYPE CODE TESTS RESULT OUT OF REFERENCE UNITS RANGE LAB L506.1000 29.95-100.01 ng/mL Low Vitamin D 17.5 25-OH Result Comment: Vitamin D 25(OH) Status Range Deficiency <20 ng/mL (50nmol/L) Insuffciency 20 - 30 ng/mL (50 - 75 nmol/L) Sufficiency 30 - 100 ng/mL (75 - 250 nmol/L) Toxicity >100 ng/mL (>250 nmol/L) Performed By: #### L503.0105, L506.1000 #### [facility] [address], [address] PTHIN Collected: 10/28/2017 Status: F Source: MARISA 10:08 AM [facility] REPOSITORY TYPE CODE TESTS RESULT OUT OF RANGE REFERENCE UNITS LAB L509.1000 18.4-80.1 pg/mL High PTHIN 133.6 Performed By: #### L509.1000 #### [facility] [address] [place], [address] BASIC METABOLIC Collected: 10/28/2017 Status: F Source: MARISA PROFILE (BMP) 10:08 AM [facility] REPOSITORY Order Comment: Comments: B6 #4655 PLASMA [...] By: #### L500.2500, L501.9520, L503.6550, L506.0250 #### [facility] [address] [place], [address] THYROID STIM HORMONE Collected: 10/28/2017 Status: F Source: TATAMY (TSH) 10:08 AM [facility] REPOSITORY Order Comment: Comments: B6 #4655 PLASMA FROZEN PFT Is Patient Taking Vitamins or Folic Acid Supplements? N TYPE CODE TESTS RESULT OUT OF RANGE REFERENCE UNITS LAB L501.9520 0.358-3.74 uIU/mL Normal TSH 1.06 Performed By: #### L500.2500, L501.9520, L503.6550, L506.0250 #### [facility] [address] [place], [address] FERRITIN Collected: 10/28/2017 Status: F Source: TATAMY 10:08 AM [facility] REPOSITORY Order Comment: Comments: B6 #4655 PLASMA FROZEN PFT Is Patient Taking Vitamins or Folic Acid Supplements? N TYPE CODE TESTS RESULT OUT OF RANGE REFERENCE UNITS LAB L503.6550 8-252 ng/mL Normal FERRITIN 132 Performed By: #### L500.2500, L501.9520, L503.6550, L506.0250 #### [facility] [address] [place], [address] FOLATES, (FOLIC ACID) Collected: 10/28/2017 Status: F Source: TATAMY 10:08 AM [facility] REPOSITORY Order Comment: Comments: B6 #4655 PLASMA FROZEN PFT Is Patient Taking Vitamins or Folic Acid Supplements? N TYPE CODE TESTS RESULT OUT OF RANGE REFERENCE UNITS LAB L506.0250 3.1-55.4 ng/mL Normal FOLATES 15.70 Result Comment: Slight Hemolysis, Result may be falsely increased. Performed By: #### L500.2500, L501.9520, L503.6550, L506.0250 #### [facility] [address] [place], [address] HOMOCYSTEINE Collected: 10/28/2017 Status: F Source: TATAMY 10:08 AM [facility] REPOSITORY TYPE CODE TESTS RESULT OUT OF REFERENCE UNITS RANGE LAB L503.8001 3.2-10.7 umol/L HOMOCYSTEINE High 13.8 Performed By: #### L503.8001 #### [facility] [address] [place], [place], [address] DIGOXIN LEVEL Collected: 10/28/2017 Status: F Source: TATAMY 10:08 AM [facility] REPOSITORY TYPE CODE TESTS RESULT OUT OF RANGE REFERENCE UNITS LAB L501.7510 0.80-2.00 ng/mL Normal DIG 1.49 Performed By: #### L501.7510 #### [facility] [address] [place], [address] ANTICARDIOLIPIN IGG, IGM Collected: 10/28/2017 Status: F Source: TATAMY 10:08 AM [facility] REPOSITORY TYPE CODE TESTS RESULT OUT OF [...] - 80 High Positive: >80 Performed at: [facility] [address] [id number] Package Car Driver: Tyrell Castanon PhD, Phone: [phone] Performed By: #### L3100.8410 #### [facility] (refer to report for specific site) refer to report for address and phone number JOVI COMPREHENSIVE PANEL Collected: 10/28/2017 Status: F Source: TATAMY 10:08 AM [facility] REPOSITORY TYPE CODE TESTS RESULT OUT OF [...] ANTISCLER Normal <0.2 LAB L3410.1200 0.0-0.9 AI MUD MIXER HELPER Ab Normal <0.2 LAB L3410.1300 0.0-0.9 AI [...] Sm (anti-Arciniega) SLE 15 - 30% --------- MUD MIXER HELPER Mixed Connective Tissue Disease 95% (U1 nRNP, SLE 30 - 50% anti-ribonucleoprotein) Polymyositis and/or Dermatomyositis 20% --------- Scl-70 (antiDNA Scleroderma (diffuse) 20 - 35% topoisomerase) Crest 13% --------- Purvi-1 Polymyositis and/or Dermatomyositis 20 - 40% --------- Centromere B Scleroderma - Crest variant 80% Performed at: - [facility] [address] [id number] Package Car Driver: Tyrell Castanon PhD, Phone: [phone] Performed By: #### L3100.5440 #### [facility] (refer to report for specific site) refer to report for address and phone number MISCELLANEOUS LAB Collected: 10/28/2017 Status: F Source: MARISA PROCEDURE 10:08 AM [facility] REPOSITORY Order Comment: Comments: B6 #4655 PLASMA FROZEN PFT Test(s) Ordered: B6 #4655 PLASMA FROZEN PFT TYPE CODE TESTS RESULT OUT OF RANGE REFERENCE UNITS LAB L801.1541 Normal [facility] LAB TEST Result Comment: TEST RESULT LIMITS Vitamin B6, Plasma Vitamin B6 12.7 ug/L 2.0 - 32.8 Disclaimer: This test was developed and its performance characteristics determined by [facility]. It has not been cleared or approved by the Food and Drug Administration. TESTING PERFORMED AT [facility]. ORIGINAL REPORT ON FILE IN LAB CONTAINS ADDITIONAL TEST SITE INFORMATION. Performed By: #### L801.1541 #### [facility] [address] [place], [address] 12 LEAD ELECTROCARDIOGRAM Observed: 10/25/2017 Status: F Source: MARISA 3:16 PM [facility] REPOSITORY [facility] Cardiovascular Services [address] [place] [address] [place] [address] 12 Lead EKG 10/19/17 0542 MR#: [id number] Acct: [id number] Name: EARL PADILLA Rep #: [id number] : 1950 67 From: Reginald Vogt MD Attending Dr: Cj Sánchez DO Status: DIS IN Ordering Dr: Jed Gutiérrez MD Date: 10/19/17 Location: [facility] Sex: F C Admitted: 10/17/17 Test [...] IS UNCONFIRMED Confirmed by REGINALD VOGT ([id number]), offline editor JESSICA TOVAR ([id number]) on 10/25/2017 3:15:50 PM Referred By: PRINCESS Confirmed By:REGINALD VOGT 10/25/17 1519 Date Reginald Vogt MD CC: No Primary Care Physician; Cj Sánchez DO; Jed Gutiérrez MD Signed DISCHARGE SUMMARY Observed: 10/21/2017 Status: F Source: TATAMY 2:24 PM [facility] REPOSITORY [facility] Medical Records Department [address] [place] [address] Discharge Summary 10/21/17 1419 MR#: [id number] Acct: [id number] Name: EARL PADILLA Rep #: [id number] : 1950 67 From: Cj Sánchez DO PCP: Care Physician, No Primary Status: ADM IN Location: [place] [address] Discharge Date and Diagnosis - Problem List [...] Lama MD at 13:40 EDT Tel Direct: [phone], Service support , Operations: None Procedures: 2-D [...] but was tachycardic * Patient has a [id number] score of 3 * Eliquis started * On Digoxin 250 mcg/d, corege 12.5 BID, 2. Acute heart failure with reduced ejection fraction * EF of 20% * Complicated by pulmonary hypertension with right ventricular systolic pressure of 42 mmHg * Lasix 40 BID, Coreg, Lisinopril 10 BID * Cardiology on consultation * [facility] normal coronaries. 3. Possible pneumococcal pneumonia [...] 20 Code Visit Inpatient E AND M: 30055 Disch Hosp 10/21/17 1424 <Electronically signed by Cj Sánchez DO> Date [facility] Signature (if applicable): Date CC: No Primary Care Physician; Cj Sánchez DO Signed DISCHARGE INSTRUCTION Observed: 10/21/2017 Status: F Source: TATAMY 2:19 PM [facility] REPOSITORY [facility] Medical Records Department [address] [place] [address] Instructions for Home/Discharge Instructions 10/21/17 1416 MR#: [id number] Acct: [id number] Name: EARL PADILLA Rep #: [id number] : 1950 67 From: Cj Sánchez DO [...] F Source: MARISA PROFILE (BMP) 6:00 AM [facility] REPOSITORY TYPE CODE TESTS RESULT OUT OF [...] 9 Performed By: #### L500.2500, L501.5200 #### [facility] [address] [place], [address] MAGNESIUM Collected: 10/21/2017 Status: F Source: MARISA 6:00 AM [facility] REPOSITORY TYPE CODE TESTS RESULT OUT OF RANGE REFERENCE UNITS LAB L501.5200 1.6-2.6 mg/dL Normal MG 1.8 Performed By: #### L500.2500, L501.5200 #### [facility] [address] [place], [address] BASIC METABOLIC Collected: 10/20/2017 Status: F Source: MARISA PROFILE (BMP) 4:42 PM [facility] REPOSITORY TYPE CODE TESTS RESULT OUT OF [...] GAP 11 Performed By: #### L500.2500 #### [facility] [address] [place], [address] BASIC METABOLIC Collected: 10/20/2017 Status: F Source: TATAMY PROFILE ([facility]) 6:08 AM [facility] REPOSITORY TYPE CODE TESTS RESULT OUT OF [...] 9 GAP Performed By: #### L500.2500 #### [facility] [address] [place], [address] CBC W/DIFF, AUTOMATED Collected: 10/20/2017 Status: F Source: TATAMY 6:08 AM [facility] REPOSITORY TYPE CODE TESTS RESULT OUT OF [...] Lymph 2.43 Performed By: #### L100.0100 #### [facility] [address] [place], [address] 12 LEAD ELECTROCARDIOGRAM Observed: 10/19/2017 Status: F Source: MARISA 1:01 PM [facility] REPOSITORY [facility] Cardiovascular Services [address] [place] [address] 12 Lead EKG 10/17/17 1136 MR#: [id number] Acct: [id number] Name: EARL PADILLA Rep #: [id number] : 1950 67 From: Jed Gutiérrez MD Attending Dr: Cj Sánchez DO Status: ADM IN Ordering Dr: Cj Melvin DO Date: 10/17/17 Location: [facility] Sex: F C Admitted: 10/17/17 Test [...] Abnormal ECG Confirmed by BROCK ELDRIDGE, JED ([id number]), offline editor JESSICA TOVAR ([id number]) on 10/19/2017 1:01:15 PM Referred By: PA Confirmed By:JED GUTIÉRREZ MD 10/19/17 1301 Date Jed Gutiérrez MD CC: No Primary Care Physician; Cj Sánchez DO; Cj Melvin DO Signed CBC-COMPLETE BLOOD CNT Collected: 10/19/2017 Status: F Source: MARISA NO DIFF 6:30 AM [facility] REPOSITORY TYPE CODE TESTS RESULT OUT OF [...] MPV 10.5 Performed By: #### L100.0500 #### [facility] [address] [place], [place], [address] PROTHROMBIN TIME W/INR Collected: 10/19/2017 Status: F Source: MARISA 6:30 AM [facility] REPOSITORY TYPE CODE TESTS RESULT OUT OF RANGE REFERENCE UNITS LAB L300.4150 11.7-14.9 SECONDS Normal PROTIME 13.8 LAB L300.4200 Normal INR 1.1 Performed By: #### L300.3900, L300.4310 #### [facility] [address] [place], [place], [address] PARTIAL THROMBOPLAST Collected: 10/19/2017 Status: F Source: TATAMY TIME 6:30 AM [facility] REPOSITORY TYPE CODE TESTS RESULT OUT OF RANGE REFERENCE UNITS LAB L300.4310 24.1-36.2 Seconds Normal PTT 32.9 Performed By: #### L300.3900, L300.4310 #### [facility] [address] [place], [address] BASIC METABOLIC Collected: 10/19/2017 Status: F Source: MARISA PROFILE (BMP) 6:30 AM [facility] REPOSITORY TYPE CODE TESTS RESULT OUT OF [...] 12 Performed By: #### L500.2500, L500.3400 #### [facility] [address] [place], [place], [address] LIVER PROFILE Collected: 10/19/2017 Status: F Source: TATAMY 6:30 AM [facility] REPOSITORY TYPE CODE TESTS RESULT OUT OF [...] 0.33 Performed By: #### L500.2500, L500.3400 #### [facility] [address] [place], [place], [address] CONSULTATION Observed: 10/18/2017 Status: F Source: TATAMY 5:29 PM [facility] REPOSITORY [facility] Medical Records Department [address] [place] [address] Consultation 10/18/17 1711 MR#: [id number] Acct: [id number] Name: EARL PADILLA Rep #: [id number] : 1950 67 From: Jed Gutiérrez MD PCP: Care Physician, No Primary Status: ADM IN Y Location: [place] [address] Problem List (1) New onset atrial fibrillation [...] tonsillectomy Psychiatric History: No pertinent psych hx PUTTY GLAZER History: No pertinent PUTTY GLAZER history - *Family History Maternal History Items: [...] (Auto) 72.2 H, Lymph % (Auto) 19.3, [place] % (Auto) 7.6, Eos % (Auto) 0.5, [...] care plan. This note was generated with [employer] dictation software. It may contain incorrect words, spelling, and punctuation that were not noted in checking the note before signing. 10/18/17 1729 <Electronically signed by Jed Gutiérrez MD> Date Jed Gutiérrez MD Cosigner Signature (if applicable): Date CC: No Primary Care Physician; Jed Gutiérrez MD Signed ECHOCARDIOGRAM COMPLETE Observed: 10/18/2017 Status: F Source: TATAMY 3:08 PM [facility] REPOSITORY [facility] Cardiovascular Services [address] [place] [address] Echo Complete 10/18/17 0945 MR#: [id number] Acct: [id number] Name: EARL PADILLA Rep #: [id number] : 1950 67 From: Jed Gutiérrez MD Attending Dr: Cj Sánchez DO Status: ADM IN Ordering Dr: Nash Rodriguez MD Date: 10/18/17 Location: [facility] Sex: F C Admitted: 10/17/17 Reason [...] Dictated: 10/18/17 0945 Date Transcribed: 10/18/17 1507 Radio Adjuster: Signed Observed: 10/18/2017 Status: F Source: TATAMY LEGIONELLA ANTIGEN 2:45 PM [facility] URINE REPOSITORY Specimen Source: URINE, CLEAN CATCH Legionella, UR Legionella Antigen result interpretation: Negative Presumptive negative for Legionella pneumophila serogroup 1 antigen in urine, suggesting no recent or current infection. Legionella Ag, Urine Negative (See interpretation below) Performed By: #### M300.4500 #### [facility] [address] [place], [address] STREP Observed: 10/18/2017 Status: F Source: TATAMY PNEUMONIAE ANTIG(UR,CSF) 2:45 PM [facility] REPOSITORY S pneumo Ag URINE INTERPRETATION Negative Urine Presumptive negative for pneumococcal pneumonia, suggesting no current or recent pneumococcal infection. Infection due to S pneumoniae cannot be ruled out since the antigen present in the sample may be below the detection limit of the test. Strep pneumo Test Negative URINE (See interpretation below) Performed By: #### M300.4600 #### [facility] [address] [place], [place], [address] URINALYSIS, COMPLETE Collected: 10/18/2017 Status: F Source: TATAMY 2:45 PM [facility] REPOSITORY Order Comment: How was Urine Obtained? PRODUCTION TESTER TO SPECIFY TYPE CODE TESTS RESULT OUT [...] 0-5 SEEN Performed By: #### L400.0001 #### [facility] [address] [place], [address] CBC W/DIFF, AUTOMATED Collected: 10/18/2017 Status: F Source: TATAMY 5:10 AM [facility] REPOSITORY TYPE CODE TESTS RESULT OUT OF [...] Lymph 3.26 Performed By: #### L100.0100 #### [facility] [address] [place], [address] BASIC METABOLIC Collected: 10/18/2017 Status: F Source: TATAMY PROFILE (BMP) 5:10 AM [facility] REPOSITORY TYPE CODE TESTS RESULT OUT OF [...] 10 Performed By: #### L500.2500, L500.4100 #### [facility] [address] [place], [place], [address] LIPID PROFILE Collected: 10/18/2017 Status: F Source: TATAMY 5:10 AM [facility] REPOSITORY TYPE CODE TESTS RESULT OUT OF [...] 31 Performed By: #### L500.2500, L500.4100 #### [facility] [address] [place], [address] HEMOGLOBIN A1C Collected: 10/17/2017 Status: F Source: TATAMY 4:20 PM [facility] REPOSITORY TYPE CODE TESTS RESULT OUT OF RANGE REFERENCE UNITS LAB L501.9985 4.2-6.3 % Normal HGB A1C 5.3 Performed By: #### L501.9985 #### [facility] [address] [place], [address] TROPONIN-I Collected: 10/17/2017 Status: F Source: TATAMY 4:20 PM [facility] REPOSITORY Order Comment: 'TROP' Serial specimen #1, #2, #3, or #4: 1 TYPE CODE TESTS RESULT OUT OF RANGE REFERENCE UNITS LAB L501.4010 <0.045 ng/mL Normal 0.017 TROPONIN-I Result Comment: TROPONIN-I EXPECTED VALUES <0.045 Negative 0.045 - 0.590 Consistent with Cardiac Damage > OR = 0.600 Critical Value Not every elevated troponin is indicative of DE. These values should be used with clinical judgement in examining the patient's clinical picture for diagnosis. To establish a diagnosis of DE versus myocardial injury, there must be a demonstrated rise and/or fall in the troponin values, in addition to ischemic symptoms, EKG changes, new regional wall motion abnormality, and/or angiographical evidence. PLEASE NOTE: REFERENCE RANGES EDITED 17 Performed By: #### L501.4010, L501.9520 #### [facility] [address] [place], [address] THYROID STIM HORMONE Collected: 10/17/2017 Status: F Source: TATAMY (TSH) 4:20 PM [facility] REPOSITORY Order Comment: 'TROP' Serial specimen #1, #2, #3, or #4: 1 TYPE CODE TESTS RESULT OUT OF RANGE REFERENCE UNITS LAB L501.9520 0.358-3.74 uIU/mL Normal TSH 2.09 Performed By: #### L501.4010, L501.9520 #### [facility] [facility] [address] [place], [address] HISTORY AND PHYSICAL Observed: 10/17/2017 Status: F Source: TATAMY EXAM 3:49 PM [facility] REPOSITORY [facility] Medical Records Department [address] [place] [address] History and Physical 10/17/17 1444 MR#: [id number] Acct: [id number] Name: EARL PADILLA Rep #: [id number] : 1950 67 From: Cassandra Bynum DIAMOND BROKER-C PCP: Care Physician, No Primary Status: ADM IN Y Location: [facility] [id number] <Cassandra Bynum - Last Filed: 10/17/17 15:05> [...] tonsillectomy Psychiatric History: No pertinent psych hx PUTTY GLAZER History: No pertinent PUTTY GLAZER history Lives: With Family Smoking Status: Never [...] Cardiac Code Visit Inpatient E AND M: 25589 Init Hosp L3 10/17/17 1505 <Electronically signed by Cassandra LEROYC> Date Cassandra Bynum DIAMOND BROKER-C 10/17/17 1549<Electronically signed by Nash Rodriguez MD> Cosigner Signature: Date (if applicable) Nash Rodriguez MD CC: DIAMOND BROKER-C Cassandra Bynum; No Primary Care Physician; Nash Rodriguez MD Signed EMERGENCY DEPARTMENT Observed: 10/17/2017 Status: F Source: TATAMY SUMMARY 2:27 PM [facility] REPOSITORY [facility] Medical Records Department [address] [place] [address] Emergency Department Summary 10/17/17 1147 MR#: [id number] Acct: [id number] Name: EARL PADILLA Rep #: [id number] : 1950 67 From: Cj Melvin DO [...] Community-acquired pneumonia This note was generated with [employer] dictation software. It may contain incorrect words, spelling, and punctuation that were not noted in review of the chart prior to signing ED Disposition - Plan for ED Patient: Disposition: Acute Care Hospital [facility] Chief Complaint: Shortness of Breath Diagnosis: New onset atrial fibrillation, Community acquired pneumonia Referrals: Care Physician,No Primary [Primary Care Provider] - What to do if you have Problems For any increased pain, shortness of breath, bleeding, nausea or vomiting, chest pain, or any unexpected problems, contact your Primary Care Provider. Call [facility] ([phone]) or report to the closest Emergency Room. Call 911 if necessary. 10/17/17 1427 <Electronically signed by Cj Melvin DO> Date Cj Melvin DO Cosigner Signature (If Indicated): Date CC: No Primary Care Physician CBC W/DIFF, AUTOMATED Collected: 10/17/2017 Status: F Source: MARISA 12:11 PM [facility] REPOSITORY TYPE CODE TESTS RESULT OUT OF [...] Lymph 2.53 Performed By: #### L100.0100 #### [facility] [address] [place], [place], [address] BASIC METABOLIC Collected: 10/17/2017 Status: F Source: TATAMY PROFILE (BMP) 12:11 PM [facility] REPOSITORY TYPE CODE TESTS RESULT OUT OF [...] 11 Performed By: #### L500.2500, L501.4010 #### [facility] [address] [place], [address] TROPONIN-I Collected: 10/17/2017 Status: F Source: MARISA 12:11 PM [facility] REPOSITORY TYPE CODE TESTS RESULT OUT OF RANGE REFERENCE UNITS LAB L501.4010 <0.045 ng/mL Normal 0.027 TROPONIN-I Result Comment: TROPONIN-I EXPECTED VALUES <0.045 Negative 0.045 - 0.590 Consistent with Cardiac Damage > OR = 0.600 Critical Value Not every elevated troponin is indicative of DE. These values should be used with clinical judgement in examining the patient's clinical picture for diagnosis. To establish a diagnosis of DE versus myocardial injury, there must be a demonstrated rise and/or fall in the troponin values, in addition to ischemic symptoms, EKG changes, new regional wall motion abnormality, and/or angiographical evidence. PLEASE NOTE: REFERENCE RANGES EDITED 17 Performed By: #### L500.2500, L501.4010 #### [facility] [address] [place], [address] BNP,B-TYPE NATRIURETIC Collected: 10/17/2017 Status: F Source: MARISA PEPTIDE 12:11 PM [facility] REPOSITORY TYPE CODE TESTS RESULT OUT OF RANGE REFERENCE UNITS LAB L503.6620 0-100 pg/mL High B-TYPE 281.6 BELINDA PEP Performed By: #### L503.6620 #### [facility] [address] [place], [address] CHEST PA AND LATERAL Observed: 10/17/2017 Status: F Source: MARISA 11:46 AM [facility] REPOSITORY [facility] Imaging Services [address] [place] [address] Chest PA and Lateral MR#: [id number] Acct: [id number] Name: EARL PADILLA Rep #: [id number] : 1950 F 67 From: Mulu Lama MD PCP: Care Physician, No Primary Status: REG ER Study: Chest PA and Lateral Date of Exam: 10/17/17 Exam# [id number] Ordering Dr: Cj Melvin DO STUDY: X-RAY [...] Lama MD at 13:40 EDT Tel Direct: [phone], Service support , CC: No Primary Care Physician; Cj Melvin DO Radio Adjuster: Signed ALLERGIES ALLERGIES DATE TYPE / CODE NAME / CODE REACTION SEVERITY SOURCE 03/03/2018 Drug No Known Unknown [place] [facility] Allergy/4160 Allergies/F00 Hospital 58346(SNOMED 6527088(RXNOR Repository CT) M) ENCOUNTERS ENCOUNTERS ADMIT/DISCHARGE ACCOUNT ADMITTING ENCOUNTER LOCATION SOURCE NUMBER CLASS 03/03/2018 [id number] [place] 2 [facility] ing:LAB Repository 03/03/2018/ [id number] Ambulatory BMSBuilding:B [place] 9 5 [facility] Repository 02/09/2018/ [id number] Ambulatory [place] 8 3 [facility] ing:LAB Repository 02/06/2018 [id number] Ambulatory [place] 7 [facility] ing:LAB Repository 01/19/2018/12/06 [id number] Ambulatory BMSBuilding:B [place] 8 7 [facility] Repository 01/16/2018 [id number] Ambulatory BMSBuilding:W [place] 4 [facility] Hospital Repository 01/16/2018 [id number] Amb[place] 8 [facility] ing:CVS Repository 12/27/2017/ [id number] [place], Inpatient [place] 8 3 Jed Encounter [facility] ing:PCURoom: Repository [id number]: 1 12/27/2017 [id number] [place], Ambulatory BMSBuilding:B [place] 4 Jed [place].[facility] Repository 12/27/2017 [id number] [place], Ambulatory BMSBuilding:B [place] 9 Jed [facility] Repository 12/20/2017/ [id number] Ambulatory BMSBuilding:B [place] 8 5 [facility] Repository 12/13/2017 [id number] Ambulatory BMSBuilding:B [place] 3 [facility] Hospital Repository 12/13/2017/ [id number] Ambulatory [place] 8 3 [facility] ing:CLSP Repository 12/13/2017/ [id number] Ambulatory BMSBuilding:W [place] 8 2 [facility] Repository 11/25/2017 [id number] Ambulatory [place] 7 [facility] ing:LAB Repository 11/18/2017/ [id number] Ambulatory BMSBuilding:B [place] 8 5 [facility] Repository 11/16/2017 [id number] Ambulatory BMSBuilding:B [place] 7 [facility] Repository 11/08/2017/ [id number] Emergency [place] 8 4 [facility] ing:ED Repository 11/07/2017 [id number] Ambulatory [place] 8 [facility] ing:LAB Repository 10/28/2017 [id number] Ambulatory [place] 5 [facility] ing:MFPLAB Repository 10/17/2017/ [id number] [place], Inpatient [place] 8 1 Nash Waters Encounter [facility] ing:PCURoom: Repository [id number]: 1 10/17/2017 [id number] [place], Ambulatory BMSBuilding:B [place] 5 Nash F [facility] Repository 10/17/2017 [id number] [place], Ambulatory BMSBuilding:B [place] 0 Nash F [facility] Repository 10/17/2017 [id number] [place], Ambulatory BMSBuilding:B [place] 6 Nash F [facility] Repository 10/17/2017 [id number] [place], Ambulatory BMSBuilding:B [place] 7 Nash F [facility] Repository 10/17/2017 [id number] [place], Ambulatory BMSBuilding:B [place] 1 Nash F [facility] Repository 10/17/2017 [id number] [place], Ambulatory BMSBuilding:B [place] 9 Nash Waters [facility] Repository 10/17/2017 [id number] [place], Ambulatory BMSBuilding:B [place] 9 Nash F [facility] Repository 10/17/2017 [id number] [place], Ambulatory BMSBuilding:B [place] 6 Nash F [facility] Repository 10/17/2017 [id number] [place], Ambulatory BMSBuilding:B [place] 7 Nash F [facility] Repository PAYERS PAYERS 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 SOURCE 03/03/2018 EARL Primary NOT GIVENUNK [place] [id number] Insurance:SELF PAY [address], Number: Effective Repository [place] [id number]: Date:2018-02-13 () 03/03/2018 EARL Primary NOT GIVENUNK [place] [id number] Insurance:SELF PAY [address], Number: Effective Repository [place] [id number]: Date:2018-03-03 () 02/09/2018 EARL Primary NOT GIVENUNK [place] [id number] [facility] [address], Number: Effective Repository [place] [id number]: Date:2018-01-25 () 02/06/2018 EARL Primary NOT GIVENUNK [place] [id number] [facility] [address] [address], Number: Effective Repository [place] [id number]: Date:2018-02-06 () 01/19/2018 EARL Primary NOT GIVENUNK [place] [id number] [facility] [address] [address], Number: Effective Repository [place] [id number]: Date:2018-01-19 () 01/16/2018 EARL Primary Insurance:[facility] EARL [place] [id number] PACKAGE PLANPolicy LEATHERMANDOB: [facility] [address] Number: Effective [id number], Date:2017-11-18 Repository [place] [phone]: () 01/16/2018 Secondary NOT GIVENUNK [place] Insurance:SELF PAY [facility] Number: Effective Repository Date:2018-01-16 01/16/2018 EARL Primary Insurance:[facility] EARL [place] [id number] PACKAGE PLANPolicy LEATHERMANDOB: [facility] [address] Number: Effective [id number], Date:2017-11-18 [place]ository [place] [address]Hxt: () 01/16/2018 Secondary NOT GIVENUNK [place] Insurance:SELF PAY [facility] Number: Effective Repository Date:2017-11-18 12/27/2017 EARL Primary EARL [place] [id number] Insurance:MEDICARE A LEATHERMANDOB: [facility] [address] [facility] Number: [id number], [id number] Repository [place] [address]Zip: Date:2017-12-27 () 12/27/2017 Secondary NOT GIVENUNK [place] Insurance:SELF PAY [facility] Number: Effective Repository Date:2017-12-27 12/27/2017 EARL Primary NOT GIVENUNK [place] [id number] Insurance:SELF PAY [address], Number: Effective Repository [place] [id number]: Date:2017-12-27 () 12/27/2017 EARL Primary NOT GIVENUNK [place] [id number] Insurance:SELF PAY [address], Number: Effective Repository [place] [id number]: Date:2017-12-27 () 12/20/2017 EARL Primary NOT GIVENUNK [place] [id number] Insurance:SELF PAY [address], Number: Effective [place]ository [place] [id number]: Date:2017-12-20 () 12/13/2017 EARL Primary NOT GIVENUNK [place] [id number] Insurance:SELF PAY [address], Number: Effective Repository [place] [id number]: Date:2017-12-13 () 12/13/2017 EARL Primary NOT GIVENUNK [place] [id number] Insurance:SELF PAY [address], Number: Effective Repository [place] [id number]: Date:2017-11-25 () 12/13/2017 EARL Primary NOT GIVENUNK [place] [id number] Insurance:SELF PAY [address], Number: Effective Repository [place] [id number]: Date:2017-12-13 () 11/25/2017 EARL Primary EARL [place] [id number] Insurance:MEDICARE LEATHERMANDOB: [facility] [address] BPolicy [id number], Number: Repository [place] [id number]: [id number] Date:2017-11-25 () 11/25/2017 Secondary NOT GIVENUNK [place] Insurance:SELF PAY [facility] Number: Effective Repository Date:2017-11-25 11/18/2017 EARL Primary NOT GIVENUNK [place] [id number] Insurance:SELF PAY [facility] [address], Number: Effective Repository [place] [id number]: Date:2017-11-18 () 11/16/2017 EARL Primary NOT GIVENUNK [place] [id number] Insurance:SELF PAY [facility] [address], Number: Effective Repository [place] [address]Dhi: Date:2017-11-16 () 11/08/2017 EARL Primary NOT GIVENUNK [place] [id number] Insurance:SELF PAY [facility] [address], Number: Effective Repository [place] [id number]: Date:2017-11-08 () 11/07/2017 EARL Primary NOT GIVENUNK [place] [id number] Insurance:SELF PAY [facility] [address], Number: Effective Repository [place] [phone]: Date:2017-11-07 () 10/28/2017 EARL Primary EARL [place] [id number] Insurance:MEDICARE A LEATHERMANDOB: [facility] [address] [facility] Number: [id number], [id number] Repository [place] [address]Izt: Date:2017-10-28 () 10/28/2017 Secondary NOT GIVENUNK [place] Insurance:SELF PAY [facility] Number: Effective Repository Date:2017-10-28 10/17/2017 EARL Primary EARL [place] [id number] Insurance:MEDICARE A LEATHERMANDOB: [facility] [address] [facility] Number: [id number], [id number] Repository [place] [address]Upp: Date:2017-10-17 () 10/17/2017 Secondary NOT GIVENUNK [place] Insurance:SELF PAY [facility] Number: Effective Repository Date:2017-10-17 10/17/2017 EARL Primary NOT GIVENUNK [place] [id number] Insurance:SELF PAY [facility] [address], Number: Effective Repository [place] [id number]: Date:2017-10-17 () 10/17/2017 EARL Primary NOT GIVENUNK [place] [id number] [facility] [address] [address], Number: Effective Repository [place] [phone]: Date:2017-10-17 () 10/17/2017 EARL Primary NOT GIVENUNK [place] [id number] Insurance:SELF [facility] [address] [address], Number: Effective Repository [place] [id number]: Date:2017-10-17 () 10/17/2017 EARL Primary NOT GIVENUNK [place] [id number] Insurance:SELF PAY [facility] [address], Number: Effective Repository [place] [id number]: Date:2017-10-17 () 10/17/2017 EARL Primary NOT GIVENUNK [place] [id number] Insurance:SELF [facility] [address] [address], Number: Effective Repository [place] [phone]: Date:2017-10-17 () 10/17/2017 EARL Primary NOT GIVENUNK [place] [id number] Insurance:SELF [facility] [address] [address], Number: Effective Repository [place] [phone]: Date:2017-10-17 () 10/17/2017 EARL Primary NOT GIVENUNK [place] [id number] Insurance:SELF PAY [address], Number: Effective Repository [place] [phone]: Date:2017-10-17 () 10/17/2017 EARL Primary NOT GIVENUNK [place] [id number] Insurance:SELF PAY [address], Number: Effective Repository [place] [phone]: Date:2017-10-17 () 10/17/2017 EARL Primary NOT GIVENUNK [place] [id number] Insurance:SELF PAY [address], Number: Effective Repository [place] [id number]: Date:2017-10-17 ()
== END 2018-02-09 14:00 | disposition home or self-care (01) ==
LOC: LAB 13:08
PROVIDERS: Family Provider Family Medicine; PCP Family Medicine; Referring Provider Internal Medicine Cardiovascular Disease; Visit Provider Internal Medicine Cardiovascular Disease
DX: I48.91 Unspecified atrial fibrillation (principal); Z79.01 Long term (current) use of anticoagulants
CPT/HCPCS: 36415; 85610

== ENCOUNTER 2018-03-03 10:31 | Outpatient (RCR) | payer SELFPAY ==
[2018-01-19 10:10] VITALS: BMI 36.6
[2018-02-17 10:10] LABS: International Normalized Ratio 1.9; Prothrombin Time (Protime)PT. 21.6 SECONDS (11.7-14.9)
[2018-03-03 11:26] LABS: International Normalized Ratio 1.8; Prothrombin Time (Protime)PT. 21.3 SECONDS (11.7-14.9)
[2018-03-03 12:09] LABS: Digoxin Level 0.42 ng/mL (0.80-2.00)
== END 2018-03-03 11:31 | disposition home or self-care (01) ==
LOC: LAB 10:31
PROVIDERS: Nurse Practitioner Family; Family Provider Family Medicine; PCP Family Medicine; Referring Provider Internal Medicine Cardiovascular Disease; Visit Provider Internal Medicine Cardiovascular Disease
DX: I48.91 Unspecified atrial fibrillation (principal); Z79.01 Long term (current) use of anticoagulants
CPT/HCPCS: 36415; 80162; 85610

== ENCOUNTER 2018-03-14 08:06 | Inpatient (IN) | payer MEDICARE, SELFPAY ==
[2018-03-03 09:44] VITALS: BMI 36.1
[2018-03-14] VITALS (10 sets, daily range): BP systolic 147–176; BP diastolic 79–107; PULSE 84–100; RESP 16–18; TEMP 36.5–36.8; O2SAT 92–100; BMI 35.6
--- NOTE | 2018-03-14 08:30 | EKG12_ITS ---
Test Reason : 2 HOURS POST LINA Blood Pressure : / mmHG Vent. Rate : 087 BPM Atrial Rate : 077 BPM P-R Int : 000 ms QRS Dur : 080 ms QT Int : 394 ms P-R-T Axes : 000 068 068 degrees QTc Int : 474 ms Atrial fibrillation Abnormal ECG Confirmed by BROCK ELDRIDGE, JED ([id number]), editor map JESSICA TOVAR ([id number]) on 03/16/2018 8:27:55 AM Referred By: Jed Gutiérrez Confirmed By:JED GUTIÉRREZ MD
[2018-03-14 09:15] LABS: Hemoglobin 13.8 g/dl (12.0-15.0); Mean Corp Hgb Conc 32.1 g/gl (32-36); Mean Corpuscular Hgb 30.7 pg (27.0-32.0); Mean Corpuscular Volume 95.6 fL (81-99); Mean Platelet Vol. 9.8 fl (6.2-12.0); Platelet Count 225 K/mm3 (150-450); RBC Distribution Width CV 13.9 % (11.6-14.6); RBC Distribution Width SD 48.4 fl (35.1-43.9); White Blood Count 11.7 K/mm3 (4.4-11.0)
[2018-03-14 09:17] LABS: Scan Indicated on CBC? Y/N NO
[2018-03-14 09:28] LABS: Anion Gap 8 (5-15); BUN 16 mg/dL (7-18); Calcium,Total 8.8 mg/dL (8.5-10.1); Chloride 105 mmol/L (98-107); Creatinine, Serum 1.23 mg/dL (0.55-1.02); EST Glomerular Filtration Rate 46 mL/min (>60); Est Glom Filt Rate - Afr Amer 56 mL/min (>60); Estimated Creatinine Clearance 40.48 ml/min; Glucose 81 mg/dL (74-106); Magnesium 2.2 mg/dL (1.6-2.6); Potassium 3.7 mmol/L (3.5-5.1); Sodium Level 142 mmol/L (136-145)
[2018-03-14 09:41] LABS: Thyroid Stim Hormone (TSH) 1.48 uIU/mL (0.358-3.74)
[2018-03-14 10:01] LABS: Digoxin Level 0.94 ng/mL (0.80-2.00)
[2018-03-14] MEDS: Folic Acid 1 MG Tablet PO (11:36)
[2018-03-14] MEDS: Dofetilide 250 MCG Capsule PO ×2 (11:36→22:46)
--- NOTE | 2018-03-14 13:36 | EKG12_ITS ---
Test Reason : PRE-TIKOSIN Blood Pressure : / mmHG Vent. Rate : 085 BPM Atrial Rate : 100 BPM P-R Int : 000 ms QRS Dur : 082 ms QT Int : 374 ms P-R-T Axes : 000 066 055 degrees QTc Int : 445 ms Atrial fibrillation with premature ventricular or aberrantly conducted complexes Abnormal ECG Confirmed by BROCK ELDRIDGE, JED ([id number]), development editor JESSICA TOVAR ([id number]) on 03/16/2018 8:29:04 AM Referred By: Jed Gutiérrez Confirmed By:JED GUTIÉRREZ MD
--- NOTE | 2018-03-14 17:41 | HP.PCM_ITS ---
Problem List (1) Encounter for monitoring anti-arrhythmic therapy Status: Acute (2) New onset atrial fibrillation Status: Chronic (3) Cardiomyopathy Status: Chronic Qualifiers: (4) Systolic CHF, acute Status: Chronic (5) Valvular heart disease Status: Chronic (6) HTN (hypertension) Status: Chronic Qualifiers: History of Present Illness Date of Admission: 03/14/18 The patient is a 67 year old White female with a past cardiovascular history which has included underlying atrial fibrillation, non CAD related cardiomyopathy, chronic systolic CHF, valvular heart disease with mitral and tricuspid valve regurgitation, and hypertension who was brought to the hospital for initiation of antiarrhythmic therapy. She has undergone previous noninvasive and invasive evaluation in the past. En 2017 she had a transthoracic echocardiogram performed. She had global left ventricular systolic dysfunction with an estimated LVEF of 20%, mild concentric LVH, apical false tendon, severe left atrial enlargement, moderate right atrial enlargement, moderate mitral annular calcification, mild diffuse thickening of the mitral valve, moderate MR, and moderately severe TR. There was also trivial AI, a trivial pericardial effusion with no cardiac compromise, and an estimated RV systolic pressure 42 mmHg. She underwent diagnostic cardiac catheterization on 10/19/2017. She had a globally hypokinetic left ventricle with an LVEF of 30% with angiographically normal appearing coronary arteries with moderate MR. She has continued medical management for her atrial dysrhythmia. On 12/13/2017 she underwent synchronized biphasic DC cardioversion. She transiently regain sinus rhythm. However upon outpatient cardiovascular follow up she had returned to atrial fibrillation. She was brought to the hospital in December of 2017 for initiation of antiarrhythmic therapy and subsequent monitoring. This was to initiate antiarrhythmic therapy with the . However at that time, after further evaluation the hospital in consultation with social media content manager it was deemed by the patient's she would not be able to afford antiarrhythmic therapy at the time. Thus she was released home for continued conservative medical management. She stated after February 14, 2018, when her insurance changed, she would be able to return to the hospital for another attempt at antiarrhythmic medication initiation monitoring period This she presents back this time for another attempt at antiarrhythmic initiation and medication monitoring. This will be with dofetilide. She has been on anticoagulant therapy. She denies any ongoing chest discomfort. She has had an element of chronic shortness of breath and dyspnea. However there has been no acute orthopnea or PND or worsening peripheral pitting edema. There has been no near syncope or syncope. [] Past Medical History Allergies/Adverse Reactions: Allergies No Known Allergies Allergy (Verified 03/03/18 09:44) Home Medications: Ambulatory Orders Medication Instructions Recorded cholecalciferol (vitamin D3) 1,000 2,000 unit PO BID cap 12/20/17 unit capsule vitamin B complex tablet 1 tab PO BID tab 12/20/17 Folic Acid 0.8 mg PO DAILY@0800 12/27/17 Carvedilol [Coreg (Beta Mikie)] 25 mg PO BID #60 tab 12/28/17 Furosemide [Lasix] 20 mg PO DAILY tab 12/28/17 Potassium Chloride [K-Dur] 20 meq PO DAILYCM #30 tab 12/28/17 lisinopril 20 mg tablet 20 mg PO BID #60 tab 01/19/18 apixaban 5 mg tablet 5 mg PO BID #60 tab 03/03/18 digoxin 125 mcg tablet 125 mcg PO DAILY #30 tab 03/03/18 Past Medical History (Chronic Problems): Chronic Problems (Last Reviewed 01/19/18 @ 10:12 by Nia Ly) 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) New onset atrial fibrillation (Chronic) Obesity (BMI 30-39.9) (Chronic) Cardiomyopathy (Chronic) Valvular heart disease (Chronic) HTN (hypertension) (Chronic) Systolic CHF, acute (Chronic) Surgical History: hysterectomy, tonsillectomy Psychiatric History: No pertinent psych hx 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: No pertinent POLY AREA SUPERVISOR history - *Family History Maternal Family History: Family History (Last Reviewed 01/19/18 @ 10:12 by Nia Ly) Father Cancer Brother Atrial fibrillation History Items: - - Arthritis, joint issues Paternal Family History: Family History (Last Reviewed 01/19/18 @ 10:12 by Nia Ly) Father Cancer Brother Atrial fibrillation History Items: Cancer - Lung, pancreatic Lives: Spouse/ Significant Other Smoking Status: Never smoker Alcohol: None Drugs: None Subjectve: This is a pleasant 67-year-old white female who appears to be resting comfortably at the moment in no acute distress Objective: Vital Signs Temp Pulse Resp BP Pulse Ox 98.3 F 87 16 148/79 H 96 03/14/18 14:29 03/14/18 14:29 03/14/18 14:29 03/14/18 14:29 03/14/18 14:29 Oxygen Delivery Method Room Air Weight: 214 lb 8.156 oz Body Mass Index (BMI) 35.6 Intake and Output for Last 24 Hours 03/12/18 03/13/18 03/14/18 23:59 23:59 23:59 Intake Total 240 / 240 Balance 240 / 240 General: Awake, Alert, Oriented x 3, Cooperative, No Acute Distress HEENT: Atraumatic, Normocephalic, PERRL, EOMI, Sclera Non Icteric Oral: Moist Mucosa Neck: Supple, Good ROM, No JVD Lungs: Clear to auscultation Cardiovascular: Irregular Rhythm, Normal S1, Normal S2 Murmur Murmur: Grade 1/6, Soft, Mid Systolic, LLSB Vascular: No Carotid Bruits Abdomen: Bowel Sounds Present, Soft, Non Tender Extremities: No Cyanosis, No Clubbing, No edema Neurological: No Focal Motor or Sensory Deficit Psych/Mental Status: Appropriate VTE Information - Inpt Only VTE Present on Admission: No VTE Mechan Device Prophylaxis: None VTE Pharm Prophylaxis ordered?: No Reason prophylaxis not ordered:: Medical Contraindication - The patient is already on oral systemic anticoagulant therapy. 03/14/18 09:04: Digoxin 0.94 03/14/18 09:04: WBC 11.7 H, RBC 4.50, Hgb 13.8, Hct 43.0, MCV 95.6, MCH 30.7, MCHC 32.1, RDW 13.9, RDW Differential 48.4 H, Plt Count 225, MPV 9.8 03/14/18 09:04: Sodium 142, Potassium 3.7, Chloride 105, Carbon Dioxide 29.0, Anion Gap 8, BUN 16, Creatinine 1.23 H, Est GFR (MDRD) Af Amer 56 L, Est GFR (MDRD) Non-Af 46 L, BUN/Creatinine Ratio 13.0, Glucose 81, Calcium 8.8, Magnesium 2.2 Rhythm:Atrial fibrillation EKG:Atrial fibrillation; poor R-wave progression ECHO:As noted above Cardiac Cath:As noted above Assessment/Plan 1. Antiarrhythmic medication initiation/monitoring The patient will initiate antiarrhythmic therapy with dofetilide. She will start 250 mcg p.o. b.i.d. She has continued cardiac rhythm monitoring. She will have followup ECG. She will continue her other medications for appropriate rate control and anticoagulant therapy. If over time she does not have spontaneous conversion of sinus rhythm then consideration will be given as to when to attempt a repeat synchronized biphasic DC cardioversion. 2. Atrial fibrillation Again she will continue medical management. She will continue her cardiac rhythm monitoring. 3. Non CAD related cardiomyopathy She appears without acute changes at this time. She will continue medical therapy with adjustment as deemed appropriate. 4. Chronic systolic CHF Again she appears without any acute issues. She will continue medical management was adjustment as needed. 5. Mitral/tricuspid valve regurgitation She will be followed for any significant change based on history, exam, and echocardiographic studies in the future. 6. Hypertension Her blood pressure will be monitored. She will continue medical management. This note was generated using a voice recognition system and there may be incorrect words, spelling or punctuation that were not noted when reviewing the office note prior to saving.
[2018-03-14] MEDS: Carvedilol 25 MG Tablet PO (22:46)
[2018-03-14] MEDS: Lisinopril 20 MG Tablet PO (22:46)
[2018-03-14] MEDS: APIXABAN 5 MG TABLET PO (22:47)
[2018-03-15] VITALS (12 sets, daily range): BP systolic 157–169; BP diastolic 80–105; PULSE 82–102; RESP 16–18; TEMP 36.4–37.1; O2SAT 93–96
--- NOTE | 2018-03-15 01:00 | EKG12_ITS ---
Test Reason : TIKOSYN Blood Pressure : / mmHG Vent. Rate : 096 BPM Atrial Rate : 277 BPM P-R Int : 000 ms QRS Dur : 084 ms QT Int : 372 ms P-R-T Axes : 000 075 022 degrees QTc Int : 469 ms Atrial fibrillation Septal infarct , age undetermined Abnormal ECG When compared with ECG of 14-MAR-2018 13:33, MANUAL COMPARISON REQUIRED, DATA IS UNCONFIRMED Confirmed by MITCHELL ELDRIDGE, EMELYN ([id number]), art editor JESSICA TOVAR ([id number]) on 03/17/2018 3:46:25 PM Referred By: Jed Briscoe Confirmed By:EMELYN MEDRANO MD
[2018-03-15 06:26] LABS: Anion Gap 12 (5-15); BUN 15 mg/dL (7-18); BUN/Creat Ratio 14.4 RATIO (10-20); Calcium,Total 8.6 mg/dL (8.5-10.1); Chloride 105 mmol/L (98-107); Creatinine, Serum 1.04 mg/dL (0.55-1.02); EST Glomerular Filtration Rate 56 mL/min (>60); Est Glom Filt Rate - Afr Amer 68 mL/min (>60); Estimated Creatinine Clearance 47.88 ml/min; Glucose 86 mg/dL (74-106); Potassium 3.4 mmol/L (3.5-5.1); Sodium Level 143 mmol/L (136-145)
[2018-03-15] MEDS: Carvedilol 25 MG Tablet PO ×2 (10:10→21:01)
[2018-03-15] MEDS: APIXABAN 5 MG TABLET PO ×2 (10:10→21:01)
[2018-03-15] MEDS: Folic Acid 1 MG Tablet PO (10:10)
[2018-03-15] MEDS: Dofetilide 250 MCG Capsule PO ×2 (10:11→21:00)
[2018-03-15] MEDS: Digoxin 125 MCG Tablet PO (10:11)
[2018-03-15] MEDS: Furosemide 20 MG Tablet PO (10:11)
[2018-03-15] MEDS: Lisinopril 20 MG Tablet PO ×2 (10:12→21:02)
--- NOTE | 2018-03-15 10:17 | CASEMGMT ---
RN BATOOL CONSTRUCTION PLUMBER CM to room to meet with patient for initial transition planning/care coordination assessment. LUCAS RENAE introduced self and role at [facility]. Pt voices understanding and consents to assessment at this time. Pt resting in bed in no distress at this time. Pt is A/O at this time and answers all questions appropriately. Care providers, pharmacy, and demographics verified at this time. PCP: Cj Arciniega Specialists: Luis Felipe Preferred Pharmacy: [facility] in [place] Insurance: [facility] A only. is going to be looking into getting additional insurance before April of this year. Prescription Benefit: Yes Living Will/HPOA: does not have LW or HCPOA . Interested in more information and instructed to have staff contact SW if she wishes to complete paperwork while here at the hospital. Provided information on advanced directives and given Social Service rac card with number to call if chooses in the future to utilize [facility] social work for advanced directive completion. Educated patient that, if patient so chooses, can come back to [facility] and meet with a SW as an outpatient to complete health care advanced directives. Patient expresses understanding. LNOK: , Daughter. Living Arrangements: Lives with her . Independent. Daughter is living with them temporarily at this time and assists with cleaning. Transportation: Pt states drives self and states no transportation concerns at this time. DME: Denies using any DME and denies needs. HHC/SNF: Has never used HHC or been to a SNF. No needs identified. Pt wishes to return home and states has no concerns with going home at time of discharge. Pt states does not smoke or drink ETOH. CM to follow for any further discharge planning/needs. Pt voices no further concerns/needs at this time. Advised pt to ask for CM if any further questions/concerns/needs arise. Voices understanding. PLAN: Home Alejandra NASCIMENTO RN, CM
--- NOTE | 2018-03-15 12:15 | EKG12_ITS ---
Test Reason : POST TIKOSIN Blood Pressure : / mmHG Vent. Rate : 090 BPM Atrial Rate : 202 BPM P-R Int : 000 ms QRS Dur : 082 ms QT Int : 382 ms P-R-T Axes : 000 083 039 degrees QTc Int : 467 ms Atrial fibrillation Abnormal ECG When compared with ECG of 16-MAR-2018 23:25, MANUAL COMPARISON REQUIRED, DATA IS UNCONFIRMED Confirmed by MITCHELL ELDRIDGE, EMELYN ([id number]), television news video editor JESSICA TOVAR ([id number]) on 03/21/2018 8:59:04 AM Referred By: Jed Briscoe Confirmed By:EMELYN MEDRANO MD
--- NOTE | 2018-03-15 15:35 | PCM.PN.CARD ---
Subjectve: Was awake and alert. She denies any palpitations or rapid rate. There has been no near syncope or syncope. She has had no other concerning chest discomfort or difficulty breathing. Objective: Vital Signs Temp Pulse Resp BP Pulse Ox 98.7 F 82 16 157/80 H 95 03/15/18 14:40 03/15/18 14:40 03/15/18 14:40 03/15/18 14:40 03/15/18 14:40 Oxygen Delivery Method Room Air Weight: 214 lb 8.156 oz Body Mass Index (BMI) 35.6 Intake and Output for Last 24 Hours 03/13/18 03/14/18 03/15/18 23:59 23:59 23:59 Intake Total 600 / 600 120 / 120 Balance 600 / 600 120 / 120 General: Awake, Alert, Oriented x 3, Cooperative, No Acute Distress HEENT: Atraumatic, Normocephalic, PERRL, EOMI, Sclera Non Icteric Oral: Moist Mucosa Neck: Supple, Good ROM, No JVD Lungs: Clear to auscultation Cardiovascular: Irregular Rhythm, Normal S1, Normal S2 Murmur Murmur: Grade 1/6, Soft, Mid Systolic, LLSB Abdomen: Bowel Sounds Present, Soft, Non Tender Extremities: No edema Neurological: No Focal Motor or Sensory Deficit Psych/Mental Status: Appropriate 03/15/18 05:25: Sodium 143, Potassium 3.4 L, Chloride 105, Carbon Dioxide 26.0, Anion Gap 12, BUN 15, Creatinine 1.04 H, Est GFR (MDRD) Af Amer 68, Est GFR (MDRD) Non-Af 56 L, BUN/Creatinine Ratio 14.4, Glucose 86, Calcium 8.6 Rhythm:Atrial fibrillation EKG:Atrial fibrillation; no acute ECG changes Medical Necessity - Tobacco Use Smoking Status: Never smoker Assessment/Plan 1. Antiarrhythmic medication initiation/monitoring The patient appears be doing well thus far on her antiarrhythmic therapy. She has had no obvious adverse side effects or adverse cardiac dysrhythmias or electrocardiographic changes. She will continue her other medications for appropriate rate control and anticoagulant therapy. If over time she does not have spontaneous conversion of sinus rhythm then consideration will be given as to when to attempt a repeat synchronized biphasic DC cardioversion. 2. Atrial fibrillation Again she will continue medical management. She will continue her cardiac rhythm monitoring. 3. Non CAD related cardiomyopathy She appears without acute changes at this time. She will continue medical therapy with adjustment as deemed appropriate. 4. Chronic systolic CHF Again she appears without any acute issues. She will continue medical management was adjustment as needed. 5. Mitral/tricuspid valve regurgitation She will be followed for any significant change based on history, exam, and echocardiographic studies in the future. 6. Hypertension Her blood pressure will be monitored. She will continue medical management. This note was generated using a voice recognition system and there may be incorrect words, spelling or punctuation that were not noted when reviewing the office note prior to saving.
--- NOTE | 2018-03-15 23:00 | EKG12_ITS ---
Test Reason : 2 HOUR Blood Pressure : / mmHG Vent. Rate : 098 BPM Atrial Rate : 052 BPM P-R Int : 000 ms QRS Dur : 080 ms QT Int : 366 ms P-R-T Axes : 000 090 083 degrees QTc Int : 467 ms Atrial fibrillation Rightward axis Septal infarct , age undetermined Abnormal ECG When compared with ECG of 15-MAR-2018 12:21, MANUAL COMPARISON REQUIRED, DATA IS UNCONFIRMED Confirmed by MITCHELL ELDRIDGE, EMELYN ([id number]), city editor JESSICA TOVAR ([id number]) on 03/21/2018 9:03:41 AM Referred By: Jed Briscoe Confirmed By:EMELYN MEDRANO MD
[2018-03-16] VITALS (13 sets, daily range): BP systolic 107–178; BP diastolic 80–110; PULSE 70–104; RESP 14–18; TEMP 36.4–37; O2SAT 93–98
[2018-03-16 06:50] LABS: Anion Gap 12 (5-15); BUN 15 mg/dL (7-18); BUN/Creat Ratio 14.9 RATIO (10-20); Calcium,Total 8.5 mg/dL (8.5-10.1); Chloride 107 mmol/L (98-107); Creatinine, Serum 1.01 mg/dL (0.55-1.02); EST Glomerular Filtration Rate 58 mL/min (>60); Est Glom Filt Rate - Afr Amer 70 mL/min (>60); Glucose 82 mg/dL (74-106); Potassium 3.8 mmol/L (3.5-5.1); Sodium Level 143 mmol/L (136-145)
[2018-03-16] MEDS: Folic Acid 1 MG Tablet PO (09:39)
[2018-03-16] MEDS: Lisinopril 20 MG Tablet PO ×2 (09:39→21:13)
[2018-03-16] MEDS: Carvedilol 25 MG Tablet PO ×2 (09:39→21:13)
[2018-03-16] MEDS: Furosemide 20 MG Tablet PO (09:40)
[2018-03-16] MEDS: APIXABAN 5 MG TABLET PO ×2 (09:40→21:14)
[2018-03-16] MEDS: Dofetilide 250 MCG Capsule PO ×2 (09:40→21:15)
[2018-03-16] MEDS: Digoxin 125 MCG Tablet PO (09:40)
--- NOTE | 2018-03-16 11:45 | EKG12_ITS ---
Test Reason : TIMED AFTER MEDS Blood Pressure : / mmHG Vent. Rate : 092 BPM Atrial Rate : 214 BPM P-R Int : 000 ms QRS Dur : 084 ms QT Int : 396 ms P-R-T Axes : 000 090 077 degrees QTc Int : 489 ms Atrial fibrillation Rightward axis Abnormal ECG When compared with ECG of 16-MAR-2018 11:47, MANUAL COMPARISON REQUIRED, DATA IS UNCONFIRMED Confirmed by MITCHELL ELDRIDGE, EMELYN ([id number]), news editor JESSICA TOVAR ([id number]) on 03/21/2018 9:00:04 AM Referred By: Jed Briscoe Confirmed By:EMELYN MEDRANO MD
--- NOTE | 2018-03-16 19:46 | PN.CARD_ITS ---
Subjectve: The patient states she is doing well. She has had no acute complaints or concerns. Objective: Vital Signs Temp Pulse Resp BP Pulse Ox 97.8 F 94 18 178/110 H 97 03/16/18 19:43 03/16/18 19:43 03/16/18 19:43 03/16/18 19:43 03/16/18 19:43 Oxygen Delivery Method Room Air Weight: 214 lb 8.156 oz Body Mass Index (BMI) 35.6 Intake and Output for Last 24 Hours 03/14/18 03/15/18 03/16/18 23:59 23:59 23:59 Intake Total 600 / 600 120 / 120 120 / 120 Balance 600 / 600 120 / 120 120 / 120 General: Awake, Alert, Oriented x 3, Cooperative, No Acute Distress HEENT: Atraumatic, Normocephalic, PERRL, EOMI, Sclera Non Icteric Oral: Moist Mucosa Neck: Supple, Good ROM, No JVD Lungs: Clear to auscultation Cardiovascular: Irregular Rhythm, Normal S1, Normal S2 Abdomen: Bowel Sounds Present, Soft, Non Tender Extremities: No edema Neurological: No Focal Motor or Sensory Deficit Psych/Mental Status: Appropriate 03/16/18 05:40: Sodium 143, Potassium 3.8, Chloride 107, Carbon Dioxide 24.0, Anion Gap 12, BUN 15, Creatinine 1.01, Est GFR (MDRD) Af Amer 70, Est GFR (MDRD) Non-Af 58 L, BUN/Creatinine Ratio 14.9, Glucose 82, Calcium 8.5 Rhythm:Atrial fibrillation EKG:Atrial fibrillation; no acute ECG changes Medical Necessity - Tobacco Use Smoking Status: Never smoker Assessment/Plan 1. Antiarrhythmic medication initiation/monitoring The patient appears be doing well thus far on her antiarrhythmic therapy. She has had no obvious adverse side effects or adverse cardiac dysrhythmias or chloé ctrocardiographic changes. She will continue her other medications for appropriate rate control and anticoagulant therapy. If over time she does not have spontaneous conversion of sinus rhythm then consideration will be given as to when to attempt a repeat synchronized biphasic DC cardioversion. 2. Atrial fibrillation Again she will continue medical management. She will continue her cardiac rhythm monitoring. 3. Non CAD related cardiomyopathy She appears without acute changes at this time. She will continue medical therapy with adjustment as deemed appropriate. 4. Chronic systolic CHF Again she appears without any acute issues. She will continue medical management was adjustment as needed. 5. Mitral/tricuspid valve regurgitation She will be followed for any significant change based on history, exam, and echocardiographic studies in the future. 6. Hypertension Her blood pressure will be monitored. She will continue medical management. Overall, the patient is doing well tomorrow, consideration will be given for released home for continued outpatient cardiovascular follow up and care. This note was generated using a voice recognition system and there may be incorrect words, spelling or punctuation that were not noted when reviewing the office note prior to saving.
--- NOTE | 2018-03-16 23:15 | EKG12_ITS ---
Test Reason : FOLLOWING MED Blood Pressure : / mmHG Vent. Rate : 095 BPM Atrial Rate : 101 BPM P-R Int : 000 ms QRS Dur : 084 ms QT Int : 374 ms P-R-T Axes : 000 081 029 degrees QTc Int : 469 ms Atrial fibrillation with premature ventricular or aberrantly conducted complexes Septal infarct , age undetermined Abnormal ECG When compared with ECG of 15-MAR-2018 22:50, MANUAL COMPARISON REQUIRED, DATA IS UNCONFIRMED Confirmed by MITCHELL ELDRIDGE, EMELYN ([id number]), publication editor JESSICA TOVAR ([id number]) on 03/21/2018 9:00:54 AM Referred By: Jed Briscoe Confirmed By:EMELYN MEDRANO MD
[2018-03-17] VITALS (8 sets, daily range): BP systolic 143–163; BP diastolic 81–103; PULSE 69–95; RESP 16–18; TEMP 36.6–36.9; O2SAT 94–96
[2018-03-17 05:50] LABS: Anion Gap 12 (5-15); BUN 15 mg/dL (7-18); BUN/Creat Ratio 15.6 RATIO (10-20); Calcium,Total 8.6 mg/dL (8.5-10.1); Chloride 108 mmol/L (98-107); Creatinine, Serum 0.96 mg/dL (0.55-1.02); EST Glomerular Filtration Rate 62 mL/min (>60); Est Glom Filt Rate - Afr Amer 74 mL/min (>60); Estimated Creatinine Clearance 51.87 ml/min; Glucose 85 mg/dL (74-106); Potassium 3.5 mmol/L (3.5-5.1); Sodium Level 144 mmol/L (136-145)
[2018-03-17] MEDS: Folic Acid 1 MG Tablet PO (09:00)
[2018-03-17] MEDS: Dofetilide 250 MCG Capsule PO (09:01)
[2018-03-17] MEDS: Digoxin 125 MCG Tablet PO (09:01)
[2018-03-17] MEDS: Lisinopril 20 MG Tablet PO (09:01)
[2018-03-17] MEDS: Carvedilol 25 MG Tablet PO (09:01)
[2018-03-17] MEDS: Furosemide 20 MG Tablet PO (09:01)
[2018-03-17] MEDS: APIXABAN 5 MG TABLET PO (09:01)
--- NOTE | 2018-03-17 11:13 | DCINST_ITS ---
- Discharge Diagnoses Current Active Problems: Initiation of antiarrhythmic medication and monitoring Reason(s) for Visit for Discharge Instructions: Initiation for antiarrhythmic medication and monitoring You will use the following diet at home:: Cardiac Your food should be the consistency of: Regular Discharge Activity: Return to Normal Activity May resume sexual activity in: No Restrictions Weight Bearing Status: Weight bearing as tolerated Call your doctor if you observe: Dizziness, Fainting spells Additional Instructions: Medication adjustments: Change potassium to 40 mEq p.o. q.day. New medication dofetilide 250 mcg p.o. b.i.d. Outpatient followup laboratory studies and outpatient office followup ECG in approximately 2-4 weeks: To be arranged by the office. Outpatient cardiovascular followup visit in approximately 2-4 weeks: To be arranged by the office Allergies/Adverse Reactions: Allergies No Known Allergies Allergy (Verified 03/03/18 09:44) Medications to take at Discharge cholecalciferol (vitamin D3) 1,000 unit capsule 2,000 unit PO BID cap 12/20/17 vitamin B complex tablet 1 tab PO BID tab 12/20/17 Folic Acid 0.8 mg PO DAILY@0800 12/27/17 Carvedilol [Coreg (Beta Mikie)] 25 mg PO BID #60 tab 12/28/17 Furosemide [Lasix] 20 mg PO DAILY tab 12/28/17 lisinopril 20 mg tablet 20 mg PO BID #60 tab 01/19/18 apixaban 5 mg tablet 5 mg PO BID #60 tab 03/03/18 digoxin 125 mcg tablet 125 mcg PO DAILY #30 tab 03/03/18 Dofetilide [Tikosyn] 250 mcg PO Q12 #60 capsule 03/17/18 Potassium Chloride [K-Dur] 40 meq PO DAILYCM tablet 03/17/18 The following prescriptions were given: RX: Dofetilide [Tikosyn] 250 mcg PO Q12 #60 capsule Primary Care Physician: Cj Arciniega MD [Primary Care Provider] - Test Results: Test results from this visit will be discussed in further detail at your follow- up appointment, if applicable. Please Follow Up With: Jed Briscoe MD When: [facility] to arrange: approximately 2-4 weeks Proposed Discharge Date: 03/17/18
--- NOTE | 2018-03-17 11:14 | PCM.DC.SUM ---
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 Cardiomyopathy with chronic systolic CHF who was brought to the hospital for initiation of antiarrhythmic medication and subsequent monitoring. The patient was placed in the PCU. She has continued cardiac monitoring, laboratory followup, and ECG followup. She was initiated on antiarrhythmic therapy with Dofetilide and at 250 mcg p.o. b.i.d. She had no adverse symptoms/events reported. She remained in atrial fibrillation. Onto 03/05/18, she appear to be symptomatically and hemodynamically stable was felt the patient could be released home for continued outpatient cardiovascular follow up with consideration for future outpatient attempt at synchronized biphasic DC cardioversion to regain sinus rhythm. [] Subjective: The patient is awake and alert and in no acute distress. - Physical Exam General: Alert, Oriented x3, Cooperative, No apparent distress HEENT: Atraumatic, EOMI, Normocephalic Neck: Supple, No JVD Lungs: Clear to auscultation Cardiovascular: Normal S1, Normal S2, Irregular Rate Abdomen: Bowel Sounds Present, Soft, Non Tender Extremities: No edema Neurological: Neuro grossly intact Psych/Mental Status: Normal Affect Vital Signs Temp Pulse Resp BP Pulse Ox 98.5 F 85 16 163/103 H 95 03/17/18 09:00 03/17/18 09:01 03/17/18 09:00 03/17/18 09:01 03/17/18 09:00 Oxygen Delivery Method Room Air Weight: 214 lb 8.156 oz Body Mass Index (BMI) 35.6 Intake and Output for Last 24 Hours 03/15/18 03/16/18 03/17/18 23:59 23:59 23:59 Intake Total 120 / 120 240 / 240 120 / 120 Balance 120 / 120 240 / 240 120 / 120 Laboratory Tests Past 24 Hrs 03/17/18 05:17 Sodium 144 Potassium 3.5 Chloride 108 H Carbon Dioxide 24.0 Anion Gap 12 BUN 15 Creatinine 0.96 Estim Creat Clear Calc 51.87 Est GFR (MDRD) Af Amer 74 Est GFR (MDRD) Non-Af 62 BUN/Creatinine Ratio 15.6 Glucose 85 Calcium 8.6 Discharge Diet: No Restrictions - Cardiac diet Discharge Activity: Return to Normal Activity May resume sexual activity in: No Restrictions Weight Bearing Status: Weight bearing as tolerated Call your doctor if you observe: Dizziness, Fainting spells Home Medications: Medications to take at Discharge cholecalciferol (vitamin D3) 1,000 unit capsule 2,000 unit PO BID cap 12/20/17 vitamin B complex tablet 1 tab PO BID tab 12/20/17 RX: Folic Acid 0.8 mg PO DAILY@0800 12/27/17 RX: Carvedilol [Coreg (Beta Mikie)] 25 mg PO BID #60 tab 12/28/17 RX: Furosemide [Lasix] 20 mg PO DAILY tab 12/28/17 lisinopril 20 mg tablet 20 mg PO BID #60 tab 01/19/18 apixaban 5 mg tablet 5 mg PO BID #60 tab 03/03/18 digoxin 125 mcg tablet 125 mcg PO DAILY #30 tab 03/03/18 RX: Dofetilide [Tikosyn] 250 mcg PO Q12 #60 capsule 03/17/18 RX: Potassium Chloride [K-Dur] 40 meq PO DAILYCM tablet 03/17/18 Following Prescrptions Were Given to Patient: RX: Dofetilide [Tikosyn] 250 mcg PO Q12 #60 capsule Primary Care Physician: Cj Arciniega MD [Primary Care Provider] - Please Follow Up With: Jed Briscoe MD When: [facility] to arrange: approximately 2-4 weeks Disposition: Home Minutes spent on discharge:: 45 Patient Condition:: Stable Medical Necessity - Tobacco Use Smoking Status: Never smoker Meaningful Use Info Meaningful Use Diagnoses (Choose all that apply): None applicable
--- NOTE | 2018-03-17 12:15 | EKG12_ITS ---
Test Reason : ANTI RHYTHMIC THRPY Blood Pressure : / mmHG Vent. Rate : 083 BPM Atrial Rate : 088 BPM P-R Int : 000 ms QRS Dur : 084 ms QT Int : 384 ms P-R-T Axes : 000 081 038 degrees QTc Int : 451 ms Atrial fibrillation Septal infarct , age undetermined Abnormal ECG When compared with ECG of 15-MAR-2018 01:08, MANUAL COMPARISON REQUIRED, DATA IS UNCONFIRMED Confirmed by MITCHELL ELDRIDGE, EMELYN ([id number]), publishing editor JESSICA TOVAR ([id number]) on 03/21/2018 9:04:48 AM Referred By: Jed Briscoe Confirmed By:EMELYN MEDRANO MD
--- NOTE | 2018-03-17 14:27 | CASEMGMT ---
Addendum entered by Riky Nash 03/17/18 15:00: Correction: Pt's co-pay will be $3 for 60 tabs. Original Note: LUCAS RENAE NOTE: Call placed to [facility] for castillo check on Tikosyn. Pharmacist states pt's olb-sk-oojtxl cost will be $164.30 after insurance covers. Call placed to [facility] @ who states pt's xxn-fu-wdqrjd cost is $82.24. Call then placed to [employer] member services @ who confirms pt's yle-xb-gueykx cost is $82.24/60 tabs. Tikosyn is a Tier 4 drug. Tier Reduction initiated and requested it to be expedited. Medication was lowered to a Tier level 1. Pt's co-pay will be $1.50/60 tabs and this castillo is effective for 1 year. Case # [id number]. Pt and made aware. Alejandra NASCIMENTO RN, CM
== END 2018-03-17 15:12 | disposition home or self-care (01) | DRG 309 ==
PROVIDERS: Admitting Provider Internal Medicine Cardiovascular Disease; Family Provider Family Medicine; PCP Family Medicine; Referring Provider Internal Medicine Cardiovascular Disease; Visit Provider Internal Medicine Cardiovascular Disease
DX: I48.91 Unspecified atrial fibrillation (principal); I50.22 Chronic systolic (congestive) heart failure; I11.0 Hypertensive heart disease with heart failure; I08.1 Rheumatic disorders of both mitral and tricuspid valves; I42.9 Cardiomyopathy, unspecified; Z79.899 Other long term (current) drug therapy; Z79.01 Long term (current) use of anticoagulants; E66.9 Obesity, unspecified; Z68.35 Body mass index [BMI] 35.0-35.9, adult
CPT/HCPCS: 36415; 80048; 80162; 83735; 84443; 85027; 93005

== ENCOUNTER → 2018-05-05 10:41 | Outpatient (CLI) | payer SELFPAY ==
[2018-04-14 15:00] VITALS: BMI 35.6
[2018-05-05 11:50] LABS: Anion Gap 7 (5-15); BUN 18 mg/dL (7-18); BUN/Creat Ratio 15.8 RATIO (10-20); Calcium,Total 8.7 mg/dL (8.5-10.1); Chloride 106 mmol/L (98-107); Creatinine, Serum 1.14 mg/dL (0.55-1.02); EST Glomerular Filtration Rate 51 mL/min (>60); Est Glom Filt Rate - Afr Amer 61 mL/min (>60); Glucose 103 mg/dL (74-106); Potassium 4.3 mmol/L (3.5-5.1); Sodium Level 139 mmol/L (136-145)
[2018-05-05 12:07] LABS: Digoxin Level 1.27 ng/mL (0.80-2.00)
== END ==
PROVIDERS: Family Provider Family Medicine; PCP Family Medicine; Referring Provider Internal Medicine Cardiovascular Disease; Visit Provider Internal Medicine Cardiovascular Disease
DX: I48.1 Persistent atrial fibrillation (principal); I42.9 Cardiomyopathy, unspecified
CPT/HCPCS: 36415; 80048; 80162

== ENCOUNTER 2018-05-09 11:08 | Day surgery (SDC) | payer MEDICARE, SELFPAY ==
[2018-04-14 15:00] VITALS: BMI 35.6
[2018-05-08 09:00] VITALS: BMI 35.6
--- NOTE | 2018-05-09 12:50 | PCM.OPRPT ---
Problem List (1) Atrial fibrillation Status: Acute Qualifiers: Atrial fibrillation type: persistent Qualified Code(s): I48.1 - Persistent atrial fibrillation Report of Operation Date of Procedure: 05/09/18 Pre-Operative Diagnosis: Atrial fibrillation Post-Operative Diagnosis: Atrial fibrillation Surgery/Procedure Performed:: Synchronized biphasic DC cardioversion Description of Surgical Findings:: Procedure: Synchronized biphasic DC cardioversion: 200 J x1: Result: Sinus rhythm Type of Anesthesia:: IV Sedation - Per Dr. Steven Avalos of pulmonology/critical care medicine with etomidate 6 mg IV push total Anesthesiologist: Steven Avalos Special Medications: Etomidate 6 mg IV push total Specimen's removed: None Description of Procedure: Procedure: Synchronized biphasic DC cardioversion: 200 J x1: Result: Sinus rhythm - Admit VTE Documentation VTE Present on Admission: No VTE Mechan Device Prophylaxis: None - The patient is on oral systemic coagulation VTE Pharm Prophylaxis ordered?: No Reason prophylaxis not ordered:: Treatment Not Indicated - The patient is on oral systemic anticoagulation
--- NOTE | 2018-05-09 15:13 | PRO.PCM_ITS ---
Problem List (1) Atrial fibrillation Status: Acute Qualifiers: Atrial fibrillation type: persistent Qualified Code(s): I48.1 - Persistent atrial fibrillation (2) Cardiomyopathy Status: Chronic Qualifiers: Cardiomyopathy type: unspecified Qualified Code(s): I42.9 - Cardiomyopathy, unspecified (3) care home (current) use of anticoagulants Status: Chronic (4) Obesity (BMI 30-39.9) Status: Chronic (5) Valvular heart disease Status: Chronic Procedure Report Date of Procedure: 05/09/18 - Conscious sedation CONSCIOUS SEDATION REPORT BRIEF HISTORY OF PRESENT ILLNESS: The patient is a 67-year-old female who presented to [facility] for an elective outpatient cardioversion due to underlying atrial fibrillation. The patient reports no PO intake since midnight. The patient does not have a history of obstructive sleep apnea. The patient reports no history of smoking and COPD. The patient denies any recent constitutional symptoms such as fevers, chills, nausea or vomiting. The patient denies previous anesthetic complications. PHYSICAL EXAMINATION: VITAL SIGNS: Reviewed and were acceptable. GENERAL: The patient is a female, in no apparent distress, speaking in full sentences. HEENT: Normocephalic, atraumatic. Mucous membranes are moist and pink. Good mouth opening noted. Trachea is midline. Good neck mobility. MP IV CHEST: S1, S2 irregularly irregular. No murmurs, rubs or gallops were noted. LUNGS: Clear to auscultation bilaterally without appreciable wheezes, rales or rhonchi. ABDOMEN: Soft, nontender, nondistended. Positive bowel sounds. EXTREMITIES: There is no clubbing, cyanosis or edema. ASA Class: II DESCRIPTION OF PROCEDURE: After confirmation of informed consent, the patient's anesthesia plan was reviewed in detail. Etomidate was chosen. Risks and benefits were reviewed and the patient agreed to proceed. At 12:28 PM, the patient was given 4 mg of etomidate. The patient required a total of 6 mg of etomidate throughout the procedure to achieve appropriate sedation. The patient achieved an appropriate level of sedation and received 1 attempt synchronized cardioversion, at [address] Briscoe at the bedside. This was successful in achieving normal sinus rhythm. The patient was monitored until 12:37 PM, at which time the patient reached their baseline mental status and function. The patient tolerated the procedure well. COMPLICATIONS: None ESTIMATED BLOOD LOSS: None RECOMMENDATIONS: Okay to recover in usual fashion.
== END 2018-05-09 13:37 | disposition home or self-care (01) ==
PROVIDERS: Family Provider Family Medicine; PCP Family Medicine; Referring Provider Internal Medicine Cardiovascular Disease; Visit Provider Internal Medicine Cardiovascular Disease
DX: I48.1 Persistent atrial fibrillation (principal); I42.9 Cardiomyopathy, unspecified; I11.0 Hypertensive heart disease with heart failure; I50.21 Acute systolic (congestive) heart failure; I38 Endocarditis, valve unspecified; E66.9 Obesity, unspecified; Z68.35 Body mass index [BMI] 35.0-35.9, adult; Z79.01 Long term (current) use of anticoagulants; Z79.899 Other long term (current) drug therapy
CPT/HCPCS: 92960; 93005; J7040

== ENCOUNTER → 2018-10-12 13:40 | Outpatient (CLI) | payer MEDICARE, OTHER, SELFPAY ==
[2018-09-25 13:35] VITALS: BMI 35.4
--- NOTE | 2018-10-12 13:42 | ECHOD_ITS ---
Reason For Study: Cardiomyopathy Procedure This was a 2D Doppler, Color Flow transthoracic echocardiogram. The exam was of adequate technical quality. Exam performed in department. Left Ventricle Normal LV size. Apical false tendon noted. Mild global left ventricular systolic dysfunction. The estimated ejection fraction is 45 %. There is evidence of diastolic dysfunction. Right Ventricle Normal RV size. Normal systolic function. Atria The left atrium is severely enlarged. The right atrium is mildly enlarged. No doppler evidence for ASD. Mitral Valve There is moderate to severe mitral annular calcification. Extension of the mitral annular calcification onto the posterior mitral valve leaflets. Trivial mitral valve insufficiency. Tricuspid Valve Normal tricuspid valve. Trivial tricuspid valve insufficiency. Right ventricular systolic pressure estimated to be 31 mmHg. Aortic Valve Trisinus/trileaflet aortic valve. Normal aortic valve. Mild (1+) aortic valve insufficiency. Pulmonic Valve The pulmonic valve is not well visualized. Trivial pulmonic valve insufficiency. Great Vessels Normal sized aortic root. Pericardium/Pleural No pericardial effusion. MMode/2D Measurements & Calculations LVIDd: 4.7 cm IVSd: 1.5 cm Ao root diam: 3.0 cm LVIDs: 3.0 cm LVPWd: 1.1 cm RVDd: 3.0 cm FS: 37.1 % LAV(MOD-bp): 68.7 ml EDV(MOD-sp4): 86.0 ml EDV(MOD-sp2): 82.0 ml LAV(MOD-bp) Indexed: 34.0 ml/m2 ESV(MOD-sp4): 46.6 ml EF(MOD-sp2): 53.5 % LAV(MOD-sp2): 65.2 ml EF(MOD-sp4): 45.9 % LAV(MOD-sp4): 68.2 ml SV(MOD-sp4): 39.5 ml SV(MOD-sp2): 43.9 ml LA A4 area: 22.3 cm2 LA dimension(2D): 4.3 cm RA A4 area: 18.3 cm2 Doppler Measurements & Calculations MV E max patrick: 62.7 cm/sec Lat Peak E' Patrick: 2.6 cm/sec Med Peak E' Patrick: 2.8 cm/sec MV A max patrick: 110.6 cm/sec E/E' lat: 24.2 E/E' med: 22.0 MV E/A: 0.57 Ao V2 max: 163.8 cm/sec AI max patrick: 503.9 cm/sec LV V1 max: 109.6 cm/sec Ao max P.7 mmHg AI max P.6 mmHg LV V1 max P.8 mmHg AI dec slope: 284.3 cm/sec2 AI P1/2t: 519.2 msec PA V2 max: 95.2 cm/sec TR max patrick: 259.8 cm/sec TR max P.5 mmHg Interpretation Summary Mild global left ventricular systolic dysfunction. The estimated ejection fraction is 45 %. Apical false tendon noted. The left atrium is severely enlarged. The right atrium is mildly enlarged. There is moderate to severe mitral annular calcification. Extension of the mitral annular calcification onto the posterior mitral valve leaflets. Trivial mitral valve insufficiency. Trivial tricuspid valve insufficiency. Mild (1+) aortic valve insufficiency. Trivial pulmonic valve insufficiency. Right ventricular systolic pressure estimated to be 31 mmHg. There is evidence of diastolic dysfunction. Ordering Physician: Junior Trujillo/Jed Briscoe Referring Physician: Cj Arciniega MD Performed By: Janette England RDCS
== END ==
PROVIDERS: Family Provider Family Medicine; PCP Family Medicine; Referring Provider Nurse Practitioner Family; Visit Provider Nurse Practitioner Family
DX: I42.9 Cardiomyopathy, unspecified (principal); I38 Endocarditis, valve unspecified; I10 Essential (primary) hypertension; R06.02 Shortness of breath
CPT/HCPCS: 93306

== ENCOUNTER → 2018-12-12 18:12 | Outpatient (CLI) | payer MEDICARE, OTHER, SELFPAY ==
[2018-09-25 13:35] VITALS: BMI 35.4
[2018-12-17 09:12] LABS: HPV Reflexed? NOT INDICATED
== END ==
PROVIDERS: Family Provider Family Medicine; PCP Family Medicine; Referring Provider Nurse Practitioner Adult Health; Visit Provider Nurse Practitioner Adult Health
DX: Z12.4 Encounter for screening for malignant neoplasm of cervix (principal); C53.9 Malignant neoplasm of cervix uteri, unspecified
CPT/HCPCS: 88175; G0145

== ENCOUNTER → 2018-12-13 10:12 | Outpatient (CLI) | payer MEDICARE, OTHER, SELFPAY ==
[2018-09-25 13:35] VITALS: BMI 35.4
--- NOTE | 2018-12-13 10:18 | BI_ITS ---
MAMMOGRAPHY - BILATERAL SCREENING REASON FOR EXAM: Female, 68 years old. Routine annual screening examination. PERTINENT HISTORY: Non-contributory. TECHNIQUE: Digital bilateral breast altagracia (3D mammographic acquisition) in the CC and MLO projections. 2-D mediolateral oblique (MLO) and craniocaudad (CC) views of both breasts were obtained. CAD: Full Field Digital Mammography with Computer Added Detection was performed. COMPARISON: No comparison mammograms available at this time. If any prior films become available, an addendum to this report can be generated. FINDINGS: Breast Composition: The breasts are almost entirely fatty. There are no dominant masses or suspicious calcifications. No other significant abnormalities are identified. BI/SCREEN MAMM (CAD) W/ALTAGRACIA BILAT IMPRESSION: Negative screening mammogram. Yearly followup mammogram recommended. (A) ASSESSMENT CATEGORY: BIRADS Category 1: Negative. A letter regarding these results will be sent to the patient by the facility within 30 days. Approximately 10% of breast cancers are not detected by mammography. A normal mammogram should not delay biopsy of a clinically suspicious abnormality. [id number] Electronically Signed: Arnulfo Rebolledo, at 14:10 EDT , Service support ,
--- NOTE | 2018-12-13 10:20 | BD_ITS ---
STUDY: DUAL ENERGY X-RAY ABSORPTIOMETRY / DXA REASON FOR EXAM: Female, 68 years old. Early menopause. Loss of height. TECHNIQUE: Bone Mineral Density (BMD) measurements of lumbar spine and bilateral hips were obtained. COMPARISON: None. FINDINGS: Lumbar Spine (L1-L4): g/cm2 (1.068) / T-score (-0.9) / Z-score (0.7) Findings are suggestive of normal bone density with a low fracture risk. Left Femur Total: g/cm2 (0.927) / T-score (-0.6) / Z-score (0.7) Left Femoral Neck: g/cm2 (0.890) / T-score (-1.1) / Z-score (0.5) Right Femur Total: g/cm2 (0.923) / T-score (-0.7) / Z-score (0.6) Right Femoral Neck: g/cm2 (0.834) / T-score (-1.5) / Z-score (0.1) BD/Dexa Bone Density Study IMPRESSION: The patient is considered osteopenic as outlined below according to World Frank Organization (WHO) criteria with a moderate fracture risk. Reference Information: The T-score is the number of standard deviations above or below the standard which is normal for young adults at their peak bone mineral density. The World Health Organization (WHO) interprets the T-scores as follows: Above -1 Normal bone density Between -1 and -2.5 Osteopenia Equal to / or below -2.5 Osteoporosis As a practical clinical guideline, osteopenia may be graded as follows: Mild -1 through -1.5 Moderate -1.6 through -2.0 Severe -2.1 through -2.4 The Z-score is the number of standard deviations above or below age-matched controls. A Z-score of less than -1.5 would be considered abnormal. References: 1. NIH Osteoporosis and Related Bone Diseases http://www.osteo.org 2. International Society for Clinical Densitometry http://www.iscd.org 3. National Osteoporosis Foundation http://www.nof.org Electronically Signed: Arnulfo Rebolledo, at 15:04 EDT , Service support ,
== END ==
PROVIDERS: Family Provider Family Medicine; PCP Family Medicine; Referring Provider Nurse Practitioner Adult Health; Visit Provider Nurse Practitioner Adult Health
DX: Z78.0 Asymptomatic menopausal state (principal); Z12.31 Encounter for screening mammogram for malignant neoplasm of breast
CPT/HCPCS: 77063; 77067; 77080

== ENCOUNTER → 2018-12-15 12:28 | Outpatient (CLI) | payer MEDICARE, OTHER, SELFPAY ==
[2018-09-25 13:35] VITALS: BMI 35.4
[2018-12-15 11:21] VITALS: BMI 35.4
[2018-12-15 13:00] LABS: Absolute Lymphocyte Count 3.41 X10^3/uL (0.83-4.51); Absolute Neutrophil Count 10.9 X10^3/uL (2.0-7.7); Basophil% 0.6 % (0-1); Eosinophil# 0.11 X10^3/uL; Eosinophils% 0.7 % (0-5); Hematocrit 42.7 % (37-47); Hemoglobin 14.3 g/dL (12.0-15.0); Lymphocyte # 3.41 X10^3/ul (4.0); Lymphocyte % 21.8 % (19-41); Mean Corp Hgb Conc 33.5 g/dL (32-36); Mean Corpuscular Hgb 30.9 pg (27.0-32.0); Mean Corpuscular Volume 92.2 fL (81-99); Mean Platelet Vol. 9.8 fl (6.2-12.0); Monocyte# 0.99 X10^3/uL; Monocyte% 6.3 % (0-10); NRBC Flagged by Analyzer 0 % (0-5); Neutrophil # 10.91 X10^3/uL (2.7-7.7); Platelet Count 258 K/mm3 (150-450); RBC Distribution Width CV 13.7 % (11.6-14.6); RBC Distribution Width SD 46.1 fl (35.1-43.9); Red Blood Count 4.63 M/mm3 (4.2-5.4); White Blood Count 15.6 K/mm3 (4.4-11.0)
[2018-12-15 13:10] LABS: Anion Gap 8 (5-15); BUN 24 mg/dL (7-18); BUN/Creat Ratio 18.6 RATIO (10-20); Calcium,Total 9.4 mg/dL (8.5-10.1); Chloride 107 mmol/L (98-107); Creatinine, Serum 1.29 mg/dL (0.55-1.02); EST Glomerular Filtration Rate 44 mL/min (>60); Est Glom Filt Rate - Afr Amer 53 mL/min (>60); Glucose 94 mg/dL (74-106); Potassium 4.4 mmol/L (3.5-5.1); Sodium Level 139 mmol/L (136-145)
== END ==
PROVIDERS: Family Provider Family Medicine; PCP Family Medicine; Referring Provider Nurse Practitioner Family; Visit Provider Nurse Practitioner Family
DX: R55 Syncope and collapse (principal); I42.9 Cardiomyopathy, unspecified; I48.91 Unspecified atrial fibrillation
CPT/HCPCS: 36415; 80048; 85025; 93225; 93226

== ENCOUNTER → 2018-12-18 12:54 | Outpatient (CLI) | payer MEDICARE, OTHER, SELFPAY ==
[2018-12-15 11:21] VITALS: BMI 35.4
== END ==
PROVIDERS: Nurse Practitioner Family; Family Provider Family Medicine; PCP Family Medicine; Referring Provider Internal Medicine Cardiovascular Disease; Visit Provider Internal Medicine Cardiovascular Disease
DX: Z51.81 Encounter for therapeutic drug level monitoring (principal); I48.91 Unspecified atrial fibrillation; Z79.899 Other long term (current) drug therapy
CPT/HCPCS: 36415; 80162

== ENCOUNTER 2018-12-27 08:54 | Emergency (ER) | payer MEDICARE, OTHER, SELFPAY ==
[2018-12-15 11:21] VITALS: BMI 35.4
[2018-12-27 08:55] VITALS: BP 141/73; PULSE 105; RESP 17; TEMP 36.3; O2SAT 97; BMI 36.2
--- NOTE | 2018-12-27 09:04 | CT_ITS ---
STUDY: CT ABDOMEN AND PELVIS WITHOUT CONTRAST REASON FOR EXAM: Female, 68 years old. Right flank pain with nausea and vomiting. The patient has a history of prior hysterectomy for cervical carcinoma. RADIATION DOSAGE (If Supplied By Facility): CTDIvol = ( 15.01 ) mGy, DLP = ( 738.75 ) mGycm TECHNIQUE: Transaxial images were obtained from the dome of the diaphragm to the symphysis pubis without oral contrast, and without intravenous contrast. Sagittal and coronal images were reconstructed. Individualized dose optimization techniques were used for this CT. COMPARISON: None. FINDINGS: Minimal increased markings at the lung bases suggestive of atelectasis. Coronary artery calcification. There is decreased attenuation of the liver consistent with steatosis. Normal gallbladder and extrahepatic biliary system. Normal spleen. Normal pancreas. Normal bilateral adrenal glands. Tiny intrarenal calculi are seen in the mid and upper portion of the right kidney. There is evidence of a 1 cm calculus in the mid inferior pole kinks of the right kidney. There is a mild degree of right hydronephrosis due to a 7.8 mm calculus at the right ureteral pelvic junction. There is a 1.2 cm x 1 cm calculus in the upper pole calyx of the left kidney. There is a small hiatal hernia. Normal small intestine. There are scattered colonic diverticula consistent with diverticulosis. The appendix is visualized and appears normal. There is diffuse atherosclerotic calcification of the abdominal aorta, without a demonstrated aneurysm. Normal inferior vena cava. There is borderline retroperitoneal lymphadenopathy with enlarged nodes no greater than 10mm in the short axis diameter. Normal urinary bladder. There is absence of the uterus consistent with a prior hysterectomy. Small benign-appearing bilateral inguinal lymph nodes. Normal abdominal wall. There are mild degenerative changes of the visualized lumbar spine. CT/Abdomen/Pelvis without Cont IMPRESSION: Bilateral intrarenal calculi. 7.8 mm calculus at the right ureteropelvic junction causing mild degree of right hydronephrosis and right hydroureter. Fatty infiltration of the liver. Scattered sigmoid diverticula. Electronically Signed: Arnulfo Rebolledo, at 10:12 EST , Service support ,
--- NOTE | 2018-12-27 09:05 | ED.VIS.GEN ---
History of Present Illness Chief Complaint: Flank Pain Detail of Chief Complaint: Right flank pain Informant: Patient Onset: Today Context: Sudden Onset Timing: Waxes and wanes Current Severity: Moderate Maximum Severity: Severe Narrative: Patient presents with right flank pain that started at 330 this morning. She had nausea and vomiting with it as well. It does feel similar to her prior kidney stones. She has never required surgery for kidney stones in the past. Past Medical History - Allergies and Home Meds Allergies/Adverse Reactions: Allergies No Known Allergies Allergy (Verified 12/27/18 08:54) Primary Care Physician: Cj Arciniega MD [Primary Care Provider] - Prior records reviewed: Yes Past Medical History: - - A. fib, hypertension, CHF, cardiomyopathy, kidney stones Surgical History: hysterectomy, tonsillectomy Lives: Spouse/ Significant Other Smoking Status: Never smoker - Family History Maternal Family History: Family History (Last Reviewed 06/20/18 @ 14:08 by Liana Acevedo) Father Cancer Brother Atrial fibrillation Family History: Reports: - - Arthritis, joint issues Paternal Family History: Family History (Last Reviewed 06/20/18 @ 14:08 by Liana Acevedo) Father Cancer Brother Atrial fibrillation Family History: Reports: Cancer - Lung, pancreatic Review of Systems General: Denies: Chills, Fever Eyes: Denies: Visual changes - bilaterally ENT: Denies: Bilateral ear pain Cardiovascular: Denies: Chest pain Respiratory: Denies: Dyspnea, Cough Gastrointestinal: Reports: Abdominal pain, Nausea, Vomiting. Denies: Diarrhea Genitourinary: Denies: Dysuria Musculoskeletal: Reports: Back pain - Right flank Skin: Denies: Rash Neurological: Denies: Headache Hematologic: Denies: Easy bruising Allergy: Denies: Uticaria Physical Exam Vital Signs/Narrative: Vital Signs Temp Pulse Resp BP Pulse Ox 12/27/18 08:55 97.4 F L 105 H 17 141/73 H 97 Inital Vital Signs reviewed: Yes General: Well nourished, Well developed Head: Normocephalic ENT: Moist mucous membranes Neck: Supple Cardiovascular: Irregular Respiratory: No distress, CTA bilaterally Abdomen: Soft, Tender - Right upper quadrant tenderness to palpation.. Negative for: Guarding, Rebound tenderness Back: CVA tenderness - Right Extremities: Nontender Skin: Normal color Neurological: Alert, Oriented x3 Psychological: Normal affect Diagnostic/Tx/Re-eval Impressions Abdomen/Pelvis CT 12/27/18 09:04 IMPRESSION: Bilateral intrarenal calculi. 7.8 mm calculus at the right ureteropelvic junction causing mild degree of right hydronephrosis and right hydroureter. Fatty infiltration of the liver. Scattered sigmoid diverticula. Electronically Signed: Arnulfo Rebolledo, at 10:12 EST , Service support , 12/27/18 09:04 Abdomen/Pelvis without Cont [CT] Stat Laboratory Results 12/27/18 12/27/18 12/27/18 08:50 09:25 09:25 WBC 22.6 H RBC 4.66 Hgb 14.3 Hct 42.5 MCV 91.2 MCH 30.7 MCHC 33.6 RDW Std Deviation 45.2 H RDW Coeff of Marleny 13.5 Plt Count 234 MPV 10.1 Immature Gran % (Auto) 0.500 Neut % (Auto) 86.8 H Lymph % (Auto) 7.3 L [place] % (Auto) 5.0 Eos % (Auto) 0.1 Baso % (Auto) 0.3 Absolute Neuts (auto) 19.6 H Absolute Lymphs (auto) 1.65 Nucleated RBC % 0 Sodium 140 Potassium 4.1 Chloride 103 Carbon Dioxide 27.0 Anion Gap 10 BUN 18 Creatinine 1.53 H Estim Creat Clear Calc 30.81 Est GFR (MDRD) Af Amer 44 L Est GFR (MDRD) Non-Af 36 L BUN/Creatinine Ratio 11.8 Glucose 131 H Calcium 9.3 Total Bilirubin 1.00 AST 22 ALT 35 Alkaline Phosphatase 93 Total Protein 8.4 H Albumin 4.0 Globulin 4.4 H Albumin/Globulin Ratio 0.9 Urine Color Yellow Urine Clarity Clear Urine pH 7.0 Ur Specific [place] 1.010 Urine Protein Negative Urine Glucose (UA) Normal Urine Ketones Negative Urine Occult Blood Negative Urine Nitrite Negative Urine Bilirubin Negative Urine Urobilinogen Normal Ur Leukocyte Esterase Negative Urine RBC 0-5 SEEN Urine WBC 0 SEEN Ur Squamous Epith Cells 0-5 SEEN Urine Bacteria RARE Urine Mucus 0 SEEN - Medical Decision Making Patient was given morphine, Zofran, and 15 milligrams of Toradol on arrival along with IV fluids. On repeat evaluation pain is improved. I discussed her test results with her. I am concerned with the size and location of her current stone and being able to pass this. I spoke with Dr. Andrews and he reviewed the patient's CAT scan. He states that as long as the patient's pain is under control she can be discharged and he will see her in the office tomorrow and discuss treatment options with her. Patient will be discharged with Zofran and Percocet. She is to call Dr. Andrews's office tomorrow morning. ED Disposition - Plan for ED Patient: Disposition: Home or Assisted Living Diagnosis: Kidney stone on right side Instructions: KIDNEY STONE w/ Colic Prescriptions: Oxycodone HCl/Acetaminophen [Percocet 5/325] 1 tablet PO Q6H PRN PRN 3 Days #12 tablet PRN Reason: Pain Ondansetron [Zofran Odt] 4 mg PO Q8H PRN PRN #10 tablet PRN Reason: Nausea Referrals: Elver Andrews MD [STAFF PHYSICIAN] - 1 Day
[2018-12-27 09:13] LABS: Mucous, Urine 0 SEEN /hpf (<or=2+); White Blood Cells 0 SEEN /hpf (0-5)
[2018-12-27] MEDS: 0.9% Normal Saline 1,000 ML 150 ML IV (09:25)
[2018-12-27] MEDS: Ondansetron 4 MG/2 ML Vial IV (09:26)
[2018-12-27] MEDS: Ketorolac 15 MG/ML Vial IV (09:26)
[2018-12-27] MEDS: Morphine 4 MG/ML Syringe IV (09:29)
[2018-12-27 09:35] LABS: Glucose, Dipstick Normal (Normal); Ketone-Dipstick Negative (Negative); Leukocyte Esterase-Dipstick Negative /ul (Negative); Nitrite-Dipstick Negative (Negative); Occult Blood-Urine Negative /ul (Negative); Protein-Dipstick Negative (Negative); Urine Bilirubin Dipstick Negative (Negative); Urine Urobilinogen Normal (Normal)
[2018-12-27 09:36] LABS: Color, Urine Yellow (Yellow); Urine Clarity Clear (Clear)
[2018-12-27 09:40] LABS: Absolute Lymphocyte Count 1.65 X10^3/uL (0.83-4.51); Absolute Neutrophil Count 19.6 X10^3/uL (2.0-7.7); Basophil# 0.07 X10^3/uL; Basophil% 0.3 % (0-1); Eosinophil# 0.03 X10^3/uL; Eosinophils% 0.1 % (0-5); Hematocrit 42.5 % (37-47); Hemoglobin 14.3 g/dL (12.0-15.0); Lymphocyte # 1.65 X10^3/ul (4.0); Lymphocyte % 7.3 % (19-41); Mean Corp Hgb Conc 33.6 g/dL (32-36); Mean Corpuscular Hgb 30.7 pg (27.0-32.0); Mean Corpuscular Volume 91.2 fL (81-99); Mean Platelet Vol. 10.1 fl (6.2-12.0); Monocyte# 1.14 X10^3/uL; NRBC Flagged by Analyzer 0 % (0-5); Neutrophil # 19.57 X10^3/uL (2.7-7.7); Neutrophil % 86.8 % (47-70); Platelet Count 234 K/mm3 (150-450); RBC Distribution Width CV 13.5 % (11.6-14.6); RBC Distribution Width SD 45.2 fl (35.1-43.9); Red Blood Count 4.66 M/mm3 (4.2-5.4); White Blood Count 22.6 K/mm3 (4.4-11.0)
[2018-12-27 09:45] LABS: Bacteria RARE /hpf (None Seen); Squamous Epithelial Cells - UA 0-5 SEEN /hpf (5-10)
[2018-12-27 09:46] LABS: Red Blood Cells-Urine 0-5 SEEN /hpf (0-5)
[2018-12-27 09:52] LABS: ALB/GLOB Ratio 0.9 RATIO (0.9-2.4); AST(SGOT) 22 U/L (15-37); Alanine Aminotransfer ALT/SGPT 35 U/L (13-56); Alkaline Phosphatase 93 U/L (45-117); Anion Gap 10 (5-15); BUN 18 mg/dL (7-18); BUN/Creat Ratio 11.8 RATIO (10-20); Calcium,Total 9.3 mg/dL (8.5-10.1); Chloride 103 mmol/L (98-107); Creatinine, Serum 1.53 mg/dL (0.55-1.02); EST Glomerular Filtration Rate 36 mL/min (>60); Est Glom Filt Rate - Afr Amer 44 mL/min (>60); Estimated Creatinine Clearance 30.81 ml/min; Globulin 4.4 g/dL (2.2-4.2); Glucose 131 mg/dL (74-106); Potassium 4.1 mmol/L (3.5-5.1); Protein, Total 8.4 g/dL (6.4-8.2); Sodium Level 140 mmol/L (136-145)
--- NOTE | 2018-12-27 11:22 | NURSING ---
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
[2018-12-27 11:28] VITALS: RESP 16; O2SAT 97
--- NOTE | 2018-12-27 11:38 | NURSING ---
[id number] [employer] CALLED TO SAY DR SHABAZZ IS IN A LONG SURGERY UNTIL ABOUT 1230. DR DELATORRE AWARE
== END 2018-12-27 12:56 | disposition home or self-care (01) ==
PROVIDERS: Emergency Provider Emergency Medicine; Family Provider Family Medicine; PCP Family Medicine; Referring Provider Internal Medicine Cardiovascular Disease
DX: N13.2 Hydronephrosis with renal and ureteral calculous obstruction (principal); K57.30 Diverticulosis of large intestine without perforation or abscess without bleeding; K76.0 Fatty (change of) liver, not elsewhere classified; I48.91 Unspecified atrial fibrillation; I11.0 Hypertensive heart disease with heart failure; I50.9 Heart failure, unspecified; I42.9 Cardiomyopathy, unspecified; Z87.442 Personal history of urinary calculi; Z79.01 Long term (current) use of anticoagulants; Z79.899 Other long term (current) drug therapy
CPT/HCPCS: 74176; 80053; 81001; 85025; 96361; 96374; 96375; 99285; J7030; A4216; J2405

== ENCOUNTER 2018-12-29 13:11 | Day surgery (SDC) | payer MEDICARE, OTHER, SELFPAY ==
[2018-12-29 13:32] VITALS: BP 153/58; PULSE 73; RESP 18; TEMP 36.6; O2SAT 98; BMI 36.7
[2018-12-29] MEDS: Lactated Ringers 1,000 ML 100 ML IV (13:39)
[2018-12-29] MEDS: Cefazolin 2 GM in 0.9% Normal Saline 100 ML IV (16:06)
--- NOTE | 2018-12-29 16:12 | DCINST_ITS ---
Discharge Diet: Light diet - advance as tolerated Discharge Activity: Return to Normal Activity Call your doctor if your incision/area has: Sudden Increased Bleeding Call your doctor if you observe: Fever of 101 or Higher Allergies/Adverse Reactions: Allergies No Known Allergies Allergy (Verified 12/29/18 13:25) Medications to take at Discharge cholecalciferol (vitamin D3) 1,000 unit capsule 2,000 unit PO BID cap 12/20/17 vitamin B complex tablet 1 tab PO BID tab 12/20/17 Folic Acid 0.8 mg PO DAILY@0800 12/27/17 Furosemide [Lasix] 20 mg PO DAILY tab 12/28/17 apixaban 5 mg tablet 5 mg PO BID #60 tab 03/03/18 carvedilol 25 mg tablet 25 mg PO BID #60 tab 07/28/18 lisinopril 20 mg tablet 20 mg PO BID #180 tab 08/30/18 digoxin 125 mcg (0.125 mg) tablet 125 mcg PO DAILY #30 tab 09/25/18 potassium chloride ER 20 mEq tablet,extended release 20 meq PO DAILY tab 09/25/18 dofetilide 250 mcg capsule 250 mcg PO Q12 #60 cap 10/10/18 amlodipine 2.5 mg tablet 2.5 mg PO DAILY #30 tab 10/31/18 Ondansetron [Zofran Odt] 4 mg PO Q8H PRN PRN #10 tab 12/27/18 Oxycodone HCl/Acetaminophen [Percocet 5/325] 1 tab PO Q6H PRN PRN 3 Days #12 tab 12/27/18 Lutein 20 mg PO DAILY 12/28/18 Primary Care Physician: Cj Arciniega MD [Primary Care Provider] - Test Results: Test results from this visit will be discussed in further detail at your follow- up appointment, if applicable. Please Follow Up With: Elver Andrews MD When: please call
[2018-12-29] MEDS: Lidocaine Jelly 2% 20 ML Syringe (URO-JET) 20 APPLIC (16:17)
--- NOTE | 2018-12-29 16:26 | PCM.OPRPT ---
Report of Operation Date of Procedure: 12/29/18 Pre-Operative Diagnosis: Right obstructed renal and ureteral calculi Post-Operative Diagnosis: The same Surgery/Procedure Performed:: Cystoscopy, right retrograde pyelogram interpretation fluoroscopic images, right stent placement Description of Surgical Findings:: 68-year-old female taken back to the operating room and smooth induction of general anesthesia she was placed in dorsolithotomy position went into the bladder with a 21 [place] Citizen rigid cystourethroscope the entire bladder was normal trigone was normal urethra was normal identified the right ureteral orifice advanced a wire up into the kidney initially the wire hit the stone then manipulated the wire past the stone then advance a Pollack catheter performed a retrograde pyelogram was able to displace the stone back up into the kidney after manipulating the stone back up in the kidney then did a retrograde pyelogram and looked at the fluoroscopic images with the wire in place and then over the wire I advanced a 6 [place] Citizen by 24 cm stent but the string of the stent locatable short also will get extracted by accident and then the patient's bladder was drained and the patient acetic reversed and we plan to have her get cardiac clearance and then will proceed with shockwave lithotripsy of the stones in the right kidney. Type of Anesthesia:: General Drains: stent on right - Admit VTE Documentation VTE Present on Admission: No VTE Mechan Device Prophylaxis: SCD's
[2018-12-29 16:34] VITALS: BP 134/67; BP 153/58; PULSE 74; RESP 16; TEMP 37.3; O2SAT 93
[2018-12-29 16:35] VITALS: BP 140/67; BP 153/58; PULSE 73; RESP 16; O2SAT 93
[2018-12-29 16:45] VITALS: BP 142/67; BP 153/58; PULSE 74; RESP 16; O2SAT 93
[2018-12-29 16:50] VITALS: BP 138/70; BP 153/58; PULSE 72; RESP 16; TEMP 37.3; O2SAT 93
[2018-12-29 17:10] VITALS: BP 153/58
== END 2018-12-29 18:00 | disposition home or self-care (01) ==
LOC: SDC 13:11 → AC 13:13
PROVIDERS: Family Provider Family Medicine; PCP Family Medicine; Referring Provider Urology; Visit Provider Urology
PROC: (CPT 50575; principal; 2018-12-29 15:10)
DX: N20.2 Calculus of kidney with calculus of ureter (principal); I11.0 Hypertensive heart disease with heart failure; I50.814 Right heart failure due to left heart failure; I48.91 Unspecified atrial fibrillation; C53.9 Malignant neoplasm of cervix uteri, unspecified; R35.0 Frequency of micturition; R35.1 Nocturia; R39.12 Poor urinary stream; Z87.442 Personal history of urinary calculi; Z79.01 Long term (current) use of anticoagulants; Z79.899 Other long term (current) drug therapy
CPT/HCPCS: 00910; 52332; 76000; J7120; C1769; C2617; J2405

== ENCOUNTER 2019-01-05 09:54 | Day surgery (SDC) | payer MEDICARE, OTHER, SELFPAY ==
[2019-01-05 10:18] VITALS: BP 171/77; PULSE 71; RESP 16; TEMP 36.7; O2SAT 97; BMI 36.4
[2019-01-05] MEDS: Lactated Ringers 1,000 ML 100 ML IV (10:31)
--- NOTE | 2019-01-05 11:57 | DCINST_ITS ---
- Discharge Diagnoses Current Active Problems: Right kidney stones Reason(s) for Visit for Discharge Instructions: Shockwave lithotripsy of the right kidney stones You will use the following diet at home:: No restrictions, Regular Your food should be the consistency of: Regular Discharge Activity: Return to Normal Activity Allergies/Adverse Reactions: Allergies No Known Allergies Allergy (Verified 01/03/19 08:33) Medications to take at Discharge cholecalciferol (vitamin D3) 1,000 unit capsule 2,000 unit PO BID cap 12/20/17 vitamin B complex tablet 1 tab PO BID tab 12/20/17 Folic Acid 0.8 mg PO DAILY@0800 12/27/17 Furosemide [Lasix] 20 mg PO DAILY tab 12/28/17 apixaban 5 mg tablet 5 mg PO BID #60 tab 03/03/18 carvedilol 25 mg tablet 25 mg PO BID #60 tab 07/28/18 lisinopril 20 mg tablet 20 mg PO BID #180 tab 08/30/18 digoxin 125 mcg (0.125 mg) tablet 125 mcg PO DAILY #30 tab 09/25/18 potassium chloride ER 20 mEq tablet,extended release 20 meq PO DAILY tab 09/25/18 dofetilide 250 mcg capsule 250 mcg PO Q12 #60 cap 10/10/18 amlodipine 2.5 mg tablet 2.5 mg PO DAILY #30 tab 10/31/18 Lutein 20 mg PO DAILY 12/28/18 Calcium Carbonate/Vitamin D3 [Calcium 500-Vit D3 200 Tablet] 1 ea PO BID 01/03/19 Cyanocobalamin (Vitamin B-12) [Vitamin B12] 2,500 mcg PO DAILY 01/03/19 Primary Care Physician: Cj Arciniega MD [Primary Care Provider] - Test Results: Test results from this visit will be discussed in further detail at your follow- up appointment, if applicable. Please Follow Up With: Elver Andrews MD When: 10 days with an x-ray
[2019-01-05] MEDS: Cefazolin 2 GM in 0.9% Normal Saline 100 ML IV (12:05)
--- NOTE | 2019-01-05 12:53 | PCM.OPRPT ---
Report of Operation Date of Procedure: 01/05/19 Pre-Operative Diagnosis: Right kidney stone status post stent Post-Operative Diagnosis: Same Surgery/Procedure Performed:: Right shockwave lithotripsy Description of Surgical Findings:: 68-year-old female who underwent a cystoscopy and stent placement for obstructing stone at this point she is comes back to treat the stone is blocking her kidney she also has another stone nonobstructing stone in the lower pole the right kidney working to see if we can treat the stone as well but will depend on how much energy will be necessary to treat the obstructing stone. Patient was taken back to the operating room and smooth induction of anesthesia she was placed supine on the lithotripter table we then located the stone in the F2 focal point of the lithotripter machine and delivered 3000 shockwaves to the stone that was in the proximal ureter causing obstruction at the end of the treatment cycle the stone it broken up well the other stone was untreated and was also nonobstructive plan at this point is to probably come back and treat the second stone with shockwave lithotripsy in a separate setting since we used all the energy to treat the first stone is fairly hard stone. Stent was left in place and we can see her next week with an x-ray. Type of Anesthesia:: General Drains: stent - Admit VTE Documentation VTE Present on Admission: No
[2019-01-05 12:55] VITALS: BP 117/87; BP 171/77; PULSE 103; RESP 16; TEMP 36.8; O2SAT 95
[2019-01-05 13:00] VITALS: BP 121/99; BP 171/77; PULSE 104; RESP 16; O2SAT 95
[2019-01-05 13:15] VITALS: BP 147/77; BP 171/77; PULSE 103; RESP 16; O2SAT 95
[2019-01-05 13:20] VITALS: BP 154/93; BP 171/77; PULSE 104; RESP 16; TEMP 36.3; O2SAT 94
[2019-01-05 14:00] VITALS: BP 149/83; BP 171/77; PULSE 83; RESP 18; TEMP 36.8; O2SAT 94
== END 2019-01-05 14:13 | disposition home or self-care (01) ==
LOC: SDC 09:54 → AC 10:00
PROVIDERS: Family Provider Family Medicine; PCP Family Medicine; Referring Provider Urology; Visit Provider Urology
PROC: (CPT 50590; principal; 2019-01-05 11:45)
DX: N20.2 Calculus of kidney with calculus of ureter (principal); I11.0 Hypertensive heart disease with heart failure; I50.814 Right heart failure due to left heart failure; I48.91 Unspecified atrial fibrillation; C53.9 Malignant neoplasm of cervix uteri, unspecified; R35.0 Frequency of micturition; R35.1 Nocturia; R39.12 Poor urinary stream; Z87.442 Personal history of urinary calculi; Z79.01 Long term (current) use of anticoagulants; Z79.899 Other long term (current) drug therapy
CPT/HCPCS: 50590; J7120; J2405

== ENCOUNTER 2019-01-17 12:11 | Day surgery (SDC) | payer MEDICARE, OTHER, SELFPAY ==
[2019-01-17] VITALS (7 sets, daily range): BP systolic 134–157; BP diastolic 61–78; PULSE 68–74; RESP 16–18; TEMP 36.1–36.6; O2SAT 94–97; BMI 36.1
[2019-01-17] MEDS: Lactated Ringers 1,000 ML 100 ML IV ×2 (13:03→14:49)
[2019-01-17] MEDS: Cefazolin 2 GM in 0.9% Normal Saline 100 ML IV (13:23)
--- NOTE | 2019-01-17 13:39 | PCM.DC.URO ---
Discharge Diet: Light diet - advance as tolerated Discharge Activity: Return to Normal Activity Allergies/Adverse Reactions: Allergies No Known Allergies Allergy (Verified 01/17/19 12:52) Medications to take at Discharge cholecalciferol (vitamin D3) 1,000 unit capsule 2,000 unit PO BID cap 12/20/17 vitamin B complex tablet 1 tab PO BID tab 12/20/17 Folic Acid 0.8 mg PO DAILY@0800 12/27/17 Furosemide [Lasix] 20 mg PO DAILY tab 12/28/17 apixaban 5 mg tablet 5 mg PO BID #60 tab 03/03/18 carvedilol 25 mg tablet 25 mg PO BID #60 tab 07/28/18 lisinopril 20 mg tablet 20 mg PO BID #180 tab 08/30/18 digoxin 125 mcg (0.125 mg) tablet 125 mcg PO DAILY #30 tab 09/25/18 potassium chloride ER 20 mEq tablet,extended release 20 meq PO DAILY tab 09/25/18 dofetilide 250 mcg capsule 250 mcg PO Q12 #60 cap 10/10/18 amlodipine 2.5 mg tablet 2.5 mg PO DAILY #30 tab 10/31/18 Lutein 20 mg PO DAILY 12/28/18 Calcium Carbonate/Vitamin D3 [Calcium 500-Vit D3 200 Tablet] 1 ea PO BID 01/03/19 Cyanocobalamin (Vitamin B-12) [Vitamin B12] 2,500 mcg PO DAILY 01/03/19 Ciprofloxacin [Cipro] 500 mg PO BID #6 tab 01/17/19 The following prescriptions were given: Ciprofloxacin [Cipro] 500 mg PO BID #6 tab Transmission Status: Pending to [facility] Primary Care Physician: Cj Arciniega MD [Primary Care Provider] - Test Results: Test results from this visit will be discussed in further detail at your follow-up appointment, if applicable. Please Follow Up With: Elver Andrews MD When: please call to make an appointment.
--- NOTE | 2019-01-17 14:22 | OP.PCM_ITS ---
Report of Operation Date of Procedure: 01/17/19 Pre-Operative Diagnosis: Right renal calculi status post ESWL presents for second stage lasering the remaining fragments Post-Operative Diagnosis: Same Surgery/Procedure Performed:: Cystoscopy, right retrograde pyelogram, right ureteroscopy laser stones in the ureter and laser stones in the kidney, interpretation fluoroscopic images, placement of a right stent. Description of Surgical Findings:: 68-year-old female had some large stones in the right kidney underwent shockwave lithotripsy which broke up the first stone she now presents for second treatment of the remaining fragments in her kidney. She was taken back to the operating room at the [facility] she was placed in dorsolithotomy position, went into the bladder with a 21 [place] rigid cystourethroscope grabbed existing stent pulled out the meatus put a wire through the stent left the wire and placed as a safety wire. Then next to the stent I went in and next to the wire I went in with the flexible ureteroscope I got into the distal ureter and encountered some fragments stuck in the distal ureter I used the laser to laser out these fragments and then these passed into the bladder I then worked my way up the ureter and encountered a large stone that was still not broken up and in the kidney I attract the stone in the upper pole calyx and the laser the stone little tiny pieces and then spent a c onsiderable amount of time lasering the remaining fragments the low tiny pieces and then also some of the fragments into little small pieces once the stones were lasered successfully then I worked my way down the ureter performed a retrograde pyelogram looked at the fluoroscopic images placed a wire up into the kidney and over the wire I backloaded a stent but stent up in the kidney left the string of the stent for extraction and next week in the office went back into the bladder with the scope confirmed the placement the stent drained the bladder and then patient anesthetic was reversed plan to see her next week to remove the stent. Type of Anesthesia:: General Drains: stent right side - Admit VTE Documentation VTE Present on Admission: No VTE Mechan Device Prophylaxis: SCD's
== END 2019-01-17 16:26 | disposition home or self-care (01) ==
LOC: SDC 12:12 → AC 12:22
PROVIDERS: Family Provider Family Medicine; PCP Family Medicine; Referring Provider Urology; Visit Provider Urology
PROC: 0TJ98ZZ Inspection of Ureter, Via Natural or Artificial Opening Endoscopic (ICD-10-PCS; CPT 52352; principal; 2019-01-17 14:45)
DX: N20.2 Calculus of kidney with calculus of ureter (principal); I11.0 Hypertensive heart disease with heart failure; I50.814 Right heart failure due to left heart failure; I48.91 Unspecified atrial fibrillation; C53.9 Malignant neoplasm of cervix uteri, unspecified; R35.0 Frequency of micturition; R35.1 Nocturia; R39.12 Poor urinary stream; Z87.442 Personal history of urinary calculi; Z79.01 Long term (current) use of anticoagulants; Z79.899 Other long term (current) drug therapy
CPT/HCPCS: 00873; 52356; 76000; J7120; C2617; J2405

== ENCOUNTER → 2019-01-25 13:19 | Outpatient (CLI) | payer MEDICARE, OTHER, SELFPAY ==
[2019-01-17 12:57] VITALS: BMI 36.1
--- NOTE | 2019-01-25 13:21 | RAD_ITS ---
STUDY: X-RAY - ABDOMEN/PELVIS REASON FOR EXAM: Female, 68 years old. Kidney stone follow-up, right ureter stent TECHNIQUE: Single AP view of the abdomen / pelvis. COMPARISON: CT 12/27/2018 FINDINGS: Normal visualized lung bases. There is an unremarkable bowel gas pattern. There is no demonstrated free abdominal air. Decreased size of calculi of the inferior right kidney, currently measuring 3.4 mm. Similar calculus projecting over the left kidney measuring up to 12 mm. A right ureter stent has been placed extending from the right renal shadow to the lower pelvis . There are calcified phleboliths in the pelvis. There are diffuse degenerative changes of the visualized lumbar spine. RAD/Abdomen Single View IMPRESSION: 1. Decreased right nephrolithiasis. Right ureter stent. 2. Left renal calculus. Electronically Signed: Lorenzo Vo MD ([place]) at 7:59 EST , Service support ,
== END ==
PROVIDERS: Family Provider Family Medicine; PCP Family Medicine; Referring Provider Urology; Visit Provider Urology
DX: N20.0 Calculus of kidney (principal)
CPT/HCPCS: 74018

== ENCOUNTER → 2019-02-19 08:44 | Outpatient (CLI) | payer MEDICARE, OTHER, SELFPAY ==
[2019-01-17 12:57] VITALS: BMI 36.1
[2019-02-19 09:46] LABS: Anion Gap 6 (5-15); BUN 16 mg/dL (7-18); BUN/Creat Ratio 13.6 RATIO (10-20); Calcium,Total 9.3 mg/dL (8.5-10.1); Chloride 107 mmol/L (98-107); Creatinine, Serum 1.18 mg/dL (0.55-1.02); EST Glomerular Filtration Rate 49 mL/min (>60); Est Glom Filt Rate - Afr Amer 59 mL/min (>60); Glucose 154 mg/dL (74-106); Magnesium 1.8 mg/dL (1.6-2.6); Potassium 3.8 mmol/L (3.5-5.1); Sodium Level 139 mmol/L (136-145)
[2019-02-19 10:25] LABS: Digoxin Level 0.61 ng/mL (0.80-2.00)
== END ==
PROVIDERS: Family Provider Family Medicine; PCP Family Medicine; Referring Provider Internal Medicine Cardiovascular Disease; Visit Provider Internal Medicine Cardiovascular Disease
DX: I42.9 Cardiomyopathy, unspecified (principal); I50.21 Acute systolic (congestive) heart failure; I48.91 Unspecified atrial fibrillation; Z79.899 Other long term (current) drug therapy
CPT/HCPCS: 36415; 80048; 80162; 83735

== ENCOUNTER 2019-02-28 09:47 | Day surgery (SDC) | payer MEDICARE, OTHER, SELFPAY ==
[2019-01-17 12:57] VITALS: BMI 36.1
[2019-02-28 10:09] VITALS: BP 152/83; PULSE 66; RESP 16; TEMP 36.2; O2SAT 94; BMI 36.3
[2019-02-28] MEDS: Lactated Ringers 1,000 ML 100 ML IV (10:16)
--- NOTE | 2019-02-28 12:07 | DCINST_ITS ---
Discharge Diet: Light diet - advance as tolerated Discharge Activity: Return to Normal Activity Call your doctor if your incision/area has: Sudden Increased Bleeding Suture Line Care: Avoid Pulling/Pushing, Avoid Pinching/Bending Allergies/Adverse Reactions: Allergies No Known Allergies Allergy (Verified 02/28/19 10:07) Medications to take at Discharge cholecalciferol (vitamin D3) 25 mcg (1,000 unit) capsule 2,000 unit PO BID cap 12/20/17 vitamin B complex 1 tab PO BID tab 12/20/17 Folic Acid 0.8 mg PO DAILY@0800 12/27/17 Furosemide [Lasix] 20 mg PO DAILY tab 12/28/17 carvedilol 25 mg tablet 25 mg PO BID #60 tab 07/28/18 lisinopril 20 mg tablet 20 mg PO BID #180 tab 08/30/18 digoxin 125 mcg (0.125 mg) tablet 125 mcg PO DAILY #30 tab 09/25/18 potassium chloride 20 mEq tablet,extended release 40 meq PO DAILY tab 09/25/18 dofetilide 250 mcg capsule 250 mcg PO Q12 #60 cap 10/10/18 amlodipine 2.5 mg tablet 2.5 mg PO DAILY #30 tab 10/31/18 Lutein 20 mg PO DAILY 12/28/18 Calcium Carbonate/Vitamin D3 [Calcium 500-Vit D3 200 Tablet] 1 ea PO BID 01/03/19 Cyanocobalamin (Vitamin B-12) [Vitamin B12] 2,500 mcg PO DAILY 01/03/19 Ciprofloxacin [Cipro] 500 mg PO BID #6 tab 02/28/19 Hydrocodone/Acetaminophen [[place] 5-325 Tablet] 1 each PO Q4H PRN PRN #14 tablet 02/28/19 The following prescriptions were given: Ciprofloxacin [Cipro] 500 mg PO BID #6 tab Transmission Status: Pending to [facility] Hydrocodone/Acetaminophen [[place] 5-325 Tablet] 1 each PO Q4H PRN PRN #14 tablet PRN Reason: Pain Score 1-10/10 Transmission Status: Sent to [facility] Primary Care Physician: Cj Arciniega MD [Primary Care Provider] - Test Results: Test results from this visit will be discussed in further detail at your follow- up appointment, if applicable. Please Follow Up With: Elver Andrews MD When: please call to make an appointment.
[2019-02-28] MEDS: Cefazolin 2 GM in 0.9% Normal Saline 100 ML IV (12:10)
--- NOTE | 2019-02-28 12:59 | OP.PCM_ITS ---
Report of Operation Date of Procedure: 02/28/19 Pre-Operative Diagnosis: Left renal calculi Post-Operative Diagnosis: Same Surgery/Procedure Performed:: Cystoscopy, left retrograde pyelogram, interpretation fluoroscopic images, balloon dilation of the left ureter, left ur eteroscopy laser lithotripsy of the stone and stent placement Description of Surgical Findings:: 68-year-old female taken back to the operating room at the smooth induction of anesthesia she was placed in dorsolithotomy position, the urethrovaginal area prepped and draped in usual sterile fashion went into the bladder with a 21 [place] rigid cystourethroscope once inside the bladder identified the left ureteral orifice cannulated with a wire advanced a balloon dilator balloon dilated the distal left ureter left the wire in place and over the wire went in with a flexible ureteroscope an 8 [place] scope, I then worked my way up to the kidney and found the stone in the upper pole of the left kidney, I then used a 200 ?m laser fiber laser the stone in the low tiny pieces, I then performed a retrograde pyelogram again, and then left the wire in place backed out over the wire and then over wire advanced a stent it was a 6 [place] by 26 cm stent. Left the stent in place and then drained the bladder remove the scope and the patient anesthetic was reversed taken back to PACU good condition plan to see her next week to remove the stent. Type of Anesthesia:: General Drains: stent - Admit VTE Documentation VTE Present on Admission: No VTE Mechan Device Prophylaxis: SCD's
[2019-02-28 13:04] VITALS: BP 152/83; BP 167/89; PULSE 72; RESP 16; TEMP 36.5; O2SAT 96
[2019-02-28 13:15] VITALS: BP 152/83; BP 154/81; PULSE 67; RESP 16; O2SAT 95
[2019-02-28] MEDS: Ketorolac 15 MG/ML Vial IV (13:27)
[2019-02-28 13:30] VITALS: BP 152/83; BP 159/79; PULSE 68; RESP 16; O2SAT 93
[2019-02-28 13:51] VITALS: BP 152/83; BP 154/82; PULSE 66; RESP 16; TEMP 36.6; O2SAT 95
[2019-02-28 14:27] VITALS: BP 149/80; BP 152/83; PULSE 63; RESP 18; TEMP 36.7; O2SAT 96
--- NOTE | 2019-03-02 08:00 | HP.PCM_ITS ---
History of Present Illness Date of Admission: 03/02/19 Chief Complaint: Ureteral calculi The patient is a 68 year old female presents for treatment of kidney stone Past Medical History Past Medical History (Chronic Problems): Chronic Problems (Last Reviewed 06/20/18 @ 14:08 by Liana Acevedo) Atrial fibrillation (Chronic) Essential hypertension (Chronic) long-term (current) use of anticoagulants (Chronic) New onset atrial fibrillation (Chronic) Obesity (BMI 30-39.9) (Chronic) Cardiomyopathy (Chronic) Valvular heart disease (Chronic) Systolic CHF, acute (Chronic) Medical History: Medical History (Last Reviewed 06/20/18 @ 14:08 by Liana Acevedo) Essential hypertension (Chronic) I10 New onset atrial fibrillation (Chronic) I48.91 Community acquired pneumonia (Acute) J18.9 Obesity (BMI 30-39.9) (Chronic) E66.9 Cardiomyopathy (Chronic) I42.9 Valvular heart disease (Chronic) I38 Systolic CHF, acute (Chronic) I50.21 HTN (hypertension) (Inactive) I10 Allergies No Known Allergies Allergy (Verified 02/28/19 10:07) Home Medications: Ambulatory Orders Medication Instructions Recorded cholecalciferol (vitamin D3) 25 2,000 unit PO BID cap 12/20/17 mcg (1,000 unit) capsule vitamin B complex 1 tab PO BID tab 12/20/17 Folic Acid 0.8 mg PO DAILY@0800 12/27/17 Furosemide [Lasix] 20 mg PO DAILY tab 12/28/17 carvedilol 25 mg tablet 25 mg PO BID #60 tab 07/28/18 lisinopril 20 mg tablet 20 mg PO BID #180 tab 08/30/18 digoxin 125 mcg (0.125 mg) tablet 125 mcg PO DAILY #30 tab 09/25/18 potassium chloride 20 mEq 40 meq PO DAILY tab 09/25/18 tablet,extended release dofetilide 250 mcg capsule 250 mcg PO Q12 #60 cap 10/10/18 amlodipine 2.5 mg tablet 2.5 mg PO DAILY #30 tab 10/31/18 Lutein 20 mg PO DAILY 12/28/18 Calcium Carbonate/Vitamin D3 1 ea PO BID 01/03/19 [Calcium 500-Vit D3 200 Tablet] Cyanocobalamin (Vitamin B-12) 2,500 mcg PO DAILY 01/03/19 [Vitamin B12] Ciprofloxacin [Cipro] 500 mg PO BID #6 tab 02/28/19 Hydrocodone/Acetaminophen [[place] 1 ea PO Q4H PRN PRN #14 tab 02/28/19 5-325 Tablet] Surgical History: Surgical History (Last Reviewed 06/20/18 @ 14:08 by Liana Acevedo) History of hysterectomy Z90.710 History of tonsillectomy Z90.89 Surgical History: hysterectomy, tonsillectomy Psychiatric History: No pertinent psych hx 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: 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 Smoking Status: Never smoker Tobacco Use: Non-smoker - *Family History Maternal Family History: Family History (Last Reviewed 06/20/18 @ 14:08 by Liana Acevedo) Father Cancer Brother Atrial fibrillation History Items: - Paternal Family History: Family History (Last Reviewed 06/20/18 @ 14:08 by Liana Acevedo) Father Cancer Brother Atrial fibrillation History Items: Cancer VTE Information - Inpt Only VTE Present on Admission: No - Physical Exam Vitals/I&O's: Vital Signs Temp Pulse Resp BP Pulse Ox 98.1 F 63 18 149/80 H 96 02/28/19 14:27 02/28/19 14:27 02/28/19 14:27 02/28/19 14:27 02/28/19 14:27 Oxygen Delivery Method Room Air Weight: 96.162 kg Body Mass Index (BMI) 36.3 Intake and Output for Last 24 Hours 02/28/19 03/01/19 03/02/19 23:59 23:59 23:59 Intake Total 610 / 610 Balance 610 / 610 General: Alert, Oriented x3, Cooperative HEENT: Atraumatic, PERRLA, EOMI, Normocephalic Neck: Supple, No JVD, Negative Carotid Bruits Lungs: Clear to auscultation, Normal air movement Cardiovascular: Regular rate, No murmurs Abdomen: Bowel Sounds Present, Soft, Non Tender Extremities: No edema, Capillary Refill Less than 3 Seconds Skin: No rashes, No breakdown Musculoskeletal: No Tenderness to Palpation of Joints or Extremities Neurological: Cranial nerves II-XII grossly intact Psych/Mental Status: Normal Affect, Appropriate Assessment/Plan All Active Problems (Last Reviewed 06/20/18 @ 14:08 by Liana Acevedo) Long-term use of high-risk medication (Acute) Encounter for monitoring anti-arrhythmic therapy (Acute) Community acquired pneumonia (Acute) Plan to proceed with laser of kidney stone.
== END 2019-02-28 14:34 | disposition home or self-care (01) ==
LOC: SDC 09:47 → AC 09:48
PROVIDERS: Family Provider Family Medicine; PCP Family Medicine; Referring Provider Urology; Visit Provider Urology
PROC: 0TJ98ZZ Inspection of Ureter, Via Natural or Artificial Opening Endoscopic (ICD-10-PCS; CPT 52352; principal; 2019-02-28 11:20)
DX: N20.0 Calculus of kidney (principal); I48.20 Chronic atrial fibrillation, unspecified; E66.9 Obesity, unspecified; I11.0 Hypertensive heart disease with heart failure; I50.22 Chronic systolic (congestive) heart failure; Z79.899 Other long term (current) drug therapy; Z79.01 Long term (current) use of anticoagulants; Z68.36 Body mass index [BMI] 36.0-36.9, adult
CPT/HCPCS: 00918; 52356; 76000; J7120; C1769; C2617; J2405

== ENCOUNTER → 2019-06-21 12:17 | Outpatient (CLI) | payer MEDICARE, OTHER, SELFPAY ==
[2019-06-11 12:00] VITALS: BMI 34.9
[2019-06-21 13:21] LABS: Anion Gap 5 (5-15); BUN 22 mg/dL (7-18); BUN/Creat Ratio 17.6 RATIO (10-20); Calcium,Total 9.9 mg/dL (8.5-10.1); Chloride 103 mmol/L (98-107); Creatinine, Serum 1.25 mg/dL (0.55-1.02); EST Glomerular Filtration Rate 45 mL/min (>60); Est Glom Filt Rate - Afr Amer 55 mL/min (>60); Glucose 93 mg/dL (74-106); Potassium 4.6 mmol/L (3.5-5.1); Sodium Level 138 mmol/L (136-145)
== END ==
PROVIDERS: PCP Family Medicine; Referring Provider Nurse Practitioner Family; Visit Provider Nurse Practitioner Family
DX: I48.0 Paroxysmal atrial fibrillation (principal); I10 Essential (primary) hypertension; I38 Endocarditis, valve unspecified; I42.9 Cardiomyopathy, unspecified; Z79.899 Other long term (current) drug therapy
CPT/HCPCS: 36415; 80048

== ENCOUNTER → 2020-04-22 15:34 | Outpatient (CLI) | payer MEDICARE, OTHER, SELFPAY ==
[2020-01-28 14:01] VITALS: BMI 35.3
--- NOTE | 2020-04-22 16:10 | RAD_ITS ---
STUDY: X-RAY - ABDOMEN/PELVIS REASON FOR EXAM: Female, 69 years old. KIDNEY STONES TECHNIQUE: Two AP supine views of the abdomen and pelvis. COMPARISON: 01/25/2017 FINDINGS: Normal visualized lung bases. There is an unremarkable bowel gas pattern. There is no demonstrated free abdominal air. Likely calcified atherosclerotic disease of the distal abdominal aorta. The visualized liver, spleen and kidneys are grossly normal in size and morphology. There are calcified phleboliths in the pelvis. There are diffuse degenerative changes of the visualized lumbar spine. RAD/Abdomen Single View IMPRESSION: No distinct calcifications projecting over the region of the kidneys to suggest renal calculi. Electronically Signed: Lamar Shay MD at 0:31 EST , Service support ,
[2020-04-22 16:56] LABS: Microalbumin,Random Urine 54.9 mg/L (NO RANGE EST.); Microalbumin:Creatinine Ratio 37.1 mg/g CRE (<30 mg/g CRE)
[2020-04-22 17:04] LABS: Albumin, Serum 3.7 g/dL (3.2-5.0); BUN 21 mg/dL (7-18); BUN/Creat Ratio 17.2 RATIO (10-20); Calcium,Total 8.9 mg/dL (8.5-10.1); Chloride 104 mmol/L (98-107); Cholesterol 182 mg/dL (200); Creatinine, Serum 1.22 mg/dL (0.55-1.02); EST Glomerular Filtration Rate 47 mL/min (>60); Est Glom Filt Rate - Afr Amer 56 mL/min (>60); Glucose 95 mg/dL (74-106); High Density Lipoprotein 30 mg/dL; Phosphorus 3.6 mg/dL (2.5-4.9); Potassium 4.7 mmol/L (3.5-5.1); Sodium Level 138 mmol/L (136-145); Triglycerides 352 mg/dL; Very Low Density Lipoprotein 70 mg/dL (5-40); Vitamin D,25 Hydroxy 42.6 ng/mL
[2020-04-23 08:39] LABS: PTHIN 94.7 pg/mL (18.4-80.1)
== END ==
PROVIDERS: PCP Family Medicine; Referring Provider Urology; Visit Provider Urology
DX: N25.81 Secondary hyperparathyroidism of renal origin (principal); N20.0 Calculus of kidney; N18.30 Chronic kidney disease, stage 3 unspecified; I42.9 Cardiomyopathy, unspecified; N39.0 Urinary tract infection, site not specified
CPT/HCPCS: 36415; 74018; 80061; 80069; 82043; 82306; 82570; 83970; 87086; 87088

== ENCOUNTER 2020-11-03 17:45 | Inpatient (IN) | payer MEDICARE, OTHER, SELFPAY ==
[2020-11-03] VITALS (13 sets, daily range): BP systolic 124–153; BP diastolic 82–128; PULSE 93–147; RESP 18–25; TEMP 36.6–37.1; O2SAT 93–96; BMI 38.3; BMI 38.6
--- NOTE | 2020-11-03 18:23 | EKG12_ITS ---
Test Reason : SOB Blood Pressure : / mmHG Vent. Rate : 141 BPM Atrial Rate : 138 BPM P-R Int : 000 ms QRS Dur : 078 ms QT Int : 300 ms P-R-T Axes : 000 116 061 degrees QTc Int : 459 ms Atrial fibrillation Septal infarct , age undetermined Lateral infarct , age undetermined Abnormal ECG Confirmed by BROCK ELDRIDGE, AFSANEH ([id number]), society editor MORENA SON ([id number]) on 11/07/2020 9:59:20 AM Referred By: MAYA Confirmed By:AFSANEH GUTIÉRREZ MD
--- NOTE | 2020-11-03 18:34 | EDS_ITS ---
HPI History of Present Illness Chief Complaint: Shortness of Breath Informant: patient Onset/Context/Timing Onset: Weeks Context: gradual Timing: Continuous Current Severity: Mild Maximum Severity: Mild Worsened by: Exertion and Lying flat; Not Worsened By Coughing Relieved by: Nothing Associated Symptoms Negative for cough Chest Pain: Positive for None Narrative Narrative: 70-year-old female history of A. fib 3 years ago. Currently is noncompliant not taking any of her medications. States about 3 weeks ago she started having shortness of breath. Has not been evaluated till today. She is also developed bilateral lower extremity swelling. Denies any chest pain. Denies any fever or chills. Did have nausea and vomiting x1 today after mine akfast. She denies any recent hospitalization. PE Risk Factors: Negative for Cancer, OCP + Smoking + > 35, Prior DVT or PE, Recent immobilization, Recent surgery and Recent travel Prior similar symptoms: Yes Recent Illness/Hospitalization: No PFSH PFSH Medical History Cardiomyopathy Essential hypertension HTN (hypertension) Kidney stone Long-term use of high-risk medication Obesity (BMI 30-39.9) Paroxysmal atrial fibrillation Valvular heart disease Home Medications potassium citrate 15 mEq (1,620 mg) tablet,extended release 15 meq PO BID tab 06/14/19 [History Last Taken Unknown] digoxin 125 mcg (0.125 mg) tablet 125 mcg PO DAILY #30 tab 08/31/19 [Rx Last Taken Unknown] furosemide 20 mg tablet 20 mg PO DAILY #90 tab 11/27/19 [Rx Last Taken Unknown] apixaban 5 mg tablet 5 mg PO BID #180 tab 03/10/20 [Rx Last Taken Unknown] lisinopril 20 mg tablet 20 mg PO BID #180 tab 06/26/20 [Rx Last Taken Unknown] potassium chloride 20 mEq tablet,extended release 40 meq PO BID 90 Days #360 tab 06/26/20 [Rx Last Taken Unknown] carvedilol 25 mg tablet 25 mg PO .COMPLEX #45 tab 07/31/20 [Rx Last Taken Unknown] Allergy/AdvReac Type Severity Reaction Status Date / Time No Known Allergies Allergy Verified 07/29/20 13:17 Family History Father Cancer Lung,pancreatic Brother Atrial fibrillation Surgical History History of hysterectomy History of lithotripsy History of tonsillectomy Social History Smoking Status: Never smoker alcohol intake: never substance use type: does not use ROS ROS ED ROS Narrative Shortness of breath and leg swelling. Review of Systems ROS Unobtainable: Denies due to encephalopathy Constitutional Constitutional ED: Denies chills or fever(s) Eyes Eyes: Denies blurry vision or change in vision ENT ENT ED: Denies ear pain Cardiovascular Cardiovascular: Reports palpitations and racing heartbeat; Denies chest pain Respiratory/Chest Respiratory/Chest: Reports dyspnea; Denies cough Gastrointestinal Gastrointestinal: Reports nausea and vomiting; Denies abdominal pain or diarrhea Genitourinary Genitourinary ED: Denies dysuria or hematuria Musculoskeletal Musculoskeletal: Denies myalgias Integumentary Denies rash Neurologic Neurologic: Denies headache(s) Psychiatric Psychiatric: Denies depression Endocrine Endocrinology: Denies polyuria Hematologic/Lymphatic Hematologic/Lymphatic: Denies easy bruising Allergic/Immunologic Allergic/Immunologic ED: Denies urticaria EXAM Physical Exam Narrative Exam Narrative: 70-year-old female on the monitor A. fib RVR rate of 147. She does not look septic or toxic. H EENT exam unremarkable. Neck nontender no JVD no lymphadenopathy. Lungs clear to auscultation bilaterally. Heart irregularly irregular tachycardic A. fib RVR 147. Abdomen soft nontender normal bowel sounds no peritoneal signs. Moving all 4 extremities. 1+ pitting edema both lower extremities from the knees down. Neurologically she is awake alert. An swering questions and following commands. Const Vital Signs: 11/03/20 17:46 11/03/20 18:30 11/03/20 18:32 Temperature 97.8 F Temperature Source Temporal Pulse Rate 147 H 143 H Respiratory Rate 18 23 H Respiratory Effort Normal Non-Labored Respiratory Depth Normal Respiratory Pattern Normal Blood Pressure 140/113 H 153/120 H Blood Pressure Mean 122 131 Pulse Ox 95 95 Oxygen Delivery Method Room Air Room Air Room Air 11/03/20 19:40 11/03/20 19:50 Temperature Temperature Source Pulse Rate 117 H 98 Respiratory Rate Respiratory Effort Respiratory Depth Respiratory Pattern Blood Pressure 143/99 H 139/88 H Blood Pressure Mean 113 105 Pulse Ox Oxygen Delivery Method Positive well nourished, well developed and obese; Negative for cachectic, contractures or unkempt General Appearance ED: well developed; Negative for unkempt, cachectic or contractures Nutritional Appearance: obese; Negative for cachectic HEENT Reports moist mucous membranes atraumatic; Negative for trauma or tenderness Eyes PERRL and EOMs intact bilaterally Neck no lymphadenopathy, supple, no meningeal signs and no JVD General: Negative for tenderness Resp normal respiratory effort and clear to auscultation bilaterally Auscultation: Negative for rales, rhonchi or wheezes Cardio no murmurs; Negative for regular rate or regular rhythm Cardio Narrative: A. fib RVR with a rate of 147. Rate: tachycardic GI non-tender, non-distended and no masses Auscultation: normoactive bowel sounds Palpation: soft; Negative for tender, guarding or rebound tenderness present Back/Spine normal to inspection Extremity Negative for normal to inspection Extremity Narrative: 1+ pitting edema both lower extremities. General Extremety ED: Yes edema; Negative for tenderness General Extremity: edema Neuro oriented x3 Sensorium / Orientation: alert, oriented to person, oriented to place and oriented to time; Negative for orientation impaired, confused, lethargic or stuporous Motor Exam: strength 5/5 throughout Psych mental status grossly normal Appearance: Negative for unkempt Skin Lesions: no lesions Rashes: no rashes MDM MDM MDM Narrative Medical decision making narrative: 70-year-old female recurrent A. fib RVR rate of 147. She is noncompliant with her meds. She will be treated with IV Cardizem and may or may not need a Cardizem drip. Most likely will need to be admitted. Repeat exam patient doing well at 7:55 PM. I spoke to the hospitalist about admission. She was given 25 IV of Cardizem which brought her heart rate down to between 100 and 120s she remained in A. fib. She will be given a second dose of Cardizem and started on a Cardizem drip. She also be given Lasix for her peripheral edema. She will be admitted to the PCU. Lab Data Attestation: I reviewed the patient's lab results. Lab results narrative: CBC White count 18.5. Hemoglobin is 16.6. PT/INR 13 1. Electrolytes unremarkable gap of 8 BUN of 36 creatinine 1.47. Glucose 114. High-sensitivity troponin 50.BNP elevated at 515. Chest x-ray unremarkable. Labs: Laboratory Results - last 24 hr 11/03/20 11/03/20 11/03/20 18:40 18:40 18:40 WBC 18.5 H RBC 5.34 Hgb 16.6 H Hct 51.3 H MCV 96.1 MCH 31.1 MCHC 32.4 RDW Std Deviation 57.9 H RDW Coeff of Marleny 16.4 H Plt Count 312 MPV 10.7 Immature Gran % (Auto) 0.500 Neut % (Auto) 76.5 H Lymph % (Auto) 15.2 L [place] % (Auto) 6.9 Eos % (Auto) 0.5 Baso % (Auto) 0.4 Absolute Neuts (auto) 14.1 H Absolute Lymphs (auto) 2.80 Nucleated RBC % 0 PT 13.8 INR 1.1 Sodium 139 Potassium 4.3 Chloride 108 H Carbon Dioxide 23.0 Anion Gap 8 BUN 36 H Creatinine 1.47 H Estim Creat Clear Calc 32.50 Est GFR (MDRD) Af Amer 45 L Est GFR (MDRD) Non-Af 37 L BUN/Creatinine Ratio 24.5 H Glucose 114 H Calcium 8.7 Troponin I High Sens 50 B-Natriuretic Peptide 11/03/20 18:40 WBC RBC Hgb Hct MCV MCH MCHC RDW Std Deviation RDW Coeff of Marleny Plt Count MPV Immature Gran % (Auto) Neut % (Auto) Lymph % (Auto) [place] % (Auto) Eos % (Auto) Baso % (Auto) Absolute Neuts (auto) Absolute Lymphs (auto) Nucleated RBC % PT INR Sodium Potassium Chloride Carbon Dioxide Anion Gap BUN Creatinine Estim Creat Clear Calc Est GFR (MDRD) Af Amer Est GFR (MDRD) Non-Af BUN/Creatinine Ratio Glucose Calcium Troponin I High Sens B-Natriuretic Peptide 515.4 H Radiography Chest X-Ray - ED: 1 View, Read by ED Physician, Read by Radiologist, Normal, Heart, Lungs, Mediastinum, Bony Structures and No Acute Disease Diagnostic Testing: Radiology Impression Chest X-Ray 11/03/20 18:50 IMPRESSION: Normal x-ray examination of the chest. Electronically Signed: Ya Prado MD at 19:19 EDT Tel , Service support , Rhythm Strip Rhythm Strip: A-fib Rate: 141 Ectopy: None EKG Initial EKG: Attestation: I personally reviewed and interpreted this EKG as follows: Interpretation: No Acute Injury Pattern and Atrial Fibrillation Comments: Atrial fibrillation rapid ventricular rate rate of 141. No acute signs of VA. Prior EKG tracings: not available for review Critical Care Time Critical Care Time: Yes Critical care time (excluding procedures): 30-74 minutes, Including time spent:, Discussing w/Patient &/or Family/Handle Machine Operator, Discussing w/Consultants, Arranging Admission or Transfer and - (32 min.) Discharge Plan Dx/Rx/DC Orders Clinical Impression: Atrial fibrillation with rapid ventricular response, Medical non-compliance, CHF (congestive heart failure), Chronic renal insufficiency Disposition Disposition: Acute Care Hospital [facility]
[2020-11-03] MEDS: dilTIAZem 25 MG/5 ML Vial IV BOLUS (18:42)
[2020-11-03 18:44] LABS: Absolute Neutrophil Count 14.1 X10^3/uL (2.0-7.7); Basophil# 0.08 X10^3/uL; Basophil% 0.4 % (0-1); Eosinophils% 0.5 % (0-5); Hematocrit 51.3 % (37-47); Hemoglobin 16.6 g/dL (12.0-15.0); Lymphocyte % 15.2 % (19-41); Mean Corp Hgb Conc 32.4 g/dL (32-36); Mean Corpuscular Hgb 31.1 pg (27.0-32.0); Mean Corpuscular Volume 96.1 fL (81-99); Mean Platelet Vol. 10.7 fl (6.2-12.0); Monocyte# 1.28 X10^3/uL; Monocyte% 6.9 % (0-10); NRBC Flagged by Analyzer 0 % (0-5); Neutrophil # 14.09 X10^3/uL (2.7-7.7); Neutrophil % 76.5 % (47-70); Platelet Count 312 K/mm3 (150-450); RBC Distribution Width CV 16.4 % (11.6-14.6); RBC Distribution Width SD 57.9 fl (35.1-43.9); Red Blood Count 5.34 M/mm3 (4.2-5.4); White Blood Count 18.5 K/mm3 (4.4-11.0)
--- NOTE | 2020-11-03 18:50 | RAD_ITS ---
STUDY: X-RAY CHEST REASON FOR EXAM: Female, 70 years old. chest pain TECHNIQUE: Single AP portable view of the chest. COMPARISON: 10/17/2017. FINDINGS: The lungs are clear and expanded. There is no demonstrated pleural abnormality. Normal size heart. Normal mediastinum and xena. Normal visualized pulmonary arteries. Normal visualized aortic arch and descending thoracic aorta. Normal visualized thoracic spine. Normal visualized ribs, clavicles, and shoulders. There is no demonstrated abnormality of the visualized soft tissue structures of the upper abdomen. RAD/Chest 1 View (Portable) IMPRESSION: Normal x-ray examination of the chest. Electronically Signed: Ya Prado MD at 19:19 EDT Tel , Service support ,
[2020-11-03 18:53] LABS: International Normalized Ratio 1.1; Prothrombin Time (Protime)PT. 13.8 SECONDS (11.7-14.9)
[2020-11-03 19:00] LABS: Anion Gap 8 (5-15); BUN 36 mg/dL (7-18); BUN/Creat Ratio 24.5 RATIO (10-20); Calcium,Total 8.7 mg/dL (8.5-10.1); Chloride 108 mmol/L (98-107); Creatinine, Serum 1.47 mg/dL (0.55-1.02); EST Glomerular Filtration Rate 37 mL/min (>60); Est Glom Filt Rate - Afr Amer 45 mL/min (>60); Glucose 114 mg/dL (74-106); Potassium 4.3 mmol/L (3.5-5.1); Sodium Level 139 mmol/L (136-145); Troponin-I HS 50 pg/mL (3.0-54.0)
[2020-11-03 19:05] LABS: BNP,B-Type NATRIURETIC PEPTIDE 515.4 pg/mL (0-100)
--- NOTE | 2020-11-03 19:15 | ED.RN ---
Nurse taking over care at this time. Board updated.Board updated and patient has no further needs at this time. She is aware we are monitoring the pulse and will start a drip med if her pulse gets into the 110s. No other needs at this time.
[2020-11-03] MEDS: dilTIAZem 25 MG/5 ML Vial 20 MG IV BOLUS (19:41)
--- NOTE | 2020-11-03 20:05 | HP.PCM_ITS ---
HPI - General HPI Narrative EARL MOTLEY, is a 70 F who presents to the emergency room following 2- week onset of shortness of breath. The patient denies any chest pain, nausea or vomiting or fevers and chills. She was found to be in atrial fibrillation with rapid ventricular response with a rate of 140. In the emergency room she was tested and given Cardizem bolus where her rate was controlled but remained in atrial fibrillation. The patient does have a remote history of atrial fibrillation previously for which she received a cardioversion and was treated with anticoagulation which she took herself off of. The patient explained that she had had Restoration beliefs and that she felt that she had been healed and no longer needed the medication. The patient also complains of new onset of edema that began at the same time and her BNP level is over 500. Initial troponin is negative, however she does have an elevated white blood cell count but no cause or source of infection identified. She will be admitted to progressive care unit level and treated for atrial fibrillation with rapid ventricular response. [facility] Medical History Cardiomyopathy Essential hypertension HTN (hypertension) Kidney stone Long-term use of high-risk medication Obesity (BMI 30-39.9) Paroxysmal atrial fibrillation Valvular heart disease Home Medications potassium citrate 15 mEq (1,620 mg) tablet,extended release 15 meq PO BID tab 06/14/19 [History Last Taken Unknown] digoxin 125 mcg (0.125 mg) tablet 125 mcg PO DAILY #30 tab 08/31/19 [Rx Last Taken Unknown] furosemide 20 mg tablet 20 mg PO DAILY #90 tab 11/27/19 [Rx Last Taken Unknown] apixaban 5 mg tablet 5 mg PO BID #180 tab 03/10/20 [Rx Last Taken Unknown] lisinopril 20 mg tablet 20 mg PO BID #180 tab 06/26/20 [Rx Last Taken Unknown] potassium chloride 20 mEq tablet,extended release 40 meq PO BID 90 Days #360 tab 06/26/20 [Rx Last Taken Unknown] carvedilol 25 mg tablet 25 mg PO .COMPLEX #45 tab 07/31/20 [Rx Last Taken Unknown] Allergy/AdvReac Type Severity Reaction Status Date / Time No Known Allergies Allergy Verified 07/29/20 13:17 Family History Father Cancer Lung,pancreatic Brother Atrial fibrillation Surgical History History of hysterectomy History of lithotripsy History of tonsillectomy Social History Smoking Status: Never smoker alcohol intake: never substance use type: does not use ROS Constitutional Constitutional: Denies chills, fatigue or fever(s) Eyes Eyes: Denies change in vision ENT HEENT: Denies abnormal hearing Cardiovascular Cardiovascular: Denies chest pain Respiratory/Chest Respiratory/Chest: Reports shortness of breath at rest and shortness of breath with exertion; Denies cough Gastrointestinal Gastrointestinal: Denies abdominal pain Genitourinary Genitourinary: Denies dysuria Musculoskeletal Musculoskeletal: Denies back pain Neurologic Neurologic: Denies abnormal gait Psychiatric Psychiatric: Reports anxiety Hematologic/Lymphatic Hematologic/Lymphatic: Denies anemia Vital Signs Vital Signs Vital Signs: 11/03/20 17:46 11/03/20 18:30 11/03/20 18:32 Temperature 97.8 F Temperature Source Temporal Pulse Rate 147 H 143 H Respiratory Rate 18 23 H Respiratory Effort Normal Non-Labored Respiratory Depth Normal Respiratory Pattern Normal Blood Pressure 140/113 H 153/120 H Blood Pressure Mean 122 131 Pulse Ox 95 95 Oxygen Delivery Method Room Air Room Air Room Air 11/03/20 19:40 11/03/20 19:50 Temperature Temperature Source Pulse Rate 117 H 98 Respiratory Rate Respiratory Effort Respiratory Depth Respiratory Pattern Blood Pressure 143/99 H 139/88 H Blood Pressure Mean 113 105 Pulse Ox Oxygen Delivery Method Weight Weight: 230 lb 9.6 oz Body Mass Index (BMI) 38.3 Physical Exam Const alert and oriented x3 General Appearance: cooperative HEENT normocephalic and head/scalp atraumatic Eyes PERRL Neck supple Lymph Lymphatic: no lymphadenopathy noted Resp normal respiratory effort, normal air movement and clear to auscultation carlos aterally Cardio S1 normal heart sound and S2 normal heart sound Rate: tachycardic GI normal to inspection, nondistended, normoactive bowel sounds Extremity no clubbing, cyanosis or edema Skin General Skin Exam: turgor normal Neuro CN's II-XII intact bilaterally Psych affect normal Appearance: appropriate Results Lab / Micro Data Result Diagrams: 11/03/20 18:40 11/03/20 18:40 Labs: Laboratory Results - last 24 hr 11/03/20 18:40: WBC 18.5 H, RBC 5.34, Hgb 16.6 H, Hct 51.3 H, MCV 96.1, MCH 31.1, MCHC 32.4, RDW Std Deviation 57.9 H, RDW Coeff of Marleny 16.4 H, Plt Count 312, MPV 10.7, Immature Gran % (Auto) 0.500, Neut % (Auto) 76.5 H, Lymph % (Auto) 15.2 L, [place] % (Auto) 6.9, Eos % (Auto) 0.5, Baso % (Auto) 0.4, Absolute Neuts (auto) 14.1 H, Absolute Lymphs (auto) 2.80, Nucleated RBC % 0 11/03/20 18:40: Sodium 139, Potassium 4.3, Chloride 108 H, Carbon Dioxide 23.0, Anion Gap 8, BUN 36 H, Creatinine 1.47 H, Estim Creat Clear Calc 32.50, Est GFR (MDRD) Af Amer 45 L, Est GFR (MDRD) Non-Af 37 L, BUN/Creatinine Ratio 24.5 H, Glucose 114 H, Calcium 8.7, Troponin I High Sens 50 11/03/20 18:40: PT 13.8, INR 1.1 11/03/20 18:40: B-Natriuretic Peptide 515.4 H Rhythm Strip Rhythm Strip: A-fib Rate: 141 Ectopy: None Radiology Impression Chest X-Ray 11/03/20 18:50 IMPRESSION: Normal x-ray examination of the chest. Electronically Signed: Ya Prado MD at 19:19 EDT Tel , Service support , Assessment & Plan Assessment/Plan (1) Atrial fibrillation with rapid ventricular response: (2) Medical non-compliance: (3) CHF (congestive heart failure): (4) Chronic renal insufficiency: (5) Essential hypertension: PLAN: 1. Atrial fibrillation with rapid ventricular response?admit patient to progressive care unit, continue Cardizem drip to maintain rate control, consult Dr. Briscoe her qualitative researcher, cycle cardiac enzymes overnight, repeat CBC and BMP in the morning 2. Congestive heart failure?Lasix 20 mg IV daily, order echocardiogram to ass ess heart function 3. Chronic renal insufficiency?repeat BMP in the morning 4. Hypertension?currently controlled 5. DVT prophylaxis?patient will be anticoagulated due to atrial fibrillation and this will protect her from DVT Charges/Coding Visit Charges Inpatient E&M: 18056 Init Hosp L2
[2020-11-03] MEDS: Furosemide 40 MG/4 ML Vial IV (20:22)
--- NOTE | 2020-11-03 20:24 | ECHOD_ITS ---
Reason For Study: AFIB Procedure This was a 2D Doppler, Color Flow transthoracic echocardiogram. Exam performed portable in ED. Left Ventricle Normal LV size. Mild concentric left ventricular hypertrophy. The estimated ejection fraction is 35 %. There is mild global hypokinesis of the left ventricle. Right Ventricle Normal RV size. Normal systolic function. Atria The left atrium is moderately enlarged. The right atrium is moderately enlarged. Mitral Valve There is mild to moderate mitral annular calcification. Moderate (2+) eccentric mitral valve insufficiency. Tricuspid Valve Normal tricuspid valve. Mild to moderate (1-2+) tricuspid valve insufficiency. Pulmonary artery systolic pressure is 40 mmHg. Aortic Valve Trisinus/trileaflet aortic valve. Mild (1+) aortic valve insufficiency. Great Vessels Normal aortic root. The pulmonary artery is normal size. Normal inferior vena cava. Pericardium/Pleural Small pericardial effusion. MMode/2D Measurements & Calculations LVIDd: 4.7 cm IVSd: 1.2 cm Ao root diam: 3.3 cm LVIDs: 4.4 cm LVPWd: 1.2 cm RVDd: 4.0 cm FS: 7.6 % LAV(MOD-bp): 116.0 ml LVAd ap4: 27.1 cm2 SV(MOD-sp4): 22.5 ml LAV(MOD-bp) Indexed: 55.3 ml/m2 LVLd ap4: 7.0 cm LAV(MOD-sp2): 112.8 ml EDV(MOD-sp4): 89.2 ml LAV(MOD-sp4): 101.5 ml EDV(sp4-el): 89.4 ml LVAs ap4: 22.5 cm2 LVLs ap4: 6.4 cm ESV(MOD-sp4): 66.7 ml ESV(sp4-el): 67.3 ml EF(MOD-sp4): 25.2 % EF(sp4-el): 24.7 % SV(sp4-el): 22.1 ml LA dimension(2D): 5.8 cm LA A4 area: 28.2 cm2 RA A4 area: 26.4 cm2 Doppler Measurements & Calculations MV E max patrick: 132.2 cm/sec Lat Peak E' Patrick: 4.6 cm/sec Med Peak E' Patrick: 4.5 cm/sec E/E' lat: 28.5 E/E' med: 29.3 Ao V2 max: 122.3 cm/sec AI max patrick: 464.0 cm/sec LV V1 max: 81.3 cm/sec Ao max P.1 mmHg AI max P.5 mmHg LV V1 max P.8 mmHg AI dec slope: 229.8 cm/sec2 AI P1/2t: 591.3 msec PA V2 max: 79.4 cm/sec PI end-d patrick: 154.1 cm/sec TR max patrick: 297.7 cm/sec TR max P.4 mmHg ECHO/Echo Complete Interpretation Summary Normal LV size. Mild concentric left ventricular hypertrophy. Mild (1+) aortic valve insufficiency. Pulmonary artery systolic pressure is 40 mmHg. The estimated ejection fraction is 35 %. Compared to previous study, the left ventricular systolic function is the same. . Ordering Physician: Jed Kwan Referring Physician: JESSICA GRISSOM Performed By: Trudy Bonilla, SETHCS, RVT
[2020-11-03] MEDS: APIXABAN 5 MG TABLET PO (23:30)
[2020-11-04] VITALS (41 sets, daily range): BP systolic 98–164; BP diastolic 62–116; PULSE 62–115; RESP 16–39; TEMP 36.3–36.8; O2SAT 90–97
[2020-11-04 07:06] LABS: Absolute Lymphocyte Count 2.72 X10^3/uL (0.83-4.51); Absolute Neutrophil Count 11.2 X10^3/uL (2.0-7.7); Basophil# 0.06 X10^3/uL; Basophil% 0.4 % (0-1); Eosinophil# 0.16 X10^3/uL; Hematocrit 47.9 % (37-47); Hemoglobin 15.4 g/dL (12.0-15.0); Lymphocyte # 2.72 X10^3/ul (0.83-4.51); Lymphocyte % 17.2 % (19-41); Mean Corp Hgb Conc 32.2 g/dL (32-36); Mean Corpuscular Hgb 31.2 pg (27.0-32.0); Mean Corpuscular Volume 97.2 fL (81-99); Mean Platelet Vol. 10.2 fl (6.2-12.0); Monocyte# 1.59 X10^3/uL; Monocyte% 10.1 % (0-10); NRBC Flagged by Analyzer 0 % (0-5); Neutrophil % 70.7 % (47-70); POSITIVE DIFFERENTIAL YES; Platelet Count 259 K/mm3 (150-450); Red Blood Count 4.93 M/mm3 (4.2-5.4); White Blood Count 15.8 K/mm3 (4.4-11.0)
[2020-11-04 07:12] LABS: Differential Indicated SCAN CRITERIA MET
[2020-11-04 07:39] LABS: Anion Gap 8 (5-15); BUN 31 mg/dL (7-18); BUN/Creat Ratio 26.5 RATIO (10-20); Calcium,Total 7.9 mg/dL (8.5-10.1); Chloride 108 mmol/L (98-107); Creatinine, Serum 1.17 mg/dL (0.55-1.02); EST Glomerular Filtration Rate 49 mL/min (>60); Est Glom Filt Rate - Afr Amer 59 mL/min (>60); Estimated Creatinine Clearance 40.84 ml/min; Glucose 96 mg/dL (74-106); Magnesium 2.3 mg/dL (1.6-2.6); Potassium 3.6 mmol/L (3.5-5.1); Sodium Level 138 mmol/L (136-145)
--- NOTE | 2020-11-04 11:30 | NURSING ---
This RN taking over patient care at this time.
[2020-11-04] MEDS: APIXABAN 5 MG TABLET PO ×2 (11:44→22:40)
[2020-11-04] MEDS: Furosemide 20 MG/2 ML VIAL IV (11:44)
[2020-11-04] MEDS: 0.9% Saline Lock 10 ML Syringe IV ×2 (11:44→14:36)
[2020-11-04 13:30] LABS: Pathologist Review Reviewed
[2020-11-04] MEDS: Lisinopril 20 MG Tablet PO (14:36)
[2020-11-04] MEDS: Metoprolol Tartrate 50 MG Tablet PO (14:36)
--- NOTE | 2020-11-04 15:50 | CASEMGMT ---
LUCAS RENAE assessment: Face to Face with patient for initial transition planning/care coordination assessment. LUCAS RENAE introduced self and role at [facility], pt voices understanding and consents to assessment. Pt is sitting up in bed in no distress on room air. Pt is A/Ox4 and answers all questions . Care providers, pharmacy, and demographics verified/updated. Presentation: SOB x 2 weeks, worsening Admitting dx: Afib RVR, CHF PCP: Demian Specialists: Luis Felipe, cardio; Juliana, uro [facility]erred [facility]acy[facility] Insurance: [facility] A/B, [employer] Prescription Benefit: MCR D Living Will/HPOA: Pt has LW/HPOA and is aware that they are on file at [facility]. Pt's son, Richmond Padilla, is HPOA. LNOK: Richmond Padilla, son/HPOA; Lorenzo Padilla, Living Arrangements: Pt lives with in 1.5 story home and states no concerns at home. Pt is independent with ADL's. Transportation: Pt states drives self or drives and states no transportation concerns. DME/HHC: Pt states has a shower chair, crutches, and BP cuff at home. Pt denies need for any further DME. Pt states no hx of HHC or SNF. Pt states no concerns with going home at time of discharge. Pt is retired. Pt states does not smoke cigarettes and rarely drinks ETOH. Pt states no further concerns/needs. CM to follow for any further discharge planning/needs. Advised pt to ask for CM if any further questions/concerns/needs arise, voices understanding. Pt Goal: Home Plan[place] LUCAS RENAE
--- NOTE | 2020-11-04 18:42 | PCS.PANDOC ---
PANDEMIC DOCUMENTATION INITIATED: Date: 11/03/2020 Time: 2057
--- NOTE | 2020-11-04 19:32 | PN.HOSP_ITS ---
Subjective Subjective Patient was seen and examined today, I talked with her who was in her room at the time my examination, patient was on a Cardizem drip, her heart rate was in the 80s, I elected to stop the Cardizem drip and place her on a beta- kendy. Patient has not been taking any rate limiting medications for quite some time (about a month) and has not been on anticoagulation. I explained to her the need to be on rate limiting medications and she agreed to take this medication, she also agreed to go back on anticoagulation. I explained to her that she might discuss going to an EP doctor with Dr. Briscoe, she could have an ablation or possibly have her AV node ablated and a pacemaker inserted. She understood this and appeared interested in talking with Dr. Briscoe about this at her next visit. Objective Data Objective Data Vital Signs: Vital Signs Temp Pulse Resp BP Pulse Ox 97.6 F L 74 20 H 98/65 95 11/04/20 17:10 11/04/20 18:15 11/04/20 18:15 11/04/20 18:15 11/04/20 18:21 Oxygen Flow Rate (L/min) 2 Oxygen Delivery Method Room Air Weight: 105.4 kg Body Mass Index (BMI) 38.6 Intake & Output: Intake and Output for Last 24 Hours 11/02/20 11/03/20 11/04/20 23:59 23:59 23:59 Intake Total 18.50 / 21.00 276.25 / 276.25 Output Total 1850 / 1850 Balance 18.50 / 21.00 -1573.75 / -1573.75 Lab / Micro Data Result Diagrams: 11/04/20 06:56 11/04/20 06:56 Labs: Laboratory Results - last 24 hr 11/04/20 06:56: WBC 15.8 H, RBC 4.93, Hgb 15.4 H, Hct 47.9 H, MCV 97.2, MCH 31.2, MCHC 32.2, RDW Std Deviation 58.0 H, RDW Coeff of Marleny 16.0 H, Plt Count 259, MPV 10.2, Immature Gran % (Auto) 0.600, Neut % (Auto) 70.7 H, Lymph % (A uto) 17.2 L, [place] % (Auto) 10.1 H, Eos % (Auto) 1.0, Baso % (Auto) 0.4, Absolute Neuts (auto) 11.2 H, Absolute Lymphs (auto) 2.72, Nucleated RBC % 0, Diff Path Review Reviewed 11/04/20 06:56: Sodium 138, Potassium 3.6, Chloride 108 H, Carbon Dioxide 22.0, Anion Gap 8, BUN 31 H, Creatinine 1.17 H, Estim Creat Clear Calc 40.84, Est GFR (MDRD) Af Amer 59 L, Est GFR (MDRD) Non-Af 49 L, BUN/Creatinine Ratio 26.5 H, Glucose 96, Calcium 7.9 L, Magnesium 2.3 Radiography Diagnostic Testing: Radiology Impression Echocardiogram 11/03/20 20:24 Interpretation Summary Normal LV size. Mild concentric left ventricular hypertrophy. Mild (1+) aortic valve insufficiency. Pulmonary artery systolic pressure is 40 mmHg. The estimated ejection fraction is 35 %. Compared to previous study, the left ventricular systolic function is the same.. Ordering Physician: Jed Kwan Referring Physician: JESSICA GRISSOM Performed By: Trudy Bonilla, ELADIO, RVT Rhythm Strip Rhythm Strip: A-fib Rate: 141 Ectopy: None Physical Exam Const alert, oriented x3, no apparent distress and healthy appearing General Appearance: cooperative, well kempt and well developed Orientation / Consciousness: awake, oriented to person, oriented to place and oriented to time HEENT normocephalic and moist oral mucous membranes Eyes PERRL, EOMs intact bilaterally and conjunctivae normal Neck nuchal rigidity, supple, no JVD, thyroid normal and no carotid bruits General: trachea midline Resp normal respiratory effort and clear to auscultation bilaterally Auscultation: Negative for rales, rhonchi or wheezes Cardio no murmurs, no rub and no gallops Cardio Narrative: Heart rate and rhythm was irregular GI normal to inspection, nondistended, normoactive bowel sounds, soft to palpation, non-tender and non-distended Extremity no clubbing, cyanosis or edema Skin no rashes or lesions noted General Skin Exam: no breakdown Neuro oriented x3, CN's II-XII intact bilaterally, no focal motor deficits and no sensory deficits noted Sensorium / Orientation: awake and alert Speech: speech normal Psych thought process normal and affect normal Assessment & Plan Assessment/Plan (1) Atrial fibrillation with rapid ventricular response: PLAN: 1. Atrial fib with rapid ventricular response-controlled at this time on rate limiting medications, continue metoprolol #2 cardiomyopathy-patient's ejection fraction is 35%, this may be due to patient's uncontrolled heart rate, this will need to be repeated as an outpatient when the patient is under rate control. In the meantime, I will place her on a low-dose of an JESUS inhibitor. #3 mild systolic congestive heart failure, due to patient's low blood pressure at this afternoon, I will hold the patient's diuresis for now, patient's chest x-ray does not show evidence of CHF although the patient's beta natruretic peptide was elevated. #4 essential hypertension #5 chronic kidney disease stage IIIa #6 leukocytosis-etiology unclear, repeat labs in the morning Charges/Coding Visit Charges Inpatient E&M: 08447 Subs Hosp L2
--- NOTE | 2020-11-04 21:15 | PCM.HOSP.N ---
Hospitalist Note Patient with new onset BL UE non-pruritic rash, recent new medications included cardizem drip per discussion with staff, now off the drip, currently rate controlled. Will administer IV benadryl, continue to monitor.
[2020-11-04] MEDS: DiphenhydrAMINE 50 MG/ML Syringe 25 MG IV (22:39)
[2020-11-04] MEDS: Famotidine 20 MG Tablet PO (22:40)
[2020-11-05 03:00] VITALS: PULSE 86
[2020-11-05 03:44] VITALS: BP 127/83; PULSE 80; RESP 16; TEMP 36.4; O2SAT 96
[2020-11-05 06:08] LABS: Absolute Lymphocyte Count 2.86 X10^3/uL (0.83-4.51); Absolute Neutrophil Count 13.1 X10^3/uL (2.0-7.7); Basophil# 0.07 X10^3/uL; Basophil% 0.4 % (0-1); Eosinophil# 0.06 X10^3/uL; Eosinophils% 0.3 % (0-5); Hematocrit 50.2 % (37-47); Hemoglobin 16.6 g/dL (12.0-15.0); Lymphocyte # 2.86 X10^3/ul (0.83-4.51); Mean Corp Hgb Conc 33.1 g/dL (32-36); Mean Corpuscular Hgb 31.5 pg (27.0-32.0); Mean Corpuscular Volume 95.3 fL (81-99); Mean Platelet Vol. 10.5 fl (6.2-12.0); Monocyte# 1.65 X10^3/uL; Monocyte% 9.2 % (0-10); NRBC Flagged by Analyzer 0 % (0-5); Neutrophil # 13.13 X10^3/uL (2.7-7.7); Neutrophil % 73.5 % (47-70); POSITIVE DIFFERENTIAL YES; Platelet Count 304 K/mm3 (150-450); RBC Distribution Width CV 16.2 % (11.6-14.6); RBC Distribution Width SD 57.1 fl (35.1-43.9); Red Blood Count 5.27 M/mm3 (4.2-5.4); White Blood Count 17.9 K/mm3 (4.4-11.0)
[2020-11-05 06:12] LABS: Differential Indicated SCAN CRITERIA MET
[2020-11-05 06:34] LABS: Anion Gap 11 (5-15); BUN 46 mg/dL (7-18); BUN/Creat Ratio 24.3 RATIO (10-20); Calcium,Total 8.2 mg/dL (8.5-10.1); Chloride 106 mmol/L (98-107); Creatinine, Serum 1.89 mg/dL (0.55-1.02); EST Glomerular Filtration Rate 28 mL/min (>60); Est Glom Filt Rate - Afr Amer 34 mL/min (>60); Estimated Creatinine Clearance 25.28 ml/min; Glucose 101 mg/dL (74-106); Potassium 3.6 mmol/L (3.5-5.1); Sodium Level 136 mmol/L (136-145)
[2020-11-05 07:00] VITALS: PULSE 95
[2020-11-05 08:01] VITALS: O2SAT 94
[2020-11-05 09:08] VITALS: BP 125/89; PULSE 92; RESP 18; TEMP 36.4; O2SAT 95
[2020-11-05] MEDS: Lisinopril 5 MG Tablet PO (09:09)
[2020-11-05] MEDS: APIXABAN 5 MG TABLET PO (09:09)
[2020-11-05] MEDS: Famotidine 20 MG Tablet PO (09:09)
[2020-11-05 09:15] VITALS: O2SAT 95
--- NOTE | 2020-11-05 11:34 | CASEMGMT ---
Per Precious ZAVALA, pt does not qualify for home oxygen. Pt voices no further questions/concerns/needs. Kendal ZAVALA CM
--- NOTE | 2020-11-05 11:57 | PCM.DC ---
Discharge Instructions Diet Discharge Diet: No restrictions Activity Discharge Activity: Return to Normal Activity Weight Bearing Status: Full weight bearing Follow Up Care Test Results: Test results from this visit will be discussed in further detail at your follow-up appointment, if applicable. Discharge Plan Admission Admit Date/Time: 11/03/20 20:16 Primary Reason for Your Visit: a-fib Attending Provider: Lux Christine Primary Care Provider: Cj Arciniega Discharge Orders/Prescriptions Prescriptions: New lisinopril 5 mg Tablet 10 mg PO DAILY Qty: 60 RF: 0 Eliquis 5 mg Tablet 5 mg PO BID Qty: 60 RF: 0 furosemide [Lasix] 20 mg tablet 20 mg PO DAILY Qty: 30 RF: 0 metoprolol tartrate 50 mg tablet 50 mg PO BID Qty: 60 RF: 0 Discontinued potassium citrate 15 mEq tablet extended release 15 meq PO BID RF: 0 digoxin 125 mcg (0.125 mg) tablet 125 mcg PO DAILY Qty: 30 RF: 11 furosemide 20 mg tablet 20 mg PO DAILY Qty: 90 RF: 3 Eliquis 5 mg tablet 5 mg PO BID Qty: 180 RF: 3 lisinopril 20 mg tablet 20 mg PO BID Qty: 180 RF: 3 potassium chloride 20 mEq tablet extended release 40 meq PO BID 90 Days Qty: 360 RF: 3 carvedilol 25 mg tablet 25 mg PO .COMPLEX Qty: 45 RF: 11 Referrals / Follow Up: Cj Arciniega MD [Primary Care Provider] - In 1 Week (get your CBC repeated and your BMP) Jed Briscoe MD [STAFF PHYSICIAN] - Within 2 Weeks Disposition Disposition (needs filled in before D/C Order can be placed): Home, Self Care
[2020-11-05 12:43] LABS: Pathologist Review Reviewed
--- NOTE | 2020-11-05 14:22 | PHA.DC.MC ---
Pharmacy Service has performed discharge medication reconciliation and counseling for this patient. 1. METOPROLOL TARTRATE 50MG PO BID The patient's discharge medication list was reviewed for discrepancies and discrepancies were resolved. Home Medications apixaban [Eliquis] 5 mg PO BID #60 tab 11/05/20 furosemide [Lasix] 20 mg PO DAILY #30 tab 11/05/20 lisinopril 10 mg PO DAILY #60 tab 11/05/20 metoprolol tartrate 50 mg PO BID #60 tab 11/05/20 The patient was counseled on the following discharge medications and changes in medications for homegoing were reviewed. The Reason for Use, instructions for use, and potential side effects were reviewed for all new medications. The patient's questions regarding all of their medications were answered. The patient was able to verbally demonstrate an understanding of their discharge medications.
--- NOTE | 2020-11-06 14:28 | CASEMGMT ---
LUCAS CM Discharge Follow-up Phone Call: NEMO: Monico Strata: 3 Call Date: 11/06/20 Discharge Date: 11/05/20 Time of Call: [id number] Duration: 1 min Admitting Diagnosis: A-fib with RVR, CHF RN BATOOL attempted to complete follow-up phone call after recent hospitalization. No answer, voice message left with return contact information.
--- NOTE | 2020-11-06 19:56 | PCM.DC.SUM ---
Providers Date of Admission: 11/03/20 Date of Discharge: 11/05/20 Primary Care Physician: Dr. Cj Arciniega MD Reason For Visit: AFIB WITH RVR AND CHF Diagnosis Discharge Diagnosis (1) Atrial fibrillation with rapid ventricular response: Status: Acute Code(s): I48.91 - Unspecified atrial fibrillation Plan: 1. Permanent atrial fibrillation with rapid ventricular response #2 cardiomyopathy-etiology unclear #3 mild systolic congestive heart failure #4 essential hypertension #5 chronic kidney disease stage IIIa #6 leukocytosis-etiology unclear #7 mild pulmonary hypertension Medications at Discharge Home Medications apixaban [Eliquis] 5 mg PO BID #60 tab 11/05/20 furosemide [Lasix] 20 mg PO DAILY #30 tab 11/05/20 lisinopril 10 mg PO DAILY #60 tab 11/05/20 metoprolol tartrate 50 mg PO BID #60 tab 11/05/20 Hospital Course Operations None Procedures 2-D Echocardiogram Summary of Care Provided Minutes Spent on Discharge: 32 Hospital Course: Patient is 70-year-old white female that was seen in the emergency room at [facility] with complaints of shortness of breath, patient stopped her cardiac medications approximately month and a half before-she stated that her sikh prayed for her and she was cured work-up in the emergency room included an EKG which showed the patient to be in atrial fibrillation with RVR of 147, she was given IV Cardizem and was started on a Cardizem drip. Chest x-ray was read out as normal. Patient was admitted to PCU and the Cardizem drip was continued, patient was seen on 11/04/2020 and an echocardiogram was obtained which showed an ejection fraction of 35% with mild pulmonary hypertension. Patient was transition from a Cardizem drip to metoprolol, and the patient responded well with slowing of her heart rate. She was given IV Lasix for mild congestive heart failure. On 11/05/2020, patient was seen and examined: On examination she appeared in good health and spirits, she does not appear to be in any distress. Vital signs as documented. Skin warm and dry and without overt rashes. Neck without JVD, thyroid appears normal, trachea is midline, neck is supple. Lungs clear, normal air movement was noted. Heart exam notable for irregular rhythm, normal sounds and absence of murmurs, rubs or gallops. Abdomen unremarkable and without evidence of organomegaly, masses, or abdominal aortic enlargement, bowel sounds are present in all 4 quadrants, no abdominal tenderness was noted. Extremities nonedematous, no cyanosis was noted, no clubbing was noted. Neuro: Cranial nerves II through XII are grossly intact, no focal motor deficits were noted, sensation to light touch and pinprick is intact, motor exam 5/5 throughout. Psych: Patient is alert and oriented x3, she does not appear anxious or depressed, she does not appear agitated. On 11/05/2020, patient was seen and examined felt to be a stable condition for discharge home. Weight / BMI Weight Weight: 105.4 kg Body Mass Index (BMI) 38.6 ABG / Lab / Microbiology Data Result Diagrams: 11/05/20 05:35 11/05/20 05:35 D/C Instructions Discharge Diet: No restrictions Weight Bearing Status: Full weight bearing Meaningful Use Info Meaningful Use Diagnoses (Choose all that apply): CHF CHF JESUS/ARB ordered at discharge?: Yes Documented LVEF (%): 35 Discharge Plan Admission Admit Date/Time: 11/03/20 20:16 Primary Reason for Your Visit: a-fib Attending Provider: Lux Christine Primary Care Provider: Cj Arciniega Instructions Additional Instructions / Restrictions: Patient Problems: Altered Health Status related to Hospitalization Patient Goals: *Optimal Level of Health *Keep Appointments *Medication Compliance *Remain Safe Discharge Orders/Prescriptions Prescriptions: New lisinopril 5 mg Tablet 10 mg PO DAILY Qty: 60 RF: 0 Eliquis 5 mg Tablet 5 mg PO BID Qty: 60 RF: 0 furosemide [Lasix] 20 mg tablet 20 mg PO DAILY Qty: 30 RF: 0 metoprolol tartrate 50 mg tablet 50 mg PO BID Qty: 60 RF: 0 Discontinued potassium citrate 15 mEq tablet extended release 15 meq PO BID RF: 0 digoxin 125 mcg (0.125 mg) tablet 125 mcg PO DAILY Qty: 30 RF: 11 furosemide 20 mg tablet 20 mg PO DAILY Qty: 90 RF: 3 Eliquis 5 mg tablet 5 mg PO BID Qty: 180 RF: 3 lisinopril 20 mg tablet 20 mg PO BID Qty: 180 RF: 3 potassium chloride 20 mEq tablet extended release 40 meq PO BID 90 Days Qty: 360 RF: 3 carvedilol 25 mg tablet 25 mg PO .COMPLEX Qty: 45 RF: 11 Referrals / Follow Up: Cj Arciniega MD [Primary Care Provider] - 11/13/20 9:50 am (get your CBC repeated and your BMP) Nia Sim PA [PHYSICIAN [employer]CR[employer]ER] - 11/24/20 8:30 am Disposition Disposition (needs filled in before D/C Order can be placed): Home, Self Care Charges/Coding Visit Charges Inpatient E&M: 98121 Disch Hosp
== END 2020-11-05 14:42 | disposition home or self-care (01) | DRG 308 ==
LOC: ED 18:39 → PCU 11-04 07:02
PROVIDERS: Admitting Provider Family Medicine; Emergency Provider Emergency Medicine; PCP Family Medicine; Visit Provider Internal Medicine
DX: I48.21 Permanent atrial fibrillation (principal); I50.21 Acute systolic (congestive) heart failure; I13.0 Hypertensive heart and chronic kidney disease with heart failure and stage 1 through stage 4 chronic kidney disease, or unspecified chronic kidney disease; I42.9 Cardiomyopathy, unspecified; I27.20 Pulmonary hypertension, unspecified; D72.829 Elevated white blood cell count, unspecified; E66.9 Obesity, unspecified; N18.31 Chronic kidney disease, stage 3a; Z68.38 Body mass index [BMI] 38.0-38.9, adult; Z79.899 Other long term (current) drug therapy; Z79.01 Long term (current) use of anticoagulants; Z91.14 Patient's other noncompliance with medication regimen
CPT/HCPCS: 36415; 71045; 80048; 83735; 83880; 84484; 85025; 85610; 93005; 93306; 97802; 99285; Q9957; A4216; J1940; J3490

== ENCOUNTER → 2020-11-24 09:44 | Outpatient (CLI) | payer MEDICARE, OTHER, SELFPAY ==
[2020-11-24 10:43] LABS: Absolute Neutrophil Count 9.2 X10^3/uL (2.0-7.7); Basophil# 0.06 X10^3/uL; Basophil% 0.5 % (0-1); Eosinophils% 0.8 % (0-5); Hematocrit 50.2 % (37-47); Hemoglobin 16.6 g/dL (12.0-15.0); Lymphocyte % 15.7 % (19-41); Mean Corp Hgb Conc 33.1 g/dL (32-36); Mean Corpuscular Hgb 31.3 pg (27.0-32.0); Mean Corpuscular Volume 94.7 fL (81-99); Mean Platelet Vol. 10.4 fl (6.2-12.0); Monocyte# 0.85 X10^3/uL; NRBC Flagged by Analyzer 0 % (0-5); Neutrophil # 9.15 X10^3/uL (2.7-7.7); Neutrophil % 75.6 % (47-70); Platelet Count 186 K/mm3 (150-450); RBC Distribution Width CV 15.2 % (11.6-14.6); RBC Distribution Width SD 53.6 fl (35.1-43.9); White Blood Count 12.1 K/mm3 (4.4-11.0)
[2020-11-24 11:15] LABS: Vitamin D,25 Hydroxy 38.1 ng/mL
[2020-11-24 11:30] LABS: ALB/GLOB Ratio 0.7 RATIO (0.9-2.4); AST(SGOT) 28 U/L (15-37); Alanine Aminotransfer ALT/SGPT 55 U/L (13-56); Albumin, Serum 2.3 g/dL (3.2-5.0); Alkaline Phosphatase 78 U/L (45-117); Anion Gap 9 (5-15); BUN 17 mg/dL (7-18); BUN/Creat Ratio 15.6 RATIO (10-20); Calcium,Total 8.4 mg/dL (8.5-10.1); Chloride 106 mmol/L (98-107); Creatinine, Serum 1.09 mg/dL (0.55-1.02); EST Glomerular Filtration Rate 53 mL/min (>60); Est Glom Filt Rate - Afr Amer 64 mL/min (>60); Globulin 3.2 g/dL (2.2-4.2); Glucose 81 mg/dL (74-106); Potassium 3.7 mmol/L (3.5-5.1); Protein, Total 5.5 g/dL (6.4-8.2); Sodium Level 137 mmol/L (136-145); Thyroid Stim Hormone (TSH) 2.05 uIU/mL (0.358-3.74)
[2020-11-25 13:21] LABS: Pathologist Review Reviewed
== END ==
PROVIDERS: PCP Family Medicine; Referring Provider Family Medicine; Visit Provider Family Medicine
DX: N18.30 Chronic kidney disease, stage 3 unspecified (principal); N25.81 Secondary hyperparathyroidism of renal origin; I50.82 Biventricular heart failure; D72.829 Elevated white blood cell count, unspecified; I50.9 Heart failure, unspecified
CPT/HCPCS: 36415; 80053; 82306; 83880; 84443; 85025

== ENCOUNTER → 2020-12-08 09:52 | Outpatient (CLI) | payer MEDICARE, OTHER, SELFPAY ==
[2020-12-08 10:27] LABS: Absolute Lymphocyte Count 2.21 X10^3/uL (0.83-4.51); Absolute Neutrophil Count 11.7 X10^3/uL (2.0-7.7); Basophil# 0.12 X10^3/uL; Basophil% 0.8 % (0-1); Eosinophil# 0.04 X10^3/uL; Eosinophils% 0.3 % (0-5); Hematocrit 50.7 % (37-47); Hemoglobin 16.5 g/dL (12.0-15.0); Lymphocyte # 2.21 X10^3/ul (0.83-4.51); Lymphocyte % 14.2 % (19-41); Mean Corp Hgb Conc 32.5 g/dL (32-36); Mean Corpuscular Hgb 30.6 pg (27.0-32.0); Mean Corpuscular Volume 93.9 fL (81-99); Mean Platelet Vol. 9.8 fl (6.2-12.0); Monocyte# 1.15 X10^3/uL; Monocyte% 7.4 % (0-10); NRBC Flagged by Analyzer 0 % (0-5); Neutrophil # 11.72 X10^3/uL (2.7-7.7); Neutrophil % 75.2 % (47-70); Platelet Count 357 K/mm3 (150-450); RBC Distribution Width SD 48.8 fl (35.1-43.9); White Blood Count 15.6 K/mm3 (4.4-11.0)
[2020-12-08 11:05] LABS: Anion Gap 7 (5-15); BUN 17 mg/dL (7-18); BUN/Creat Ratio 16.8 RATIO (10-20); Calcium,Total 9.2 mg/dL (8.5-10.1); Chloride 100 mmol/L (98-107); Creatinine, Serum 1.01 mg/dL (0.55-1.02); EST Glomerular Filtration Rate 58 mL/min (>60); Est Glom Filt Rate - Afr Amer 70 mL/min (>60); Glucose 90 mg/dL (74-106); Potassium 3.7 mmol/L (3.5-5.1); Sodium Level 137 mmol/L (136-145)
== END ==
PROVIDERS: PCP Family Medicine; Referring Provider Physician Assistant Medical; Visit Provider Physician Assistant Medical
DX: I42.9 Cardiomyopathy, unspecified (principal); N18.9 Chronic kidney disease, unspecified; I48.0 Paroxysmal atrial fibrillation; I38 Endocarditis, valve unspecified; I50.21 Acute systolic (congestive) heart failure; Z79.899 Other long term (current) drug therapy
CPT/HCPCS: 36415; 80048; 85025

== ENCOUNTER 2020-12-11 08:21 | Outpatient (RCR) | payer MEDICARE, OTHER, SELFPAY ==
[2020-12-11 09:22] VITALS: BP 153/93; PULSE 100; RESP 20; TEMP 36.5; BMI 34.9
--- NOTE | 2020-12-11 13:57 | HP.PCM_ITS ---
History of Present Illness Date of Service: 12/11/20 Chief Complaint: Non healing bilateral lower extremity ulcers History of Wound: Ms. Padilla presents to the wound center due to nonhealing bilateral lower extremity ulcers. Had recently been in the hospital following worsening lower extremity edema secondary to CHF exacerbation and A. fib with RVR. She had discontinued use of her medications. She states that she has restarted some of them. Has been applying a salve to the ulcers without any significant improvement. No form of compression. At some point, she was managed for cellulitis however, that this did not help much either. She denies chills, fever or otherwise feeling of unwell. [facility] Medical History (Updated 12/11/20 @ 14:[address] Genaro Murillo MD) Bilateral lower extremity edema Cardiomyopathy Cellulitis of lower extremity Congestive heart failure Essential hypertension HTN (hypertension) Kidney stone Long-term use of high-risk medication Obesity (BMI 30-39.9) Paroxysmal atrial fibrillation Ulcer of left lower extremity with fat layer exposed Ulcer of right lower extremity with fat layer exposed Valvular heart disease Home Medications apixaban 5 mg tablet 5 mg PO BID #180 tab 11/24/20 [Rx Last Taken Unknown] metoprolol tartrate 50 mg tablet 50 mg PO BID #180 tab 11/24/20 [Rx Last Taken Unknown] cephalexin 500 mg capsule 500 mg PO TID #30 cap 12/08/20 [Rx Last Taken Unknown] furosemide 20 mg tablet 20 mg PO DAILY tab 12/08/20 [History Last Taken Unknown] lisinopril 10 mg tablet 5 mg PO DAILY #90 tab 12/08/20 [Rx Last Taken Unknown] magnesium oxide 500 mg capsule 500 mg PO DAILY 12/08/20 [History Last Taken Unknown] apixaban [Eliquis] 2.5 mg PO BID 12/11/20 [History Last Taken Unknown] Allergy/AdvReac Type Severity Reaction Status Date / Time No Known Allergies Allergy Verified 12/08/20 08:43 Family History Father Cancer Lung,pancreatic Brother Atrial fibrillation Surgical History History of hysterectomy History of lithotripsy History of tonsillectomy Social History Smoking Status: Never smoker alcohol intake: never substance use type: does not use ROS Constitutional Constitutional: Denies chills, fever(s), frequent falls, headache(s), lethargy or malaise Eyes Eyes: Denies bloody eye, blurry vision, burning, change in eye color, discharge from eye(s), double vision or dry eyes ENT HEENT: Denies dysphagia, ear discharge, ear pain, epistaxis or facial pain Cardiovascular Cardiovascular: Denies abdominal pain, claudication, clubbing, cold extremities, cyanosis, diaphoresis or dyspnea at rest Respiratory/Chest Respiratory/Chest: Denies change in mental status, dyspnea on exertion, excessive phlegm production, hemoptysis, hoarseness, inability to speak or nail bed cyanosis Gastrointestinal Gastrointestinal: Denies bloating, change in bowel habits, chewing difficulty, coffee ground emesis, constipation, cramping or diarrhea Genitourinary Genitourinary: Denies abdominal discomfort, burning urination, dribbling, dysuria or genital lesions Musculoskeletal Musculoskeletal: Denies deformity, joint stiffness, joint swelling, muscle spasms, muscle weakness or numbness Integumentary Integumentary: Denies erythema, furuncle, hirsutism, jaundice, lesions or nail changes Neurologic Neurologic: Denies burning sensations, confusion, convulsions, disequilibrium, dizziness or focal weakness Psychiatric Psychiatric: Denies auditory hallucinations, behavioral changes, hallucinations, homicidal ideation, hopelessness or irritability Endocrine Endocrinology: Denies excessive sweating, heat intolerance, increase in ring/shoe/hat size, polydipsia or polyphagia Vital Signs Vital Signs Vital Signs: 12/11/20 09:22 Temperature 97.7 F L Temperature Source Temporal Pulse Rate 100 Respiratory Rate 20 H Blood Pressure 153/93 H Blood Pressure Mean 113 Blood Pressure Source Monitor Weight Weight: 210 lb Body Mass Index (BMI) 34.9 Physical Exam Const alert, oriented x3 and no apparent distress General Appearance: cooperative, comfortable and well kempt HEENT normocephalic and head/scalp atraumatic Head and Scalp: normocephalic and atraumatic Eyes EOMs intact bilaterally Neck full ROM General: normal visual inspection Resp normal respiratory effort Effort and Inspection: able to speak in complete sentences Cardio Rhythm: abnormal rhythm Extremity General Extremity: edema Skin Wounds: wounds noted Neuro oriented x3, CN's II-XII intact bilaterally and moves all extremities Psych mental status grossly normal Appearance: grossly normal Attitude: calm Activity / Motor Behavior: appropriate eye contact Speech: normal speech Debridement Note Debridement Note Wound debrided: Left lower extremity Type of Debridement: Excisional debridement Anesthesia Used: 4% Lidocaine Solution Depth: Down to and including healthy tissue Percentage of wound debrided: 100 Instrument Used: 5mm curette Tissue Removed: Slough and devitalized tissue Severity: Fat Layer Exposed Amount of bleeding with debridement: Mild Bleeding Controlled with: Pressure Patient tolerated procedure: Patient tolerated procedure well Post-Debridement Measurements and Additional Note: Post-Debridement Measurements/Treatment - Nurse 1 - General Ulcer Assessment Start: 12/11/20 08:41 Freq: Status: Active Protocol: LORETA Activity Type Activity Date Activity User E-Sign Co-Sign Detail Recorded Client Recorded Date Recorded By Document 12/11/20 09:22 DL [id number] 12/11/20 09:37 DL 12/11/20 09:22 - Today's Visit Information Type of service Initial Visit Arrival Mode Ambulatory Transfer Assistance None Patient Identification Verified (Name & Yes ) Patient Requires Transmission-Based No Precautions Height and Weight Height 5 ft 5 in Weight 210 lb Weight in Pounds 210.0 lbs Body Mass Index (BMI) 34.9 BMI Classification Obese BSA - Heather 2.02 Vital Signs Temperature (97.8 F-99.1 F) 97.7 F L Temperature Source Temporal Pulse Rate (60-100) 100 Pulse Location Apical Respiratory Rate (12-18) 20 H Respiratory rate source Observation Blood Pressure (90/60-120/80) 153/93 H Blood Pressure Mean 113 Source Monitor Pain Scale: 0-10 Numeric Is Patient Pain Free? Yes Lower Extremity Assessment/ Foot Assessment/ Toe Nail Assessment Left -Popliteal Doppler Multiphasic -Posterior Tibial Palpable Yes -Posterior Tibial Doppler Multiphasic -Dorsalis Pedis Palpable Yes -Dorsalis Pedis Doppler Multiphasic -Extremity Color Red -Hair Growth on Legs No -Hair Growth on Toes No -Temperature of Extremity Hot -Capillary Refill Less than 3 Seconds -Dependent Rubor No -Blanched when Elevated No -Lipodermatosclerosis No -Other Deformity No -Prior Foot Ulcer No -Charcot Joint No -Prior Amputation No -Thick No -Discolored No -Deformed No -Improper Length & Hygeine No Right -Posterior Tibial Palpable Yes -Posterior Tibial Doppler Multiphasic -Dorsalis Pedis Palpable Yes -Dorsalis Pedis Doppler Multiphasic -Extremity Color Normal -Hair Growth on Legs No -Hair Growth on Toes No -Temperature of Extremity Warm -Capillary Refill Less than 3 Seconds -Dependent Rubor No -Blanched when Elevated No -Lipodermatosclerosis No -Other Deformity No -Prior Foot Ulcer No -Charcot Joint No -Prior Amputation No -Thick No -Discolored No -Deformed No -Improper Length & Hygeine No Neuropathy Assessment Feet - Top Side and Bottom <Entered> (a) Communication Assessment Preferred language [place]ien 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 No Able to Read Yes Able to Write Yes Communication Tools None Right Hearing Abillity Normal Left Hearing Abillity Normal Visual Assistive Devices Glasses Teaching Assessment Preferences Verbal,Written, Demonstration Barriers to Learning None Readiness To Learn Good Willingness to Engage in Self Management Med Activies Readiness to Engage in Self Management Med Activities Anxiety Level Calm Cooperation Cooperative Perception Coherent Interest in Health Problem Asks Questions Education Importance Acknowledges Need Does Patient Smoke tobacco or other No substances Smoking Status Never smoker Is Patient Diabetic No Functional Assessment Recent Decline in Ability to Perform Denies Any Declines Assistive Device With Patient N/A Culture/Gnosticism/Senior Software Analyst Cultural/Gnosticism Needs that may affect No Treatment Plan Would you allow our hospital rubber heel and sole press tender to No meet you for the purpose of spiritual/ emotional support? Senior Software Analyst to contact place of judaism No Teaching: Wound Center Discharge Instructions -Person Taught Patient, Significant Other Control Swelling with Leg Elevation -Person Taught Patient, Significant Other Dressing Your Wound -Person Taught Patient, Significant Other *Welcome to the Wound Center -Person Taught Patient, Significant Other (a) 1 - + WC - Nurse 1 - General Ulcer Measurement Start: 12/11/20 08:41 Freq: Status: Active Protocol: Activity Type Activity Date Activity User E-Sign Co-Sign Detail Recorded Client Recorded Date Recorded By Document 12/11/20 09:22 DL [id number] 12/11/20 09:37 DL 12/11/20 09:22 Wound Center Nurse 1 #3 L [place] Cluster -Current Size (cm) - Length 8 -Current Size (cm) - Width 7.5 -Current Size (cm) - Depth 0.1 -Total Square Cm 60.0 -Photo Taken Yes -Classification - Thickness Full Thickness without Exposed Support Structure -Exudate Amt Large -Exudate Type Sanguineous -Wound Margin Distinct, Outline Attached -Granulation Amt Medium (34-66%) -Granulation Quality Red -Necrosis Amt Medium (34-66%) -Necrotic Tissue Type Adherent Slough -Structure Exposed N/A -Texture (Kelly-wound Skin Appearance) Localized Edema -Moisture (Kelly-wound Skin Appearance) No Abnormality -Color (Kelly-wound Skin Appearance) Erythema -Temperature (Kelly-wound Skin No Abnormality Appearance) (Pt Warm) -Tenderness on Palpation (Kelly-wound No Skin Appearance) -Ulcer Cleansing Soap and Water -Foul Odor after Cleansing No -Anesthetic Used 4% Lidocaine Solution #2 R Bot[place] -Current Size (cm) - Length 0.6 -Current Size (cm) - Width 0.5 -Current Size (cm) - Depth 0.1 -Total Square Cm 0.30 -Photo Taken Yes -Classification - Thickness Full Thickness without Exposed Support Structure -Exudate Amt Small -Exudate Type Serosanguineous -Wound Margin Distinct, Outline Attached -Granulation Amt Small (1-33%) -Granulation Quality [place] -Necrosis Amt Small (1-33%) -Necrotic Tissue Type Adherent Slough -Structure Exposed N/A -Texture (Kelly-wound Skin Appearance) Localized Edema -Moisture (Kelly-wound Skin Appearance) No Abnormality -Color (Kelly-wound Skin Appearance) Erythema, Hemosiderin Staining -Temperature (Kelly-wound Skin No Abnormality Appearance) (Pt Warm) -Tenderness on Palpation (Kelly-wound No Skin Appearance) -Ulcer Cleansing Soap and Water -Foul Odor after Cleansing No -Anesthetic Used 4% Lidocaine Solution #1 R Med LE -Current Size (cm) - Length 2 -Current Size (cm) - Width 3.8 -Current Size (cm) - Depth 0.1 -Total Square Cm 7.6 -Photo Taken Yes -Classification - Thickness Full Thickness without Exposed Support Structure -Exudate Amt Medium -Exudate Type Serosanguineous -Wound Margin Distinct, Outline Attached -Granulation Amt Small (1-33%) -Granulation Quality Red -Necrosis Amt Large (67-100%) -Necrotic Tissue Type Adherent Slough -Structure Exposed N/A -Texture (Kelly-wound Skin Appearance) Localized Edema ,Scarring -Moisture (Kelly-wound Skin Appearance) No Abnormality -Color (Kelly-wound Skin Appearance) Erythema -Temperature (Kelly-wound Skin No Abnormality Appearance) (Pt Warm) -Tenderness on Palpation (Kelly-wound No Skin Appearance) -Ulcer Cleansing Soap and Water -Foul Odor after Cleansing No -Anesthetic Used 4% Lidocaine Solution Right Calf (cm) 44 Right Ankle (cm) 26.1 Left Calf (cm) 47.5 Left Ankle (cm) 27.8 WC - Nurse 2 - General Ulcer CM Notes Start: 12/11/20 08:41 Freq: Status: Active Protocol: Activity Type Activity Date Activity User E-Sign Co-Sign Detail Recorded Client Recorded Date Recorded By Document 12/11/20 10:04 MW [id number] 12/11/20 10:15 MW 12/11/20 10:04 Wound Center Nurse 2 #3 L Bot[place] Cluster -Time 10:04 -Correct Patient Yes -Correct Side, Site, Position Yes -Correct Procedure Yes -Procedure Performed Yes -Type of Procedure Debridement -Clinical Debridement Subcutaneous -Tissue Removed Subcutaneous -Post Debridement (cm) - Length 10.0 -Post Debridement (cm) - Width 9.0 -Post Debridement (cm) - Depth 0.1 -Total Square (Post) (cm) 90.00 -Area of Debridement (cm) - Length 10.0 -Area of Debridement (cm) - Width 9.0 -Total Square (Area) (cm) 90.00 -Tunneling No -Undermining/Tunneling No -Circular Undermining No -Wound/Ulcer Outcome Not Healed -Ulcer Cleansing Rinsed/ Irrigated with Saline -Foul Odor after Cleansing No -Bioengineered Tissue No -Bleeding Controlled with Pressure -Offloading No -Treatment Response Procedure Tolerated Well -Debridement - Subq, 1st 20sq cm Yes -Debridement, SubQ, ea addt'l 20sq cm 5 or part thereof #2 R Botello -Time 10:04 -Correct Patient Yes -Correct Side, Site, Position Yes -Correct Procedure Yes -Procedure Performed Yes -Type of Procedure Debridement -Clinical Debridement Subcutaneous -Tissue Removed Subcutaneous -Post Debridement (cm) - Length 1.0 -Post Debridement (cm) - Width 0.5 -Post Debridement (cm) - Depth 0.1 -Total Square (Post) (cm) 0.50 -Area of Debridement (cm) - Length 1.0 -Area of Debridement (cm) - Width 0.5 -Total Square (Area) (cm) 0.50 -Tunneling No -Undermining/Tunneling No -Circular Undermining No -Wound/Ulcer Outcome Not Healed -Ulcer Cleansing Rinsed/ Irrigated with Saline -Foul Odor after Cleansing No -Bioengineered Tissue No -Bleeding Controlled with Pressure -Offloading No -Treatment Response Procedure Tolerated Well -Debridement - Subq, 1st 20sq cm No #1 R Med LE -Time 10:05 -Correct Patient Yes -Correct Side, Site, Position Yes -Correct Procedure Yes -Procedure Performed Yes -Type of Procedure Debridement -Clinical Debridement Subcutaneous -Tissue Removed Subcutaneous -Post Debridement (cm) - Length 3.0 -Post Debridement (cm) - Width 6.0 -Post Debridement (cm) - Depth 0.2 -Total Square (Post) (cm) 18.00 -Area of Debridement (cm) - Length 3.0 -Area of Debridement (cm) - Width 6.0 -Total Square (Area) (cm) 18.00 -Tunneling No -Undermining/Tunneling No -Circular Undermining No -Wound/Ulcer Outcome Not Healed -Ulcer Cleansing Rinsed/ Irrigated with Saline -Foul Odor after Cleansing No -Bioengineered Tissue No -Bleeding Controlled with Pressure -Offloading No -Treatment Response Procedure Tolerated Well -Debridement - Subq, 1st 20sq cm No Pain Scale: 0-10 Numeric Is Patient Pain Free? Yes WC - Nurse 3 - General Ulcer D/C NN Start: 12/11/20 08:41 Freq: Status: Active Protocol: Activity Type Activity Date Activity User E-Sign Co-Sign Detail Recorded Client Recorded Date Recorded By Document 12/11/20 10:52 [email or web address] [id number] 12/11/20 10:54 PHYLLIS 12/11/20 10:52 Wound Care Nurse 3 #3 L Bot[place] Cluster -Ulcer Cleansing Rinsed/ Irrigated with Saline -Foul Odor after Cleansing No -Negative Pressure Wound Therapy N/A -Primary Dressing Applied Aquacel AG 4x4 -Other Dressing 2 ABD -Primary Dressing Covered/Secured with Dry Gauze & Roll Gauze, Secured with Tape -Aquacel AG 4x4 2 #2 R Botello -Ulcer Cleansing Rinsed/ Irrigated with Saline -Foul Odor after Cleansing No -Negative Pressure Wound Therapy N/A -Primary Dressing Applied Aquacel AG 4x4 -Primary Dressing Covered/Secured with Dry Gauze & Roll Gauze, Secured with Tape -Aquacel AG 4x4 0 #1 R Med LE -Ulcer Cleansing Rinsed/ Irrigated with Saline -Foul Odor after Cleansing No -Negative Pressure Wound Therapy N/A -Primary Dressing Applied Aquacel AG 4x4 -Primary Dressing Covered/Secured with Dry Gauze & Roll Gauze, Secured with Tape -Aquacel AG 4x4 0 Right -Lotion applied to leg before No compression wrap -Size of Tubigrip Used Size E -Size E ($) 1 Left -Lotion applied to leg before No compression wrap -Size of Tubigrip Used Size E -Size E ($) 1 WC - Visit Discharge Discharge Condition Stable Ambulatory Status Ambulatory Transportation Private Auto Accompanied by Medication Reconcilliation completed & No provided to patient/care provider Clinical Summary of Care Provided Yes Additional Wound Wound debrided: Right lower extremity (superior) Type of Debridement: Excisional debridement Anesthesia Used: 4% Lidocaine Solution Depth: Down to and including healthy tissue and in the subcutaneous layer Percentage of wound debrided: 100 Instrument Used: 5mm curette Tissue Removed: Slough and devitalized tissue Severity: Fat Layer Exposed Amount of bleeding with debridement: Mild Bleeding Controlled with: Pressure Patient tolerated procedure: Patient tolerated procedure well Additional Wound Wound debrided: Right lower extremity (inferior) Type of Debridement: Excisional debridement Anesthesia Used: 4% Lidocaine Solution Depth: Down to and including healthy tissue and in the subcutaneous layer Percentage of wound debrided: 100 Instrument Used: 5mm curette Tissue Removed: Slough and devitalized tissue Severity: Fat Layer Exposed Amount of bleeding with debridement: Mild Bleeding Controlled with: Pressure Patient tolerated procedure: Patient tolerated procedure well Charges/Coding Visit Charges Office Visits / Consults: [id number] OV L4 Est Procedures Integumentary [id number]: [id number] Leena subq tissue 20 sq cm/< Add On Codes: 25857 Leena subq tissue add-on (x5 Additional square centimeter debrided, please refer to clinical note.) Assessment/Plan Assessment/Plan (1) Ulcer of left lower extremity with fat layer exposed: CODE(S): L97.922 - Non-pressure chronic ulcer of unspecified part of left lower leg with fat layer exposed (2) Ulcer of right lower extremity with fat layer exposed: CODE(S): L97.912 - Non-pressure chronic ulcer of unspecified part of right lower leg with fat layer exposed (3) Cellulitis of lower extremity: CODE(S): L03.119 - Cellulitis of unspecified part of limb (4) Bilateral lower extremity edema: CODE(S): R60.0 - Localized edema (5) Congestive heart failure: CODE(S): I50.9 - Heart failure, unspecified PLAN: Debridement done as documented above, procedure was well-tolerated. Very lengthy discussion had with patient on medication/treatment plan compliance. Aquacel extra to all ulcers. Cover with ABD. Change twice to 3 times daily depending on drainage. Double layer Tubigrip for edema management. She was advised to elevate her lower extremities when seated and in bed. Low sodium intake. Increase protein, vitamin C, D and zinc. Compliance with CHF management. Her questions were answered and she was advised to call with any further questions or concerns. Follow-up in a week. This note was generated with [employer] dictation software. It may contain incorrect words, spelling, and punctuation that were not noted in checking the note before signing.
== END 2020-12-14 23:59 ==
LOC: WC 08:21
PROVIDERS: PCP Family Medicine; Visit Provider Internal Medicine
DX: L97.812 Non-pressure chronic ulcer of other part of right lower leg with fat layer exposed (principal); L97.822 Non-pressure chronic ulcer of other part of left lower leg with fat layer exposed; I11.0 Hypertensive heart disease with heart failure; I50.9 Heart failure, unspecified; I48.0 Paroxysmal atrial fibrillation; E66.9 Obesity, unspecified; Z68.34 Body mass index [BMI] 34.0-34.9, adult; Z79.01 Long term (current) use of anticoagulants; Z79.899 Other long term (current) drug therapy
CPT/HCPCS: 11042; 11045; 99213; G0463

== ENCOUNTER → 2020-12-15 14:56 | Outpatient (CLI) | payer MEDICARE, OTHER, SELFPAY ==
[2020-12-15 17:42] LABS: Absolute Lymphocyte Count 2.42 X10^3/uL (0.83-4.51); Absolute Neutrophil Count 11.8 X10^3/uL (2.0-7.7); Basophil# 0.04 X10^3/uL; Basophil% 0.3 % (0-1); Eosinophil# 0.03 X10^3/uL; Eosinophils% 0.2 % (0-5); Hematocrit 49.8 % (37-47); Hemoglobin 16.2 g/dL (12.0-15.0); Lymphocyte # 2.42 X10^3/ul (0.83-4.51); Lymphocyte % 15.7 % (19-41); Mean Corp Hgb Conc 32.5 g/dL (32-36); Mean Corpuscular Hgb 30.9 pg (27.0-32.0); Mean Corpuscular Volume 94.9 fL (81-99); Mean Platelet Vol. 10.5 fl (6.2-12.0); Monocyte# 0.97 X10^3/uL; Monocyte% 6.3 % (0-10); NRBC Flagged by Analyzer 0 % (0-5); Neutrophil # 11.84 X10^3/uL (2.7-7.7); Platelet Count 289 K/mm3 (150-450); RBC Distribution Width CV 14.2 % (11.6-14.6); RBC Distribution Width SD 50.1 fl (35.1-43.9); Red Blood Count 5.25 M/mm3 (4.2-5.4); White Blood Count 15.4 K/mm3 (4.4-11.0)
[2020-12-15 17:57] LABS: Vitamin D,25 Hydroxy 35.6 ng/mL
[2020-12-15 18:02] LABS: ALB/GLOB Ratio 0.6 RATIO (0.9-2.4); AST(SGOT) 19 U/L (15-37); Alanine Aminotransfer ALT/SGPT 26 U/L (13-56); Albumin, Serum 2.7 g/dL (3.2-5.0); Alkaline Phosphatase 94 U/L (45-117); Anion Gap 7 (5-15); BUN 19 mg/dL (7-18); BUN/Creat Ratio 15.8 RATIO (10-20); Chloride 101 mmol/L (98-107); EST Glomerular Filtration Rate 47 mL/min (>60); Est Glom Filt Rate - Afr Amer 57 mL/min (>60); Globulin 4.6 g/dL (2.2-4.2); Glucose 93 mg/dL (74-106); Potassium 3.9 mmol/L (3.5-5.1); Protein, Total 7.3 g/dL (6.4-8.2); Sodium Level 136 mmol/L (136-145)
[2020-12-16 08:28] LABS: PTHIN 83.4 pg/mL (18.4-80.1)
== END ==
PROVIDERS: PCP Family Medicine; Visit Provider Family Medicine
DX: N18.30 Chronic kidney disease, stage 3 unspecified (principal); N25.81 Secondary hyperparathyroidism of renal origin; I50.82 Biventricular heart failure; E55.9 Vitamin D deficiency, unspecified
CPT/HCPCS: 36415; 80053; 82306; 83970; 85025

== ENCOUNTER 2021-01-01 09:15 | Outpatient (RCR) | payer MEDICARE, OTHER, SELFPAY ==
[2020-12-15 00:34] VITALS: BP 153/93; PULSE 100; RESP 20; TEMP 36.5; BMI 34.9
[2020-12-18 09:25] VITALS: BP 151/101; PULSE 106; RESP 16; TEMP 36.3; BMI 34.9
--- NOTE | 2020-12-18 11:11 | PCM.WC.PN ---
History of Present Illness Date of Service: 12/18/20 Chief Complaint: Non healing bilateral lower extremity ulcers History of Wound: Ms. Padilla presents to the wound center due to nonhealing bilateral lower extremity ulcers. Had recently been in the hospital following worsening lower extremity edema secondary to CHF exacerbation and A. fib with RVR. She had discontinued use of her medications. She states that she has restarted some of them. Has been applying a salve to the ulcers without any significant improvement. No form of compression. At some point, she was managed for cellulitis however, that this did not help much either. She denies chills, fever or otherwise feeling of unwell. Subjective Subjective No new concerns at this time. She states that she has been doing wound dressing as recommended. Objective Data Objective Data Vital Signs: Vital Signs Temp Pulse Resp BP 97.4 F L 106 H 16 151/101 H 12/18/20 09:25 12/18/20 09:25 12/18/20 09:25 12/18/20 09:25 Weight: 210 lb Body Mass Index (BMI) 34.9 Charges/Coding Procedures Integumentary 111xxx-113xx: [id number] Leena subq tissue 20 sq cm/< Add On Codes: 81870 Leena subq tissue add-on (x4. Additional square centimeter debrided, please refer to clinical note) Physical Exam Const alert, oriented x3 and no apparent distress General Appearance: cooperative, comfortable and well kempt HEENT normocephalic and head/scalp atraumatic Head and Scalp: normocephalic and atraumatic Eyes EOMs intact bilaterally Neck full ROM General: normal visual inspection Resp normal respiratory effort Effort and Inspection: able to speak in complete sentences Cardio Rhythm: abnormal rhythm Extremity General Extremity: edema Skin Wounds: wounds noted Neuro oriented x3, CN's II-XII intact bilaterally and moves all extremities Psych mental status grossly normal Appearance: grossly normal Attitude: calm Activity / Motor Behavior: appropriate eye contact Speech: normal speech Debridement Note Debridement Note Wound debrided: Left lower extremity (nicholas) Type of Debridement: Excisional debridement Anesthesia Used: 4% Lidocaine Solution Depth: Down to and including healthy tissue and in the subcutaneous layer Percentage of wound debrided: 100 Instrument Used: 7mm curette Tissue Removed: Slough and devitalized tissue Severity: Fat Layer Exposed Amount of bleeding with debridement: Mild Bleeding Controlled with: Pressure Patient tolerated procedure: Patient tolerated procedure well Post-Debridement Measurements and Additional Note: Post-Debridement Measurements/Treatment WC - Nurse 1 - General Ulcer Assessment Start: 12/18/20 09:25 Freq: Status: Active Protocol: LORETA Activity Type Activity Date Activity User E-Sign Co-Sign Detail Recorded Client Recorded Date Recorded By Document 12/18/20 09:25 ML [id number] 12/18/20 09:32 ML 12/18/20 09:25 WC - Today's Visit Information Type of service Follow-up Visit (Physician/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 MANAGEMENT TECHNICIAN ) Arrival Mode Ambulatory Transfer Assistance None Patient Identification Verified (Name & Yes ) Patient Requires Transmission-Based No Precautions Safety Precautions NA Height and Weight Body Mass Index (BMI) 34.9 BMI Classification Obese Vital Signs Temperature (97.8 F-99.1 F) 97.4 F L Temperature Source Temporal Pulse Rate (60-100) 106 H Pulse Location Monitor Respiratory Rate (12-18) 16 Respiratory rate source Observation Blood Pressure (90/60-120/80) 151/101 H Blood Pressure Mean (mm Hg) 117 Source Monitor Position Sitting Blood Pressure Location Right Arm History Since Last Visit- (Skip if this is Patient's initial visit) Have you changed medications since your No last visit? Any new allergies or adverse reactions No Had a fall/change in ADL's that may No increase risk of falls Signs or symptoms of abuse and/or No neglect since last visit Have you been in the hospital since your No last visit? Has dressing in place as prescribed Yes Has compression in place as prescribed No Has offloadiing in place as prescribed N/A Experienced any changes in pain level or No management Left Footwear Regular Shoe Right Footwear Regular Shoe Pain Scale: 0-10 Numeric Is Patient Pain Free? Yes INO - Nurse 1 - General Ulcer Measurement Start: 12/18/20 09:25 Freq: Status: Active Protocol: Activity Type Activity Date Activity User E-Sign Co-Sign Detail Recorded Client Recorded Date Recorded By Document 12/18/20 09:25 ML [id number] 12/18/20 09:32 ML 12/18/20 09:25 Wound Center Nurse 1 #3 L Nicholas Cluster -Current Size (cm) - Length 11 -Current Size (cm) - Width 8 -Current Size (cm) - Depth 1 -Total Square Cm 88 -Exudate Amt Medium -Exudate Type Serosanguineous -Wound Margin Distinct, Outline Attached -Granulation Amt Medium (34-66%) -Necrosis Amt Medium (34-66%) -Necrotic Tissue Type Adherent Slough -Texture (Kelly-wound Skin Appearance) Assessed -Moisture (Kelly-wound Skin Appearance) Assessed -Color (Kelly-wound Skin Appearance) Assessed -Temperature (Kelly-wound Skin No Abnormality Appearance) (Pt Warm) -Tenderness on Palpation (Kelly-wound No Skin Appearance) -Ulcer Cleansing Soap and Water -Anesthetic Used 5% Lidocaine Gel #2 R Nicholas -Current Size (cm) - Length 0.1 -Current Size (cm) - Width 0.1 -Current Size (cm) - Depth 0.1 -Total Square Cm 0.01 -Exudate Amt Small -Wound Margin Distinct, Outline Attached -Granulation Amt None Present (0 %) -Necrosis Amt None Present (0 %) -Texture (Kelly-wound Skin Appearance) Assessed -Moisture (Kelly-wound Skin Appearance) Assessed -Color (Kelly-wound Skin Appearance) Assessed -Temperature (Kelly-wound Skin No Abnormality Appearance) (Pt Warm) -Tenderness on Palpation (Kelly-wound No Skin Appearance) -Ulcer Cleansing Soap and Water -Foul Odor after Cleansing No -Anesthetic Used 5% Lidocaine Gel #1 R Med LE -Current Size (cm) - Length 2.3 -Current Size (cm) - Width 3.8 -Current Size (cm) - Depth 0.1 -Total Square Cm 8.74 -Exudate Amt Medium -Exudate Type Serosanguineous -Wound Margin Distinct, Outline Attached -Granulation Amt Medium (34-66%) -Necrosis Amt Medium (34-66%) -Necrotic Tissue Type Adherent Slough -Texture (Kelly-wound Skin Appearance) Assessed -Moisture (Kelly-wound Skin Appearance) Assessed -Color (Kelly-wound Skin Appearance) Assessed -Temperature (Kelly-wound Skin No Abnormality Appearance) (Pt Warm) -Tenderness on Palpation (Kelly-wound No Skin Appearance) -Ulcer Cleansing Soap and Water -Foul Odor after Cleansing No -Anesthetic Used 5% Lidocaine Gel WC - Nurse 2 - General Ulcer CM Notes Start: 12/18/20 09:25 Freq: Status: Active Protocol: Activity Type Activity Date Activity User E-Sign Co-Sign Detail Recorded Client Recorded Date Recorded By Document 11/04/21 10:48 PL [id number] 12/18/20 10:50 PL 12/18/20 10:48 Wound Center Nurse 2 #3 L Ayan Cluster -Time 09:41 -Correct Patient Yes -Correct Side, Site, Position Yes -Correct Procedure Yes -Procedure Performed Yes -Type of Procedure Debridement -Clinical Debridement Subcutaneous -Tissue Removed Subcutaneous -Post Debridement (cm) - Length 11.0 -Post Debridement (cm) - Width 8.0 -Post Debridement (cm) - Depth 0.1 -Total Square (Post) (cm) 88.00 -Area of Debridement (cm) - Length 11.0 -Area of Debridement (cm) - Width 8.0 -Total Square (Area) (cm) 88.00 -Tunneling No -Undermining/Tunneling No -Circular Undermining No -Wound/Ulcer Outcome Not Healed -Ulcer Cleansing Rinsed/ Irrigated with Saline -Foul Odor after Cleansing No -Bioengineered Tissue No -Bleeding Controlled with Pressure -Treatment Response Procedure Not Tolerated Well -Debridement - Subq, 1st 20sq cm Yes -Debridement, SubQ, ea addt'l 20sq cm 4 or part thereof #2 R Nicholas -Procedure Performed No -Post Debridement (cm) - Length 0.1 -Post Debridement (cm) - Width 0.1 -Post Debridement (cm) - Depth 0.1 -Total Square (Post) (cm) 0.01 #1 R Med LE -Time 09:41 -Correct Patient Yes -Correct Side, Site, Position Yes -Correct Procedure Yes -Procedure Performed Yes -Type of Procedure Debridement -Clinical Debridement Subcutaneous -Tissue Removed Subcutaneous -Post Debridement (cm) - Length 1.5 -Post Debridement (cm) - Width 3.5 -Post Debridement (cm) - Depth 0.1 -Total Square (Post) (cm) 5.25 -Area of Debridement (cm) - Length 1.5 -Area of Debridement (cm) - Width 3.5 -Total Square (Area) (cm) 5.25 -Tunneling No -Undermining/Tunneling No -Circular Undermining No -Wound/Ulcer Outcome Not Healed -Ulcer Cleansing Rinsed/ Irrigated with Saline -Foul Odor after Cleansing No -Bioengineered Tissue No -Debridement - Subq, 1st 20sq cm No WC - Nurse 3 - General Ulcer D/C NN Start: 12/18/20 09:25 Freq: Status: Active Protocol: Activity Type Activity Date Activity User E-Sign Co-Sign Detail Recorded Client Recorded Date Recorded By Document 12/18/20 10:12 [id number] [id number] 12/18/20 10:14 DL 12/18/20 10:12 Wound Care Nurse 3 #3 L Nicholas Cluster -Ulcer Cleansing Rinsed/ Irrigated with Saline -Foul Odor after Cleansing No -Primary Dressing Applied Aquacel Extra, NonAdherent Contact Layer -Primary Dressing Covered/Secured with Dry Gauze & Roll Gauze, Secured with Tape -Aquacel Extra 1 #2 R Nicholas -Ulcer Cleansing Rinsed/ Irrigated with Saline -Foul Odor after Cleansing No -Primary Dressing Applied NonAdherent Contact Layer -Other Dressing aquacel ex -Primary Dressing Covered/Secured with Dry Gauze & Roll Gauze, Secured with Tape #1 R Med LE -Ulcer Cleansing Rinsed/ Irrigated with Saline -Foul Odor after Cleansing No -Other Dressing aquacel ex -Primary Dressing Covered/Secured with Dry Gauze & Roll Gauze, Secured with Tape Left -Tubular Bandage Double Layer -Size of Tubigrip Used Size F -Size F ($) 2 Right -Tubular Bandage Double Layer -Size of Tubigrip Used Size F -Size F ($) 2 Treatment Response Procedure Tolerated Well Pain Scale: 0-10 Numeric Is Patient Pain Free? Yes WC - Visit Discharge Discharge Condition Stable Ambulatory Status Ambulatory Transportation Private Auto Additional Wound Wound debrided: Right lower extremity (medial ankle) Type of Debridement: Excisional debridement Anesthesia Used: 4% Lidocaine Solution Depth: Down to and including healthy tissue and in the subcutaneous layer Percentage of wound debrided: 100 Instrument Used: 5mm curette Tissue Removed: Slough and devitalized tissue Severity: Fat Layer Exposed Amount of bleeding with debridement: Mild Bleeding Controlled with: Pressure Patient tolerated procedure: Patient tolerated procedure well Assessment/Plan Assessment/Plan (1) Ulcer of left lower extremity with fat layer exposed: CODE(S): L97.922 - Non-pressure chronic ulcer of unspecified part of left lower leg with fat layer exposed (2) Ulcer of right lower extremity with fat layer exposed: CODE(S): L97.912 - Non-pressure chronic ulcer of unspecified part of right lower leg with fat layer exposed (3) Cellulitis of lower extremity: CODE(S): L03.119 - Cellulitis of unspecified part of limb (4) Bilateral lower extremity edema: CODE(S): R60.0 - Localized edema (5) Congestive heart failure: CODE(S): I50.9 - Heart failure, unspecified PLAN: Debridement done as documented above, procedure was well-tolerated. Continue Aquacel extra to all ulcers. Cover with ABD. Change twice to 3 times daily depending on drainage. Double layer Tubigrip for edema management. She was advised to elevate her lower extremities when seated and in bed. Low sodium intake. Increase protein, vitamin C, D and zinc. Compliance with CHF management. Her questions were answered and she was advised to call with any further questions or concerns. Follow-up in a week. This note was generated with [employer] dictation software. It may contain incorrect words, spelling, and punctuation that were not noted in checking the note before signing.
[2020-12-25 09:08] VITALS: BP 162/97; PULSE 106; RESP 16; TEMP 35.4; BMI 34.9
--- NOTE | 2020-12-25 13:05 | PN.PCM_ITS ---
History of Present Illness Date of Service: 12/25/20 Chief Complaint: Non healing bilateral lower extremity ulcers History of Wound: Ms. Padilla presents to the wound center due to nonhealing bilateral lower extremity ulcers. Had recently been in the hospital following worsening lower extremity edema secondary to CHF exacerbation and A. fib with RVR. She had discontinued use of her medications. She states that she has restarted some of them. Has been applying a salve to the ulcers without any significant improvement. No form of compression. At some point, she was managed for cellulitis however, that this did not help much either. She denies chills, fever or otherwise feeling of unwell. Progress of Wound: Right medial ulcer improving however with more pain today. Left nicholas also improving. Has been doing dressing changes as recommended. Subjective Subjective No new concerns at this time. Objective Data Objective Data Vital Signs: Vital Signs Temp Pulse Resp BP 95.7 F L 106 H 16 162/97 H 12/25/20 09:08 12/25/20 09:08 12/25/20 09:08 12/25/20 09:08 Weight: 210 lb Body Mass Index (BMI) 34.9 Charges/Coding Procedures Integumentary 111xxx-113xx: 63251 Leena subq tissue 20 sq cm/< Add On Codes: 04585 Leena subq tissue add-on (X4. Additional square centimeter debrided, please refer to clinical note) Physical Exam Const alert, oriented x3 and no apparent distress General Appearance: cooperative, comfortable and well kempt HEENT normocephalic and head/scalp atraumatic Head and Scalp: normocephalic and atraumatic Eyes EOMs intact bilaterally Neck full ROM General: normal visual inspection Resp normal respiratory effort Effort and Inspection: able to speak in complete sentences Cardio Rhythm: abnormal rhythm Extremity General Extremity: edema Skin Wounds: wounds noted Neuro oriented x3, CN's II-XII intact bilaterally and moves all extremities Psych mental status grossly normal Appearance: grossly normal Attitude: calm Activity / Motor Behavior: appropriate eye contact Speech: normal speech Debridement Note Debridement Note Wound debrided: Left Nicholas Cluster Type of Debridement: Excisional debridement Anesthesia Used: 4% Lidocaine Solution Depth: Down to and including healthy tissue and in the subcutaneous layer Percentage of wound debrided: 100 Instrument Used: 5mm curette Tissue Removed: Slough and devitalized tissue Severity: Fat Layer Exposed Amount of bleeding with debridement: Mild Bleeding Controlled with: Pressure Patient tolerated procedure: Patient tolerated procedure well Post-Debridement Measurements and Additional Note: Post-Debridement Measurements/Treatment - Nurse 1 - General Ulcer Assessment Start: 12/18/20 09:25 Freq: Status: Active Protocol: LORETA Activity Type Activity Date Activity User E-Sign Co-Sign Detail Recorded Client Recorded Date Recorded By Document 12/18/20 09:25 ML [id number] 12/18/20 09:32 ML Document 12/25/20 09:08 JF [id number] 12/25/20 09:21 JF 12/18/20 12/25/20 09:25 09:08 WC - Today's Visit Information Type of service Follow-up Visit Follow-up Visit (Physician/COKE INSPECTOR (Physician/COKE INSPECTOR ) ) Arrival Mode Ambulatory Ambulatory Transfer Assistance None Patient Identification Verified (Name & Yes Yes ) Patient Requires Transmission-Based No No Precautions Safety Precautions NA Height and Weight Body Mass Index (BMI) 34.9 34.9 BMI Classification Obese Obese Vital Signs Temperature (97.8 F-99.1 F) 97.4 F L 95.7 F L Temperature Source Temporal Temporal Pulse Rate (60-100) 106 H 106 H Pulse Location Monitor Monitor Respiratory Rate (12-18) 16 16 Respiratory rate source Observation Observation Blood Pressure (90/60-120/80) 151/101 H 162/97 H Blood Pressure Mean (mm Hg) 117 118 Source Monitor Monitor Position Sitting Sitting Blood Pressure Location Right Arm Left Arm History Since Last Visit- (Skip if this is Patient's initial visit) Have you changed medications since your No Yes last visit? Any new allergies or adverse reactions No No Had a fall/change in ADL's that may No Yes increase risk of falls Signs or symptoms of abuse and/or No No neglect since last visit Have you been in the hospital since your No No last visit? Has dressing in place as prescribed Yes Yes Has compression in place as prescribed No Yes Has offloadiing in place as prescribed N/A N/A Experienced any changes in pain level or No No management Left Footwear Regular Shoe Regular Shoe Right Footwear Regular Shoe Regular Shoe Pain Scale: 0-10 Numeric Is Patient Pain Free? Yes Yes - Nurse 1 - General Ulcer Measurement Start: 12/18/20 09:25 Freq: Status: Active Protocol: Activity Type Activity Date Activity User E-Sign Co-Sign Detail Recorded Client Recorded Date Recorded By Document 12/18/20 09:25 ML [id number] 12/18/20 09:32 ML Document 12/25/20 09:08 JF [id number] 12/25/20 09:21 JF 12/18/20 12/25/20 09:25 09:08 Wound Center Nurse 1 #3 L Nicholas Cluster -Combined with other wound No -Current Size (cm) - Length 11 0.1 -Current Size (cm) - Width 8 0.1 -Current Size (cm) - Depth 1 0.1 -Total Square Cm 88 0.01 -Photo Taken No -Epithelialization Large 67-100% -Tunneling No -Undermining/Tunneling No -Circular Undermining No -Exudate Amt Medium Small -Exudate Type Serosanguineous Serosanguineous -Wound Margin Distinct, Fibrotic Scar, Outline Thickened Scar Attached -Granulation Amt Medium (34-66%) Small (1-33%) -Granulation Quality Red -Slough/Fibrin Yes -Necrosis Amt Medium (34-66%) Small (1-33%) -Necrotic Tissue Type Adherent Slough Adherent Slough -Structure Exposed N/A -Texture (Kelly-wound Skin Appearance) Assessed Assessed, Localized Edema -Moisture (Kelly-wound Skin Appearance) Assessed No Abnormality -Color (Kelly-wound Skin Appearance) Assessed Assessed, Hemosiderin Staining -Temperature (Kelly-wound Skin No Abnormality No Abnormality Appearance) (Pt Warm) (Pt Warm) -Tenderness on Palpation (Kelly-wound No No Skin Appearance) -Ulcer Cleansing Soap and Water Wound Cleanser -Foul Odor after Cleansing No -Anesthetic Used 5% Lidocaine 4% Lidocaine Gel Solution #2 R Nicholas -Combined with other wound No -Current Size (cm) - Length 0.1 0.1 -Current Size (cm) - Width 0.1 0.1 -Current Size (cm) - Depth 0.1 0.1 -Total Square Cm 0.01 0.01 -Photo Taken No -Epithelialization Large 67-100% -Undermining/Tunneling No -Circular Undermining No -Exudate Amt Small None Present -Wound Margin Distinct, Outline Attached -Granulation Amt None Present (0 Small (1-33%) %) -Granulation Quality Red -Slough/Fibrin No -Necrosis Amt None Present (0 %) -Structure Exposed N/A -Texture (Kelly-wound Skin Appearance) Assessed Assessed, Localized Edema -Moisture (Kelly-wound Skin Appearance) Assessed No Abnormality, Dry/Scaly -Color (Kelly-wound Skin Appearance) Assessed Assessed -Temperature (Kelly-wound Skin No Abnormality No Abnormality Appearance) (Pt Warm) (Pt Warm) -Tenderness on Palpation (Kelly-wound No No Skin Appearance) -Ulcer Cleansing Soap and Water Wound Cleanser -Foul Odor after Cleansing No No -Anesthetic Used 5% Lidocaine 4% Lidocaine Gel Solution #1 R Med LE -Combined with other wound No -Current Size (cm) - Length 2.3 1 -Current Size (cm) - Width 3.8 2.5 -Current Size (cm) - Depth 0.1 0.1 -Total Square Cm 8.74 2.5 -Photo Taken No -Epithelialization Small 1-33% -Tunneling No -Undermining/Tunneling No -Circular Undermining No -Exudate Amt Medium Medium -Exudate Type Serosanguineous Serosanguineous -Wound Margin Distinct, Distinct, Outline Outline Attached Attached -Granulation Amt Medium (34-66%) Small (1-33%) -Granulation Quality Red -Necrosis Amt Medium (34-66%) Medium (34-66%) -Necrotic Tissue Type Adherent Slough Adherent Slough -Structure Exposed N/A -Texture (Kelly-wound Skin Appearance) Assessed Assessed, Localized Edema -Moisture (Kelly-wound Skin Appearance) Assessed Dry/Scaly -Color (Kelly-wound Skin Appearance) Assessed Assessed -Temperature (Kelly-wound Skin No Abnormality No Abnormality Appearance) (Pt Warm) (Pt Warm) -Tenderness on Palpation (Kelly-wound No Skin Appearance) -Ulcer Cleansing Soap and Water Wound Cleanser -Foul Odor after Cleansing No No -Anesthetic Used 5% Lidocaine 4% Lidocaine Gel Solution Lower Limb Edema Present Yes Right Calf (cm) 44.4 Right Ankle (cm) 25.5 Left Calf (cm) 47 Left Ankle (cm) 24.3 WC - Nurse 2 - General Ulcer CM Notes Start: 12/18/20 09:25 Freq: Status: Active Protocol: Activity Type Activity Date Activity User E-Sign Co-Sign Detail Recorded Client Recorded Date Recorded By Document 12/18/20 10:48 PL [id number] 12/18/20 10:50 PL Document 12/25/20 09:28 MW [id number] 12/25/20 09:38 MW 12/18/20 12/25/20 10:48 09:28 Wound Center Nurse 2 #3 L Nicholas Cluster -Time 09:41 09:35 -Correct Patient Yes Yes -Correct Side, Site, Position Yes Yes -Correct Procedure Yes Yes -Procedure Performed Yes Yes -Type of Procedure Debridement Debridement -Clinical Debridement Subcutaneous Subcutaneous -Tissue Removed Subcutaneous Subcutaneous -Post Debridement (cm) - Length 11.0 11.0 -Post Debridement (cm) - Width 8.0 8.0 -Post Debridement (cm) - Depth 0.1 0.1 -Total Square (Post) (cm) 88.00 88.00 -Area of Debridement (cm) - Length 11.0 11.0 -Area of Debridement (cm) - Width 8.0 8.0 -Total Square (Area) (cm) 88.00 88.00 -Tunneling No No -Undermining/Tunneling No No -Circular Undermining No No -Wound/Ulcer Outcome Not Healed Not Healed -Ulcer Cleansing Rinsed/ Rinsed/ Irrigated with Irrigated with Saline Saline -Foul Odor after Cleansing No No -Bioengineered Tissue No No -Bleeding Controlled with Pressure Pressure -Offloading No -Treatment Response Procedure Not Procedure Tolerated Well Tolerated Well -Debridement - Subq, 1st 20sq cm Yes Yes -Debridement, SubQ, ea addt'l 20sq cm 4 4 or part thereof #2 R Nicholas -Time 09:35 -Correct Patient Yes -Correct Side, Site, Position Yes -Correct Procedure Yes -Procedure Performed No Yes -Type of Procedure Debridement -Clinical Debridement Subcutaneous -Tissue Removed Subcutaneous -Post Debridement (cm) - Length 0.1 0.1 -Post Debridement (cm) - Width 0.1 0.1 -Post Debridement (cm) - Depth 0.1 0.1 -Total Square (Post) (cm) 0.01 0.01 -Area of Debridement (cm) - Length 0.1 -Area of Debridement (cm) - Width 0.1 -Total Square (Area) (cm) 0.01 -Tunneling No -Undermining/Tunneling No -Circular Undermining No -Wound/Ulcer Outcome Not Healed -Ulcer Cleansing Rinsed/ Irrigated with Saline -Foul Odor after Cleansing No -Bioengineered Tissue No -Bleeding Controlled with Pressure -Offloading No -Debridement - Subq, 1st 20sq cm No #1 R Med LE -Time 09:41 09:36 -Correct Patient Yes Yes -Correct Side, Site, Position Yes Yes -Correct Procedure Yes Yes -Procedure Performed Yes Yes -Type of Procedure Debridement Debridement -Clinical Debridement Subcutaneous Subcutaneous -Tissue Removed Subcutaneous Subcutaneous -Post Debridement (cm) - Length 1.5 1.1 -Post Debridement (cm) - Width 3.5 2.5 -Post Debridement (cm) - Depth 0.1 0.1 -Total Square (Post) (cm) 5.25 2.75 -Area of Debridement (cm) - Length 1.5 1.1 -Area of Debridement (cm) - Width 3.5 2.5 -Total Square (Area) (cm) 5.25 2.75 -Tunneling No No -Undermining/Tunneling No No -Circular Undermining No No -Wound/Ulcer Outcome Not Healed Not Healed -Ulcer Cleansing Rinsed/ Rinsed/ Irrigated with Irrigated with Saline Saline -Foul Odor after Cleansing No No -Bioengineered Tissue No No -Bleeding Controlled with Pressure -Offloading No -Treatment Response Procedure Tolerated Well -Debridement - Subq, 1st 20sq cm No No Pain Scale: 0-10 Numeric Is Patient Pain Free? Yes - Nurse 3 - General Ulcer D/C NN Start: 12/18/20 09:25 Freq: Status: Active Protocol: Activity Type Activity Date Activity User E-Sign Co-Sign Detail Recorded Client Recorded Date Recorded By Document 12/18/20 10:12 DL [id number] 12/18/20 10:14 DL Document 12/25/20 09:51 [id number] 12/25/20 09:53 12/18/20 12/25/20 10:12 09:51 Wound Care Nurse 3 #3 L Nicholas Cluster -Ulcer Cleansing Rinsed/ Wound Cleanser Irrigated with Saline -Foul Odor after Cleansing No No -Primary Dressing Applied Aquacel Extra, Aquacel Extra NonAdherent Contact Layer -Primary Dressing Covered/Secured with Dry Gauze & Dry Gauze & Roll Gauze, Roll Gauze Secured with Tape -Aquacel Extra 1 1 #2 R Nicholas -Ulcer Cleansing Rinsed/ Wound Cleanser Irrigated with Saline -Foul Odor after Cleansing No No -Primary Dressing Applied NonAdherent NonAdherent Contact Layer Contact Layer -Other Dressing aquacel ex -Primary Dressing Covered/Secured with Dry Gauze & Dry Gauze & Roll Gauze, Roll Gauze, Secured with Secured with Tape Tape #1 R Med LE -Ulcer Cleansing Rinsed/ Wound Cleanser Irrigated with Saline -Foul Odor after Cleansing No No -Primary Dressing Applied Aquacel Extra -Other Dressing aquacel ex -Primary Dressing Covered/Secured with Dry Gauze & Roll Gauze, Secured with Tape -Aquacel Extra 0 Left -Tubular Bandage Double Layer Double Layer -Size of Tubigrip Used Size F Size F -Size F ($) 2 0 Right -Tubular Bandage Double Layer Double Layer -Size of Tubigrip Used Size F Size F -Size F ($) 2 0 Treatment Response Procedure Tolerated Well Pain Scale: 0-10 Numeric Is Patient Pain Free? Yes Yes WC - Visit Discharge Discharge Condition Stable Stable Ambulatory Status Ambulatory Ambulatory Transportation Private Auto Private Auto Medication Reconcilliation completed & Yes provided to patient/care provider Clinical Summary of Care Provided Yes Additional Wound Wound debrided: Right Medial Lower Extremity Type of Debridement: Excisional debridement Anesthesia Used: 4% Lidocaine Solution Depth: Down to and including healthy tissue and in the subcutaneous layer Percentage of wound debrided: 100 Instrument Used: 5mm curette Tissue Removed: Slough and devitalized tissue Severity: Fat Layer Exposed Amount of bleeding with debridement: Mild Bleeding Controlled with: Pressure Patient tolerated procedure: Patient tolerated procedure well Assessment/Plan Assessment/Plan (1) Ulcer of left lower extremity with fat layer exposed: CODE(S): L97.922 - Non-pressure chronic ulcer of unspecified part of left lower leg with fat layer exposed (2) Ulcer of right lower extremity with fat layer exposed: CODE(S): L97.912 - Non-pressure chronic ulcer of unspecified part of right lower leg with fat layer exposed (3) Cellulitis of lower extremity: CODE(S): L03.119 - Cellulitis of unspecified part of limb (4) Bilateral lower extremity edema: CODE(S): R60.0 - Localized edema (5) Congestive heart failure: CODE(S): I50.9 - Heart failure, unspecified PLAN: Debridement done as documented above, procedure was well-tolerated. Cultures of the right medial ulcer taken. Continue Aquacel extra to all ulcers. Cover with ABD. Change twice to 3 times daily depending on drainage. Double layer Tubigrip for edema management. She was advised to elevate her lower extremities when seated and in bed. Low sodium intake. Increase protein, vitamin C, D and zinc. Compliance with CHF management. Her questions were answered and she was advised to call with any further questions or concerns. Follow-up in a week. This note was generated with [employer] dictation software. It may contain incorrect words, spelling, and punctuation that were not noted in checking the note before signing.
[2021-01-01 09:20] VITALS: BP 165/98; PULSE 98; TEMP 36.6; BMI 34.9
--- NOTE | 2021-01-01 09:53 | PCM.WC.PN ---
History of Present Illness Date of Service: 01/21/21 Chief Complaint: Non healing bilateral lower extremity ulcers History of Wound: Ms. Padilla presents to the wound center due to nonhealing bilateral lower extremity ulcers. Had recently been in the hospital following worsening lower extremity edema secondary to CHF exacerbation and A. fib with RVR. She had discontinued use of her medications. She states that she has restarted some of them. Has been applying a salve to the ulcers without any significant improvement. No form of compression. At some point, she was managed for cellulitis however, that this did not help much either. She denies chills, fever or otherwise feeling of unwell. Progress of Wound: Left nicholas with minimal area left. Right medial ulcer is improving. Culture reveiwed. Subjective Subjective No new concerns at this time. Objective Data Objective Data Vital Signs: Vital Signs Temp Pulse Resp BP 97.8 F 98 16 165/98 H 01/01/21 09:20 01/01/21 09:20 12/25/20 09:08 01/01/21 09:20 Weight: 210 lb Body Mass Index (BMI) 34.9 Lab / Micro Data Micro: Microbiology 12/25/20 09:30 Wound - Leg, Right Gram Stain - Final 12/25/20 09:30 Wound - Leg, Right Wound Culture - Final Acinetobacter baumannii comple Staphylococcus epidermidis Enterococcus faecalis Staphylococcus haemolyticus Corynebacterium amycolatum 12/25/20 09:30 Wound - Leg, Right Anaerobic Culture - Final No anaerobic bacteria isolated. Charges/Coding Procedures Integumentary 111xxx-113xx: 17060 Leena subq tissue 20 sq cm/< Physical Exam Const alert, oriented x3 and no apparent distress General Appearance: cooperative, comfortable and well kempt HEENT normocephalic and head/scalp atraumatic Head and Scalp: normocephalic and atraumatic Eyes EOMs intact bilaterally Neck full ROM General: normal visual inspection Resp normal respiratory effort Effort and Inspection: able to speak in complete sentences Cardio Rhythm: abnormal rhythm Extremity General Extremity: edema Skin Wounds: wounds noted Neuro oriented x3, CN's II-XII intact bilaterally and moves all extremities Psych mental status grossly normal Appearance: grossly normal Attitude: calm Activity / Motor Behavior: appropriate eye contact Speech: normal speech Debridement Note Debridement Note Wound debrided: Right medial lower extremity Type of Debridement: Excisional debridement Anesthesia Used: 4% Lidocaine Solution Depth: Down to and including healthy tissue Percentage of wound debrided: 100 Instrument Used: 3mm curette Tissue Removed: Slough and devitalized tissue Severity: Fat Layer Exposed Amount of bleeding with debridement: Mild Bleeding Controlled with: Pressure Patient tolerated procedure: Patient tolerated procedure well Post-Debridement Measurements and Additional Note: Post-Debridement Measurements/Treatment WC - Nurse 1 - General Ulcer Assessment Start: 12/18/20 09:25 Freq: Status: Active Protocol: LORETA Activity Type Activity Date Activity User E-Sign Co-Sign Detail Recorded Client Recorded Date Recorded By Document 12/18/20 09:25 ML [id number] 12/18/20 09:32 ML Document 12/25/20 09:08 JF [id number] 12/25/20 09:21 JF Document 01/01/21 09:20 AK [id number] 01/01/21 09:32 AK 12/18/20 12/25/20 01/01/21 09:25 09:08 09:20 - Today's Visit Information Type of service Follow-up Visit Follow-up Visit Follow-up Visit (Physician/DECORATING INSPECTOR (Physician/DECORATING INSPECTOR (Physician/DECORATING INSPECTOR ) ) ) Arrival Mode Ambulatory Ambulatory Transfer Assistance None Patient Identification Verified (Name & Yes Yes Yes ) Patient Requires Transmission-Based No No No Precautions Safety Precautions NA Height and Weight Body Mass Index (BMI) 34.9 34.9 34.9 BMI Classification Obese Obese Obese Vital Signs Temperature (97.8 F-99.1 F) 97.4 F L 95.7 F L 97.8 F Temperature Source Temporal Temporal Temporal Pulse Rate (60-100) 106 H 106 H 98 Pulse Location Monitor Monitor Monitor Respiratory Rate (12-18) 16 16 Respiratory rate source Observation Observation Blood Pressure (90/60-120/80) 151/101 H 162/97 H 165/98 H Blood Pressure Mean (mm Hg) 117 118 120 Source Monitor Monitor Position Sitting Sitting Blood Pressure Location Right Arm Left Arm History Since Last Visit- (Skip if this is Patient's initial visit) Have you changed medications since your No Yes No last visit? Any new allergies or adverse reactions No No No Had a fall/change in ADL's that may No Yes No increase risk of falls Signs or symptoms of abuse and/or No No No neglect since last visit Have you been in the hospital since your No No No last visit? Has dressing in place as prescribed Yes Yes Yes Has compression in place as prescribed No Yes Yes Has offloadiing in place as prescribed N/A N/A N/A Experienced any changes in pain level or No No No management Left Footwear Regular Shoe Regular Shoe Regular Shoe Right Footwear Regular Shoe Regular Shoe Regular Shoe Pain Scale: 0-10 Numeric Is Patient Pain Free? Yes Yes WC - Nurse 1 - General Ulcer Measurement Start: 12/18/20 09:25 Freq: Status: Active Protocol: Activity Type Activity Date Activity User E-Sign Co-Sign Detail Recorded Client Recorded Date Recorded By Document 12/18/20 09:25 ML [id number] 12/18/20 09:32 ML Document 12/25/20 09:08 JF [id number] 12/25/20 09:21 JF Document 01/01/21 09:20 AK [id number] 01/01/21 09:32 AK 12/18/20 12/25/20 01/01/21 09:25 09:08 09:20 Wound Center Nurse 1 #3 L Nicholas Cluster -Combined with other wound No No -Current Size (cm) - Length 11 0.1 0.1 -Current Size (cm) - Width 8 0.1 0.1 -Current Size (cm) - Depth 1 0.1 0.1 -Total Square Cm 88 0.01 0.01 -Photo Taken No No -Epithelialization Large 67-100% Medium 34-66% -Tunneling No No -Undermining/Tunneling No No -Circular Undermining No No -Change in Wound Grade/Stage No -Exudate Amt Medium Small None Present -Exudate Type Serosanguineous Serosanguineous -Wound Margin Distinct, Fibrotic Scar, Outline Thickened Scar Attached -Granulation Amt Medium (34-66%) Small (1-33%) None Present (0 %) -Granulation Quality Red -Slough/Fibrin Yes -Necrosis Amt Medium (34-66%) Small (1-33%) None Present (0 %) -Necrotic Tissue Type Adherent Slough Adherent Slough -Structure Exposed N/A N/A -Texture (Kelly-wound Skin Appearance) Assessed Assessed, Assessed, Localized Edema Excoriation -Moisture (Kelly-wound Skin Appearance) Assessed No Abnormality Assessed,Dry/ Scaly -Color (Kelly-wound Skin Appearance) Assessed Assessed, Assessed, Hemosiderin Erythema Staining -Temperature (Kelly-wound Skin No Abnormality No Abnormality No Abnormality Appearance) (Pt Warm) (Pt Warm) (Pt Warm) -Tenderness on Palpation (Kelly-wound No No Yes Skin Appearance) -Ulcer Cleansing Soap and Water Wound Cleanser Rinsed/ Irrigated with Saline -Foul Odor after Cleansing No No -Anesthetic Used 5% Lidocaine 4% Lidocaine 4% Lidocaine Gel Solution Solution #2 R Nicholas -Combined with other wound No No -Current Size (cm) - Length 0.1 0.1 1 -Current Size (cm) - Width 0.1 0.1 0.1 -Current Size (cm) - Depth 0.1 0.1 0.1 -Total Square Cm 0.01 0.01 0.1 -Photo Taken No No -Epithelialization Large 67-100% Medium 34-66% -Tunneling No -Undermining/Tunneling No No -Circular Undermining No No -Change in Wound Grade/Stage No -Exudate Amt Small None Present None Present -Exudate Type Serosanguineous -Wound Margin Distinct, Outline Attached -Granulation Amt None Present (0 Small (1-33%) %) -Granulation Quality Red -Slough/Fibrin No -Necrosis Amt None Present (0 Medium (34-66%) %) -Structure Exposed N/A N/A -Texture (Kelly-wound Skin Appearance) Assessed Assessed, No Abnormality, Localized Edema Assessed -Moisture (Kelly-wound Skin Appearance) Assessed No Abnormality, Assessed Dry/Scaly -Color (Kelly-wound Skin Appearance) Assessed Assessed No Abnormality, Assessed -Temperature (Kelly-wound Skin No Abnormality No Abnormality No Abnormality Appearance) (Pt Warm) (Pt Warm) (Pt Warm) -Tenderness on Palpation (Kelly-wound No No Yes Skin Appearance) -Ulcer Cleansing Soap and Water Wound Cleanser Rinsed/ Irrigated with Saline -Foul Odor after Cleansing No No No -Anesthetic Used 5% Lidocaine 4% Lidocaine Gel Solution #1 R Med LE -Combined with other wound No No -Current Size (cm) - Length 2.3 1 1 -Current Size (cm) - Width 3.8 2.5 2.4 -Current Size (cm) - Depth 0.1 0.1 0.2 -Total Square Cm 8.74 2.5 2.4 -Photo Taken No No -Epithelialization Small 1-33% None Present -Tunneling No No -Undermining/Tunneling No No -Circular Undermining No No -Classification - Thickness Partial Thickness -Change in Wound Grade/Stage No -Exudate Amt Medium Medium Medium -Exudate Type Serosanguineous Serosanguineous Serosanguineous -Wound Margin Distinct, Distinct, Distinct, Outline Outline Outline Attached Attached Attached -Granulation Amt Medium (34-66%) Small (1-33%) Medium (34-66%) -Granulation Quality Red [place] -Slough/Fibrin Yes -Necrosis Amt Medium (34-66%) Medium (34-66%) Medium (34-66%) -Necrotic Tissue Type Adherent Slough Adherent Slough Adherent Slough -Structure Exposed N/A N/A -Texture (Kelly-wound Skin Appearance) Assessed Assessed, Assessed, Localized Edema Excoriation -Moisture (Kelly-wound Skin Appearance) Assessed Dry/Scaly Assessed, Weeping,Dry/ Scaly -Color (Kelly-wound Skin Appearance) Assessed Assessed Assessed, Erythema -Temperature (Kelly-wound Skin No Abnormality No Abnormality No Abnormality Appearance) (Pt Warm) (Pt Warm) (Pt Warm) -Tenderness on Palpation (Kelly-wound No Yes Skin Appearance) -Ulcer Cleansing Soap and Water Wound Cleanser Rinsed/ Irrigated with Saline -Foul Odor after Cleansing No No No -Anesthetic Used 5% Lidocaine 4% Lidocaine 4% Lidocaine Gel Solution Solution Lower Limb Edema Present Yes Right Calf (cm) 44.4 43 Right Ankle (cm) 25.5 24.6 Left Calf (cm) 47 44.3 Left Ankle (cm) 24.3 25.2 WC - Nurse 2 - General Ulcer CM Notes Start: 12/18/20 09:25 Freq: Status: Active Protocol: Activity Type Activity Date Activity User E-Sign Co-Sign Detail Recorded Client Recorded Date Recorded By Document 12/18/20 10:48 PL [id number] 12/18/20 10:50 PL Document 12/25/20 09:28 MW [id number] 12/25/20 09:38 MW 12/18/20 12/25/20 10:48 09:28 Wound Center Nurse 2 #3 L Nicholas Cluster -Time 09:41 09:35 -Correct Patient Yes Yes -Correct Side, Site, Position Yes Yes -Correct Procedure Yes Yes -Procedure Performed Yes Yes -Type of Procedure Debridement Debridement -Clinical Debridement Subcutaneous Subcutaneous -Tissue Removed Subcutaneous Subcutaneous -Post Debridement (cm) - Length 11.0 11.0 -Post Debridement (cm) - Width 8.0 8.0 -Post Debridement (cm) - Depth 0.1 0.1 -Total Square (Post) (cm) 88.00 88.00 -Area of Debridement (cm) - Length 11.0 11.0 -Area of Debridement (cm) - Width 8.0 8.0 -Total Square (Area) (cm) 88.00 88.00 -Tunneling No No -Undermining/Tunneling No No -Circular Undermining No No -Wound/Ulcer Outcome Not Healed Not Healed -Ulcer Cleansing Rinsed/ Rinsed/ Irrigated with Irrigated with Saline Saline -Foul Odor after Cleansing No No -Bioengineered Tissue No No -Bleeding Controlled with Pressure Pressure -Offloading No -Treatment Response Procedure Not Procedure Tolerated Well Tolerated Well -Debridement - Subq, 1st 20sq cm Yes Yes -Debridement, SubQ, ea addt'l 20sq cm 4 4 or part thereof #2 R Nicholas -Time 09:35 -Correct Patient Yes -Correct Side, Site, Position Yes -Correct Procedure Yes -Procedure Performed No Yes -Type of Procedure Debridement -Clinical Debridement Subcutaneous -Tissue Removed Subcutaneous -Post Debridement (cm) - Length 0.1 0.1 -Post Debridement (cm) - Width 0.1 0.1 -Post Debridement (cm) - Depth 0.1 0.1 -Total Square (Post) (cm) 0.01 0.01 -Area of Debridement (cm) - Length 0.1 -Area of Debridement (cm) - Width 0.1 -Total Square (Area) (cm) 0.01 -Tunneling No -Undermining/Tunneling No -Circular Undermining No -Wound/Ulcer Outcome Not Healed -Ulcer Cleansing Rinsed/ Irrigated with Saline -Foul Odor after Cleansing No -Bioengineered Tissue No -Bleeding Controlled with Pressure -Offloading No -Debridement - Subq, 1st 20sq cm No #1 R Med LE -Time 09:41 09:36 -Correct Patient Yes Yes -Correct Side, Site, Position Yes Yes -Correct Procedure Yes Yes -Procedure Performed Yes Yes -Type of Procedure Debridement Debridement -Clinical Debridement Subcutaneous Subcutaneous -Tissue Removed Subcutaneous Subcutaneous -Post Debridement (cm) - Length 1.5 1.1 -Post Debridement (cm) - Width 3.5 2.5 -Post Debridement (cm) - Depth 0.1 0.1 -Total Square (Post) (cm) 5.25 2.75 -Area of Debridement (cm) - Length 1.5 1.1 -Area of Debridement (cm) - Width 3.5 2.5 -Total Square (Area) (cm) 5.25 2.75 -Tunneling No No -Undermining/Tunneling No No -Circular Undermining No No -Wound/Ulcer Outcome Not Healed Not Healed -Ulcer Cleansing Rinsed/ Rinsed/ Irrigated with Irrigated with Saline Saline -Foul Odor after Cleansing No No -Bioengineered Tissue No No -Bleeding Controlled with Pressure -Offloading No -Treatment Response Procedure Tolerated Well -Debridement - Subq, 1st 20sq cm No No Pain Scale: 0-10 Numeric Is Patient Pain Free? Yes WC - Nurse 3 - General Ulcer D/C NN Start: 12/18/20 09:25 Freq: Status: Active Protocol: Activity Type Activity Date Activity User E-Sign Co-Sign Detail Recorded Client Recorded Date Recorded By Document 12/18/20 10:12 DL [id number] 12/18/20 10:14 DL Document 12/25/20 09:51 [id number] 12/25/20 09:53 12/18/20 12/25/20 10:12 09:51 Wound Care Nurse 3 #3 L Nicholas Cluster -Ulcer Cleansing Rinsed/ Wound Cleanser Irrigated with Saline -Foul Odor after Cleansing No No -Primary Dressing Applied Aquacel Extra, Aquacel Extra NonAdherent Contact Layer -Primary Dressing Covered/Secured with Dry Gauze & Dry Gauze & Roll Gauze, Roll Gauze Secured with Tape -Aquacel Extra 1 1 #2 R Nicholas -Ulcer Cleansing Rinsed/ Wound Cleanser Irrigated with Saline -Foul Odor after Cleansing No No -Primary Dressing Applied NonAdherent NonAdherent Contact Layer Contact Layer -Other Dressing aquacel ex -Primary Dressing Covered/Secured with Dry Gauze & Dry Gauze & Roll Gauze, Roll Gauze, Secured with Secured with Tape Tape #1 R Med LE -Ulcer Cleansing Rinsed/ Wound Cleanser Irrigated with Saline -Foul Odor after Cleansing No No -Primary Dressing Applied Aquacel Extra -Other Dressing aquacel ex -Primary Dressing Covered/Secured with Dry Gauze & Roll Gauze, Secured with Tape -Aquacel Extra 0 Left -Tubular Bandage Double Layer Double Layer -Size of Tubigrip Used Size F Size F -Size F ($) 2 0 Right -Tubular Bandage Double Layer Double Layer -Size of Tubigrip Used Size F Size F -Size F ($) 2 0 Treatment Response Procedure Tolerated Well Pain Scale: 0-10 Numeric Is Patient Pain Free? Yes Yes WC - Visit Discharge Discharge Condition Stable Stable Ambulatory Status Ambulatory Ambulatory Transportation Private Auto Private Auto Medication Reconcilliation completed & Yes provided to patient/care provider Clinical Summary of Care Provided Yes Assessment/Plan Assessment/Plan (1) Ulcer of left lower extremity with fat layer exposed: CODE(S): L97.922 - Non-pressure chronic ulcer of unspecified part of left lower leg with fat layer exposed (2) Ulcer of right lower extremity with fat layer exposed: CODE(S): L97.912 - Non-pressure chronic ulcer of unspecified part of right lower leg with fat layer exposed (3) Cellulitis of lower extremity: CODE(S): L03.119 - Cellulitis of unspecified part of limb (4) Bilateral lower extremity edema: CODE(S): R60.0 - Localized edema (5) Congestive heart failure: CODE(S): I50.9 - Heart failure, unspecified PLAN: Debridement done as documented above, procedure was well-tolerated. Cultures reviewed. Prescription for Doxycycline sent per culture and sensitivities. Continue Aquacel extra to right medial. Adaptic to Left nicholas. Change daily. Double layer Tubigrip for edema management. She was advised to elevate her lower extremities when seated and in bed. Low sodium intake. Increase protein, vitamin C, D and zinc. Compliance with CHF management. Her questions were answered and she was advised to call with any further questions or concerns. Follow-up in a week. This note was generated with [employer] SPARK[employer] software. It may contain incorrect words, spelling, and punctuation that were not noted in checking the note before signing.
== END 2021-01-13 23:59 ==
LOC: WC 09:15
PROVIDERS: PCP Family Medicine; Visit Provider Internal Medicine
DX: L97.812 Non-pressure chronic ulcer of other part of right lower leg with fat layer exposed (principal); L97.822 Non-pressure chronic ulcer of other part of left lower leg with fat layer exposed; I48.0 Paroxysmal atrial fibrillation; I11.0 Hypertensive heart disease with heart failure; I50.9 Heart failure, unspecified; L03.119 Cellulitis of unspecified part of limb; R60.0 Localized edema
CPT/HCPCS: 11042; 11045; 87070; 87075; 87077; 87186; 87205

== ENCOUNTER 2021-01-27 10:17 | Day surgery (SDC) | payer MEDICARE, OTHER, SELFPAY ==
[2021-01-20 12:41] LABS: Anion Gap 9 (5-15); BUN 17 mg/dL (7-18); BUN/Creat Ratio 14.7 RATIO (10-20); Calcium,Total 9.2 mg/dL (8.5-10.1); Chloride 102 mmol/L (98-107); Creatinine, Serum 1.16 mg/dL (0.55-1.02); EST Glomerular Filtration Rate 49 mL/min (>60); Est Glom Filt Rate - Afr Amer 60 mL/min (>60); Glucose 89 mg/dL (74-106); Potassium 3.7 mmol/L (3.5-5.1); Sodium Level 140 mmol/L (136-145)
[2021-01-26 07:39] VITALS: BMI 35.1
--- NOTE | 2021-01-27 11:01 | HP.PCM_ITS ---
History and Physical Date of Admission: 01/27/21 [facility] [id number] [place], [place] [phone] OFFICE VISITDate of Service: 01/14/21 MR#:[id number]:[id number]: [id number] MOTLEY #:[id number]:[id number] Provider: ANGELINA Donohue/Sex: 70/F [facility] HPI History of Present Illness Details: This is a 70-year-old female that presents here today for a cardiovascular follow-up. She has a history of paroxysmal atrial fibrillation with a cardioversion in November 2017. She did attempt anticoagulation and antiarrhythmic/decrease in therapy, but this had to be discontinued due to unable to afford medications. She also has a history of cardiomyopathy, systolic CHF, valvular heart disease with MR and TR, and hypertension. On November 03, 2020 patient was admitted for atrial fibrillation with RVR. She was given IV Cardizem and started on a Cardizem drip. Echocardiogram demonstrated an ejection fraction of 35% with mild pulmonary hypertension. Patient was discharged home on metoprolol, furosemide, Eliquis, lisinopril. Pt finds that she can get winded easily. She is now able to sleep in a bed. She does not have any chest pain. She does not have any edema. She does still have one sore on her leg that she is taking care off. She is still seeing the wound center. She stopped taking her lisinopril d/t back pain. This was discussed with her PCP. She started a new medication. She can not recall what this is. She tells me her back pain has gone away. She is still interested in looking into an ablation. Intake Vital Signs 01/14/21 09:12 Height 5 ft 5 in Weight: 211 lb BMI 35.1 BP 152/92 H Blood Pressure Location Lt brachial Position Sitting Respiration 18 Pulse 92 Pulse Source Monitor Pulse Oximetry (%) 94 Intake Visit Reasons: 4WK FU All Around Patternmaker Required: No Accompanied by: None Is patient in pain?: No Allergies lisinopril Adverse Reaction (Severe, Verified 01/14/21 09:44) back ache Medications apixaban 5 mg tablet 5 mg PO BID #180 tab 11/24/20 [Rx Confirmed 01/14/21] metoprolol tartrate 50 mg tablet 50 mg PO BID #180 tab 11/24/20 [Rx Confirmed 01/14/21] furosemide 20 mg tablet 20 mg PO DAILY tab 12/08/20 [History Confirmed 01/14/21] magnesium oxide 500 mg capsule 500 mg PO DAILY 12/08/20 [History Confirmed 01/14/21] diltiazem HCl 120 mg capsule,extended release 24 hr 120 mg PO DAILY #30 cap 01/14/21 [Rx Confirmed 01/14/21] telmisartan 20 mg tablet 20 mg PO DAILY 01/14/21 [History Confirmed 01/14/21] [facility] Medical History Bilateral lower extremity edema Cardiomyopathy Cellulitis of lower extremity Congestive heart failure Essential hypertension HTN (hypertension) Kidney stone Long-term use of high-risk medication Obesity (BMI 30-39.9) Paroxysmal atrial fibrillation Ulcer of left lower extremity with fat layer exposed Ulcer of right lower extremity with fat layer exposed Valvular heart disease Surgical History History of hysterectomy History of lithotripsy History of tonsillectomy Family History Father Cancer Lung,pancreatic Brother Atrial fibrillation Social History Smoking Status: Never smoker alcohol intake: never substance use type: does not use ROS Const Const: Positive for fatigue and weakness; Negative for headache(s), frequent falls, excessive sweating, weight gain or weight loss Eyes Eyes: Negative for blind spots, loss of peripheral vision, transient loss of vision, blurry vision, change in vision or double vision ENT ENT: Negative for headache(s), dizziness, tinnitus, Nosebleed/epistaxis or balance problems Cardio Chest Pain: No Palpitations: No Edema: Bilateral Muscle aches with walking: None Resp Respiratory: Positive for SOB with activity; Negative for SOB at rest, SOB orthopnea\SOB lying down or Cough GI GI: Negative nausea, vomiting, heartburn, bloating, vomiting blood/hematemesis, bright, red blood in stools or black,tarry stools : Negative for hematuria Musc Musc: Negative for muscle aches/ myalgia, muscle weakness, joint pain or balance problems Skin Skin: Negative rash or wounds Neuro Neuro: Positive for weakness; Negative for dizziness, lightheadedness, near syncope, syncope, orthostatic symptoms, frequent falls, headache(s), confusion, memory loss, restless legs, blurry vision or double vision Nolberto Hematologic/Lymphatic: Negative for easy bleeding or easy bruising Endo Endo: Positive for fatigue; Negative for cold intolerance, heat intolerance or excessive sweating Psych Psych: Negative for anxiety or depression Allergy Allergy/Immunology: Negative for rash Cardiology Exam Const Appearance: cooperative, healthy appearing, comfortable, no acute distress and well developed Orientation: alert, awake and oriented x3 Head Head: normal to inspection Ears: hearing grossly normal bilaterally Nose: external nose normal Face and Sinus: face symmetric Mouth: oral mucosae normal, lip normal and moist mucous membranes Eyes General: appearance normal, both eyes and all related structures Eyelids: eyelids normal Conjunctivae: conjunctivae normal Pupils: PERRL EOM: EOM intact bilaterally Neck Neck: normal visual inspection and trachea midline; Negative no JVD Carotids: Negative bruit Chest Chest inspection: normal inspection of the chest Auscultation: Bilateral: Clear to Auscultation Cardio Palpation: normal PMI Rate: regular rate Rhythm: irregularly irregular Heart sounds: S1 normal and S2 normal; Negative rub, gallop or murmur GI GI: soft, no hepatosplenomegaly and bowel sounds present Neuro General: patient alert, patient awake, patient oriented x3 and CN's II-XI intact bilaterally Extremities Pulses: Normal: Right Radial Pulse and Left Radial Pulse and Diminished: Right Posterior Tibial Pulse and Left Posterior Tibial Pulse legs are wrapped. Psych Psychological: normal affect Supplemental Info Supplemental Information Echocardiogram 2020: Normal LV size. Mild concentric left ventricular hypertrophy. Mild (1+) aortic valve insufficiency. Pulmonary artery systolic pressure is 40 mmHg. The estimated ejection fraction is 35 %. Compared to previous study, the left ventricular systolic function is the same.. Transthoracic echocardiogram: 01-16-18 Interpretation Summary The study was technically difficult. Contrast injection was performed. Moderate global left ventricular systolic dysfunction. The estimated ejection fraction is 35 %. The left atrium is severely enlarged. The right atrium is moderately enlarged. There is moderate to severe mitral annular calcification. Extension of the mitral annular calcification onto the posterior mitral valve leaflet. Mild (1+) mitral valve insufficiency. Moderate (2+) tricuspid valve insufficiency. Mild focal aortic valve thickening. Trivial aortic valve insufficiency. Trivial pericardial effusion. There are no echocardiographic indications of cardiac tamponade. Right ventricular systolic pressure estimated to be 35 mmHg. Unable to assess diastolic dysfunction. Transthoracic echocardiogram: 10-12-18 Interpretation Summary Mild global left ventricular systolic dysfunction. The estimated ejection fraction is 45 %. Apical false tendon noted. The left atrium is severely enlarged. The right atrium is mildly enlarged. There is moderate to severe mitral annular calcification. Extension of the mitral annular calcification onto the posterior mitral valve leaflets. Trivial mitral valve insufficiency. Trivial tricuspid valve insufficiency. Mild (1+) aortic valve insufficiency. Trivial pulmonic valve insufficiency. Right ventricular systolic pressure estimated to be 31 mmHg. There is evidence of diastolic dysfunction. Cardiac catheterization: 10-19-17 CORONARY ANGIOGRAPHY DOMINANCE: Co- Dominant LEFT HEART ASSESSMENT Left Ventricular Ejection Fraction: by LV Gram 30 % Global Hypokinesis Elevated Left Ventricular End Diastolic Pressure LVEDP: 24 mmHg LEFT MAIN: Angiographically normal LEFT ANTERIOR DESCENDING ARTERY: Angiographically normal CIRCUMFLEX ARTERY: Angiographically normal RIGHT CORONARY ARTERY: Angiographically normal VALVE FINDINGS: Normal Aortic Valve function Mitral Valve Annular Calcification Moderate Mitral Valve Insufficiency - Grade 2 AORTIC ROOT: Angiographically normal Labs: No Data to Display Diagnostics: No Data to Display Pulmonary: No Data to Display Assessment and Plan Assessment and Plan (1) Cardiomyopathy: Status: Chronic Qualifiers: Cardiomyopathy type: unspecified Qualified Code(s): I42.9 - Cardiomyopathy, unspecified Plan - Nia ALFARO PA: Patient does feel better now that she has been more compliant with her medications. Will consider repeating echo once HR is better controlled to recheck LV function. (2) Essential hypertension: Status: Chronic Plan - Nia ALFARO PA: Not ideal, will have her start diltiazem. Will follow up closely (3) Paroxysmal atrial fibrillation: Status: Chronic Plan - Nia ALFARO PA: Pts HR not ideal, will add cardizem. She is somewhat symptomatic with her Afib ans she feels she is fatigued. This could be related to her cardiomyopathy also. Reviewed with Dr. Briscoe, will proceed with a cardioversion. This will allow us to see if this helps with her shortness of breath. If she remains in sinus rhythm we will then repeat an echocardiogram to see if her ejection fraction has improved. We are still trying to see if she qualifies for patient assistance with [employer]. Patient Instructions: I am adding Cardizem to your medications, this will help with your heart rate and blood pressue Plan Details Other Medications: New: diltiazem HCl 120 mg PO DAILY 30 caps 11RF Follow Up: 4 Weeks (4-6 weeks MMM) Coding Level of Care Code Off vis,est,level 4 Diagnoses Cardiomyopathy I42.9 Cardiomyopathy type: unspecified Essential hypertension I10 Paroxysmal atrial fibrillation I48.0 Coding Level of Care Code Off vis,est,level 4 Diagnoses Cardiomyopathy I42.9 Cardiomyopathy type: unspecified Essential hypertension I10 Paroxysmal atrial fibrillation I48.0 01/15/21 1628<Electronically signed by Nia ALFARO>Date Nia ALFARO Cosigner Signature:Date (if applicable) CC: Dr. Cj Arciniega MD ~ Assessment & Plan Addt'l Comments I have re-examined the patient. There are no clinical changes since date of exam
--- NOTE | 2021-01-27 11:41 | PCM.OP.PRO ---
Procedure Report Date of Procedure: 01/27/21 CONSCIOUS SEDATION REPORT DATE OF SERVICE: January 27, 2021 BRIEF HISTORY OF PRESENT ILLNESS: The patient is a 70-year-old female who presented to [facility] for an elective outpatient cardioversion due to underlying atrial fibrillation. The patient is currently anticoagulated on Eliquis. Her last surface echocardiogram demonstrated an ejection fraction of approximately 45%. The patient did undergo a prior cardioversion in 2019, which was successful with the use of etomidate. The patient denies any prior anesthetic complications. PHYSICAL EXAMINATION: VITAL SIGNS: Reviewed and were acceptable. GENERAL: The patient is a female, in no apparent distress, speaking in full sentences. HEENT: Normocephalic, atraumatic. Mucous membranes are moist and pink. Good mouth opening noted. Trachea is midline. Good neck mobility. CHEST: S1, S2 irregularly irregular. No murmurs, rubs or gallops were noted. LUNGS: Clear to auscultation bilaterally without appreciable wheezes, rales or rhonchi. ABDOMEN: Soft, nontender, nondistended. Positive bowel sounds. EXTREMITIES: There is no clubbing, cyanosis or edema. ASA Class: II DESCRIPTION OF PROCEDURE: After confirmation of informed consent, the patient's anesthesia plan was reviewed in detail. Etomidate was chosen. Risks and benefits were reviewed and the patient agreed to proceed. At 1122, the patient was given 6 mg of etomidate. The patient achieved an appropriate level of sedation and received 2 separate attempts at cardioversion, the first of 200 J and the second at 300 J, the latter of which was successful in achieving normal sinus rhythm. The patient was monitored until 1133, at which time she reached her baseline mental status and function. The patient tolerated the procedure well. COMPLICATIONS: None ESTIMATED BLOOD LOSS: None RECOMMENDATIONS: Okay to recover in usual fashion. Procedures Pulmonary CF Procedures Pulmonary: 32490 Con Sedation
--- NOTE | 2021-01-27 11:44 | CARDIOVERS ---
Cardioversion Cardioversion: Date: 01-27-2021 Procedure: Synchronized Biphasic DC Cardioversion Indications: Atrial fibrillation Consent: Per the Patient Anesthesia: per Dr. Pickard of pulmonology and critical care medicine with etomidate 6 mg IV push total Procedure: Synchronized Biphasic DC Cardioversion: 200 J x 1: Result: Sinus rhythm with subsequent return to atrial fibrillation Synchronized biphasic DC cardioversion: 300 J x 1: Result: Sinus rhythm Complications: no apparent complications This note was generated with [employer] software. It may contain incorrect words, spelling, and punctuation that were not noted in checking the note before signing.
== END 2021-01-27 12:35 | disposition home or self-care (01) ==
LOC: CLSP 10:19
PROVIDERS: Physician Assistant Medical; PCP Family Medicine; Referring Provider Internal Medicine Cardiovascular Disease; Visit Provider Internal Medicine Cardiovascular Disease
DX: I48.0 Paroxysmal atrial fibrillation (principal); I42.9 Cardiomyopathy, unspecified; I11.0 Hypertensive heart disease with heart failure; I50.22 Chronic systolic (congestive) heart failure; Z79.01 Long term (current) use of anticoagulants; Z79.899 Other long term (current) drug therapy; Z87.442 Personal history of urinary calculi
CPT/HCPCS: 36415; 80048; 92960; 93005; J7040

== ENCOUNTER 2021-01-29 08:45 | Outpatient (RCR) | payer MEDICARE, OTHER, SELFPAY ==
[2021-01-14 00:36] VITALS: BP 165/98; PULSE 98; RESP 16; TEMP 36.6; BMI 34.9
[2021-01-15 08:48] VITALS: BP 156/111; PULSE 103; TEMP 36.1; BMI 34.9
--- NOTE | 2021-01-15 09:00 | PCM.WC.PN ---
History of Present Illness Date of Service: 01/15/21 Chief Complaint: Non healing bilateral lower extremity ulcers History of Wound: Ms. Padilla presents to the wound center due to nonhealing bilateral lower extremity ulcers. Had recently been in the hospital following worsening lower extremity edema secondary to CHF exacerbation and A. fib with RVR. She had discontinued use of her medications. She states that she has restarted some of them. Has been applying a salve to the ulcers without any significant improvement. No form of compression. At some point, she was managed for cellulitis however, that this did not help much either. She denies chills, fever or otherwise feeling of unwell. Progress of Wound: Left lower extremity remains healed. Right with significant improvement. Has been applying Aquacel extra with Adaptic daily. Subjective Subjective She denies any new concerns at this time. Objective Data Objective Data Vital Signs: Vital Signs Temp Pulse Resp BP 97.0 F L 103 H 16 156/111 H 01/15/21 08:48 01/15/21 08:48 01/14/21 00:36 01/15/21 08:48 Weight: 210 lb Body Mass Index (BMI) 34.9 Charges/Coding Procedures Integumentary 111xxx-113xx: 68653 Leena subq tissue 20 sq cm/< (Selective debridement done) Physical Exam Const alert, oriented x3 and no apparent distress General Appearance: cooperative, comfortable and well kempt HEENT normocephalic and head/scalp atraumatic Head and Scalp: normocephalic and atraumatic Eyes EOMs intact bilaterally Neck full ROM General: normal visual inspection Resp normal respiratory effort Effort and Inspection: able to speak in complete sentences Cardio Rhythm: abnormal rhythm Extremity General Extremity: edema Skin Wounds: wounds noted Neuro oriented x3, CN's II-XII intact bilaterally and moves all extremities Psych mental status grossly normal Appearance: grossly normal Attitude: calm Activity / Motor Behavior: appropriate eye contact Speech: normal speech Debridement Note Debridement Note Wound debrided: Left Medial Foot/Great Toe Type of Debridement: Selective debridement Anesthesia Used: 4% Lidocaine Solution Depth: Down to and including healthy tissue Percentage of wound debrided: 100 Instrument Used: - Tissue Removed: 1mm Severity: Fat Layer Exposed Amount of bleeding with debridement: Mild Bleeding Controlled with: Pressure Patient tolerated procedure: Patient tolerated procedure well Post-Debridement Measurements and Additional Note: Post-Debridement Measurements/Treatment WC - Nurse 1 - General Ulcer Assessment Start: 01/15/21 08:47 Freq: Status: Active Protocol: LORETA Activity Type Activity Date Activity User E-Sign Co-Sign Detail Recorded Client Recorded Date Recorded By Document 01/15/21 08:48 PHYLLIS [id number] 01/15/21 08:50 PHYLLIS 01/15/21 08:48 WC - Today's Visit Information Type of service Follow-up Visit (Physician/ELECTRONIC WARFARE OFFICER ) Arrival Mode Ambulatory Patient Identification Verified (Name & Yes ) Height and Weight Body Mass Index (BMI) 34.9 BMI Classification Obese Vital Signs Temperature (97.8 F-99.1 F) 97.0 F L Temperature Source Temporal Pulse Rate (60-100) 103 H Pulse Location Monitor Blood Pressure (90/60-120/80) 156/111 H Blood Pressure Mean (mm Hg) 126 Source Monitor Position Sitting Blood Pressure Location Left Arm History Since Last Visit- (Skip if this is Patient's initial visit) Have you changed medications since your No last visit? Any new allergies or adverse reactions No Had a fall/change in ADL's that may No increase risk of falls Signs or symptoms of abuse and/or No neglect since last visit Have you been in the hospital since your No last visit? Has dressing in place as prescribed Yes Has compression in place as prescribed Yes Has offloadiing in place as prescribed N/A Experienced any changes in pain level or No management Left Footwear Regular Shoe Right Footwear Regular Shoe Pain Scale: 0-10 Numeric Is Patient Pain Free? Yes - Nurse 1 - General Ulcer Measurement Start: 01/15/21 08:47 Freq: Status: Active Protocol: Activity Type Activity Date Activity User E-Sign Co-Sign Detail Recorded Client Recorded Date Recorded By Document 01/15/21 08:48 PHYLLIS [id number] 01/15/21 08:50 PHYLLIS 01/15/21 08:48 Wound Center Nurse 1 #1 R Med LE -Current Size (cm) - Length 0.1 -Current Size (cm) - Width 0.1 -Current Size (cm) - Depth 0.1 -Total Square Cm 0.01 -Exudate Amt Small -Exudate Type Serosanguineous -Wound Margin Distinct, Outline Attached -Granulation Amt Small (1-33%) -Granulation Quality [place] -Necrosis Amt None Present (0 %) -Texture (Kelly-wound Skin Appearance) Assessed, Scarring -Moisture (Kelly-wound Skin Appearance) Assessed,Dry/ Scaly -Color (Kelly-wound Skin Appearance) No Abnormality, Assessed -Temperature (Kelly-wound Skin No Abnormality Appearance) (Pt Warm) -Tenderness on Palpation (Kelly-wound No Skin Appearance) -Ulcer Cleansing Rinsed/ Irrigated with Saline -Foul Odor after Cleansing No -Anesthetic Used 5% Lidocaine Gel Right Calf (cm) 42.4 Right Ankle (cm) 24 WC - Nurse 2 - General Ulcer CM Notes Start: 01/15/21 08:47 Freq: Status: Active Protocol: Activity Type Activity Date Activity User E-Sign Co-Sign Detail Recorded Client Recorded Date Recorded By Document 01/15/21 08:55 MW [id number] 01/15/21 08:57 MW 01/15/21 08:55 Wound Center Nurse 2 #1 R Med LE -Time 08:55 -Correct Patient Yes -Correct Side, Site, Position Yes -Correct Procedure Yes -Procedure Performed Yes -Type of Procedure Debridement -Clinical Debridement Epidermis / Dermis -Tissue Removed Epidermis -Post Debridement (cm) - Length 0.3 -Post Debridement (cm) - Width 1.7 -Post Debridement (cm) - Depth 0.1 -Total Square (Post) (cm) 0.51 -Area of Debridement (cm) - Length 0.3 -Area of Debridement (cm) - Width 1.7 -Total Square (Area) (cm) 0.51 -Tunneling No -Undermining/Tunneling No -Circular Undermining No -Wound/Ulcer Outcome Not Healed -Ulcer Cleansing Rinsed/ Irrigated with Saline -Foul Odor after Cleansing No -Bioengineered Tissue No -Bleeding Controlled with Pressure -Offloading No -Treatment Response Procedure Tolerated Well -Debridement - Open, 1st 20sq cm Yes Pain Scale: 0-10 Numeric Is Patient Pain Free? Yes Assessment/Plan Assessment/Plan (1) Ulcer of left lower extremity with fat layer exposed: CODE(S): L97.922 - Non-pressure chronic ulcer of unspecified part of left lower leg with fat layer exposed (2) Ulcer of right lower extremity with fat layer exposed: CODE(S): L97.912 - Non-pressure chronic ulcer of unspecified part of right lower leg with fat layer exposed (3) Cellulitis of lower extremity: CODE(S): L03.119 - Cellulitis of unspecified part of limb (4) Bilateral lower extremity edema: CODE(S): R60.0 - Localized edema (5) Congestive heart failure: CODE(S): I50.9 - Heart failure, unspecified PLAN: Left lower extremity remains healed. Right with minimal area. Superficial/selective debridement done. Continue Aquacel extra, Adaptic over top. Change daily. Continue double layer Tubigrip for edema management and leg elevation. Vitamin C, D and zinc also recommended. Her questions were answered and she was advised to call with any further questions or concerns. This note was generated with [employer] dictation software. It may contain incorrect words, spelling, and punctuation that were not noted in checking the note before signing.
[2021-01-29 08:49] VITALS: BP 159/86; PULSE 71; RESP 20; TEMP 36.4; BMI 34.9
--- NOTE | 2021-01-29 09:00 | PCM.WC.PN ---
History of Present Illness Date of Service: 01/29/21 Chief Complaint: Non healing bilateral lower extremity ulcers History of Wound: Ms. Padilla presents to the wound center due to nonhealing bilateral lower extremity ulcers. Had recently been in the hospital following worsening lower extremity edema secondary to CHF exacerbation and A. fib with RVR. She had discontinued use of her medications. She states that she has restarted some of them. Has been applying a salve to the ulcers without any significant improvement. No form of compression. At some point, she was managed for cellulitis however, that this did not help much either. She denies chills, fever or otherwise feeling of unwell. Progress of Wound: Healed. Subjective Subjective No new concerns at this time. Objective Data Objective Data Vital Signs: Vital Signs Temp Pulse Resp BP 97.5 F L 71 20 H 159/86 H 01/29/21 08:49 01/29/21 08:49 01/29/21 08:49 01/29/21 08:49 Weight: 210 lb Body Mass Index (BMI) 34.9 Charges/Coding Visit Charges Office Visits / Consults: 71421 OV L3 Est Physical Exam Const alert, oriented x3 and no apparent distress General Appearance: cooperative, comfortable and well kempt HEENT normocephalic and head/scalp atraumatic Head and Scalp: normocephalic and atraumatic Eyes EOMs intact bilaterally Neck full ROM General: normal visual inspection Resp normal respiratory effort Effort and Inspection: able to speak in complete sentences Cardio Rhythm: abnormal rhythm Extremity General Extremity: edema Neuro oriented x3, CN's II-XII intact bilaterally and moves all extremities Psych mental status grossly normal Appearance: grossly normal Attitude: calm Activity / Motor Behavior: appropriate eye contact Speech: normal speech Debridement Note Debridement Note Post-Debridement Measurements and Additional Note: Post-Debridement Measurements/Treatment INO - Nurse 1 - General Ulcer Assessment Start: 01/15/21 08:47 Freq: Status: Active Protocol: LORETA Activity Type Activity Date Activity User E-Sign Co-Sign Detail Recorded Client Recorded Date Recorded By Document 01/15/21 08:48 AK [id number] 01/15/21 08:50 AK Document 01/29/21 08:49 BASIM [id number] 01/29/21 08:52 BASIM 01/15/21 01/29/21 08:48 08:49 - Today's Visit Information Type of service Follow-up Visit Follow-up Visit (Physician/HOSPITAL PRODUCT SPECIALIST (Physician/HOSPITAL PRODUCT SPECIALIST ) ) Arrival Mode Ambulatory Ambulatory Patient Identification Verified (Name & Yes Yes ) Patient Requires Transmission-Based No Precautions Height and Weight Body Mass Index (BMI) 34.9 34.9 BMI Classification Obese Obese Vital Signs Temperature (97.8 F-99.1 F) 97.0 F L 97.5 F L Temperature Source Temporal Temporal Pulse Rate (60-100) 103 H 71 Pulse Location Monitor Monitor Respiratory Rate (12-18) 20 H Respiratory rate source Observation Blood Pressure (90/60-120/80) 156/111 H 159/86 H Blood Pressure Mean (mm Hg) 126 110 Source Monitor Monitor Position Sitting Sitting Blood Pressure Location Left Arm Right Arm History Since Last Visit- (Skip if this is Patient's initial visit) Have you changed medications since your No No last visit? Any new allergies or adverse reactions No No Had a fall/change in ADL's that may No No increase risk of falls Signs or symptoms of abuse and/or No No neglect since last visit Have you been in the hospital since your No No last visit? Has dressing in place as prescribed Yes Yes Has compression in place as prescribed Yes Yes Has offloadiing in place as prescribed N/A N/A Experienced any changes in pain level or No No management Left Footwear Regular Shoe Regular Shoe Right Footwear Regular Shoe Regular Shoe Pain Scale: 0-10 Numeric Is Patient Pain Free? Yes Yes - Nurse 1 - General Ulcer Measurement Start: 01/15/21 08:47 Freq: Status: Active Protocol: Activity Type Activity Date Activity User E-Sign Co-Sign Detail Recorded Client Recorded Date Recorded By Document 01/15/21 08:48 AK [id number] 01/15/21 08:50 AK Document 01/29/21 08:49 BASIM [id number] 01/29/21 08:52 BASIM 01/15/21 01/29/21 08:48 08:49 Wound Center Nurse 1 #1 R Med LE -Combined with other wound No -Current Size (cm) - Length 0.1 0 -Current Size (cm) - Width 0.1 0 -Current Size (cm) - Depth 0.1 0 -Total Square Cm 0.01 0 -Photo Taken Yes -Tunneling No -Undermining/Tunneling No -Circular Undermining No -Exudate Amt Small -Exudate Type Serosanguineous -Wound Margin Distinct, Outline Attached -Granulation Amt Small (1-33%) -Granulation Quality Boaz -Necrosis Amt None Present (0 %) -Texture (Kelly-wound Skin Appearance) Assessed, Scarring -Moisture (Kelly-wound Skin Appearance) Assessed,Dry/ Scaly -Color (Kelly-wound Skin Appearance) No Abnormality, Assessed -Temperature (Kelly-wound Skin No Abnormality Appearance) (Pt Warm) -Tenderness on Palpation (Kelly-wound No Skin Appearance) -Ulcer Cleansing Rinsed/ Irrigated with Saline -Foul Odor after Cleansing No -Anesthetic Used 5% Lidocaine Gel Lower Limb Edema Present Yes Right Calf (cm) 42.4 43.0 Right Ankle (cm) 24 23.5 WC - Nurse 2 - General Ulcer CM Notes Start: 01/15/21 08:47 Freq: Status: Active Protocol: Activity Type Activity Date Activity User E-Sign Co-Sign Detail Recorded Client Recorded Date Recorded By Document 01/15/21 08:55 MW [id number] 01/15/21 08:57 MW Document 01/29/21 08:56 MW [id number] 01/29/21 08:57 MW 01/15/21 01/29/21 08:55 08:56 Wound Center Nurse 2 #1 R Med LE -Time 08:55 08:56 -Correct Patient Yes Yes -Correct Side, Site, Position Yes Yes -Correct Procedure Yes Yes -Procedure Performed Yes No -Type of Procedure Debridement -Clinical Debridement Epidermis / Dermis -Tissue Removed Epidermis -Post Debridement (cm) - Length 0.3 0 -Post Debridement (cm) - Width 1.7 0 -Post Debridement (cm) - Depth 0.1 0 -Total Square (Post) (cm) 0.51 0 -Area of Debridement (cm) - Length 0.3 -Area of Debridement (cm) - Width 1.7 -Total Square (Area) (cm) 0.51 -Tunneling No -Undermining/Tunneling No -Circular Undermining No -Wound/Ulcer Outcome Not Healed Healed- Epithelialized -Ulcer Cleansing Rinsed/ Irrigated with Saline -Foul Odor after Cleansing No -Bioengineered Tissue No -Bleeding Controlled with Pressure -Offloading No -Treatment Response Procedure Tolerated Well -Debridement - Open, 1st 20sq cm Yes Pain Scale: 0-10 Numeric Is Patient Pain Free? Yes Yes - Nurse 3 - General Ulcer D/C NN Start: 01/15/21 08:47 Freq: Status: Active Protocol: Activity Type Activity Date Activity User E-Sign Co-Sign Detail Recorded Client Recorded Date Recorded By Document 01/15/21 09:02 KR [id number] 01/15/21 09:02 KR Document 01/29/21 08:57 MW [id number] 01/29/21 08:57 MW 01/15/21 01/29/21 09:02 08:57 Wound Care Nurse 3 #1 R Med LE -Primary Dressing Applied Aquacel Extra, NonAdherent Contact Layer -Primary Dressing Covered/Secured with Dry Gauze,Dry Gauze & Roll Gauze,Secured with Tape -Aquacel Extra 1 Treatment Response Procedure Tolerated Well Pain Scale: 0-10 Numeric Is Patient Pain Free? Yes Yes Teaching: Wound Center Discharge Instructions -Person Taught Patient -Teaching Method Discussion -Response to teaching Verbalize understanding WC - Visit Discharge Discharge Condition Stable Stable Ambulatory Status Ambulatory Ambulatory Transportation Private Auto Private Auto Accompanied by self self Medication Reconcilliation completed & No provided to patient/care provider Clinical Summary of Care Provided Yes Notes: healed, discharged Assessment/Plan Assessment/Plan (1) Ulcer of left lower extremity with fat layer exposed: CODE(S): L97.922 - Non-pressure chronic ulcer of unspecified part of left lower leg with fat layer exposed (2) Ulcer of right lower extremity with fat layer exposed: CODE(S): L97.912 - Non-pressure chronic ulcer of unspecified part of right lower leg with fat layer exposed (3) Cellulitis of lower extremity: CODE(S): L03.119 - Cellulitis of unspecified part of limb (4) Bilateral lower extremity edema: CODE(S): R60.0 - Localized edema (5) Congestive heart failure: CODE(S): I50.9 - Heart failure, unspecified PLAN: Healed. No new concerns at this time. Lengthy discussion on leg elevation, compression and exercise as tolerated.Continue double layer Tubigrip for edema management. Her questions were answered and she was advised to call with any further questions or concerns. Discharge from the wound center. This note was generated with [employer] software. It may contain incorrect words, spelling, and punctuation that were not noted in checking the note before signing.
== END 2021-01-29 09:38 | disposition home or self-care (01) ==
LOC: WC 08:45
PROVIDERS: PCP Family Medicine; Visit Provider Internal Medicine
DX: L97.822 Non-pressure chronic ulcer of other part of left lower leg with fat layer exposed (principal); L97.812 Non-pressure chronic ulcer of other part of right lower leg with fat layer exposed; L03.119 Cellulitis of unspecified part of limb; I50.9 Heart failure, unspecified; I48.91 Unspecified atrial fibrillation; R60.0 Localized edema
CPT/HCPCS: 97597; 99212; G0463

== ENCOUNTER 2021-04-22 13:31 | Outpatient (CLI) | payer MEDICARE, OTHER, SELFPAY ==
[2021-04-22 14:06] LABS: Absolute Neutrophil Count 7.5 X10^3/uL (2.0-7.7); Basophil# 0.07 X10^3/uL; Basophil% 0.6 % (0-1); Eosinophils% 0.9 % (0-5); Hematocrit 46.7 % (37-47); Hemoglobin 16.1 g/dL (12.0-15.0); Lymphocyte % 23.7 % (19-41); Mean Corp Hgb Conc 34.5 g/dL (32-36); Mean Corpuscular Hgb 32.3 pg (27.0-32.0); Mean Corpuscular Volume 93.6 fL (81-99); Monocyte% 6.4 % (0-10); NRBC Flagged by Analyzer 0 % (0-5); Neutrophil # 7.46 X10^3/uL (2.7-7.7); Neutrophil % 67.9 % (47-70); Platelet Count 228 K/mm3 (150-450); RBC Distribution Width CV 13.5 % (11.6-14.6); RBC Distribution Width SD 46.4 fl (35.1-43.9); Red Blood Count 4.99 M/mm3 (4.2-5.4)
[2021-04-22 14:30] LABS: PTHIN 93.7 pg/mL (18.4-80.1)
[2021-04-22 14:31] LABS: ALB/GLOB Ratio 0.9 RATIO (0.9-2.4); AST(SGOT) 26 U/L (15-37); Alanine Aminotransfer ALT/SGPT 26 U/L (13-56); Albumin, Serum 3.7 g/dL (3.2-5.0); Alkaline Phosphatase 109 U/L (45-117); Anion Gap 5 (5-15); BUN 21 mg/dL (7-18); BUN/Creat Ratio 15.7 RATIO (10-20); Calcium,Total 9.2 mg/dL (8.5-10.1); Chloride 103 mmol/L (98-107); Creatinine, Serum 1.34 mg/dL (0.55-1.02); EST Glomerular Filtration Rate 42 mL/min (>60); Est Glom Filt Rate - Afr Amer 50 mL/min (>60); Glucose 110 mg/dL (74-106); Magnesium 2.2 mg/dL (1.6-2.6); Potassium 4.2 mmol/L (3.5-5.1); Protein, Total 7.7 g/dL (6.4-8.2); Sodium Level 141 mmol/L (136-145)
[2021-04-22 14:33] LABS: BNP,B-Type NATRIURETIC PEPTIDE 278.9 pg/mL (0-100)
[2021-04-22 14:34] LABS: Vitamin D,25 Hydroxy 29.2 ng/mL
== END 2021-04-22 23:59 | disposition home or self-care (01) ==
PROVIDERS: PCP Family Medicine; Visit Provider Family Medicine
DX: I42.9 Cardiomyopathy, unspecified (principal); I50.82 Biventricular heart failure; N25.81 Secondary hyperparathyroidism of renal origin; N18.30 Chronic kidney disease, stage 3 unspecified
CPT/HCPCS: 36415; 80053; 82306; 83735; 83880; 83970; 85025

== ENCOUNTER 2021-05-11 11:06 | Outpatient (CLI) | payer MEDICARE, OTHER, SELFPAY ==
--- NOTE | 2021-05-11 11:35 | RAD_ITS ---
EXAM: XR ABDOMEN, 1 VIEW CLINICAL INDICATION: CALCULUS OF KIDNEY CALCULUS OF KIDNEY TECHNIQUE: Frontal supine view of the abdomen/pelvis. This report was created using [employer] report generation technology. COMPARISON: X-ray abdomen and 04/22/2020. CT scan abdomen and pelvis 12/27/2018. FINDINGS: LOWER THORAX: No acute pathology. GASTROINTESTINAL TRACT: Unremarkable. Non-obstructive. No bowel or stomach distention. ORGANS: Unremarkable as visualized. No organomegaly. No abnormal calcifications. BONES/JOINTS: No acute pathology. SOFT TISSUES: No acute pathology. VASCULATURE: There are bilateral pelvic calcifications which probably represent phleboliths. RAD/Abdomen Single View IMPRESSION: No definite identification of renal or ureteral calculi. Sensitivity is limited by overlying fecal material. Electronically Signed: Eric Gay MD at 7:52 EDT Reading Location ID and State: [facility] / [place] , Service support ,
== END 2021-05-11 23:59 | disposition home or self-care (01) ==
LOC: LAB 11:08 → RAD 11:11
PROVIDERS: PCP Family Medicine; Visit Provider Urology
DX: N20.0 Calculus of kidney (principal)
CPT/HCPCS: 74018

== ENCOUNTER → 2021-06-05 | Outpatient (CLI) | payer MEDICARE, OTHER, SELFPAY ==
--- NOTE | 2021-06-05 10:51 | ECHOD_ITS ---
Reason For Study: atrial fib./ flutter Procedure This was a 2D Doppler, Color Flow transthoracic echocardiogram. The study was technically difficult. Exam performed in department. Left Ventricle Normal LV size. Mild global left ventricular systolic dysfunction. The estimated ejection fraction is 45 %. There is evidence of diastolic dysfunction. Right Ventricle Normal RV size. Normal systolic function. Atria The left atrium is severely enlarged. The right atrium is mildly enlarged. No doppler evidence for ASD. Mitral Valve There is moderate mitral annular calcification. Tension of the mitral annular calcification on the base of the posterior mitral valve leaflet. Mild (1+) mitral valve insufficiency. Tricuspid Valve Normal tricuspid valve. Moderately severe (3+) eccentric tricuspid valve insufficiency. Right ventricular systolic pressure estimated to be 41 mmHg. Aortic Valve Trisinus/trileaflet aortic valve. Normal aortic valve. Mild (1+) aortic valve insufficiency. Pulmonic Valve The pulmonic valve is not well visualized. Great Vessels Normal sized aortic root. Pericardium/Pleural No pericardial effusion. MMode/2D Measurements & Calculations LVIDd: 4.6 cm IVSd: 1.2 cm Ao root diam: 2.9 cm LVIDs: 3.6 cm LVPWd: 1.5 cm RVDd: 3.6 cm FS: 20.5 % LAV(MOD-bp): 106.8 ml LVAd ap4: 21.4 cm2 SV(MOD-sp4): 30.6 ml LAV(MOD-bp) Indexed: 51.9 ml/m2 LVLd ap4: 6.2 cm LAV(MOD-sp2): 99.9 ml EDV(MOD-sp4): 64.6 ml LAV(MOD-sp4): 110.1 ml EDV(sp4-el): 63.2 ml LVAs ap4: 15.0 cm2 LVLs ap4: 5.6 cm ESV(MOD-sp4): 34.0 ml ESV(sp4-el): 34.1 ml EF(MOD-sp4): 47.4 % EF(sp4-el): 46.0 % SV(sp4-el): 29.1 ml LA A4 area: 30.4 cm2 LA dimension(2D): 5.1 cm RA A4 area: 19.7 cm2 Doppler Measurements & Calculations MV E max patrick: 92.3 cm/sec Lat Peak E' Patrick: 4.8 cm/sec Med Peak E' Patrick: 7.0 cm/sec E/E' lat: 19.3 E/E' med: 13.1 Ao V2 max: 106.1 cm/sec AI max patrick: 505.1 cm/sec LV V1 max: 73.3 cm/sec Ao max P.5 mmHg AI max P.0 mmHg LV V1 max P.2 mmHg Ao V2 mean: 71.1 cm/sec LV V1 mean P.1 mmHg Ao mean P.3 mmHg AI dec slope: 238.3 cm/sec2 LV V1 mean: 49.5 cm/sec Ao V2 VTI: 19.2 cm AI P1/2t: 620.8 msec LV V1 VTI: 13.2 cm PA V2 max: 55.6 cm/sec TR max patrick: 307.8 cm/sec TR max P.9 mmHg ECHO/Echo Complete Interpretation Summary The study was technically difficult. Mild global left ventricular systolic dysfunction. The estimated ejection fraction is 45 %. The left atrium is severely enlarged. The right atrium is mildly enlarged. There is moderate mitral annular calcification. Tension of the mitral annular calcification on the base of the posterior mitral valve leaflet. Mild (1+) mitral valve insufficiency. Moderately severe (3+) eccentric tricuspid valve insufficiency. Mild (1+) aortic valve insufficiency. Right ventricular systolic pressure estimated to be 41 mmHg. There is evidence of diastolic dysfunction. Ordering Physician: Jed Briscoe Referring Physician: Jed Briscoe Performed By: Lisseth Mcfarland RCS
== END | disposition home or self-care (01) ==
LOC: CVS 10:50
PROVIDERS: PCP Family Medicine; Referring Provider Internal Medicine Cardiovascular Disease; Visit Provider Internal Medicine Cardiovascular Disease
DX: I38 Endocarditis, valve unspecified (principal); I11.0 Hypertensive heart disease with heart failure; I50.9 Heart failure, unspecified; I42.9 Cardiomyopathy, unspecified; I48.11 Longstanding persistent atrial fibrillation; Z79.01 Long term (current) use of anticoagulants
CPT/HCPCS: 93306

== ENCOUNTER 2021-07-28 14:45 | Emergency (ER) | payer MEDICARE, OTHER, SELFPAY ==
[2021-07-28 14:46] VITALS: BP 182/117; PULSE 84; RESP 14; TEMP 35.7; O2SAT 98; BMI 37.4
--- NOTE | 2021-07-28 15:22 | EDS_ITS ---
HPI History of Present Illness Chief Complaint: Nosebleed Informant: patient Onset/Context/Timing Onset: Today Context: Sudden Onset Timing: Continuous Quality: Epistaxis Location: Right nares Worsened by: Nothing Relieved by: Ice pack and pinching nose Narrative Narrative: Patient Gary with epistaxis that began this morning. Patient states it is mainly coming from the right nares. Patient has a history of atrial fibrillation and is on Eliquis. Patient denies any trauma or injury. Patient states it is better whenever she pinches her nose and applies ice to the back of her neck. Patient states the bleeding is mainly coming out of the front of her right nares. Patient admits to some mild drainage down the back of her throat. Patient denies any headaches. [facility] Medical History Bilateral lower extremity edema Cardiomyopathy Cellulitis of lower extremity Congestive heart failure Essential hypertension HTN (hypertension) Kidney stone Long-term use of high-risk medication Longstanding persistent atrial fibrillation Obesity (BMI 30-39.9) Paroxysmal atrial fibrillation Ulcer of left lower extremity with fat layer exposed Ulcer of right lower extremity with fat layer exposed Valvular heart disease Home Medications metoprolol tartrate 50 mg tablet 50 mg PO BID #180 tab 11/24/20 [Rx Last Taken 01/27/21] magnesium oxide 500 mg capsule 500 mg PO DAILY 12/08/20 [History Last Taken Unknown] telmisartan 20 mg tablet 20 mg PO DAILY 01/14/21 [History Last Taken Unknown] apixaban 5 mg tablet 5 mg PO BID #180 tab 01/23/21 [Rx Last Taken 01/27/21] ascorbic acid (vitamin C) 1,000 mg tablet 1 g PO DAILY tab 02/18/21 [History Last Taken Unknown] diltiazem HCl 120 mg capsule,extended release 24 hr 120 mg PO DAILY #90 cap 02/18/21 [Rx Last Taken Unknown] cholecalciferol (vitamin D3) 50 mcg (2,000 unit) tablet 50 mcg PO DAILY 05/20/21 [History Last Taken Unknown] furosemide 20 mg tablet 40 mg PO DAILY tab 05/20/21 [History Last Taken Unknown] cephalexin 500 mg PO Q6 #20 capsule 07/28/21 [Rx Last Taken Unknown] Allergy/AdvReac Type Severity Reaction Status Date / Time lisinopril AdvReac Severe back ache Verified 07/28/21 14:46 Family History Father Cancer Lung,pancreatic Brother Atrial fibrillation Surgical History History of cardioversion History of hysterectomy History of lithotripsy History of tonsillectomy Social History Smoking Status: Never smoker alcohol intake: never substance use type: does not use ROS ROS ED Constitutional Constitutional ED: Denies chills or fever(s) Eyes Eyes: Denies blurry vision or change in vision ENT ENT ED: Denies rhinorrhea or sore throat Cardiovascular Cardiovascular: Denies chest pain or palpitations Respiratory/Chest Respiratory/Chest: Denies cough or dyspnea Gastrointestinal Gastrointestinal: Denies nausea or vomiting Genitourinary Genitourinary ED: Denies dysuria or hematuria Musculoskeletal Musculoskeletal: Reports back pain; Denies neck pain Integumentary Denies abscess or rash Neurologic Neurologic: Denies headache(s) or weakness Allergic/Immunologic Allergic/Immunologic ED: Denies mouth swelling or urticaria EXAM Physical Exam Const Vital Signs: 07/28/21 14:46 Temperature 96.2 F L Temperature Source Temporal Pulse Rate 84 Respiratory Rate 14 Blood Pressure 182/117 H Blood Pressure Mean 138 Pulse Ox 98 Oxygen Delivery Method Room Air Positive well nourished, well developed and obese General Appearance ED: well developed and NAD Nutritional Appearance: obese HEENT Reports moist mucous membranes HEENT Narrative: There is active bleeding from the right nares. This appears to be coming from the anterior nasal septum. There is no active bleeding from the left nares. There is no septal deviation or septal hematoma noted. Neck supple and no JVD Neuro oriented x3, CN's II-XII intact bilaterally and no sensory deficits noted Sensorium / Orientation: alert Motor Exam: strength 5/5 throughout Psych mental status grossly normal MDM MDM MDM Narrative Medical decision making narrative: Cottonballs soaked with Dr. Forde solution were placed in the right nares. Bleeding did slow down with this. A 5.5 cm anterior rapid Rhino was applied to the right nares. The balloon was inflated. Patient tolerated the procedure well. Bleeding stopped after this. Patient was instructed to follow-up with her primary care physician in 2 to 3 days. Patient was also given referral for ENT. Patient was instructed return if worse in any way. Patient understood and was agreeable with the plan. All questions were answered. Discharge Plan Triage Chief Complaint: Nosebleed ED Provider: Cj Melvin Dx/Rx/DC Orders Clinical Impression: Acute anterior epistaxis, Longstanding persistent atrial fibrillation Instructions: ED Epistaxis (Adult) Prescriptions: New cephalexin [cephalexin] 500 MG capsule 500 mg PO Q6 Qty: 20 RF: 0 No Action cholecalciferol (vitamin D3) 50 mcg (2,000 unit) tablet 50 mcg PO DAILY RF: 0 metoprolol tartrate 50 mg tablet 50 mg PO BID Qty: 180 RF: 3 magnesium oxide 500 mg capsule 500 mg PO DAILY RF: 0 furosemide [Lasix] 20 mg tablet 40 mg PO DAILY RF: 0 telmisartan 20 mg tablet 20 mg PO DAILY RF: 0 ascorbic acid (vitamin C) 1,000 mg tablet 1 g PO DAILY RF: 0 diltiazem HCl 120 mg capsule,extended release 24hr 120 mg PO DAILY Qty: 90 RF: 3 Eliquis 5 mg tablet 5 mg PO BID Qty: 180 RF: 4 Primary Care Provider: Cj Arciniega Referrals: Barry Thomas MD [STAFF PHYSICIAN] - 2 Days Cj Arciniega MD [Primary Care Provider] - 2 Days Disposition Disposition: Home, Self Care
[2021-07-28] MEDS: Mixture 30 ML Bottle TOPICAL (16:44)
[2021-07-28] MEDS: Cephalexin 500 MG Capsule PO (16:44)
[2021-07-28 16:57] VITALS: BP 144/91; PULSE 87; RESP 15; O2SAT 99
== END 2021-07-28 16:58 | disposition home or self-care (01) ==
PROVIDERS: Emergency Provider Emergency Medicine; PCP Family Medicine; Visit Provider Emergency Medicine
DX: R04.0 Epistaxis (principal); I48.19 Other persistent atrial fibrillation; E66.9 Obesity, unspecified; Z79.01 Long term (current) use of anticoagulants
CPT/HCPCS: 30901; 99282

== ENCOUNTER → 2021-09-15 | Outpatient (CLI) | payer MEDICARE, OTHER, SELFPAY ==
[2021-09-15 18:05] LABS: Absolute Lymphocyte Count 2.64 X10^3/uL (0.83-4.51); Absolute Neutrophil Count 8.3 X10^3/uL (2.0-7.7); Basophil# 0.06 X10^3/uL; Basophil% 0.5 % (0-1); Eosinophils% 0.8 % (0-5); Hematocrit 46.7 % (37-47); Hemoglobin 15.4 g/dL (12.0-15.0); Lymphocyte # 2.64 X10^3/ul (0.83-4.51); Lymphocyte % 21.7 % (19-41); Mean Corpuscular Hgb 31.4 pg (27.0-32.0); Mean Corpuscular Volume 95.1 fL (81-99); Mean Platelet Vol. 10.8 fl (6.2-12.0); Monocyte# 0.99 X10^3/uL; Monocyte% 8.1 % (0-10); NRBC Flagged by Analyzer 0 % (0-5); Neutrophil # 8.34 X10^3/uL (2.7-7.7); Neutrophil % 68.5 % (47-70); Platelet Count 257 K/mm3 (150-450); RBC Distribution Width CV 13.8 % (11.6-14.6); RBC Distribution Width SD 48.2 fl (35.1-43.9); Red Blood Count 4.91 M/mm3 (4.2-5.4); White Blood Count 12.2 K/mm3 (4.4-11.0)
[2021-09-15 18:10] LABS: Vitamin B12 591 pg/mL (211-911); Vitamin D,25 Hydroxy 44.4 ng/mL
[2021-09-15 18:19] LABS: Microalbumin:Creatinine Ratio 85.1 mg/g CRE (<30 mg/g CRE)
[2021-09-15 18:26] LABS: ALB/GLOB Ratio 0.8 RATIO (0.9-2.4); AST(SGOT) 23 U/L (15-37); Alanine Aminotransfer ALT/SGPT 31 U/L (13-56); Albumin, Serum 3.5 g/dL (3.2-5.0); Alkaline Phosphatase 112 U/L (45-117); Anion Gap 8 (5-15); BUN 20 mg/dL (7-18); BUN/Creat Ratio 16.3 RATIO (10-20); Calcium,Total 8.8 mg/dL (8.5-10.1); Chloride 105 mmol/L (98-107); Creatinine, Serum 1.23 mg/dL (0.55-1.02); EST Glomerular Filtration Rate 46 mL/min (>60); Est Glom Filt Rate - Afr Amer 56 mL/min (>60); Globulin 4.2 g/dL (2.2-4.2); Glucose 95 mg/dL (74-106); Protein, Total 7.7 g/dL (6.4-8.2); Sodium Level 138 mmol/L (136-145)
== END | disposition home or self-care (01) ==
LOC: MFPLAB 14:33
PROVIDERS: PCP Family Medicine; Referring Provider Family Medicine; Visit Provider Family Medicine
DX: R53.83 Other fatigue (principal); N18.30 Chronic kidney disease, stage 3 unspecified
CPT/HCPCS: 36415; 80053; 82043; 82306; 82570; 82607; 82746; 84443; 85025

== ENCOUNTER → 2022-06-14 | Outpatient (CLI) | payer MEDICARE, OTHER, SELFPAY ==
[2022-06-14 12:18] LABS: Absolute Lymphocyte Count 1.95 X10^3/uL (0.83-4.51); Absolute Neutrophil Count 8.5 X10^3/uL (2.0-7.7); Basophil# 0.07 X10^3/uL; Basophil% 0.6 % (0-1); Eosinophil# 0.09 X10^3/uL; Eosinophils% 0.8 % (0-5); Hematocrit 45.8 % (37-47); Hemoglobin 15.5 g/dL (12.0-15.0); Lymphocyte # 1.95 X10^3/ul (0.83-4.51); Lymphocyte % 16.9 % (19-41); Mean Corp Hgb Conc 33.8 g/dL (32-36); Mean Corpuscular Hgb 31.2 pg (27.0-32.0); Mean Corpuscular Volume 92.2 fL (81-99); Mean Platelet Vol. 10.7 fl (6.2-12.0); Monocyte# 0.87 X10^3/uL; Monocyte% 7.6 % (0-10); NRBC Flagged by Analyzer 0 % (0-5); Neutrophil # 8.48 X10^3/uL (2.7-7.7); Neutrophil % 73.7 % (47-70); Platelet Count 223 K/mm3 (150-450); RBC Distribution Width CV 13.9 % (11.6-14.6); RBC Distribution Width SD 47.3 fl (35.1-43.9); Red Blood Count 4.97 M/mm3 (4.2-5.4); White Blood Count 11.5 K/mm3 (4.4-11.0)
[2022-06-14 12:52] LABS: BNP,B-Type NATRIURETIC PEPTIDE 314.7 pg/mL (0-100)
[2022-06-14 12:55] LABS: Vitamin D,25 Hydroxy 48.8 ng/mL
[2022-06-14 13:13] LABS: ALB/GLOB Ratio 0.9 RATIO (0.9-2.4); AST(SGOT) 26 U/L (15-37); Alanine Aminotransfer ALT/SGPT 33 U/L (13-56); Albumin, Serum 3.6 g/dL (3.2-5.0); Alkaline Phosphatase 103 U/L (45-117); Anion Gap 7 (5-15); BUN 18 mg/dL (7-18); BUN/Creat Ratio 15.9 RATIO (10-20); Calcium,Total 9.2 mg/dL (8.5-10.1); Chloride 109 mmol/L (98-107); Creatinine, Serum 1.13 mg/dL (0.55-1.02); EST Glomerular Filtration Rate 51 mL/min (>60); Est Glom Filt Rate - Afr Amer 61 mL/min (>60); Globulin 4.2 g/dL (2.2-4.2); Glucose 106 mg/dL (74-106); Potassium 4.1 mmol/L (3.5-5.1); Protein, Total 7.8 g/dL (6.4-8.2); Sodium Level 141 mmol/L (136-145)
[2022-06-14 13:30] LABS: PTHIN 38.3 pg/mL (18.4-80.1)
[2022-06-14 13:50] LABS: Microalbumin:Creatinine Ratio 113.6 mg/g CRE (<30 mg/g CRE)
== END | disposition home or self-care (01) ==
LOC: MTLAB 10:14
PROVIDERS: PCP Family Medicine; Referring Provider Family Medicine; Visit Provider Family Medicine
DX: I13.0 Hypertensive heart and chronic kidney disease with heart failure and stage 1 through stage 4 chronic kidney disease, or unspecified chronic kidney disease (principal); I42.9 Cardiomyopathy, unspecified; I50.82 Biventricular heart failure; I48.91 Unspecified atrial fibrillation; N25.81 Secondary hyperparathyroidism of renal origin; N18.30 Chronic kidney disease, stage 3 unspecified
CPT/HCPCS: 36415; 80053; 82043; 82306; 82570; 83880; 83970; 84550; 85025

== ENCOUNTER → 2023-01-18 | Outpatient (CLI) | payer MEDICARE, OTHER, SELFPAY ==
--- NOTE | 2023-01-18 10:50 | ECHOD_ITS ---
Reason For Study: ENDOCARDITIS Procedure This was a 2D Doppler, Color Flow transthoracic echocardiogram. The study was technically difficult. Exam performed in department. Left Ventricle Normal left ventricle. Mild concentric left ventricular hypertrophy. The estimated ejection fraction is 40 %. There is mild to moderate global hypokinesis of the left ventricle. Right Ventricle Normal RV size. Normal systolic function. Atria The left atrium is moderately enlarged. Normal right atrium. Tricuspid Valve Normal tricuspid valve. Mild (1+) tricuspid valve insufficiency. Pulmonary artery systolic pressure is 30 mmHg. Aortic Valve Trisinus/trileaflet aortic valve. Mild (1+) eccentric aortic valve insufficiency. Pulmonic Valve Normal pulmonic valve. Great Vessels Normal aortic root. The pulmonary artery is normal size. Normal inferior vena cava. Pericardium/Pleural No pericardial effusion. MMode/2D Measurements & Calculations LVIDd: 4.6 cm IVSd: 1.3 cm Ao root diam: 3.5 cm LVIDs: 3.7 cm LVPWd: 1.3 cm RVDd: 3.6 cm FS: 20.9 % LAV(MOD-bp): 101.8 ml LVAd ap4: 21.1 cm2 SV(MOD-sp4): 29.8 ml LAV(MOD-bp) Indexed: 47.8 ml/m2 LVLd ap4: 5.6 cm LAV(MOD-sp2): 91.9 ml EDV(MOD-sp4): 71.2 ml LAV(MOD-sp4): 106.0 ml EDV(sp4-el): 67.7 ml LVAs ap4: 15.7 cm2 LVLs ap4: 5.1 cm ESV(MOD-sp4): 41.4 ml ESV(sp4-el): 41.2 ml EF(MOD-sp4): 41.9 % EF(sp4-el): 39.2 % SV(sp4-el): 26.5 ml LA dimension(2D): 5.1 cm LA A4 area: 29.0 cm2 RA A4 area: 18.8 cm2 TAPSE: 1.5 cm Doppler Measurements & Calculations MV E max aniyah: 105.8 cm/sec Ao V2 max: 88.8 cm/sec AI max aniyah: 359.2 cm/sec Ao max P.2 mmHg AI max P.4 mmHg Ao V2 mean: 60.9 cm/sec Ao mean P.6 mmHg AI dec slope: 173.9 cm/sec2 Ao V2 VTI: 15.9 cm AI P1/2t: 605.1 msec AV (velocity ratio): 0.95 LV V1 max: 82.8 cm/sec PA V2 max: 56.5 cm/sec TR max aniyah: 259.9 cm/sec LV V1 max P.7 mmHg PA V2 mean: 37.0 cm/sec TR max P.0 mmHg LV V1 mean P.6 mmHg LV V1 mean: 61.7 cm/sec LV V1 VTI: 15.1 cm ECHO/Echo Complete Interpretation Summary Normal left ventricle. The estimated ejection fraction is 40 %. Pulmonary artery systolic pressure is 30 mmHg. Mild concentric left ventricular hypertrophy. Mild (1+) eccentric aortic valve insufficiency. Compared to previous study, the left ventricular systolic function is the same. . Ordering Physician: Nneka Nolasco Referring Physician: Cj Arciniega Performed By: Ev Pino, ELADIO, RVT
== END | disposition home or self-care (01) ==
LOC: CVS 10:49
PROVIDERS: PCP Family Medicine; Referring Provider Nurse Practitioner Gerontology; Visit Provider Nurse Practitioner Gerontology
DX: I38 Endocarditis, valve unspecified (principal)
CPT/HCPCS: 93306

== ENCOUNTER 2023-05-24 15:56 | Observation (INO) | payer MEDICARE, OTHER, SELFPAY ==
[2023-05-24] VITALS (12 sets, daily range): BP systolic 140–193; BP diastolic 85–136; PULSE 76–90; RESP 16–24; TEMP 36.2–36.8; O2SAT 94–97; BMI 40.5; BMI 40.4
--- NOTE | 2023-05-24 16:19 | EKG12_ITS ---
Test Reason : Blood Pressure : / mmHG Vent. Rate : 079 BPM Atrial Rate : 000 BPM P-R Int : 000 ms QRS Dur : 082 ms QT Int : 384 ms P-R-T Axes : 000 083 024 degrees QTc Int : 440 ms Atrial fibrillation Cannot rule out Septal infarct , age undetermined Abnormal ECG Confirmed by John Van ([id number]), international editorial producer MORENA SON ([id number]) on 05/25/2023 10:33:26 AM Referred By: Confirmed By:John Van
--- NOTE | 2023-05-24 16:19 | CT_ITS ---
EXAM: CT ANGIOGRAPHY HEAD AND NECK WITH INTRAVENOUS CONTRAST CLINICAL INDICATION: Neuro deficit, acute, stroke suspected TECHNIQUE: [place] [facility] [place]/head and neck CT angiography protocol performed with intravenous contrast. This CT exam was performed using one or more of the following dose reduction techniques: automated exposure control, adjustment of the mA and/or kV according to patient size, and/or use of iterative reconstruction technique. MIP reconstructed images were created and reviewed. CONTRAST: IV 100mL [id number] COMPARISON: No relevant prior studies available. FINDINGS: HEAD: RIGHT ANTERIOR CEREBRAL ARTERY: Unremarkable. No occlusion or significant stenosis. Anterior communicating artery is present. No aneurysm. RIGHT MIDDLE CEREBRAL ARTERY: Unremarkable. No occlusion or significant stenosis. No aneurysm. RIGHT POSTERIOR CEREBRAL ARTERY: Unremarkable. No occlusion or significant stenosis. No aneurysm. RIGHT INTRACRANIAL INTERNAL CAROTID ARTERY: Unremarkable. No significant stenosis. No dissection or occlusion. RIGHT INTRACRANIAL VERTEBRAL ARTERY: Unremarkable. No significant stenosis. No dissection or occlusion. LEFT ANTERIOR CEREBRAL ARTERY: Unremarkable. No occlusion or significant stenosis. No aneurysm. LEFT MIDDLE CEREBRAL ARTERY: Unremarkable. No occlusion or significant stenosis. No aneurysm. LEFT POSTERIOR CEREBRAL ARTERY: Unremarkable. No occlusion or significant stenosis. No aneurysm. LEFT INTRACRANIAL INTERNAL CAROTID ARTERY: Unremarkable. No significant stenosis. No dissection or occlusion. LEFT INTRACRANIAL VERTEBRAL ARTERY: Unremarkable. No significant stenosis. No dissection or occlusion. BASILAR ARTERY: Unremarkable. No occlusion or significant stenosis. No aneurysm. OTHER VASCULATURE: No vascular malformation. NECK: RIGHT COMMON CAROTID ARTERY: Unremarkable. No significant stenosis. No dissection or occlusion. RIGHT EXTRACRANIAL INTERNAL CAROTID ARTERY: Unremarkable. No significant stenosis. No dissection or occlusion. RIGHT EXTERNAL CAROTID ARTERY: Unremarkable. No occlusion. RIGHT EXTRACRANIAL VERTEBRAL ARTERY: Unremarkable. No significant stenosis. No dissection or occlusion. LEFT COMMON CAROTID ARTERY: Unremarkable. No significant stenosis. No dissection or occlusion. LEFT EXTRACRANIAL INTERNAL CAROTID ARTERY: Unremarkable. No significant stenosis. No dissection or occlusion. LEFT EXTERNAL CAROTID ARTERY: Unremarkable. No occlusion. LEFT EXTRACRANIAL VERTEBRAL ARTERY: Unremarkable. No significant stenosis. No dissection or occlusion. BRACHIOCEPHALIC AND SUBCLAVIAN ARTERIES: Unremarkable as visualized. No occlusion or significant stenosis. LUNG APICES: Unremarkable as visualized. HEAD and NECK: BONES/JOINTS: Unremarkable. No discrete lytic or blastic abnormalities. SOFT TISSUES: Unremarkable. CAROTID STENOSIS REFERENCE USING NASCET CRITERIA: % ICA stenosis = (1 - narrowest ICA diameter/diameter of distal cervical ICA) x 100. Mild - <50% stenosis. Moderate - 50-69% stenosis. Severe - 70-94% stenosis. Near occlusion - 95-99% stenosis. Occluded - 100% stenosis. CT/CTA Head AND Neck W/ Contrast IMPRESSION: Negative CTA carotid and CTA brain. Electronically Signed: Amadou Alvarez MD at 17:56 EDT ,
--- NOTE | 2023-05-24 16:22 | EX.ED.VIS.EY ---
HPI History of Present Illness Chief Complaint: Eye Problem Informant: patient and spouse/S.O. Onset/Context/Timing Location: Left Eye Onset: Days Context: Gradual Onset Timing: Continuous Current Severity: Moderate Maximum Severity: Moderate Narrative Narrative: 72-year-old female history of cardiomyopathy, CHF, hypertension, A-fib on Eliquis and chronic kidney disease. Patient fell about a week and a half ago going from a ride to lost her footing fell striking the right lateral aspect of her scalp. No LOC. She was not seen at that time. On further 4 to 5 days ago originally able to see the awoke and was unable to open her left eye. Sometimes has double vision when she lifts. Has not been seen until today. 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 She has had some mild headaches. No vomiting. Denies any trouble using her arms or legs. Prior similar symptoms: No Recent Illness/Hospitalization: No PFSH PFSH Medical History (Updated 05/24/23 @ 20:37 by Azul Marroquin) Atrial fibrillation Bilateral lower extremity edema Cardiomyopathy Cellulitis of lower extremity Congestive heart failure Essential hypertension HTN (hypertension) Hypertension Kidney stone Long-term use of high-risk medication Longstanding persistent atrial fibrillation Obesity (BMI 30-39.9) Paroxysmal atrial fibrillation Ulcer of left lower extremity with fat layer exposed Ulcer of right lower extremity with fat layer exposed Valvular heart disease Home Medications ascorbic acid (vitamin C) 1,000 mg tablet 1 g PO DAILY 02/18/21 [History Last Taken 05/24/23] metoprolol tartrate 50 mg tablet 50 mg PO BID 12/09/22 [History Last Taken 05/24/23] apixaban 5 mg tablet (Eliquis) 5 mg PO BID #180 tabs 02/24/23 [Rx Last Taken 05/24/23] telmisartan 20 mg tablet 20 mg PO DAILY #90 tabs 02/25/23 [Rx Last Taken 05/24/23] diltiazem HCl 120 mg capsule,extended release 24 hr 120 mg PO QHS 05/24/23 [History Last Taken 05/24/23] essentialzymes 05/24/23 [History Last Taken Unknown] magnesium oxide 500 mg capsule 500 mg PO DAILY 05/24/23 [History Last Taken Unknown] multigreens 05/24/23 [History Last Taken Unknown] sulfurzyme 05/24/23 [History Last Taken Unknown] vitamin B complex (Vitamins B Complex capsule) 1 cap PO DAILY 05/24/23 [History Last Taken Unknown] Allergy/AdvReac Type Severity Reaction Status Date / Time lisinopril AdvReac Severe back ache Verified 05/24/23 16:00 Family History Father Cancer Lung,pancreatic Brother Atrial fibrillation Surgical History History of cardioversion History of hysterectomy History of lithotripsy History of tonsillectomy Social History Smoking Status: Never smoker alcohol intake: never substance use type: does not use ROS ROS ED ROS Narrative Unable to open her left eye since Tuesday which is now 5 days ago. Review of Systems ROS Unobtainable: Denies due to encephalopathy Constitutional Constitutional ED: Denies chills or fever(s) Eyes Eyes: Denies blurry vision ENT ENT ED: Denies ear pain Cardiovascular Cardiovascular: Denies chest pain or palpitations Respiratory/Chest Respiratory/Chest: Denies cough or dyspnea Gastrointestinal Gastrointestinal: Denies abdominal pain Genitourinary Genitourinary ED: Denies dysuria or hematuria Musculoskeletal Musculoskeletal: Denies arthralgias or back pain Integumentary Denies abscess or Abrasions Neurologic Neurologic: Denies headache(s) Psychiatric Psychiatric: Denies anxiety, depression or suicidal ideation Endocrine Endocrinology: Denies polydipsia or polyphagia Hematologic/Lymphatic Hematologic/Lymphatic: Denies easy bleeding, easy bruising or lymphadenopathy Allergic/Immunologic Allergic/Immunologic ED: Denies mouth swelling, tongue swelling or urticaria EXAM Physical Exam Narrative Exam Narrative: 72-year-old female vital signs stable blood pressure is elevated 193 117. No acute distress. She is standing up when I walked in the room. H EENT exam left eye is closed. She cannot open it. I can lift her leg. Her extraocular motions appear to be intact bilaterally. The left pupil is probably 5 mm and does not react to light. The right pupil is about 2 to 3 mm and reactive to light. Normal speech. No trauma at this time in her head or tenderness. Neck nontender. Lungs clear to auscultation bilaterally. Heart regular rhythm rate about 90 no murmur. Abdomen soft nontender. Moving all 4 extremities. Normal strength. No drift. NIH score is 1. Const Vital Signs: 05/24/23 15:57 Temperature 98.2 F Temperature Source Temporal Pulse Rate 89 Respiratory Rate 16 Blood Pressure 193/117 H Blood Pressure Mean 142 Pulse Ox 97 Oxygen Delivery Method Room Air Positive well nourished and well developed; Negative for cachectic, contractures or unkempt General Appearance ED: well developed and NAD; Negative for unkempt, cachectic or contractures Nutritional Appearance: Negative for cachectic HEENT HEENT Narrative: Left eye closed. Left eye droop. Show most severe to be intact. Left pupil dilated nonreactive to light. No facial droop otherwise. And normal speech. Negative for trauma or tenderness Eyes Eyes Narrative: Left eye droop. Left eye closed. Unable to open her left eye. Extra motions are intact. Pupil dilated nonreactive to light on the left. Neck no lymphadenopathy, supple and no JVD General: Negative for tenderness Resp normal respiratory effort, no retractions, no use of accessory muscles and clear to auscultation bilaterally Effort and Inspection: Negative for other Cardio regular rate, regular rhythm, S1 normal heart sound, S2 normal heart sound and no murmurs GI non-tender, non-distended and no masses Auscultation: normoactive bowel sounds Palpation: soft Back/Spine no CVA tenderness General Back: Negative for CVA tenderness Extremity General Extremety ED: Negative for edema or other findings General Extremity: Negative for edema or other findings Neuro oriented x3, No CN's II-XII intact bilaterally and moves all extremities Neuro Narrative: Left 3rd nerve palsy. Left eye closed. Unable to open her left eyelids. Dilated nonreactive left pupil. Sensorium / Orientation: alert, oriented to person, oriented to place and oriented to time; Negative for orientation impaired Motor Exam: strength 5/5 throughout; Negative for strength abnormal Psych Appearance: Negative for unkempt Mood & Affect: Negative for depressed, anxious or tearful Skin no wounds Lesions: no lesions Rashes: no rashes MDM MDM MDM Narrative Medical decision making narrative: 72-year-old female recent head injury on blood thinner Eliquis due to history of A-fib. Has a left 3rd nerve palsy. CAT scan head for possible intercranial bleed versus stroke versus other etiology. Repeat exam at 6 PM unchanged. No change in her symptoms or her neurologic exam. Her CT of her brain and CTA of her head and neck would not show any acute significant pathology that would be causing this. Her chest x-ray is concerning for a right upper lobe density that could be a mass. I am obtaining a CT of her chest. The hospitalist on page for admission. I have discussed all this with the patient. This could possibly be a Catrachita syndrome but the chest density is on the right and her symptoms and ptosis of her eye is on the left side of her face which typically they are on the same side. I spoke to the hospitalist. Patient will be admitted. She may also need a brain MRI. We are getting a CT of her chest. History & Record Review Discussion w/independent historian: Patient and Family Additional record(s) reviewed:: Prior inpatient record, Prior outpatient record, Prior ED visit and Prior labs Lab Data Attestation: I reviewed the patient's lab results. Lab results narrative: CBC shows a white count of 13.9. H&H of 15 and 45. Platelets 257. Patient often has an elevated white count. PT/INR 14 and 1. PTT 32. Troponin normal at 5. Electrolytes unremarkable BUN and creatinine 21 and 1.2. Gap of 8. Glucose 96. CT of the chest with IV contrast showed no mass. The finding on the chest x-ray was not verified on the CT and must be soft tissue shadowing. Radiography Chest X-Ray - ED: 1 View, Read by ED Physician, Heart, Mediastinum, Bony Structures and Chronic Changes Diagnostic Testing: Chest x-ray 4? 1 view shows a density in the right upper lung lateral to the aortic arch is concerning for tumor. A CT with contrast is being obtained. Normal cardiac silhouette. Otherwise normal lung cunha. Rhythm Strip Rhythm Strip: A-fib Rate: 79 Ectopy: None EKG Initial EKG: Attestation: I personally reviewed and interpreted this EKG as follows: Interpretation: Atrial Fibrillation Comments: A-fib rate is 79 no acute signs of CO or ischemia. History of A-fib. Discharge Plan Dx/Rx/DC Orders Clinical Impression: Ptosis of left eyelid, Chronic anticoagulation, 3rd cranial nerve palsy, Chest mass, History of atrial fibrillation Disposition Disposition: Acute Care Hospital [facility] Discharge Date/Time: 05/24/23 19:44
[2023-05-24 16:39] LABS: Absolute Lymphocyte Count 2.54 X10^3/uL (0.83-4.51); Basophil# 0.09 X10^3/uL; Basophil% 0.6 % (0-1); Eosinophil# 0.09 X10^3/uL; Eosinophils% 0.6 % (0-5); Hematocrit 45.4 % (37-47); Hemoglobin 15.2 g/dL (12.0-15.0); Lymphocyte # 2.54 X10^3/ul (0.83-4.51); Lymphocyte % 18.3 % (19-41); Mean Corp Hgb Conc 33.5 g/dL (32-36); Mean Corpuscular Hgb 30.8 pg (27.0-32.0); Mean Corpuscular Volume 91.9 fL (81-99); Mean Platelet Vol. 10.3 fl (6.2-12.0); Monocyte# 1.12 X10^3/uL; Monocyte% 8.1 % (0-10); NRBC Flagged by Analyzer 0 % (0-5); Neutrophil # 9.98 X10^3/uL (2.7-7.7); Platelet Count 257 K/mm3 (150-450); RBC Distribution Width CV 14.3 % (11.6-14.6); RBC Distribution Width SD 48.1 fl (35.1-43.9); Red Blood Count 4.94 M/mm3 (4.2-5.4); White Blood Count 13.9 K/mm3 (4.4-11.0)
[2023-05-24 16:48] LABS: International Normalized Ratio 1.2; Partial Thromboplast Time 32.4 Seconds (24.1-36.2); Prothrombin Time (Protime)PT. 14.7 SECONDS (11.7-14.9)
[2023-05-24 16:55] LABS: Bedside Glucose 98 mg/dL (74-106)
[2023-05-24 17:04] LABS: Anion Gap 8 (5-15); BUN 21 mg/dL (7-18); BUN/Creat Ratio 17.4 RATIO (10-20); Calcium,Total 9.4 mg/dL (8.5-10.1); Chloride 107 mmol/L (98-107); Creatinine, Serum 1.21 mg/dL (0.55-1.02); EST Glomerular Filtration Rate 47 mL/min (>60); Est Glom Filt Rate - Afr Amer 56 mL/min (>60); Estimated Creatinine Clearance 52.75 ml/min; Glucose 96 mg/dL (74-106); Potassium 4.2 mmol/L (3.5-5.1); Sodium Level 138 mmol/L (136-145); Troponin-I HS 5 pg/mL (3.0-54.0)
--- NOTE | 2023-05-24 17:17 | RAD_ITS ---
EXAM: XR CHEST, 1 VIEW CLINICAL INDICATION: Neuro deficit, acute, stroke suspected TECHNIQUE: Frontal view of the chest. COMPARISON: 11/03/2020 FINDINGS: LUNGS AND PLEURAL SPACES: There is opacity in the right upper lobe medially adjacent to the thoracic spine. No pneumothorax. There is no focal consolidation or effusion. HEART: Unremarkable. Cardiac silhouette not enlarged. MEDIASTINUM: Central airways and mediastinal contour are unremarkable. BONES/JOINTS: See above. SOFT TISSUES: Unremarkable. RAD/Chest 1 View IMPRESSION: Opacity in the right upper lobe medially. If indicated further evaluation with CT scan of the chest may be beneficial. Electronically Signed: Amadou Alvarez MD at 17:47 EDT ,
--- NOTE | 2023-05-24 17:48 | ED.RN ---
per Dr. Fu, NIHSS can be d/c at this time d/t no change. order completed.
--- NOTE | 2023-05-24 17:52 | CT_ITS ---
EXAM: CT CHEST WITH INTRAVENOUS CONTRAST CLINICAL INDICATION: chest mass TECHNIQUE: Helically acquired images were obtained of the chest with intravenous contrast. This CT exam was performed using one or more of the following dose reduction techniques: automated exposure control, adjustment of the mA and/or kV according to patient size, and/or use of iterative reconstruction technique. CONTRAST: IV 100mL [id number] COMPARISON: No relevant prior studies available. FINDINGS: LUNGS AND PLEURAL SPACES: There is no mass lesion seen corresponding the recent chest x-ray. The right upper lobe opacity may been overlying vascular structures. Lungs are clear. No pleural effusion or thickening. No pneumothorax. HEART: Unremarkable. Heart size is normal. No pericardial effusion. MEDIASTINUM: Unremarkable. No mediastinal or hilar adenopathy. Esophagus is unremarkable. No hiatal hernia. THYROID: Unremarkable. No thyroid lesions. BONES/JOINTS: Unremarkable. No suspicious lytic or blastic abnormality. VASCULATURE: See above. CT/Chest WITH Contrast IMPRESSION: No acute findings in the chest. No mass lesion is identified. Electronically Signed: Amadou Alvarez MD at 20:16 EDT ,
[2023-05-24] MEDS: 0.9% Normal Saline (1000mL) 1,000 ML 999 ML IV (18:05)
--- NOTE | 2023-05-24 20:00 | PCM.HP.STD ---
HPI - General General Date of Admission: 05/24/23 HPI Narrative EARL MOTLEY, is a 72 F who presents to the hospital at the request of her generation technologist secondary to not being able to keep her left eye open. Approximately a month ago she fell and hit the right side of her head but did not blackout. And then for 5 days ago she could not lift her left eye lid. She can lift it with her fingers and when she does that she notices that she has little little blurry vision with a dilated pupil. This is also new over the last 4 to 5 days. She does not have any pain with extraocular motion and she does not have any weakness or numbness in any of her extremities or her face. Chest x-ray initially demonstrated a possible right upper lobe mass which would not be consistent with Catrachita syndrome as it is contralateral to her proptosis and mydriasis. She denies any recent infections and CT of the brain was unremarkable and CTA of the head and neck was normal. CT of the chest is pending however upon my initial review I do not see any lung mass that would have been noted on the chest x-ray. [facility] Medical History (Updated 05/24/23 @ 18:[address] Sg Fu MD) Atrial fibrillation Bilateral lower extremity edema Cardiomyopathy Cellulitis of lower extremity Congestive heart failure Essential hypertension HTN (hypertension) Kidney stone Long-term use of high-risk medication Longstanding persistent atrial fibrillation Obesity (BMI 30-39.9) Paroxysmal atrial fibrillation Ulcer of left lower extremity with fat layer exposed Ulcer of right lower extremity with fat layer exposed Valvular heart disease Home Medications ascorbic acid (vitamin C) 1,000 mg tablet 1 g PO DAILY 02/18/21 [History Last Taken 05/24/23] metoprolol tartrate 50 mg tablet 50 mg PO BID 12/09/22 [History Last Taken 05/24/23] apixaban 5 mg tablet (Eliquis) 5 mg PO BID #180 tabs 02/24/23 [Rx Last Taken 05/24/23] diltiazem HCl 120 mg capsule,extended release 24 hr 120 mg PO DAILY #90 caps 02/25/23 [Rx Last Taken 05/24/23] telmisartan 20 mg tablet 20 mg PO DAILY #90 tabs 02/25/23 [Rx Last Taken 05/24/23] Allergy/AdvReac Type Severity Reaction Status Date / Time lisinopril AdvReac Severe back ache Verified 05/24/23 16:00 Family History Father Cancer Lung,pancreatic Brother Atrial fibrillation Surgical History History of cardioversion History of hysterectomy History of lithotripsy History of tonsillectomy Social History Smoking Status: Never smoker alcohol intake: never substance use type: does not use ROS Constitutional Constitutional: Denies chills, fatigue, fever(s) or malaise Eyes Eyes: Reports blurry vision, mydriasis and ptosis ENT HEENT: Denies headache(s) or nasal discharge Cardiovascular Cardiovascular: Denies chest pain, dyspnea on exertion or syncope Respiratory/Chest Respiratory/Chest: Denies cough, shortness of breath at rest or shortness of breath with exertion Gastrointestinal Gastrointestinal: Denies constipation, diarrhea, nausea or vomiting Genitourinary Genitourinary: Denies dysuria Neurologic Neurologic: Denies focal weakness, numbness or tremor(s) Psychiatric Psychiatric: Denies anxiety or depression Vital Signs Vital Signs Vital Signs: 05/24/23 15:57 05/24/23 16:35 05/24/23 16:19 Temperature 98.2 F Temperature Source Temporal Pulse Rate 89 86 Respiratory Rate 16 21 H Blood Pressure 193/117 H 165/109 H Blood Pressure Mean 142 127 Pulse Ox 97 96 95 Oxygen Delivery Method Room Air Room Air Room Air 05/24/23 16:49 05/24/23 17:19 05/24/23 17:30 Temperature Temperature Source Pulse Rate 86 89 76 Respiratory Rate 22 H 24 H 21 H Blood Pressure 152/136 H 165/97 H 177/100 H Blood Pressure Mean 141 119 125 Pulse Ox 97 95 95 Oxygen Delivery Method Room Air Room Air Room Air 05/24/23 17:56 05/24/23 18:42 05/24/23 18:56 Temperature 98.2 F Temperature Source Pulse Rate 88 90 80 Respiratory Rate 18 19 H 19 H Blood Pressure 151/85 H 188/114 H 140/120 H Blood Pressure Mean 107 138 128 Pulse Ox 97 94 97 Oxygen Delivery Method Room Air Weight Weight: 243 lb 6 oz Body Mass Index (BMI) 40.5 Physical Exam Narrative General: Alert, Oriented x3, Cooperative, No apparent distress HEENT: Atraumatic, left ptosis with mydriasis to about 5 mm with very little reaction to light Oral: Moist Mucosa Neck: Supple, No JVD Lungs: Clear to auscultation, Normal air movement, No rhonchi, No wheeze, No rales Cardiovascular: Regular rate, Regular Rhythm, Normal S1, Normal S2, No murmurs Abdomen: Soft, Non Tender, Non-Distended, No Hepato-splenomegaly Extremities: No edema, Capillary Refill Less than 3 Seconds Skin: No rashes, No breakdown Musculoskeletal: No Tenderness to Palpation of Joints or Extremities Neurological: No focal neurological deficits other than what is noted in HEENT, Motor Exam 5/5 strength throughout, Sensory exam intact to light touch and pain Psych/Mental Status: Normal Affect, Appropriate Results Lab / Micro Data 05/24/23 16:30 05/24/23 16:30 Labs: Laboratory Results - last 24 hr 05/24/23 16:30: WBC 13.9 H, RBC 4.94, Hgb 15.2 H, Hct 45.4, MCV 91.9, MCH 30.8, MCHC 33.5, RDW Std Deviation 48.1 H, RDW Coeff of Marleny 14.3, Plt Count 257, MPV 10.3, Immature Gran % (Auto) 0.400, Neut % (Auto) 72.0 H, Lymph % (Auto) 18.3 L, Adams % (Auto) 8.1, Eos % (Auto) 0.6, Baso % (Auto) 0.6, Absolute Neuts (auto) 10.0 H, Absolute Lymphs (auto) 2.54, Nucleated RBC % 0, PT 14.7, INR 1.2, APTT 32.4, Sodium 138, Potassium 4.2, Chloride 107, Carbon Dioxide 23.0, Anion Gap 8, BUN 21 H, Creatinine 1.21 H, Estim Creat Clear Calc 52.75, Est GFR (MDRD) Af Amer 56 L, Est GFR (MDRD) Non-Af 47 L, BUN/Creatinine Ratio 17.4, Glucose 96, Calcium 9.4, Troponin I High Sens 5 05/24/23 16:37: POC Glucose 98 Rhythm Strip Rhythm Strip: A-fib Rate: 79 Ectopy: None Imaging Radiology Impression Head/Neck CTA 05/24/23 16:19 IMPRESSION: Negative CTA carotid and CTA brain. Electronically Signed: Amadou Alvarez MD at 17:56 EDT , Chest X-Ray 05/24/23 17:17 IMPRESSION: Opacity in the right upper lobe medially. If indicated further evaluation with CT scan of the chest may be beneficial. Electronically Signed: Amadou Alvarez MD at 17:47 EDT , Assessment & Plan Assessment/Plan (1) 3rd cranial nerve palsy: PLAN: Plan 1. 3rd cranial nerve palsy ? Unclear as to the etiology at this time ? CT scan on my read of her chest does not demonstrate a mass will await final read by radiology ? Will obtain an MRI with and without contrast to further evaluate this process and mydriasis on the left potentially could be traumatic, depending on results may need neurology consult ? No family history consistent with any neurological syndromes, her father had pancreatic and lung cancer secondary to tobacco abuse and exposure to agent orange 2. Essential HTN/A-fib ? Continue with her home Eliquis ? Continue with her home blood pressure medications ? We will monitor make adjustments as necessary 3. Chronic leukocytosis ? Unclear etiology at this time we will continue to monitor DVT: Eliquis 75 minutes was spent on direct patient care, including documentation as well as chart review and collaboration with colleagues Charges/Coding Visit Charges Inpatient E&M: 21479 Init Hosp L3
[2023-05-24] MEDS: Metoprolol Tartrate 50 MG Tablet PO (22:23)
[2023-05-24] MEDS: APIXABAN 5 MG TABLET PO (22:24)
[2023-05-25 02:30] VITALS: BP 153/98; PULSE 78; RESP 16; TEMP 36.4; O2SAT 94
--- NOTE | 2023-05-25 06:00 | MRI_ITS ---
EXAM: MR HEAD WITHOUT AND WITH INTRAVENOUS CONTRAST CLINICAL INDICATION: ptosis with mydriasis on Left TECHNIQUE: Multiplanar and multisequence MR images of the brain were obtained without and with intravenous contrast. CONTRAST: IV 22ml Clariscan COMPARISON: No relevant prior studies available. FINDINGS: BRAIN AND EXTRA-AXIAL SPACES: Increased T2 signal intensity within the cerebral white matter suggestive of chronic microvascular change. 4 mm chronic lacunar infarct within the right side of the donny. Prominence of the cortical sulci and ventricles related to volume loss change. No abnormal contrast enhancement. No intra- or extra-axial hemorrhage. No intracranial mass or mass effect. Basal cisterns are patent. SELLA: Normal. Normal sella turcica, pituitary gland, infundibular stalk, optic chiasm and hypothalamus. AUDITORY SYSTEM: Normal. The internal auditory canals are patent. BONES/JOINTS: Intact calvarium. SINUSES: Unremarkable as visualized. Clear. MASTOID AIR CELLS: Unremarkable as visualized. Clear. ORBITS: Unremarkable as visualized. Both globes, extraocular muscles, optic nerves and retrobulbar fat appear unremarkable. VASCULATURE: Unremarkable as visualized. Normal flow voids in the major intracranial circulation. MRI/Brain W/WO Contrast IMPRESSION: No acute intracranial abnormality. Chronic microvascular changes. Electronically Signed: Wil Ledezma MD at 13:09 EDT ,
[2023-05-25 07:52] LABS: Absolute Neutrophil Count 9.7 X10^3/uL (2.0-7.7); Basophil# 0.08 X10^3/uL; Basophil% 0.6 % (0-1); Eosinophil# 0.13 X10^3/uL; Hematocrit 44.1 % (37-47); Hemoglobin 14.7 g/dL (12.0-15.0); Lymphocyte % 13.5 % (19-41); Mean Corp Hgb Conc 33.3 g/dL (32-36); Mean Corpuscular Hgb 30.5 pg (27.0-32.0); Mean Corpuscular Volume 91.5 fL (81-99); Mean Platelet Vol. 10.3 fl (6.2-12.0); Monocyte# 0.93 X10^3/uL; Monocyte% 7.4 % (0-10); NRBC Flagged by Analyzer 0 % (0-5); Neutrophil % 77.2 % (47-70); Platelet Count 242 K/mm3 (150-450); RBC Distribution Width CV 14.1 % (11.6-14.6); RBC Distribution Width SD 47.2 fl (35.1-43.9); Red Blood Count 4.82 M/mm3 (4.2-5.4); White Blood Count 12.6 K/mm3 (4.4-11.0)
[2023-05-25 08:34] LABS: Anion Gap 6 (5-15); BUN 13 mg/dL (7-18); BUN/Creat Ratio 12.5 RATIO (10-20); Calcium,Total 8.6 mg/dL (8.5-10.1); Chloride 109 mmol/L (98-107); Creatinine, Serum 1.04 mg/dL (0.55-1.02); EST Glomerular Filtration Rate 55 mL/min (>60); Est Glom Filt Rate - Afr Amer 67 mL/min (>60); Estimated Creatinine Clearance 61.32 ml/min; Glucose 110 mg/dL (74-106); Potassium 3.6 mmol/L (3.5-5.1); Sodium Level 139 mmol/L (136-145)
[2023-05-25 08:50] VITALS: BP 150/114; PULSE 83; RESP 14; TEMP 36.6; O2SAT 94
[2023-05-25 08:55] VITALS: BP 150/114; PULSE 83
[2023-05-25] MEDS: Losartan Potassium 25 MG Tablet PO (08:55)
[2023-05-25] MEDS: APIXABAN 5 MG TABLET PO (08:55)
[2023-05-25] MEDS: Metoprolol Tartrate 50 MG Tablet PO (08:55)
[2023-05-25] MEDS: dilTIAZem CD 120 MG Capsule PO (08:55)
[2023-05-25] MEDS: Magnesium Chloride 64 MG Delay Rel.Tablet 128 MG PO (08:59)
[2023-05-25 09:51] LABS: Cholesterol 168 mg/dL (200); High Density Lipoprotein 39 mg/dL; Triglycerides 108 mg/dL; Very Low Density Lipoprotein 22 mg/dL (5-40)
[2023-05-25 10:22] LABS: Hemoglobin A1c 5.6 % (3.8-5.6)
[2023-05-25 14:40] LABS: CRP 9.88 mg/L (0.0-3.0)
[2023-05-25 14:57] LABS: Erythrocyte Sedimentation Rate 24 mm/hr (0-30)
[2023-05-25 15:09] LABS: Thyroid Stim Hormone (TSH) 3.16 uIU/mL (0.358-3.74)
[2023-05-25 15:23] VITALS: BP 145/97; PULSE 78; RESP 14; TEMP 36.7; O2SAT 91
--- NOTE | 2023-05-25 15:41 | NURSING ---
plan for dc after lab drawn
--- NOTE | 2023-05-25 16:20 | PCM.DC.SUM ---
Providers Date of Admission: 05/25/23 Date of Discharge: 05/25/23 Primary Care Physician: Dr. Cj Arciniega MD Consultations 05/25/23 09:19 Neurology [Consult: Tele-Neurology] Routine Consulting Provider: [facility] Reason for Consult: L 3rd CN palsey EMERGENT Consult: No MD Notified: Yes Date Notified: 05/25/23 Time Notified: 09:28 Method of Notification: Answering Service Nursing Unit Staff Notify [facility] of Tele-Neurology Consult: Yes 05/25/23 14:07 Consult: Ophthamology Routine Consulting Provider: Kirsten Lewis Reason for Consult: 3rd cranial nerve palsy EMERGENT Consult: No MD Notified: Yes Date Notified: 05/25/23 Time Notified: 14:08 Method of Notification: per md Comments:: OP follow up per Dr. Monk Reason For Visit: PTOSIS ON LEFT WITH RIGHT LUNG MASS Diagnosis Discharge Diagnosis (1) 3rd cranial nerve palsy: Status: Acute Code(s): H49.00 - Third [oculomotor] nerve palsy, unspecified eye Medications at Discharge Home Medications ascorbic acid (vitamin C) 1,000 mg tablet 1 g PO DAILY vitamin 02/18/21 metoprolol tartrate 50 mg tablet 50 mg PO BID blood pressure 12/09/22 apixaban 5 mg tablet (Eliquis) 5 mg PO BID blood thinner #180 tabs 02/24/23 telmisartan 20 mg tablet 20 mg PO DAILY blood pressure #90 tabs 02/25/23 diltiazem HCl 120 mg capsule,extended release 24 hr 120 mg PO QHS heart rate 05/24/23 essentialzymes 05/24/23 magnesium oxide 500 mg capsule 500 mg PO DAILY supplement 05/24/23 multigreens 05/24/23 sulfurzyme 05/24/23 vitamin B complex (Vitamins B Complex capsule) 1 cap PO DAILY vitamin 05/24/23 Hospital Course Operations None Procedures EKG and - (CT brain/CTA head and neck/chest x-ray/CT chest/MRI brain) Summary of Care Provided Minutes Spent on Discharge: 45 Hospital Course: Mrs. Padilla is a 72-year-old white female who presented to the emergency department at [facility] on 05/25/2023 due to left eye ptosis, diplopia and mydriasis. The patient reported that about a week and a half ago she fell and hit her head. She had no significant injury and did not follow with anybody afterwards. About 4 to 5 days ago she started developing left eyelid drooping but did not pursue any evaluation at that time. 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 While she was there she was noted to have left eye ptosis with a nonreactive pupil that was dilated to about 4 to 5 mm. She has consensual response on the left but no consensual response on the right to light. She has no other neurological symptoms. She does have a history of atrial fibrillation and is chronically anticoagulated with Eliquis. She denied missing any doses. She takes diltiazem for rate control. She also has known history of cardiomyopathy and follows with cardiology. Her most recent echocardiogram was from 02/02/2023 and showed a stable EF at 40% with mild pulmonary hypertension showing a pulmonary artery systolic pressure of 30 mmHg, mild concentric LVH and no significant change from previous echo. CT of the brain was unremarkable upon presentation. A chest x-ray was obtained and suggested the possibility of an opacity in the right upper lobe medially and recommended a CT scan which was performed and negative for any findings. An MRI of her brain was done with and without contrast and was unremarkable for any acute findings. She did have some chronic microvascular changes noted however. We obtain a hemoglobin A1c and was found to be 5.6. Her lipid panel showed a triglyceride of 108, close total cholesterol of 168, LDL of 107, and an HDL of 39. Her TSH was 3.16. Her ESR was normal at 24. Her CRP was mildly elevated at 9.88. She was evaluated by neurology and they recommended we do an icepack test for myasthenia gravis which was performed and unremarkable for any improvement in her ptosis. They also recommended we send antibodies to assess for myasthenia and these were done prior to discharge. An AChR antibody, MuSK antibody and LRP4 antibody was sent prior to discharge. Neurology had no further recommendations other than outpatient follow-up with ophthalmology and potentially neurology depending on ophthalmology's findings. I did discuss the case with the posting specialist on-call, Dr. Lewis, who recommended we discuss the CTA of her head and neck to make sure the cavernous sinus look normal. I did discuss the case with Dr. Pacelli and he relooked at the images and found no significant abnormality in the cavernous sinus. He did note that there was mild atherosclerotic disease but otherwise no significant abnormalities. Ophthalmology felt the patient could be discharged and she has an appointment to see the posting specialist on 05/27/2023 at 8:30 in the morning. She was discharged home with no changes in her medications on 05/25/2023. She is to follow-up with ophthalmology as noted and have asked her to follow-up with her primary care physician within the next week. She was discharged home in stable condition on 05/25/2023. Discharge diagnoses 3rd cranial nerve palsy Possible 6 cranial nerve palsy Diplopia from the above Persistent atrial fibrillation Valvular heart disease Nonischemic cardiomyopathy Hypertension History of nephrolithiasis Morbid obesity Physical Exam Const alert, oriented x3, no apparent distress, no limitations and well nourished Constitutional Narrative: Morbidly obese, older, white female, sitting up in bed, at bedside, nursing at bedside, patient looks well at this time other than the left ptosis General Appearance: cooperative, comfortable, well kempt and well developed Orientation / Consciousness: awake, oriented to person, oriented to place and oriented to time Exam Limitations: no limitations Nutritional Appearance: morbidly obese HEENT normocephalic, head/scalp atraumatic, hearing grossly normal bilaterally and moist oral mucous membranes HEENT Narrative: Mallampati 3, no thrush Eyes conjunctivae normal; Negative for PERRL or EOMs intact bilaterally Eyes Narrative: Left eye dilated at about 4 to 5 mm with no consensual response on the left, there is consensual sponsor on the right, left lateral rectus appears to be somewhat compromised as well however exam is difficult as patient has trouble keeping her eyes open, patient with significant ptosis Neck no lymphadenopathy and supple Neck Narrative: Neck is short and thick, trachea is midline, no thyroid enlargement Resp normal respiratory effort, no retractions, no use of accessory muscles and clear to auscultation bilaterally Auscultation: Negative for rales, rhonchi or wheezes Cardio regular rate, S1 normal heart sound, S2 normal heart sound, no murmurs, no rub, no gallops and no clicks Cardio Narrative: Rhythm is irregularly irregular but rate is controlled GI normal to inspection, nondistended, normoactive bowel sounds, soft to palpation and non-tender Extremity no clubbing, cyanosis or edema Extremity Narrative: Pedal pulses are 2+ Skin no rashes or lesions noted, no wounds, skin turgor normal and no jaundice Neuro oriented x3, No CN's II-XII intact bilaterally, moves all extremities, no focal motor deficits and no sensory deficits noted Neuro Narrative: Abnormal cranial nerve exam in the 3rd cranial nerve and possibly the 6 cranial nerve however exam is difficult due to ongoing blinking and her closing her eyes, all other cranial nerves are intact Speech: speech normal Psych affect normal Psych Narrative: Very pleasant, interacts appropriately Weight / BMI Weight Weight: 110.223 kg Body Mass Index (BMI) 40.4 ABG / Lab / Microbiology Data 05/25/23 07:36 05/25/23 07:36 Laboratory: Laboratory Results - last 24 hr 05/24/23 16:30: WBC 13.9 H, RBC 4.94, Hgb 15.2 H, Hct 45.4, MCV 91.9, MCH 30.8, MCHC 33.5, RDW Std Deviation 48.1 H, RDW Coeff of Marleny 14.3, Plt Count 257, MPV 10.3, Immature Gran % (Auto) 0.400, Neut % (Auto) 72.0 H, Lymph % (Auto) 18.3 L, [place] % (Auto) 8.1, Eos % (Auto) 0.6, Baso % (Auto) 0.6, Absolute Neuts (auto) 10.0 H, Absolute Lymphs (auto) 2.54, Nucleated RBC % 0, PT 14.7, INR 1.2, APTT 32.4, Sodium 138, Potassium 4.2, Chloride 107, Carbon Dioxide 23.0, Anion Gap 8, BUN 21 H, Creatinine 1.21 H, Estim Creat Clear Calc 52.75, Est GFR (MDRD) Af Amer 56 L, Est GFR (MDRD) Non-Af 47 L, BUN/Creatinine Ratio 17.4, Glucose 96, Calcium 9.4, Troponin I High Sens 5 05/24/23 16:37: POC Glucose 98 05/25/23 07:36: WBC 12.6 H, RBC 4.82, Hgb 14.7, Hct 44.1, MCV 91.5, MCH 30.5, MCHC 33.3, RDW Std Deviation 47.2 H, RDW Coeff of Marleny 14.1, Plt Count 242, MPV 10.3, Immature Gran % (Auto) 0.300, Neut % (Auto) 77.2 H, Lymph % (Auto) 13.5 L, [place] % (Auto) 7.4, Eos % (Auto) 1.0, Baso % (Auto) 0.6, Absolute Neuts (auto) 9.7 H, Absolute Lymphs (auto) 1.70, Nucleated RBC % 0, ESR 24, Sodium 139, Potassium 3.6, Chloride 109 H, Carbon Dioxide 24.0, Anion Gap 6, BUN 13, Creatinine 1.04 H, Estim Creat Clear Calc 61.32, Est GFR (MDRD) Af Amer 67, Est GFR (MDRD) Non-Af 55 L, BUN/Creatinine Ratio 12.5, Glucose 110 H, Hemoglobin A1c 5.6, Calcium 8.6, C-React Prot Ext Range 9.88 H, Triglycerides 108, Cholesterol 168, LDL Cholesterol 107, VLDL Cholesterol 22, HDL Cholesterol 39 L, TSH 3.16 Radiography Diagnostic Testing: Radiology Impression Head/Neck CTA 05/24/23 16:19 IMPRESSION: Negative CTA carotid and CTA brain. Electronically Signed: Amadou Alvarez MD at 17:56 EDT , Chest X-Ray 05/24/23 17:17 IMPRESSION: Opacity in the right upper lobe medially. If indicated further evaluation with CT scan of the chest may be beneficial. Electronically Signed: Amadou Alvarez MD at 17:47 EDT , Chest CT 05/24/23 17:52 IMPRESSION: No acute findings in the chest. No mass lesion is identified. Electronically Signed: Amadou Alvarez MD at 20:16 EDT , Brain MRI 05/25/23 06:00 IMPRESSION: No acute intracranial abnormality. Chronic microvascular changes. Electronically Signed: Wil Ledezma MD at 13:09 EDT Reading Location ID and State: [id number] Tel , Service support , D/C Instructions Discharge Diet: Low fat / Low cholesterol Discharge Activity: Return to Normal Activity and May Not Drive Meaningful Use Info Meaningful Use Diagnoses (Choose all that apply): None applicable Discharge Plan Admission Admit Date/Time: 05/25/23 13:23 Primary Reason for Your Visit: Left 3rd cranial nerve palsy Attending Provider: Nicole Monk Primary Care Provider: Cj Arciniega Consulting Providers: Nash Rodriguez; Bentley Zendejas; Mono Scott; Fely Gaitan; Christie Parker; Kami Koch; Duc Mcghee; Fadumo Tao; Bran Banks; Arnold Thompson; Abbey Carroll; Donald Villarreal; Lorena Lester; Clau Small; Rafia Sullivan; Mitch Wen; Akin Stein; Arvin Sargent; Shania Monk; Mehnaz Sims; Kirsten Lewis Discharge Orders/Prescriptions Prescriptions: Continued ascorbic acid (vitamin C) 1,000 mg tablet 1 g PO DAILY metoprolol tartrate 50 mg tablet 50 mg PO BID magnesium oxide 500 mg capsule 500 mg PO DAILY vitamin B complex [Vitamins B Complex] Capsule 1 cap PO DAILY sulfurzyme multigreens essentialzymes diltiazem HCl 120 mg capsule,extended release 24hr 120 mg PO QHS Eliquis 5 mg tablet 5 mg PO BID Qty: 180 4RF Hold Instructions: Nosebleed telmisartan 20 mg tablet 20 mg PO DAILY Qty: 90 3RF Referrals / Follow Up: Cj Arciniega MD [Primary Care Provider] - Within 2 Weeks Kirsten Lewis MD [Med Staff - Active Staff] - 05/27/23 8:30 am (Office is [facility] [address] Disposition Disposition (needs filled in before D/C Order can be placed): Home, Self Care Charges/Coding Visit Charges Inpatient E&M: 76304 Disch Hosp >30min
[2023-05-25 16:52] VITALS: BMI 40.4
--- NOTE | 2023-05-25 18:49 | NEURO.CONS ---
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 MRI with no acute stroke, CTA showed no aneurysm. Etiology is not clear Ddx included MG( however it usually does not effect the pupillary reflex), demyelinating process however MRI showed no new enhancing lesion or white matter patter consistent with MS. MRI showed no evidence of leptomeningeal enhancement,she had normal ESR and mildly elevated CRP, hba1c is 5.4 so diabetic 3rd never palsy is not likely, other DDx includes sarcoid and vasculitis. Plan: MG panel anti-acetylcholine?receptor?antibody( binding, modulating and blocking) anti musk ab, TSH JOVI, ANCA ophthalmology evaluation follow up with neurology and ophthalmology HPI Consult Data Date of Consult: 05/25/23 HPI Narrative HPI Narrative: EARL MOTLEY, is a 72 F who presents with 5 days history of 5 days history of ptosis and double vision. she denies vertigo, dysarthria, weakness, dysphagia or pain in her eye. CT chest with no lung mass, CTA with no aneursym [facility] Medical History (Updated 05/24/23 @ 20:37 by Azul Marroquin) Atrial fibrillation Bilateral lower extremity edema Cardiomyopathy Cellulitis of lower extremity Congestive heart failure Essential hypertension HTN (hypertension) Hypertension Kidney stone Long-term use of high-risk medication Longstanding persistent atrial fibrillation Obesity (BMI 30-39.9) Paroxysmal atrial fibrillation Ulcer of left lower extremity with fat layer exposed Ulcer of right lower extremity with fat layer exposed Valvular heart disease Home Medications ascorbic acid (vitamin C) 1,000 mg tablet 1 g PO DAILY vitamin 02/18/21 [History Last Taken 05/24/23] metoprolol tartrate 50 mg tablet 50 mg PO BID blood pressure 12/09/22 [History Last Taken 05/24/23] apixaban 5 mg tablet (Eliquis) 5 mg PO BID blood thinner #180 tabs 02/24/23 [Rx Last Taken 05/24/23] telmisartan 20 mg tablet 20 mg PO DAILY blood pressure #90 tabs 02/25/23 [Rx Last Taken 05/24/23] diltiazem HCl 120 mg capsule,extended release 24 hr 120 mg PO QHS heart rate 05/24/23 [History Last Taken 05/24/23] essentialzymes 05/24/23 [History Last Taken Unknown] magnesium oxide 500 mg capsule 500 mg PO DAILY supplement 05/24/23 [History Last Taken Unknown] multigreens 05/24/23 [History Last Taken Unknown] sulfurzyme 05/24/23 [History Last Taken Unknown] vitamin B complex (Vitamins B Complex capsule) 1 cap PO DAILY vitamin 05/24/23 [History Last Taken Unknown] Allergy/AdvReac Type Severity Reaction Status Date / Time lisinopril AdvReac Severe back ache Verified 05/24/23 16:00 Family History Father Cancer Lung,pancreatic Brother Atrial fibrillation Surgical History History of cardioversion History of hysterectomy History of lithotripsy History of tonsillectomy Social History Smoking Status: Never smoker alcohol intake: never substance use type: does not use Vital Signs Vital Signs Vital Signs: 05/24/23 18:56 05/24/23 20:54 05/24/23 20:32 Temperature 97.1 F L Temperature Source Temporal Pulse Rate 80 87 Pulse Strength Respiratory Rate 19 H 16 16 Respiratory Effort Respiratory Depth Respiratory Pattern Blood Pressure 140/120 H 180/106 H Blood Pressure Mean 128 130 Blood Pressure Source Monitor Blood Pressure Position Semi-Fowlers Blood Pressure Location Right Forearm Pulse Ox 97 96 Oxygen Delivery Method Room Air 05/24/23 22:23 05/24/23 22:00 05/25/23 02:30 Temperature 97.6 F L Temperature Source Oral Pulse Rate 87 78 Pulse Strength Normal (2+) Respiratory Rate 16 Respiratory Effort Respiratory Depth Respiratory Pattern Blood Pressure 180/106 H 153/98 H Blood Pressure Mean 116 Blood Pressure Source Monitor Blood Pressure Position Semi-Fowlers Blood Pressure Location Right Forearm Pulse Ox 94 Oxygen Delivery Method Room Air 05/25/23 08:50 05/25/23 08:55 05/25/23 08:50 Temperature 98 F Temperature Source Oral Pulse Rate 83 83 Pulse Strength Respiratory Rate 14 Respiratory Effort Normal Non-Labored Respiratory Depth Normal Respiratory Pattern Normal Blood Pressure 150/114 H 150/114 H Blood Pressure Mean 126 Blood Pressure Source Monitor Blood Pressure Position Semi-Fowlers Blood Pressure Location Left Arm Pulse Ox 94 Oxygen Delivery Method Room Air Room Air 05/25/23 15:23 Temperature 98.1 F Temperature Source Oral Pulse Rate 78 Pulse Strength Respiratory Rate 14 Respiratory Effort Respiratory Depth Respiratory Pattern Blood Pressure 145/97 H Blood Pressure Mean 113 Blood Pressure Source Monitor Blood Pressure Position Semi-Fowlers Blood Pressure Location Right Arm Pulse Ox 91 Oxygen Delivery Method Room Air Weight Weight: 110.223 kg Body Mass Index (BMI) 40.4 EEG Results Procedure Details EEG Procedure Details: EARL MOTLEY is a 72 year old F with a past medical history of , who presents for evaluation of Electroencephalogram on DATE at TIME Physical Exam Neuro Neuro Narrative: awake aelrt oriented x3 following commands hard to evaluate pupillary reflex through tele but reportedly decrease respond to light in the left left eye ptosis, limited adduction in the left with nystagmus, normal abduction, questionable FLEX face symmetric no focal weakness Lab / Micro Data 05/25/23 07:36 05/25/23 07:36 Labs: Laboratory Results - last 24 hr 05/25/23 07:36: WBC 12.6 H, RBC 4.82, Hgb 14.7, Hct 44.1, MCV 91.5, MCH 30.5, MCHC 33.3, RDW Std Deviation 47.2 H, RDW Coeff of Marleny 14.1, Plt Count 242, MPV 10.3, Immature Gran % (Auto) 0.300, Neut % (Auto) 77.2 H, Lymph % (Auto) 13.5 L, [place] % (Auto) 7.4, Eos % (Auto) 1.0, Baso % (Auto) 0.6, Absolute Neuts (auto) 9.7 H, Absolute Lymphs (auto) 1.70, Nucleated RBC % 0, ESR 24, Sodium 139, Potassium 3.6, Chloride 109 H, Carbon Dioxide 24.0, Anion Gap 6, BUN 13, Creatinine 1.04 H, Estim Creat Clear Calc 61.32, Est GFR (MDRD) Af Amer 67, Est GFR (MDRD) Non-Af 55 L, BUN/Creatinine Ratio 12.5, Glucose 110 H, Hemoglobin A1c 5.6, Calcium 8.6, C-React Prot Ext Range 9.88 H, Triglycerides 108, Cholesterol 168, LDL Cholesterol 107, VLDL Cholesterol 22, HDL Cholesterol 39 L, TSH 3.16 Rhythm Strip Rhythm Strip: A-fib Rate: 79 Ectopy: None Imaging Radiology Impression Chest CT 05/24/23 17:52 IMPRESSION: No acute findings in the chest. No mass lesion is identified. Electronically Signed: Amadou Alvarez MD at 20:16 EDT , Brain MRI 05/25/23 06:00 IMPRESSION: No acute intracranial abnormality. Chronic microvascular changes. Electronically Signed: Wil Ledezma MD at 13:09 EDT ,
== END 2023-05-25 18:41 | disposition home or self-care (01) ==
LOC: ED 18:24 → PCU 18:53
PROVIDERS: Admitting Provider Family Medicine; Emergency Provider Emergency Medicine; PCP Family Medicine; Visit Provider Internal Medicine
DX: H49.00 Third [oculomotor] nerve palsy, unspecified eye (principal); I13.0 Hypertensive heart and chronic kidney disease with heart failure and stage 1 through stage 4 chronic kidney disease, or unspecified chronic kidney disease; I27.20 Pulmonary hypertension, unspecified; I50.9 Heart failure, unspecified; I48.11 Longstanding persistent atrial fibrillation; I42.9 Cardiomyopathy, unspecified; E66.01 Morbid (severe) obesity due to excess calories; Z68.41 Body mass index [BMI] 40.0-44.9, adult; S09.90XD Unspecified injury of head, subsequent encounter; Z79.01 Long term (current) use of anticoagulants; H57.04 Mydriasis; N18.9 Chronic kidney disease, unspecified; R22.2 Localized swelling, mass and lump, trunk; Z79.899 Other long term (current) drug therapy; W19.XXXD Unspecified fall, subsequent encounter; H53.2 Diplopia
CPT/HCPCS: 36415; 70496; 70498; 70553; 71045; 71260; 80048; 80061; 82962; 83036; 84443; 84484; 85025; 85610; 85652; 85730; 86140; 93005; 96360; 99221; 99285; A9575; J7030; Q9967; A4216; G0378

== ENCOUNTER → 2023-06-17 | Outpatient (CLI) | payer MEDICARE, OTHER, SELFPAY ==
[2023-06-17 15:22] LABS: Absolute Lymphocyte Count 1.96 X10^3/uL (0.83-4.51); Absolute Neutrophil Count 9.5 X10^3/uL (2.0-7.7); Basophil# 0.06 X10^3/uL; Basophil% 0.5 % (0-1); Eosinophil# 0.08 X10^3/uL; Eosinophils% 0.6 % (0-5); Hematocrit 44.7 % (37-47); Lymphocyte # 1.96 X10^3/ul (0.83-4.51); Lymphocyte % 15.6 % (19-41); Mean Corp Hgb Conc 33.6 g/dL (32-36); Mean Corpuscular Hgb 31.1 pg (27.0-32.0); Mean Corpuscular Volume 92.7 fL (81-99); Mean Platelet Vol. 10.9 fl (6.2-12.0); Monocyte# 0.99 X10^3/uL; Monocyte% 7.9 % (0-10); NRBC Flagged by Analyzer 0 % (0-5); Neutrophil # 9.45 X10^3/uL (2.7-7.7); Platelet Count 232 K/mm3 (150-450); RBC Distribution Width CV 14.6 % (11.6-14.6); RBC Distribution Width SD 49.4 fl (35.1-43.9); Red Blood Count 4.82 M/mm3 (4.2-5.4); White Blood Count 12.6 K/mm3 (4.4-11.0)
[2023-06-17 15:52] LABS: Erythrocyte Sedimentation Rate 27 mm/hr (0-30)
[2023-06-17 16:00] LABS: ALB/GLOB Ratio 0.8 RATIO (0.9-2.4); AST(SGOT) 20 U/L (15-37); Alanine Aminotransfer ALT/SGPT 33 U/L (13-56); Albumin, Serum 3.6 g/dL (3.2-5.0); Alkaline Phosphatase 98 U/L (45-117); Anion Gap 7 (5-15); BUN 21 mg/dL (7-18); BUN/Creat Ratio 21.1 RATIO (10-20); Calcium,Total 9.4 mg/dL (8.5-10.1); Chloride 108 mmol/L (98-107); EST Glomerular Filtration Rate 58 mL/min (>60); Est Glom Filt Rate - Afr Amer 71 mL/min (>60); Globulin 4.4 g/dL (2.2-4.2); Glucose 101 mg/dL (74-106); Potassium 3.9 mmol/L (3.5-5.1); Sodium Level 138 mmol/L (136-145); Thyroid Stim Hormone (TSH) 2.06 uIU/mL (0.358-3.74)
[2023-06-17 16:15] LABS: Syphilis Antibodies Non-reactive
[2023-06-17 17:16] LABS: BNP,B-Type NATRIURETIC PEPTIDE 242.7 pg/mL (0-100)
[2023-06-17 18:24] LABS: PTHIN 55.3 pg/mL (18.4-80.1)
[2023-06-20 10:07] LABS: Anti-Centromere B Ab <0.2 AI (0.0-0.9); Anti-Chromatin <0.2 AI (0.0-0.9); Anti-Jo <0.2 AI (0.0-0.9); Anti-Scleroderma-70 AB <0.2 AI (0.0-0.9); Anti-dsDNA Ab 1 IU/mL (0-9); RNP Ab <0.2 AI (0.0-0.9); SJOGREN'S Anti-SS-A test < 0.2 AI (0.0-0.9); SJOGREN'S Anti-SS-B test < 0.2 AI (0.0-0.9); Smith Ab <0.2 AI (0.0-0.9)
[2023-06-20 13:07] LABS: Lyme Scn Total Ab w/Rflx Negative (Negative); PROEL- A/G Ratio 1.1 (0.7-1.7); PROEL- Albumin 3.8 g/dL (2.9-4.4); PROEL- Alpha-1 Globulin 0.3 g/dL (0.0-0.4); PROEL- Alpha-2 Globulin 0.7 g/dL (0.4-1.0); PROEL- Gamma Globulin 1.7 g/dL (0.4-1.8); PROEL- Globulin, Total 3.6 g/dL (2.2-3.9); PROEL- TOTAL PROTEIN 7.4 g/dL (6.0-8.5); PROEL-M-Spike Not Observed g/dL (Not Observed)
== END | disposition home or self-care (01) ==
LOC: MTLAB 11:18
PROVIDERS: PCP Family Medicine; Referring Provider Family Medicine; Visit Provider Family Medicine
DX: I12.9 Hypertensive chronic kidney disease with stage 1 through stage 4 chronic kidney disease, or unspecified chronic kidney disease (principal); I42.9 Cardiomyopathy, unspecified; N18.30 Chronic kidney disease, stage 3 unspecified; H02.402 Unspecified ptosis of left eyelid; R44.3 Hallucinations, unspecified
CPT/HCPCS: 80053; 82043; 82140; 82570; 83880; 83970; 84165; 84443; 85025; 85652; 86140; 86141; 86225; 86235; 86618; 86780

== ENCOUNTER → 2023-07-04 | Outpatient (CLI) | payer MEDICARE, OTHER, SELFPAY ==
--- NOTE | 2023-07-04 16:22 | MRI_ITS ---
STUDY: MRI BRAIN WITH AND WITHOUT CONTRAST REASON FOR EXAM: Female, 72 years old. L ptosis, possible CVA (initial imaging negative) TECHNIQUE: Standardized multiplanar fat and water weighted pulse sequences were obtained. IV 20CC CLARISCAN was administered for the contrast portion of the examination. COMPARISON: 05/25/2023 FINDINGS: There is moderate cerebral atrophy with widening of the extra-axial spaces and ventricular dilatation. There are multiple white matter hyperintensities, distributed throughout the deep white matter tracts of the cerebral hemispheres, consistent with moderate chronic white matter ischemic changes. There is no evidence for recent intracranial ischemia or other cause of cytotoxic edema on diffusion weighted imaging (DWI). Normal T2* images of the brain without demonstrated susceptibility artifact. There is no demonstrated hemosiderin stain. Normal bilateral basal ganglia. Normal thalami. There is no extra-axial fluid accumulation. Normal flow voids within the major intracranial circulation suggesting patency by spin echo criteria. Normal venous enhancement. There is no enhancing intra-axial or extra-axial abnormality. Normal sella turcica, pituitary gland, infundibular stalk, optic chiasm and hypothalamus. Normal tectal plate and pineal gland. Normal midbrain, donny and medulla. Normal cerebellum. Normal basal cisterns. Normal bilateral temporal bones. Normal bilateral internal auditory canals. No demonstrated orbital abnormality, within the constraints of a routine brain study. Normal visualized paranasal sinuses. Normal calvarium and skull base. Normal visualized soft tissue structures. Normal visualized upper cervical spine. MRI/Brain W/WO Contrast IMPRESSION: Involutional changes of the brain, as described above. No acute infarct. Electronically Signed: Daryl Ruelas MD at 23:36 EDT ,
== END | disposition home or self-care (01) ==
LOC: MRI 16:11
PROVIDERS: PCP Family Medicine; Referring Provider Family Medicine; Visit Provider Family Medicine
DX: H02.402 Unspecified ptosis of left eyelid (principal)
CPT/HCPCS: 70553; A9575

== ENCOUNTER → 2024-10-11 | Outpatient (CLI) | payer MEDICARE, OTHER, SELFPAY ==
--- NOTE | 2024-10-11 11:07 | ECHOD_ITS ---
Reason For Study Reason For Study: AFIB Procedure This was a 2D Doppler, Color Flow transthoracic echocardiogram. Exam performed in department. Left Ventricle Normal LV size. Mild concentric left ventricular hypertrophy. The left ventricular ejection fraction is 25 %. There is moderate to severe global hypokinesis of the left ventricle. Right Ventricle Normal RV size. Mild to moderate global right ventricular systolic dysfunction. Atria The left atrium is severely enlarged. The right atrium is severely enlarged. Mitral Valve Normal mitral valve. Mild-Moderate (1-2+) eccentric mitral valve insufficiency. Tricuspid Valve Normal tricuspid valve. Moderately severe (3+) tricuspid valve insufficiency. Aortic Valve Normal aortic valve. Mild (1+) aortic valve insufficiency. Pulmonic Valve Normal pulmonic valve. Great Vessels Normal aortic root. The pulmonary artery is normal size. Normal inferior vena cava. Pericardium/Pleural No pericardial effusion. MMode/2D Measurements & Calculations LVIDd: 4.3 cm IVSd: 1.3 cm CO(Teich): 2.3 l/min LVIDs: 3.7 cm LVPWd: 1.4 cm FS: 13.3 % Ao root diam: 3.2 cm LAV(MOD-bp): 123.1 ml LVAd ap4: 21.9 cm2 LAV(MOD-bp) Indexed: 56.5 ml/m2 LVLd ap4: 6.7 cm LAV(MOD-sp2): 114.5 ml EDV(MOD-sp4): 61.2 ml LAV(MOD-sp4): 132.6 ml EDV(sp4-el): 61.0 ml LVAs ap4: 18.7 cm2 LVLs ap4: 6.3 cm ESV(MOD-sp4): 47.6 ml ESV(sp4-el): 46.6 ml EF(MOD-sp4): 22.2 % EF(sp4-el): 23.5 % CO(MOD-sp4): 1.3 l/min SV(sp4-el): 14.4 ml LA A4 area: 35.2 cm2 SV(MOD-sp4): 13.6 ml SI(MOD-sp4): 6.2 ml/m2 LA dimension(2D): 4.9 cm RA A4 area: 31.6 cm2 Doppler Measurements & Calculations MV E max aniyah: 117.2 cm/sec Ao V2 max: 99.8 cm/sec LV V1 max: 82.6 cm/sec Ao max P.0 mmHg LV V1 max P.7 mmHg Ao V2 mean: 73.6 cm/sec LV V1 mean P.8 mmHg Ao mean P.4 mmHg LV V1 mean: 63.8 cm/sec Ao V2 VTI: 18.7 cm LV V1 VTI: 12.8 cm AV (velocity ratio): 0.68 TR max aniyah: 304.5 cm/sec TR max P.1 mmHg ECHO/Echo Complete Interpretation Summary The left ventricular ejection fraction is 25 %. Normal LV size. There is moderate to severe global hypokinesis of the left ventricle. Mild to moderate global right ventricular systolic dysfunction. The left atrium is severely enlarged. The right atrium is severely enlarged. Mild concentric left ventricular hypertrophy. Ordering Physician: Chuy Rosario Referring Physician: Chuy Rosario Performed By: Lisseth Mcfarland RCS
== END | disposition home or self-care (01) ==
LOC: CVS 11:05
PROVIDERS: PCP Family Medicine; Referring Provider Internal Medicine Cardiovascular Disease; Visit Provider Internal Medicine Cardiovascular Disease
DX: I10 Essential (primary) hypertension (principal); I42.8 Other cardiomyopathies
CPT/HCPCS: 93306

== ENCOUNTER → 2024-12-11 | Outpatient (CLI) | payer MEDICARE, OTHER, SELFPAY | END | disposition home or self-care (01) | LOC: LABSPEC 14:07 | PROVIDERS: PCP Family Medicine | DX: R39.9 Unspecified symptoms and signs involving the genitourinary system (principal) | CPT/HCPCS: 87086; 87088 ==